=== PATIENT | female | born 1960 | race Caucasian/White ===

== ENCOUNTER 2020-08-27 05:58 | Emergency (ER) | payer BC, SELFPAY ==
--- NOTE | ~2020-08-27 | XR_ITS ---
EXAMINATION: CHEST 1 VIEW CLINICAL INFORMATION: Shortness of breath. COMPARISON: 07/26/2016. TECHNIQUE: An AP view of the chest is provided. FINDINGS: The cardiac silhouette is not enlarged. The mediastinal and hilar contours are unremarkable. There are neither pleural effusions nor pneumothoraces. There are no consolidations. The osseous structures are unremarkable. XR/XR chest 1V IMPRESSION: No evidence for acute disease.
[2020-08-27 06:19] VITALS: BP 132/84; PULSE 107; RESP 20; TEMP 36.6; O2SAT 96; BMI 46.7
--- NOTE | 2020-08-27 06:25 | ECG_ITS ---
Test Reason : SOB Blood Pressure : / mmHG Vent. Rate : 093 BPM Atrial Rate : 093 BPM P-R Int : 144 ms QRS Dur : 082 ms QT Int : 366 ms P-R-T Axes : 021 000 003 degrees QTc Int : 455 ms Normal sinus rhythm Nonspecific ST and T wave abnormality Borderline ECG No significant changes when compared with the previous EKG of 26 jul 2016 Referred By: Isabel Hale Electronically Signed By:RAISSA HILL
--- NOTE | 2020-08-27 06:52 | ED_ITS ---
HPI - General Adult General Chief complaint: General Medical Stated complaint: Sob Time Seen by Provider: 08/27/20 06:25 Source: patient Mode of arrival: ambulatory Limitations: no limitations History of Present Illness HPI narrative: This is a 59-year-old female who walked into the emergency department for evaluation of chest pressure with shortness of breath. 59-year-old female came in for chest pressure and shortness of breath started at 04:00 while she was sleeping and woke her up from sleep, patient describes the pain as a pressure on the whole entire chest, associated with cannot take a deep breath patient walked around then and relieved the pain, patient went to the bathroom had a runny bowel movement then the symptoms improved. With no radiation to the chest pressure, the chest pressure has resolved now, when patient walked around the pressure and the shortness of breath improved. Patient had atypical chest pain 3 years ago that was evaluated by swamper patient had an echocardiogram which was unremarkable patient remained asymptomatic for the last 3 years, patient admitted to stress in her life now because she is selling her house. Patient declined lower extremities pain or swelling, no recent travel. Related Data Home Medications Medication Instructions Recorded Confirmed atorvastatin 1 tab PO DAILY 08/27/20 08/27/20 citalopram 1 tab PO DAILY 08/27/20 08/27/20 Allergies Allergy/AdvReac Type Severity Reaction Status Date / Time meperidine [From DEMEROL] Allergy Unknown UNKNOWN Verified 08/27/20 06:30 Benadryl Allergy Unknown Unknown Uncoded 08/27/20 06:30 Review of Systems Review of Systems: All other systems are reviewed and are negative Constitutional: Reports as per HPI and Reports no additional constitutional complaints Eyes: Reports as per HPI and Reports no additional eye complaints Reports system reviewed and no additional complaints, except as documented Cardiovascular: Reports as per HPI and Reports no additional cardiovascular complaints Respiratory: Reports as per HPI and Reports no additional respiratory complaints Gastrointestinal: Reports as per HPI and Reports no additional gastrointestinal complaints Genitourinary: Reports no additional female genitourinary complaints Musculoskeletal: Reports no additional musculoskeletal complaints Skin/Breast: Reports system reviewed and no additional complaints, except as docu Psychiatric: Reports no additional psychiatric complaints Endocrine: Reports no additional endocrine complaints Hematologic/Lymphatic: Reports no additional hematologic/lymphatic complaints Allergic/Immunologic: Reports no additional allergic/immunologic complaints Reports system reviewed and no additional complaints, except as documented and Reports Abnormal speech present [facility] Past Medical History Medical History Asthma delivery delivered High cholesterol Obesity Surgical History H/O foot surgery H/O tubal ligation Social History Social History Advance Directives: No Physical Exam Vital Signs: Vital Signs: Last Vital Signs Temp 97.9 F 08/27/20 06:19 Pulse 71 08/27/20 10:00 Resp 12 08/27/20 10:00 BP 114/73 08/27/20 10:00 Pulse Ox 96 08/27/20 06:19 Body Mass Index 46.7 Vital signs have been reviewed as appeared to be correct. Blood pressure in the high range. Heart rate is elevated. Respiration rate normal. Temperature normal. Oxygen saturation normal. Appearance: Alert. Oriented X3. No acute distress. Appear anxious Head: Normal external exam. Normocephalic. Atraumatic. No Santana signs noted. No raccoon eyes noted Eyes: PERRLA. EOMI. Conjunctiva and sclera normal. Eyelids normal. ENT: TM's Normal. Pharynx normal. Uvula midline. Moist mucous membranes. No trismus noted. No drooling noted. No muffled voice noted. Neck: Normal inspection. Neck supple. FROM. No adenopathy. Thyroid Normal. No meningeal signs. No neck mass noted. CVS: Normal heart rate and rhythm. Heart sound normal. No murmurs noted. Pulses normal throughout. Respiratory: No respiratory distress. Painless inspiration. Breath sounds normal. No wheezes/rales/rhonchi noted. Chest nontender. No accessory muscle usage noted or decreased air movement noted. Abdomen: Soft and nontender. Bowel sounds normal in all 4 quadrants. No distention noted. No organomegaly noted. No visible injury noted. Back: No CVA tenderness. Full range of motion noted. Skin: Skin warm and dry. Normal skin color. Normal skin turgor. No rashes/lesions/lacerations noted. Extremities: No lower extremity edema. Extremities exhibit normal range of motion. Extremities nontender. Neuro: Oriented X 3. No motor deficit. No sensory deficit. Reflexes normal. Course Course Course Narrative: Assessment and plan. 59-year-old female came in with chest pain and difficulty breathing, patient had unremarkable EKG, with 2-troponin with 3 hours apart, patient also had a nega tive D-dimer, HEART score is 1, patient was observed in the emergency department for 5 hours patient has remained chest pain-free and no symptoms. Symptoms could be related to patient's anxiety. Will discharge the patient to follow-up with PCP. Medical Decision Making Lab Data Lab results reviewed: Yes I reviewed the patient's lab results. Result diagrams: 08/27/20 07:46 08/27/20 07:46 Labs: Lab Results 08/27/20 08/27/20 08/27/20 Range/Units 07:46 07:46 07:46 WBC 8.2 (4.8-10.8) X10*3/uL RBC 4.23 (4.20-5.50) X10*6/uL Hgb 12.1 (12.0-16.0) g/dl Hct 38.3 (37-47) % MCV 90.5 (80-98) fL MCH 28.6 (27.0-33.0) pg MCHC 31.6 (31.0-35.0) g/dl RDW 13.8 (11.0-16.0) % Plt Count 235 (160-400) X10*3/uL MPV 11.1 (9.4-12.3) fL Immature Gran % (Auto) 0.4 (0.0-0.4) % Neut % (Auto) 72.4 (45-73) % Lymph % (Auto) 18.0 L (20-40) % [place] % (Auto) 7.6 (2-11) % Eos % (Auto) 1.2 (0-4) % Baso % (Auto) 0.4 (0-2) % Lymph # (Auto) 1.5 (1.2-4.9) X10*3/uL [place] # (Auto) 0.6 (0.1-1.2) X10*3/uL Eos # (Auto) 0.1 (0.0-0.4) X10*3/uL Baso # (Auto) 0.0 (0.0-0.2) X10*3/uL Abs Immat Gran (auto) 0.03 (0.00-0.03) X10*3/uL Absolute Neuts (auto) 6.0 (2.0-8.3) X10*3/uL Absolute Nucleated RBC 0.000 (0.0-0.012) X10*3/uL Nucleated RBC % (auto) 0.0 (0.0-0.2) /100WBC D-Dimer NG/ML Sodium 141 (135-145) mmol/L Potassium 4.5 (3.3-5.1) mmol/L Chloride 104 (96-108) mmol/L Carbon Dioxide 25 (22-29) mmol/L Anion Gap 17 (12-20) BUN 15 (9-16) mg/dL Creatinine 0.74 (0.5-1.4) mg/dL Estim Creat Clear Calc 113.9 Estimated GFR > 60 Random Glucose 159 H (60-115) mg/dL Calcium 8.9 (8.4-10.2) mg/dL Total Bilirubin 0.3 (0.0-1.0) mg/dL Direct Bilirubin < 0.2 (0.0-0.5) mg/dL AST 17 (5-31) U/L ALT 15 (0-31) U/L Alkaline Phosphatase 116 (39-117) U/L Troponin I High Sens < 3.5 (<3.5-17.0) ng/L B-Natriuretic Peptide < 10 (<100) pg/mL Total Protein 6.8 (6.5-8.0) g/dL Albumin 4.0 (3.5-5.0) g/dL Lipase (8-78) U/L Urine Color Urine Appearance Urine pH (5.0-8.0) Ur Specific [place] (1.005-1.025) Urine Protein (NEG-TRACE) MG/DL Urine Glucose (UA) (NEG) MG/DL Urine Ketones (NEG) MG/DL Urine Blood (NEG) Urine Nitrite (NEG) Ur Leukocyte Esterase (NEG) 08/27/20 08/27/20 08/27/20 Range/Units 07:46 08:46 09:21 WBC (4.8-10.8) X10*3/uL RBC (4.20-5.50) X10*6/uL Hgb (12.0-16.0) g/dl Hct (37-47) % MCV (80-98) fL MCH (27.0-33.0) pg MCHC (31.0-35.0) g/dl RDW (11.0-16.0) % Plt Count (160-400) X10*3/uL MPV (9.4-12.3) fL Immature Gran % (Auto) (0.0-0.4) % Neut % (Auto) (45-73) % Lymph % (Auto) (20-40) % [place] % (Auto) (2-11) % Eos % (Auto) (0-4) % Baso % (Auto) (0-2) % Lymph # (Auto) (1.2-4.9) X10*3/uL [place] # (Auto) (0.1-1.2) X10*3/uL Eos # (Auto) (0.0-0.4) X10*3/uL Baso # (Auto) (0.0-0.2) X10*3/uL Abs Immat Gran (auto) (0.00-0.03) X10*3/uL Absolute Neuts (auto) (2.0-8.3) X10*3/uL Absolute Nucleated RBC (0.0-0.012) X10*3/uL Nucleated RBC % (auto) (0.0-0.2) /100WBC D-Dimer < 200 NG/ML Sodium (135-145) mmol/L Potassium (3.3-5.1) mmol/L Chloride (96-108) mmol/L Carbon Dioxide (22-29) mmol/L Anion Gap (12-20) BUN (9-16) mg/dL Creatinine (0.5-1.4) mg/dL Estim Creat Clear Calc Estimated GFR Random Glucose (60-115) mg/dL Calcium (8.4-10.2) mg/dL Total Bilirubin (0.0-1.0) mg/dL Direct Bilirubin (0.0-0.5) mg/dL AST (5-31) U/L ALT (0-31) U/L Alkaline Phosphatase (39-117) U/L Troponin I High Sens (<3.5-17.0) ng/L B-Natriuretic Peptide (<100) pg/mL Total Protein (6.5-8.0) g/dL Albumin (3.5-5.0) g/dL Lipase 17 (8-78) U/L Urine Color YELLOW Urine Appearance CLEAR Urine pH 8.5 H (5.0-8.0) Ur Specific [place] 1.015 (1.005-1.025) Urine Protein NEG (NEG-TRACE) MG/DL Urine Glucose (UA) NEG (NEG) MG/DL Urine Ketones NEG (NEG) MG/DL Urine Blood NEG (NEG) Urine Nitrite NEG (NEG) Ur Leukocyte Esterase NEG (NEG) Imaging Data Chest x-ray: Radiologist's impression: No evidence for acute disease. ECG Data Interpretation: Normal sinus rhythm at 93 beats per minutes, normal intervals, no ST-T changes. Discharge Plan Discharge Clinical Impression: Chest pain Patient Disposition: Home, Self-Care Instructions: Chest Pain (ED) Prescriptions: No Action atorvastatin 40 mg tablet 1 tab PO DAILY RF: 0 citalopram 20 mg tablet 1 tab PO DAILY RF: 0 Referrals: Yamil Bills MD [Physician] - 2 days
[2020-08-27 07:50] LABS: MANUAL DIFF FLAG NO
--- NOTE | 2020-08-27 07:50 | PC.NURSE ---
Pt alert, oriented x 3. States she is not experiencing as much SOB as earlier today. Pt does not want to be tested for COVID while in ER today. MD aware, states it is ok not to test.
[2020-08-27 08:00] LABS: Basophils Percent Auto 0.4 % (0-2); Eosinophils Absolute Auto 0.1 X10*3/uL (0.0-0.4); Eosinophils Percent Auto 1.2 % (0-4); Hematocrit 38.3 % (37-47); Hemoglobin 12.1 g/dl (12.0-16.0); Imm Gran Abs Auto 0.03 X10*3/uL (0.00-0.03); Imm Gran Pct Auto 0.4 % (0.0-0.4); Lymphocytes Absolute Auto 1.5 X10*3/uL (1.2-4.9); Mean Corpuscular HGB Conc 31.6 g/dl (31.0-35.0); Mean Corpuscular Hemoglobin 28.6 pg (27.0-33.0); Mean Corpuscular Volume 90.5 fL (80-98); Mean Platelet Volume 11.1 fL (9.4-12.3); Monocytes Absolute Auto 0.6 X10*3/uL (0.1-1.2); Monocytes Percent Auto 7.6 % (2-11); Neutrophils Percent Auto 72.4 % (45-73); Platelet Count 235 X10*3/uL (160-400); Red Blood Count 4.23 X10*6/uL (4.20-5.50); Red Cell Distribution Width 13.8 % (11.0-16.0); White Blood Count 8.2 X10*3/uL (4.8-10.8)
[2020-08-27 08:13] LABS: Alanine Aminotransferase 15 U/L (0-31); Alkaline Phosphatase 116 U/L (39-117); Anion Gap 17 (12-20); Aspartate Amino Transferase 17 U/L (5-31); Bilirubin Direct < 0.2 mg/dL (0.0-0.5); Bilirubin Total 0.3 mg/dL (0.0-1.0); Blood Urea Nitrogen 15 mg/dL (9-16); Calcium 8.9 mg/dL (8.4-10.2); Carbon Dioxide 25 mmol/L (22-29); Chloride 104 mmol/L (96-108); Creatinine Clr Calc Pharmacy 113.9; Estimated Glomerular Filt Rate > 60; Glucose Random 159 mg/dL (60-115); Lipase 17 U/L (8-78); Potassium 4.5 mmol/L (3.3-5.1); Sodium 141 mmol/L (135-145); Total Protein 6.8 g/dL (6.5-8.0)
[2020-08-27 08:16] LABS: B Type Natriuretic Peptide < 10 pg/mL (<100); Troponin-I High Sensitivity < 3.5 ng/L (<3.5-17.0)
[2020-08-27 08:59] LABS: Glucose Urine UA NEG (NEG); Leukocyte Esterase Urine NEG (NEG); Nitrite Urine NEG (NEG); PH 8.5 (5.0-8.0); Specific Gravity - Urine 1.015 (1.005-1.025); Urine Blood NEG (NEG); Urine Ketones NEG (NEG); Urine Protein NEG (NEG-TRACE)
[2020-08-27 09:01] LABS: Appearance Urine CLEAR; Color Urine YELLOW
[2020-08-27 09:43] LABS: D Dimer < 200 NG/ML
[2020-08-27 10:00] VITALS: BP 114/73; PULSE 71; RESP 12
[2020-08-27 11:58] LABS: Troponin-I High Sensitivity < 3.5 ng/L (<3.5-17.0)
== END 2020-08-27 12:14 | disposition home or self-care (01) ==
PROVIDERS: Student in an Organized Health Care Education/Training Program; Emergency Provider Emergency Medicine; PCP Hospitalist
DX: R07.9 Chest pain, unspecified (principal); J45.909 Unspecified asthma, uncomplicated; E78.5 Hyperlipidemia, unspecified; Z79.02 Long term (current) use of antithrombotics/antiplatelets
CPT/HCPCS: 36415; 71045; 80053; 80076; 81003; 82248; 83690; 83880; 84484; 85025; 85379; 93005; 99283; 99284

== ENCOUNTER 2024-05-02 10:40 | Emergency (ER) | payer MEDICARE, SELFPAY ==
--- NOTE | ~2024-05-02 | XR_ITS ---
EXAMINATION: XR CHEST CLINICAL INFORMATION: cp COMPARISON: Chest radiograph 08/27/2020 TECHNIQUE: Frontal view of the chest was obtained. FINDINGS: No focal consolidation. No pneumothorax. Trachea is midline. Cardiomediastinal silhouette is stable. No large pleural effusion. Osseous structures are intact. Soft tissues are unremarkable. XR/XR chest 1V IMPRESSION: No acute cardiopulmonary process. Electronically signed by: Tra Dubose MD 05/02/2024 12:36 PM A[facility]ON
--- NOTE | 2024-05-02 10:41 | ECG_ITS ---
Test Reason : CP Blood Pressure : / mmHG Vent. Rate : 078 BPM Atrial Rate : 078 BPM P-R Int : 156 ms QRS Dur : 088 ms QT Int : 398 ms P-R-T Axes : 003 -04 008 degrees QTc Int : 453 ms Normal sinus rhythm Nonspecific T wave abnormality Abnormal ECG When compared with ECG of 27-AUG-2020 07:18, Nonspecific T wave abnormality, worse in Anterior leads Referred By: Generic ED Physician Electronically Signed By:RAISSA HILL
[2024-05-02 11:04] VITALS: BP 110/57; PULSE 71; RESP 18; TEMP 36.6; O2SAT 97; BMI 49.9
[2024-05-02 11:22] LABS: MANUAL DIFF FLAG NO
[2024-05-02 11:23] LABS: Basophils Absolute Auto 0.1 X10*3/uL (0.0-0.2); Basophils Percent Auto 0.6 % (0-2); Eosinophils Absolute Auto 0.2 X10*3/uL (0.0-0.4); Eosinophils Percent Auto 1.8 % (0-4); Hematocrit 34.8 % (37.0-47.0); Hemoglobin 11.2 g/dl (12.0-16.0); Imm Gran Abs Auto 0.03 X10*3/uL (0.00-0.03); Imm Gran Pct Auto 0.3 % (0.0-0.4); Lymphocytes Absolute Auto 1.7 X10*3/uL (1.2-4.9); Lymphocytes Percent Auto 19.6 % (20-40); Mean Corpuscular HGB Conc 32.2 g/dl (31.0-35.0); Mean Corpuscular Hemoglobin 28.3 pg (27.0-33.0); Mean Corpuscular Volume 87.9 fL (80.0-98.0); Mean Platelet Volume 10.6 fL (9.4-12.3); Monocytes Absolute Auto 0.6 X10*3/uL (0.1-1.2); Monocytes Percent Auto 6.8 % (2-11); Neutrophils Absolute Auto 6.2 x10*3/uL (2.0-8.3); Neutrophils Percent Auto 70.9 % (45-73); Platelet Count 248 X10*3/uL (160-400); Red Blood Count 3.96 X10*6/uL (4.20-5.50); Red Cell Distribution Width 14.5 % (11.0-16.0); White Blood Count 8.8 X10*3/uL (4.8-10.8)
--- OUTSIDE RECORDS SUMMARY | 2024-05-02 11:23 | XMS_ITS | Continuity of Care Document ---
Author Organization [facility] Shine Singh Paulino lt Address [address] [place] [address]- Care Team Providers Care Motor Vehicle Salesperson Name Role Phone Bill RODRIGUEZ, Andrade Green Primary Care Physician Encounter [facility] [place] Date(s): 03/08/24 - 04/07/24 [facility] Shine Singh Adult [address] [place] [address]- Allergies, Adverse Reactions, Alerts Substance Reaction Severity Status CeleBREX Pain with burning in chest and arms and l ightheaded Active Demerol Vomiting Swelling Active Immunizations Given and Recorded Vaccine Date Status Refusal Reason influenza virus vaccine, inactivated 03/23/24 Marty rded influenza virus vaccine, inactivated 03/21/22 Give n influenza virus vaccine, inactivated 03/25/21 Marty rded influenza virus vaccine, inactivated 03/02/20 Marty rded influenza virus vaccine, inactivated 03/11/19 Marty rded influenza virus vaccine, inactivated 05/15/18 Marty rded zoster vaccine, inactivated 03/23/24 Recorded tetanus-diphtheria toxoids (Td) 1 12/16/21 Given pneumococcal 20-valent conjugate vaccine 2 12/16/21 Given SARS-CoV-2 (COVID-19) mRNA BNT-162b2 vac 03/25/21 Recorded SARS-CoV-2 (COVID-19) mRNA BNT-162b2 vac 03/08/21 Recorded SARS-CoV-2 (COVID-19) mRNA BNT-162b2 vac 08/29/20 Recorded SARS-CoV-2 (COVID-19) mRNA BNT-162b2 vac 08/08/20 Recorded tetanus/diphtheria/pertussis, acel(Tdap) 03/18/10 Recorded 1Result Comment: [id number] 2Result Comment: [id number] Medications Albuterol (Eqv-ProAir HFA) 90 mcg/inh inhalation aerosol 2 puffs, Inhalation, Every 6 hours, PRN Wheezing/Shortness of Breath, # 8.5 Gm, 5 Refills, Maintenance, 02/13/24 15:16:00 EDT, Inhaler, [facility]/pharmacy #[id number], Partial fill upon patient request if the prescription is for a schedule II opioid drug., 2 puff... Start Date: 02/13/24 Status: Ordered atorvastatin 80 mg oral tablet 1 tablet = 80 mg, By Mouth, Daily, # 90 tablet, 3 Refills, Maintenance, 03/22/24 13:33:00 EDT, Tablet, [id number], Partial fill upon patient request if the prescription is for a schedule II opioid drug., 165, cm, 02/29/24 11:03:00 EDT, Height,... Start Date: 03/22/24 Status: Ordered citalopram 20 mg oral tablet 1 tablet, By Mouth, Daily, # 90 tablet, 1 Refills, Maintenance, 01/09/24 11:30:00 EDT, [id number], 164.1, cm, 12/11/23 13:49:00 EDT, Height, 121.2, kg, 01/30/23 12:56:00 EDT, Dry Weight Start Date: 01/09/24 Status: Ordered clopidogrel 75 mg oral tablet 75 mg, 1, tablet, By Mouth, Daily, # 30 tablet, Refills 5, Tot. Refills 5, Maintenance, 03/01/24 14:22:00 EDT, Route to Pharmacy Electronically, [facility]/pharmacy #[id number], Partial fill upon patient request if the prescription is for a schedule II opioid drug... Start Date: 03/01/24 Status: Ordered Eliquis 5 mg oral tablet 1 tablet = 5 mg, By Mouth, 2 times a day, # 60 tablet, 5 Refills, Maintenance, 01/29/24 2:31:00 EDT, Tablet, Partial fill upon patient request if the prescription is for a schedule II opioid drug. Start Date: 01/29/24 Status: Ordered levothyroxine 0.05 mg oral tablet 1 tablet, By Mouth, Daily, # 90 tablet, 1 Refills, Maintenance, 01/12/24 12:08:00 EDT, [id number], 164.1, cm, 12/11/23 13:49:00 EDT, Height, 121.2, kg, 01/30/23 12:56:00 EDT, Dry Weight Start Date: 01/12/24 Status: Ordered metoprolol 25 mg oral tablet 12.5 mg, 0.5, tablet, By Mouth, Every 6 hours, PRN, # 180 tablet, Refills 0, Maintenance, tachycardia, 02/13/24 14:54:00 EDT, Partial fill upon patient request if the prescription is for a schedule II opioid drug. Start Date: 02/13/24 Status: Ordered metoprolol 50 mg oral tablet, extended release 50 mg, 1, tablet, By Mouth, Daily, # 30 tablet, Refills 0, Tot. Refills 0, Maintenance, 02/29/24 11:06:00 EDT, Route to Pharmacy Electronically, [facility]/pharmacy #[id number], Partial fill upon patient request if the prescription is for a schedule II opioid drug... Start Date: 02/29/24 Status: Ordered nitroglycerin 0.4 mg sublingual tablet 1 tablet = 0.4 mg, Sublingual, Every 5 minutes, PRN as needed for chest pain, not to exceed 3 doses/15 min--if pain persists, seek medical attention, # 30 tablet, 11 Refills, Maintenance, 02/24/24 6:27:00 EDT, Tablet, [facility]/pharmacy #[id number], Partial fill... Start Date: 02/24/24 Status: Ordered omeprazole 40 mg oral enteric coated capsule 1 capsule = 40 mg, By Mouth, Daily, # 90 capsule, 3 Refills, Maintenance, 12/28/21 6:48:00 EDT, EC Capsule, [facility], Partial fill upon patient request if the prescription is fora schedule II opioid drug., 165.1, cm, 12/24/21 7:4... Start Date: 12/28/21 Status: Ordered Ozempic 2 mg/1.5 mL (0.25 mg or 0.5 mg dose) subcutaneous solution = 0.25 mg, Subcutaneous Injection, Every week, rotate injection sites; for treatment of T2DM E11.9,# 2 mL, 5 Refills, Maintenance, 08/15/23 10:50:00 EDT, Solution, [id number], Partial fill upon patient request if the prescription is for a apoorva... Start Date: 08/15/23 Status: Ordered ranolazine 500 mg oral tablet, extended release 1 tablet = 500 mg, By Mouth, 2 times a day, # 60 tablet, 5 Refills, Maintenance, 03/08/24 17:52:00 EDT, ER Tablet, [id number], Partial fill upon patient request if the prescription is for a schedule II opioid drug., 165, cm, 02/29/24 11:03:00... Start Date: 03/08/24 Status: Ordered Problem List Condition Confirmation Course Effective Dates Status H ealth Status Informant Asthma Confirmed Active Morbid obesity with BMI of 40.0-44.9, adult Confirmed Active GERD (gastroesophageal reflux disease) Confirmed Active Hyperlipidemia Confirmed Active HTN (hypertension) Confirmed Active Hypothyroidism Confirmed Active Chronic anticoagulation Confirmed Active Lumbar radiculopathy Confirmed Active Mild major depression Confirmed Active PAF (paroxysmal atrial fibrillation) Confirmed Active S/P PTCA (percutaneous transluminal coronary angioplasty) Confirmed Active Severe obesity Confirmed Active Type 2 diabetes mellitus Confirmed Active Social History Social History Type Response Smoking Status Former smoker, quit more than 30 days ago; Other: quit 20 years ago. chews nicotene gum; entered on: 01/12/23 Sex Patient Care team information Care Team Personnel Name: Sixto Slaughter RN Position: S RN Member Role: Primary Care Nurse Name: Isabel Oteor RN Position: S RN Member Role: Primary Care Nurse Name: Andrade Khan MD Position: [facility] Physician - Primary Care Member Role: PCP Address: Address: [address] [place] [id number] Name: Mirta Parker RN Position: S RN Member Role: Primary Care Nurse Name: Cassie Haas RN Position: S RN Member Role: Primary Care Nurse Name: Jenna Blevins RN Position: S RN Member Role: Primary Care Nurse Name: Patricia Diaz LPN Position: S RN Member Role: Primary Care Nurse Care Team Related Persons Name: CAMACHO VERNON Address: [address] [address] [place]
--- OUTSIDE RECORDS SUMMARY | 2024-05-02 11:23 | XMS_ITS | Continuity of Care Document ---
Author Organization [facility] ter Address [address] [place] [id number]- Care Team Providers Care Dispensing Lead Name Role Phone Andrade Khan MD Primary Care Physician [place] [facility] [place] - 08/25/[address] [address]- Discharge Disposition: A-D/C Home Attending Physician: Viviane Carr DO Admitting Physician: Viviane Carr DO Referring Physician: Viviane Carr DO Allergies, Adverse Reactions, Alerts Substance Reaction Severity Status Demerol high fevers, swollen Active Immunizations Given and Recorded Vaccine Date Status Refusal Reason SARS-CoV-2 (COVID-19) mRNA BNT-162b2 vac 08/29/20 Recorded SARS-CoV-2 (COVID-19) mRNA BNT-162b2 vac 08/08/20 Recorded influenza virus vaccine, inactivated 03/02/20 Marty rded influenza virus vaccine, inactivated 03/11/19 Marty rded influenza virus vaccine, inactivated 05/15/18 Marty rded tetanus/diphtheria/pertussis, acel(Tdap) 03/18/10 Recorded Medications Albuterol (Eqv-ProAir HFA) 2 puffs, Inhalation, Every 6 hours, PRN Wheezing/Shortness of Breath, 0 Refills, Maintenance, 08/17/21 15:10:00 EDT, Partial fill upon patient request if the prescription is for a schedule II opioid drug. Start Date: 08/17/21 Status: Ordered albuterol 0.083% inhalation solution 3 mL = 2.5 mg, Inhalation, Every 6 hours, PRN for wheezing, # 60 each, 1 Refills, Maintenance, 03/12/21 15:56:00 EDT, Solution, [facility] # 50, Partial fill upon patient request if the prescription is for a schedule II opioid drug., 164, cm, ... Start Date: 03/12/21 Status: Ordered atorvastatin 40 mg oral tablet 1 tablet = 40 mg, By Mouth, Daily, # 90 tablet, 3 Refills, Maintenance, 12/04/20 10:54:00 EDT, Tablet, [facility], Partial fill upon patient request if the prescription is for a schedule II opioid drug., 164, cm, 12/04/20 10:03:00 E... Start Date: 12/04/20 Status: Ordered CeleXA 20 mg oral tablet 20 mg, 1, tablet, By Mouth, Daily, # 90 tablet, Refills 3, Tot. Refills 3, Maintenance, 12/04/20 10:55:00 EDT, Route to Pharmacy Electronically, [facility], Partial fill upon patient request if the prescription is for a schedule II... Start Date: 12/04/20 Status: Ordered levothyroxine 0.05 mg oral tablet 1 tablet = 50 mcg, By Mouth, Daily, # 90 tablet, 3 Refills, Maintenance, 01/28/21 9:57:00 EDT, Tablet, [facility], Partial fill upon patient request if the prescription is for a schedule II opioid drug., lynne Sigala, 01/28/21 9:30:00 ED... Start Date: 01/28/21 Status: Ordered metFORMIN 500 mg oral tablet 1 tablet = 500 mg, By Mouth, 2 times a day, # 180 tablet, 3 Refills, Maintenance, 01/28/21 9:56:00 EDT, Tablet, [facility], Partial fill upon patient request if the prescription isfor a schedule II opioid drug., 164 cm, 01/28/21 9... Start Date: 01/28/21 Status: Ordered Nebulizer/Compressor See Instructions, # 1 each, Refills 0, Tot. Refills 0, Maintenance, (with all equipment) As directed for albuterol solution, Dx: Asthma, 03/12/21 15:47:00 EDT, Supply, 164, cm, 03/12/21 15:26:00 EDT,Height Start Date: 03/12/21 Status: Ordered Nebulizer/Compressor See Instructions, # 1 each, Refills 0, Tot. Refills 0, Maintenance, (with all equipment) As directed for albuterol solution, Dx: Asthma, 03/12/21 15:54:00 EDT, Supply Start Date: 03/12/21 Status: Ordered omeprazole 40 mg oral enteric coated capsule 1 capsule = 40 mg, By Mouth, Daily, # 90 capsule, 3 Refills, Maintenance, 12/04/20 10:55:00 EDT, ECCapsule, [facility], Partial fill upon patient request if the prescription is for a schedule II opioid drug., 164, cm, 12/04/20 10:0... Start Date: 12/04/20 Status: Ordered Problem List Condition Effective Dates Status Health Status Inform ant Morbid obesity with BMI of 4 0.0-44.9, adult(Confirmed) Active GERD (gastroesophageal reflu x disease)(Confirmed) Active Hyperlipidemia(Confirmed) Active Hypothyroidism(Confirmed) Active Lumbar radiculopathy(Confirmed) Active Mild major depression(Confirmed) Active Severe obesity(Confirmed) Active Type 2 diabetes mellitus(Confirmed) Active Vital Signs Most recent to oldest [Reference Range]: 1 2 3 Height 165.1 cm (08/25/21 9:33 AM) 165.1 cm (08/17/21 3:06 PM) Weight 124.8 kg (08/25/21 9:33 AM) 124.55 kg (08/17/21 3:06 PM) Oxygen Saturation [94-100 %] 97 % (08/25/21 12:15 PM) 95 % (08/25/21 12:00 PM) 96 % (08/25/21 11:45 AM) Pulse Rate [55-90 bpm] 80 bpm (08/25/21 9:33 AM) Body Mass Index [18.5-24.99] 45.78 *>HHI* (08/25/21 9:33 AM) 45.69 *>HHI* (08/17/21 3:06 PM) Blood Pressure [90-138/55-84 mm Hg] 114/70mm Hg (08/25/21 12:15 PM) 114/50mm Hg (08/25/21 12:00 PM) 120/57mm Hg (08/25/21 11:45 AM) Respiratory Rate [16-30 br/min] 19 br/min (08/25/21 12:15 PM) 10 br/min *L* (08/25/21 12:00 PM) 7 br/min *L* (08/25/21 11:45 AM) Temperature [96.8-100.4 DegF] 97.4 DegF (08/25/21 12:15 PM) 97.1 DegF (08/25/21 11:15 AM) 97.1 DegF (08/25/21 9:33 AM) Liters per Minute 3 L/min (08/25/21 11:30 AM) 3 L/min (08/25/21 11:15 AM) Mode of Delivery (Oxygen) Room air (08/25/21 1:15 PM) Room air (08/25/21 12:15 PM) Room air (08/25/21 12:00 PM) Blood pressure sites Arm, right (08/25/21 12:15 PM) Arm, right (08/25/21 12:00 PM) Arm, right (08/25/21 11:45 AM) Temperature Route Temporal (08/25/21 12:15 PM) Temporal (08/25/21 11:15 AM) Temporal (08/25/21 9:33 AM) Dry Weight 124.8 kg (08/25/21 9:33 AM) 124.55 kg (08/17/21 3:06 PM) Weight Obtained Via Standing scale (08/25/21 9:33 AM) Patient/family stated (08/17/21 3:06 PM) Dry Weight Obtained Via Standing scale (08/25/21 9:33 AM) Patient/family stated (08/17/21 3:06 PM) Social History Social History Type Response Smoking Status Former smoker, quit more than 30 days ago; Use: Quit 12 years ago entered on: 07/15/19 Sex
--- OUTSIDE RECORDS SUMMARY | 2024-05-02 11:23 | XMS_ITS | Continuity of Care Document ---
Author Organization [facility] Address [address], [address] [place] [address]- Care Team Providers Care Air Pollution Engineer Name Role Phone Andrade Khan MD [id number]): [facility] [address], [address] [place] [address]- Attending Physician: Sandy Figueroa MD Referring Physician: Andrade Khan MD Allergies, Adverse Reactions, Alerts Substance Reaction Severity [...] a schedule II opioid drug., lynne Sigala, ... Start Date: 03/12/21 Status: Ordered atorvastatin 40 mg oral tablet 1 tablet = 40 mg, By Mouth, Daily, # 90 tablet, 3 Refills, Maintenance, 12/04/20 10:54:00 EDT, Tablet, [facility], Partial fill upon patient request if the prescription is for a schedule II opioid drug., lynne Sigala, 12/04/20 10:03:00 E... Start Date: 12/04/20 Status: [...] prescription isfor a schedule II opioid drug., lynne Sigala, 01/28/21 9... Start Date: 01/28/21 Status: Ordered Nebulizer/Compressor See Instructions, # 1 each, Refills 0, Tot. Refills 0, Maintenance, (with all equipment) As directed for albuterol solution, Dx: Asthma, 03/12/21 15:47:00 EDT, Supply, 164 cm, 03/12/21 15:26:00 EDT,Height Start Date: 03/12/21 [...] obesity(Confirmed) Active Type 2 diabetes mellitus(Confirmed) Active Procedures Procedure Date Related Diagnosis Body Site Status Hysteroscopy and endometrial biopsy 08/25/21 Completed Vital Signs Most recent to oldest [Reference Range]: 1 Height 165.1 cm (10/15/21 9:12 AM) Weight 125 kg (10/15/21 9:12 AM) Pulse Rate [55-90 bpm] 112 bpm *H* (10/15/21 9:12 AM) Body Mass Index [18.5-24.99] 45.86 *>HHI* (10/15/21 9:12 AM) Blood Pressure [90-138/55-84 mm Hg] 126/ 78mm Hg (10/15/21 9:12 AM) Respiratory Rate [16-30 br/min] 28 br/mi n (10/15/21 9:12 AM) Blood pressure sites Arm, left (10/15/21 9:12 AM) Weight Obtained Via Standing scale (10/15/21 9:12 AM) Social History Social History Type Response Smoking Status Former smoker, quit more than 30 days ago; Use: Quit 12 years ago entered on: 07/15/19 Sex
--- OUTSIDE RECORDS SUMMARY | 2024-05-02 11:23 | XMS_ITS | Continuity of Care Document ---
Author Organization [facility] Francisco Paulino lt Address [address] [place] [address]- Care Team Providers Care Gang Supervisor Pipe Lines Name Role Phone Bill RODRIGUEZ, Andrade Green Primary Care Physician Encounter [facility] Date(s): 07/16/23 - 08/15/23 [facility] [place] Adult [address] [place] [address]- Allergies, Adverse Reactions, Alerts Substance Reaction Severity Status Demerol Vomiting Swelling Active CeleBREX Pain with burning in chest and arms and l ightheaded Active Immunizations Given and Recorded Vaccine Date Status Refusal Reason influenza virus vaccine, inactivated 03/21/22 Give n influenza virus vaccine, inactivated 03/25/21 Marty rded influenza virus vaccine, inactivated 03/02/20 Marty rded influenza virus vaccine, inactivated 03/11/19 Marty rded influenza virus vaccine, inactivated 05/15/18 Marty rded tetanus-diphtheria toxoids (Td) 1 12/16/21 Given pneumococcal 20-valent conjugate vaccine 2 12/16/21 Given SARS-CoV-2 (COVID-19) mRNA BNT-162b2 vac 03/25/21 Recorded SARS-CoV-2 (COVID-19) mRNA BNT-162b2 vac 03/08/21 Recorded SARS-CoV-2 (COVID-19) mRNA BNT-162b2 vac 08/29/20 Recorded SARS-CoV-2 (COVID-19) mRNA BNT-162b2 vac 08/08/20 Recorded tetanus/diphtheria/pertussis, acel(Tdap) 03/18/10 Recorded 1Result Comment: [id number] 2Result Comment: [id number] Medications Albuterol (Eqv-ProAir HFA) 90 mcg/inh inhalation aerosol 2 puffs, Inhalation, Every 6 hours, PRN Wheezing/Shortness of Breath, # 8.5 Gm, 5 Refills, Maintenance, 12/28/21 6:48:00 EDT, Inhaler, [facility], Partial fill upon patient requestif the prescription is for a schedule II opioid eduin... Start Date: 12/28/21 Status: Ordered albuterol 0.083% inhalation solution 3 mL = 2.5 mg, Inhalation, Every 6 hours, PRN for wheezing, # 60 each, 1 Refills, Maintenance, 03/12/21 15:56:00 EDT, Solution, [facility], Partial fill upon patient request if the prescription is for a schedule II opioid drug., 164, cm, 10/0... Start Date: 03/12/21 Status: Ordered atorvastatin 40 mg oral tablet 1 tablet, By Mouth, Daily, # 90 tablet, 1 Refills, Maintenance, 07/18/23 7:24:00 EST, [id number], 164.1, cm, 05/15/23 14:34:00 EST, Height, 121.2, kg, 01/30/23 12:56:00 EDT, Dry Weight Start Date: 07/18/23 Status: Ordered citalopram 20 mg oral tablet 1 tablet, By Mouth, Daily, # 90 tablet, 1 Refills, Maintenance, 07/18/23 7:24:00 EST, [facility] [id number], 164.1, cm, 05/15/23 14:34:00 EST, Height, 121.2, kg, 01/30/23 12:56:00 EDT, Dry Weight Start Date: 07/18/23 Status: Ordered levothyroxine 0.05 mg oral tablet 1 tablet, By Mouth, Daily, # 90 tablet, 1 Refills, Maintenance, 07/18/23 7:24:00 EST, [facility] [id number], 164.1, cm, 05/15/23 14:34:00 EST, Height, 121.2, kg, 01/30/23 12:56:00 EDT, Dry Weight Start Date: 07/18/23 Status: Ordered meloxicam 15 mg oral tablet 1 tablet, By Mouth, Daily, # 90 tablet, 3 Refills, Maintenance, 05/15/23 15:09:00 EST, [id number], 164.1, cm, 05/15/23 14:34:00 EST, Height, 121.2, kg, 01/30/23 12:56:00 EDT, Dry Weight Start Date: 05/15/23 Status: Ordered omeprazole 40 mg oral enteric [...] a apoorva... Start Date: 08/15/23 Status: Ordered Trulicity Pen 1.5 mg/0.5 mL subcutaneous solution See Instructions, INJECT 0.5 ML SUBCUTANEOUSLY EVERY WEEK ROTATE INJECTION SITES, # 2 Unknown, 5 Refills, Maintenance, 05/27/23 10:55:00 EST, [id number], 164.1, cm, 05/15/23 14:34:00 EST, Height, 121.2, kg, 01/30/23 12:56:00 EDT, Dry Weight Start Date: 05/27/23 Status: Ordered Vitamin D3 1000 intl units oral capsule 1 capsule = 25 mcg, By Mouth, Daily, # 100 capsule, 0 Refills, Maintenance, 01/12/23 11:26:00 EDT, Capsule, Partial fill upon patient request if the prescription is for a schedule II opioid drug. Start Date: 01/12/23 Status: Ordered Wegovy (0.5 mg dose) subcutaneous solution = 0.5 mg, Subcutaneous Injection, Every week, for 4 week(s), in the abdomen, thigh, or upper arm, #2 mL, 5 Refills, Acute 10/30/23 15:07:00 EDT, 05/15/23 15:07:00 EST, Solution, [id number], Partial fill upon patient request if the prescriptio... Start Date: 05/15/23 Stop Date: 10/30/23 Status: Ordered Problem List Condition Confirmation Course Effective Dates Status H ealth Status Informant Morbid obesity with BMI of 40.0-44.9, adult Confirmed Active GERD (gastroesophageal reflux disease) Confirmed Active Hyperlipidemia Confirmed Active Hypothyroidism Confirmed Active Lumbar radiculopathy Confirmed Active Mild major depression Confirmed Active Severe obesity Confirmed Active Type 2 diabetes mellitus Confirmed Active Social History Social History Type Response Smoking Status Former smoker, quit more than 30 days ago; Other: quit 20 years ago. chews nicotene gum; entered on: 01/12/23 Sex Patient Care team information Care Team Personnel Name: Sixto Slaughter RN Position: [facility] RN Member Role: Primary Care Nurse Name: Andrade Khan MD Position: [facility] Physician - Primary Care Member Role: PCP Address: Address: [address] [place] [id number]- Name: Mirta Parker RN Position: [facility] RN Member Role: Primary Care Nurse Care Team Related Persons Name: CAMACHO VERNON Address: home [address] [place] [id number] [place]
--- OUTSIDE RECORDS SUMMARY | 2024-05-02 11:23 | XMS_ITS | Continuity of Care Document ---
Author Organization [facility] Francisco Paulino lt Address [address] [place] [address]- Care Team Providers Care Mainspring Winder Name Role Phone Bill RODRIGUEZ, Andrade Green Primary Care Physician [phone] [place] [facility] Date(s): 07/01/22 - 07/31/22 [facility] [place] Adult [address] [place] [address]- Allergies, Adverse Reactions, Alerts Substance Reaction Severity Status Demerol Vomiting Swelling Active Immunizations Given and [...] Recorded tetanus/diphtheria/pertussis, acel(Tdap) 03/18/10 Recorded 1Result Comment: [id number] 2Result Comment: [id number] Medications Albuterol (Eqv-ProAir HFA) 90 mcg/inh inhalation [...] a schedule II opioid drug., 164, cm, 100... Start Date: 03/12/21 Status: Ordered Aspirin Enteric Coated 325 mg oral delayed release tablet See Instructions, 1 tablet By Mouth Daily, 0 Refills, Maintenance, 04/25/22 9:05:00 EST, Partial fill upon patient request if the prescription is for a schedule II opioid drug. Start Date: 04/25/22 Status: Ordered atorvastatin 40 mg oral tablet 1 tablet, By Mouth, Daily, # 90 tablet, 3 Refills, 12/28/21 6:48:00 EDT, [facility], 165.1, cm, 12/24/21 7:49:00 EDT, Height, 124.5, kg, 12/23/21 13:04:00 EDT, Dry Weight Start Date: 12/28/21 Status: Ordered CeleXA 20 mg oral tablet 20 mg, 1, tablet, By Mouth, Daily, # 90 tablet, Refills 3, Tot. Refills 3, Maintenance, 12/28/21 6:48:00 EDT, Route to Pharmacy Electronically, [facility], Partial fill upon patient request if the prescription is for a schedule II o... Start Date: 12/28/21 Status: Ordered levothyroxine 0.05 mg oral tablet 1 tablet = 50 mcg, By Mouth, Daily, # 90 tablet, 3 Refills, Maintenance, 12/28/21 6:48:00 EDT, Tablet, [facility], Partial fill upon patient request if the prescription is for a schedule II opioid drug., 165.1, cm, 12/24/21 7:49:00... Start Date: 12/28/21 Status: Ordered meloxicam 15 mg oral tablet 1 tablet = 15 mg, By Mouth, Daily, # 90 tablet, 1 Refills, Maintenance, 03/21/22 10:29:00 EDT, Tablet, [facility][id number], Partial fill upon patient request if the prescription is for a schedule II opioid drug., 165.1, cm, 03/21/22 10:07:00 EDT, Heigh... Start Date: 03/21/22 Status: Ordered naproxen 500 mg oral tablet 1 tablet = 500 mg, By Mouth, 2 times a day, # 60 tablet, 0 Refills, Maintenance, 04/25/22 7:12:00 EST, Tablet, Partial fill upon patient request if the prescription is for a schedule II opioid drug. Start Date: 04/25/22 Status: Ordered omeprazole 40 mg oral enteric coated capsule 1 capsule = 40 mg, By Mouth, Daily, # 90 capsule, 3 Refills, Maintenance, 12/28/21 6:48:00 EDT, EC Capsule, [facility], Partial fill upon patient request if the prescription is fora schedule II opioid drug., 165.1, cm, 12/24/21 7:4... Start Date: 12/28/21 Status: Ordered oxyCODONE 5 mg oral tablet See Instructions, PRN, 1-2 tablet By Mouth Every 4- 6 hours, Refills 0, Tot. Refills 0, Maintenance, for pain, 04/25/22 7:12:00 EST, Instructions Replace Required Details, Partial fill upon patient request if the prescription is for a schedule II opio... Start Date: 04/25/22 Status: Ordered Trulicity Pen 1.5 mg/0.5 mL subcutaneous solution 0.5 mL = 1.5 mg, Subcutaneous Injection, Every week, rotate injection sites, # 2 mL, 5 Refills, Maintenance, 03/21/22 10:31:00 EDT, Solution, [facility] #[id number], Partial fill upon patient request if the prescription is for a schedule II opioid drug.,... Start Date: 03/21/22 Status: Ordered Problem List Condition Confirmation Course [...] 12 years ago entered on: 07/15/19 Sex Patient Care team information Care Team Personnel Name: Branden TRAORE, Isabel Position: [facility] Nurse Member Role: Primary Care Nurse Name: Bill RODRIGUEZ, Andrade Green Position: [facility] Primary Care Physician Member Role: PCP Address: Address: [address] [place] [id number]- Care Team Related Persons Name: CAMACHO VERNON Address: home [address] [place] [id number] [place]
--- OUTSIDE RECORDS SUMMARY | 2024-05-02 11:23 | XMS_ITS | Continuity of Care Document ---
Author Organization [facility] Francisco Paulino lt Address [address] [place] [address]- Care Team Providers Care Fly Setter Name Role Phone Andrade Khan MD Primary Care Physician Encounter [facility] Date(s): 02/02/24 - 03/08/24 [facility] [place] [address] [place] [address]- Attending Physician: Andrade Khan MD Allergies, Adverse Reactions, [...] Recorded tetanus/diphtheria/pertussis, acel(Tdap) 03/18/10 Recorded 1Result Comment: [id number] 2Result Comment: [id number] Medications Albuterol (Eqv-ProAir HFA) 90 mcg/inh inhalation aerosol 2 puffs, Inhalation, Every 6 hours, PRN Wheezing/Shortness of Breath, # 8.5 Gm, 5 Refills, Maintenance, 02/13/24 15:16:00 EDT, Inhaler, [facility] #[id number], Partial fill upon patient request if the prescription is for a schedule II opioid drug., 2 puff... Start Date: 02/13/24 Status: Ordered atorvastatin 80 mg oral tablet 1 tablet = 80 mg, By Mouth, Daily, # 30 tablet, 5 Refills, Maintenance, 01/29/24 2:31:00 EDT, Tablet, Partial fill upon patient request if the prescription is for a schedule II opioid drug. Start Date: 01/29/24 Status: Ordered citalopram 20 mg oral tablet 1 tablet, By Mouth, Daily, # 90 tablet, 1 Refills, Maintenance, 01/09/24 11:30:00 EDT, [id number], 164.1, cm, 12/11/23 13:49:00 EDT, Height, 121.2, kg, 01/30/23 12:56:00 EDT, Dry Weight Start Date: 01/09/24 Status: Ordered clopidogrel 75 mg oral tablet 75 mg, 1, tablet, By Mouth, Daily, # 30 tablet, Refills 5, Tot. Refills 5, Maintenance, 03/01/24 14:22:00 EDT, Route to Pharmacy Electronically, [facility]/pharmacy #[id number], Partial fill upon patient request [...] tablet, 1 Refills, Maintenance, 01/12/24 12:08:00 EDT, [id number], 164.1, cm, 12/11/23 13:49:00 EDT, Height, 121.2, [...] 02/29/24 11:06:00 EDT, Route to Pharmacy Electronically, [facility]/pharmacy #[id number], Partial fill upon patient request if the prescription is for a schedule II opioid drug... Start Date: 02/29/24 Status: Ordered nitroglycerin 0.4 mg sublingual tablet 1 tablet = 0.4 mg, Sublingual, Every 5 minutes, PRN as needed for chest pain, not to exceed 3 doses/15 min--if pain persists, seek medical attention, # 30 tablet, 11 Refills, Maintenance, 02/24/24 6:27:00 EDT, Tablet, [id number], Partial fill... Start Date: 02/24/24 Status: [...] Refills, Maintenance, 03/08/24 17:52:00 EDT, ER Tablet, [facility]/pharmacy #[id number], Partial fill upon patient request [...] Member Role: Primary Care Nurse Name: Isabel Otero RN Position: S RN Member Role: Primary Care Nurse Name: Andrade Khan MD Position: [facility] Physician - Primary Care Member Role: PCP Address: Address: [address] [place] [id number] Name: Mirta Parker RN Position: S RN Member Role: Primary Care Nurse Name: Cassie Haas RN Position: S RN Member Role: Primary Care Nurse Name: Jenna Blevins RN Position: S RN Member Role: Primary Care Nurse Name: Patricia Diaz LPN Position: S RN Member Role: Primary Care Nurse Care Team Related Persons Name: CAMACHO VERNON Address: [address]
--- OUTSIDE RECORDS SUMMARY | 2024-05-02 11:24 | XMS_ITS | Continuity of Care Document ---
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 Role Phone Bill RODRIGUEZ, Andrade Green Primary Care Physician [phone] Encounter [facility] Date(s): 04/09/24 - 04/10/[address] [address]- Encounter Diagnosis Chest pain(Final) - 04/10/24 Discharge Disposition: A-D/C Home Attending Physician: Meghna Smith MD Admitting Physician: Jose Manuel Guillaume MD Referring Physician: Not on Staff, Referring MD Allergies, Adverse Reactions, Alerts Substance Reaction [...] Recorded tetanus/diphtheria/pertussis, acel(Tdap) 03/18/10 Recorded 1Result Comment: [id number] 2Result Comment: [id number] Medications Albuterol (Eqv-ProAir HFA) 90 mcg/inh inhalation aerosol 2 puffs, Inhalation, Every 6 hours, PRN Wheezing/Shortness of Breath, # 8.5 Gm, 5 Refills, Maintenance, 02/13/24 15:16:00 EDT, Inhaler, [facility]pharmacy #[id number], Partial fill upon patient request if the prescription is for a schedule II opioid drug., 2 puff... Start Date: 02/13/24 Status: Ordered atorvastatin 80 mg oral tablet 1 tablet = 80 mg, By Mouth, Daily, # 90 tablet, 3 Refills, Maintenance, 03/22/24 13:33:00 EDT, Tablet, [facility]/pharmacy #[id number], Partial fill upon patient request if the prescription is for a schedule II opioid drug., 165, cm, 02/29/24 11:03:00 EDT, Height,... Start Date: 03/22/24 Status: Ordered citalopram 20 mg oral tablet 1 tablet, By Mouth, Daily, # 90 tablet, 1 Refills, Maintenance, 01/09/24 11:30:00 EDT, [id number], 164.1, cm, 12/11/23 13:49:00 EDT, Height, 121.2, kg, 01/30/23 12:56:00 EDT, Dry Weight Start Date: 01/09/24 Status: Ordered clopidogrel 75 mg oral tablet 75 mg, 1, tablet, By Mouth, Daily, # 30 tablet, Refills 5, Tot. Refills 5, Maintenance, 03/01/24 14:22:00 EDT, Route to Pharmacy Electronically, [facility]/pharmacy #[id number], Partial fill upon patient request if [...] Refills, Maintenance, 01/12/24 12:08:00 EDT, [id number], 164.1, cm, 12/11/23 13:49:00 EDT, Height, 121.2, [...] 02/29/24 11:06:00 EDT, Route to Pharmacy Electronically, [facility]/pharmacy #[id number], Partial fill upon patient request if the prescription is for a schedule II opioid drug... Start Date: 02/29/24 Status: Ordered nitroglycerin 0.4 mg sublingual tablet 1 tablet = 0.4 mg, Sublingual, Every 5 minutes, PRN as needed for chest pain, not to exceed 3 doses/15 min--if pain persists, seek medical attention, # 30 tablet, 11 Refills, Maintenance, 02/24/24 6:27:00 EDT, Tablet, [facility]/pharmacy #[id number], Partial fill... Start Date: 02/24/24 Status: [...] 5 Refills, Maintenance, 08/15/23 10:50:00 EDT, Solution, [facility]/pharmacy #[id number], Partial fill upon patient request if the prescription is for a apoorva... Start Date: 08/15/23 Status: Ordered ranolazine 500 mg oral tablet, extended release 1 tablet = 500 mg, By Mouth, 2 times a day, # 60 tablet, 5 Refills, Maintenance, 03/08/24 17:52:00 EDT, ER Tablet, [facility]/pharmacy #[id number], Partial fill upon patient request if [...] Active Type 2 diabetes mellitus Confirmed Active Results Radiology Reports * Exam Date Time Procedure Performing Provider Status 04/09/24 10:[address] Angio Abdomen Keyonna Mayberry; Auth (Verified) Notes: (CT Angio Abdomen) Reason For Exam: Renal artery dissection suspected;Other: RESULT: CT Angio Abdomen PROCEDURE: CT Angio Chest, CT Angio Abdomen CLINICAL INDICATION: Sudden onset chest pain and shortness of breath and dizziness. Concern of acute nontraumatic aortic abnormality. TECHNIQUE: Examination performed through the thoracic aorta without contrast. During uneventful administration intravenous contrast, thin section axial images were obtained of the chest and abdomen in arterial phase. Multiplanar reformats were computed. 70 cc of Isovue 300 was administered intravenously. 3D and MIP reconstructions were performed. Weight-based protocol using automatic tube modulation was used to optimize exposure parameters. RADIATION DOSE PARAMETERS: CTDIvol Body: 6.56 mGy, DLP Body: 371 mGy*cm. COMPARISON: FINDINGS: CTA: Pulmonary arteries: No pulmonary embolism to the segmental level. Thoracic aorta: No thoracic aortic aneurysm or dissection. Abdominal aorta: No abdominal aortic aneurysm or dissection. Celiac axis: Normal. Superior mesenteric artery: Normal. Inferior mesenteric artery: Patent. Renal arteries: There are 2 patent renal arteries on each side. Image quality does not allow assessment for stenosis.. Visualized Iliac arteries: Normal diameter. OTHER FINDINGS: TRACHEA AND MAINSTEM BRONCHI: Patent without evidence of tracheal or endobronchial lesion. LUNGS AND PLEURA: Right Chest: The right lung is clear. There is no right pleural effusion. Left Chest: Mild atelectasis in the lingula. Otherwise lung is clear. There is no left pleural effusion. MEDIASTINUM AND BILL: The heart is of normal size. No pericardial effusion. Mild coronary calcification. There is no mediastinal or hilar adenopathy.. Moderate hiatal hernia. BONES OF THE CHEST: There is no thoracic spine compression fracture. No fracture ribs or sternum.. DIAPHRAGM: Unremarkable. LIVER: No significant focal abnormality. GALLBLADDER: Normal size. No calcified stones. BILE DUCTS: No biliary dilatation. SPLEEN: Normal size. No focal abnormality. PANCREAS: Normal. ADRENAL GLANDS: Normal. KIDNEYS AND URETERS: Right Kidney: Normal.. Left Kidney: Normal size. No hydronephrosis. 4 mm nonobstructing stone. 6 cm low-density abnormality in the renal hilum with density measuring approximately 40 Hounsfield units. STOMACH, SMALL BOWEL AND LARGE BOWEL: Stomach: Moderate type I hiatal hernia. Otherwise normal.. Small and Large Bowel: The visualized small and large bowel are normal. PERITONEUM, RETROPERITONEUM, OMENTUM AND MESENTERY: There is no free air. . There is no ascites. LYMPH NODES: No enlarged lymph nodes ABDOMINAL WALL: No abdominal wall hernia BONES OF THE ABDOMEN : There is no compression fracture. There is no spondylolysis or spondylolisthesis. IMPRESSION: CTA 1. No pulmonary embolism. 2. No thoracic aortic aneurysm or dissection. 3. No abdominal aortic aneurysm or dissection.. CHEST 1. No significant acute pulmonary, pleural, or mediastinal abnormality. 2. Moderate hiatal hernia. 3. No fracture. ABDOMEN 1. No acute abnormality to explain patient's symptoms.. 2. 6 cm indeterminate abnormality left kidney at the hilum. Location and shape could potentially reflect a parapelvic chest, but the density measurement is greater than fluid and could instead reflects soft tissue. Ultrasound could be considered in an attempt to prove that this is cystic or solid, but may be challenging due to body habitus. MRI may also be considered for further evaluation. WSN: [id number] Ordering Physician: Dacia Perez Dictated By: Tim Vallejo MD Dictated Date/Time: 04/10/24 9:37 am Reviewed By: Tim Vallejo MD Signed By: Tim Vallejo MD Signed Date/Time: 04/10/24 9:37 am Transcribed By: ASTER Transcribed Date/Time: 04/10/24 7:49 am * Exam Date Time Procedure Performing Provider Status 04/09/24 10:[address] Angio Chest Keyonna Mayberry; Auth ( Verified) Notes: (CT Angio Chest) Reason For Exam: Aortic disease, nontraumatic;Other: RESULT: CT Angio Chest PROCEDURE: CT Angio Chest, CT Angio Abdomen CLINICAL INDICATION: Sudden onset chest pain and shortness of breath and dizziness. Concern of acute nontraumatic aortic abnormality. TECHNIQUE: Examination performed through the thoracic aorta without contrast. During uneventful administration intravenous contrast, thin section axial images were obtained of the chest and abdomen in arterial phase. Multiplanar reformats were computed. 70 cc of Isovue 300 was administered intravenously. 3D and MIP reconstructions were performed. Weight-based protocol using automatic tube modulation was used to optimize exposure parameters. RADIATION DOSE PARAMETERS: CTDIvol Body: 6.56 mGy, DLP Body: 371 mGy*cm. COMPARISON: FINDINGS: CTA: Pulmonary arteries: No pulmonary embolism to the segmental level. Thoracic aorta: No thoracic aortic aneurysm or dissection. Abdominal aorta: No abdominal aortic aneurysm or dissection. Celiac axis: Normal. Superior mesenteric artery: Normal. Inferior mesenteric artery: Patent. Renal arteries: There are 2 patent renal arteries on each side. Image quality does not allow assessment for stenosis.. Visualized Iliac arteries: Normal diameter. OTHER FINDINGS: TRACHEA AND MAINSTEM BRONCHI: Patent without evidence of tracheal or endobronchial lesion. LUNGS AND PLEURA: Right Chest: The right lung is clear. There is no right pleural effusion. Left Chest: Mild atelectasis in the lingula. Otherwise lung is clear. There is no left pleural effusion. MEDIASTINUM AND BILL: The heart is of normal size. No pericardial effusion. Mild coronary calcification. There is no mediastinal or hilar adenopathy.. Moderate hiatal hernia. BONES OF THE CHEST: There is no thoracic spine compression fracture. No fracture ribs or sternum.. DIAPHRAGM: Unremarkable. LIVER: No significant focal abnormality. GALLBLADDER: Normal size. No calcified stones. BILE DUCTS: No biliary dilatation. SPLEEN: Normal size. No focal abnormality. PANCREAS: Normal. ADRENAL GLANDS: Normal. KIDNEYS AND URETERS: Right Kidney: Normal.. Left Kidney: Normal size. No hydronephrosis. 4 mm nonobstructing stone. 6 cm low-density abnormality in the renal hilum with density measuring approximately 40 Hounsfield units. STOMACH, SMALL BOWEL AND LARGE BOWEL: Stomach: Moderate type I hiatal hernia. Otherwise normal.. Small and Large Bowel: The visualized small and large bowel are normal. PERITONEUM, RETROPERITONEUM, OMENTUM AND MESENTERY: There is no free air. . There is no ascites. LYMPH NODES: No enlarged lymph nodes ABDOMINAL WALL: No abdominal wall hernia BONES OF THE ABDOMEN : There is no compression fracture. There is no spondylolysis or spondylolisthesis. IMPRESSION: CTA 1. No pulmonary embolism. 2. No thoracic aortic aneurysm or dissection. 3. No abdominal aortic aneurysm or dissection.. CHEST 1. No significant acute pulmonary, pleural, or mediastinal abnormality. 2. Moderate hiatal hernia. 3. No fracture. ABDOMEN 1. No acute abnormality to explain patient's symptoms.. 2. 6 cm indeterminate abnormality left kidney at the hilum. Location and shape could potentially reflect a parapelvic chest, but the density measurement is greater than fluid and could instead reflects soft tissue. Ultrasound could be considered in an attempt to prove that this is cystic or solid, but may be challenging due to body habitus. MRI may also be considered for further evaluation. WSN: [id number] Ordering Physician: Dacia Perez Dictated By: Tim Vallejo MD Dictated Date/Time: 04/10/24 9:37 am Reviewed By: Tim Vallejo MD Signed By: Tim Vallejo MD Signed Date/Time: 04/10/24 9:37 am Transcribed By: ASTER Transcribed Date/Time: 04/10/24 7:49 am Vital Signs Most recent to oldest [Reference Range]: 1 2 3 Height 165 cm (04/10/24 2:55 AM) 165 cm (04/09/24 3:53 PM) 165 cm (04/09/24 3:16 PM) Weight 124.5 kg (04/10/24 2:55 AM) 124.5 kg (04/09/24 3:53 PM) 124.5 kg (04/09/24 3:16 PM) Oxygen Saturation [94-100 %] 98 % (04/10/24 8:00 AM) 98 % (04/10/24 4:53 AM) 98 % (04/10/24 2:55 AM) Pulse Rate [55-90 bpm] 58 bpm (04/10/24 8:00 AM) 65 bpm (04/10/24 4:53 AM) 68 bpm (04/10/24 2:55 AM) Body Mass Index [18.5-24.99 kg/m2] 45.73 kg/m2 *>HHI* (04/10/24 2:55 AM) 45.73 kg/m2 *>HHI* (04/09/24 3:16 PM) Blood Pressure [90-138/55-84 mm Hg] 105/59mm Hg (04/10/24 8:00 AM) 113/44mm Hg (04/10/24 4:53 AM) 103/58mm Hg (04/10/24 2:55 AM) Respiratory Rate [16-30 br/min] 18 br/min (04/10/24 8:00 AM) 14 br/min *L* (04/10/24 4:53 AM) 19 br/min (04/10/24 2:55 AM) Temperature [96.8-100.4 DegF] 97.6 DegF (04/10/24 8:00 AM) 97.5 DegF (04/10/24 4:53 AM) 97.9 DegF (04/09/24 11:38 PM) Mode of Delivery (Oxygen) Room air (04/10/24 8:00 AM) Room air (04/10/24 4:53 AM) Room air (04/10/24 2:55 AM) Blood pressure sites Arm, right (04/10/24 8:00 AM) Arm, right (04/10/24 4:53 AM) Arm, right (04/10/24 2:55 AM) Temperature Route Oral (04/10/24 8:00 AM) Oral (04/10/24 4:53 AM) Oral (04/09/24 11:38 PM) Dry Weight 124.5 kg (04/10/24 2:55 AM) 124.5 kg (04/09/24 3:53 PM) 124.5 kg (04/09/24 3:16 PM) Weight Obtained Via Patient/family state d (04/09/24 3:16 PM) Dry Weight Obtained Via Patient/family s tated (04/09/24 3:16 PM) Social History Social History Type Response Smoking Status Former smoker, quit more than 30 days ago; Other: quit 20 years ago. chews nicotene gum; entered on: 01/12/23 Sex History and physical note * Meghna Smith MD: PERFORM Event Display: History and Physical Hospital Authored Date: [id number] Patient: ??RICHARD VERNON ? Age:??63 Years?Sex:??Female?:??1960?? Chief Complaint/Reason for Consultation CP History of Present Illness 63-year-old female with past medical history of coronary artery disease, hypothyroidism, atrial fibrillation, GERD??presented to ED with complaint of chest pain ?? Patient told me that chest pain happened last night, intermittent and lasted for??few minutes but happened again. ??All episode was about??30 minutes.?? She told me it was located in the center, 11/12, sharp, nonradiating with no particular aggravating or relieving factor. ??Symptom have resolved completely. ??She denied any palpitations, nausea, vomiting.?? She told me that she took her nitroglycerin without much help ?? No diarrhea. ??No fever or chills.?? No cough or wheezing. ??No shortness of breath ?? Review of Systems ROS: All systems reviewed and negative except as in HPI ?? Past medical history: History of coronary artery disease, hypertension, atrial fibrillation, hyperlipidemia, asthma, GERD ?? Social history: Patient denies smoking??currently but history of smoking in the past, alcohol or drug abuse ?? Family history: Both parents with history of coronary artery disease Objective Vital Signs?? Temperature: 97.6 DegF (04/10/24 08:00:00) Temperature Route: Oral (04/10/24 08:00:00) Pulse Rate: 58 bpm (04/10/24 08:00:00) Respiratory Rate: 18 br/min (04/10/24 08:00:00) Systolic Blood Pressure: 105 mm Hg (04/10/24 08:00:00) Diastolic Blood Pressure: 59 mm Hg (04/10/24 08:00:00) Blood pressure sites: Arm, right (04/10/24 08:00:00) Mean Arterial Pressure: 67 mm Hg (04/10/24 04:53:00) Pulse Pressure: 69 mm Hg (04/10/24 04:53:00) Oxygen Saturation: 98 % (04/10/24 08:00:00) Mode of Delivery (Oxygen): Room air (04/10/24 08:00:00) Early Warning Score: 0 (04/10/24 09:28:26) ? 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 Eyes: PERRLA, EOMI?? Head: atraumatic, normocephalic ENMT: moist mucus membranes, nares patent with no discharge Musculoskeletal: no joint tenderness, swelling or limitation of movement ?? Assessment/Plan 63-year-old female with past medical history of coronary artery disease, hypothyroidism, atrial fibrillation, GERD??presented to ED with complaint of chest pain ? CP: History of coronary artery disease ?? Patient presented with complaint of chest pain. ??Resolved.?? CT chest without any acute finding.??Troponin and EKG without any acute change Doubt cardiac Continue on Plavix and statin along with Eliquis Monitor for recurrence of symptoms Monitor on telemetry ?? History of atrial fibrillation: Continue patient on??metoprolol and??Eliquis ?? Hyperlipidemia: Statin ?? Hypertension: Metoprolol will be continued ?? Hypothyroidism:??Levothyroxine ?? Incidental finding: CT abdomen??as below 6 cm indeterminate abnormality left kidney at the hilum. Location and shape could potentially reflect a parapelvic chest, but the density measurement is greater than fluid and could instead reflects soft tissue. Ultrasound could be considered in an attempt to prove that this is cystic or solid, but may be challenging due to body habitus. MRI may also be considered for further evaluation. ?? PCP follow-up advised ?? GERD: PPI ?? DVT prophylaxis: Pneumoboots ? Histories Allergies Allergies ?(Active and Proposed Allergies Only) CeleBREX? (Severity: Unknown severity, Onset: Unknown) ?Reactions: Pain with burning in chest and arms and lightheaded Demerol? (Severity: Unknown severity, Onset: Unknown) ?Reactions: Swelling, Vomiting, high fevers, swollen ? Medications Home Medications Albuterol (Albuterol (Eqv-ProAir HFA) 90 mcg/inh inhalation aerosol)?2?puff(s)?Inhalation?Every 6 hours?as needed?Wheezing/Shortness of Breath apixaban (Eliquis 5 mg oral tablet)?1?tab(s)?5?Milligram?By Mouth?2 times a day Atorvastatin (atorvastatin 80 mg oral tablet)?1?tab(s)?80?Milligram?By Mouth?Daily Citalopram (citalopram 20 mg oral tablet)?1?tab(s)?By Mouth?Daily Clopidogrel (clopidogrel 75 mg oral tablet)?75?Milligram?1?tablet?By Mouth?Daily Levothyroxine (levothyroxine 0.05 mg oral tablet)?1?tab(s)?By Mouth?Daily Metoprolol (metoprolol 25 mg oral tablet)?12.5?Milligram?0.5?tablet?By Mouth?Every 6 hours?as needed?tachycardia Metoprolol (metoprolol 50 mg oral tablet, extended release)?50?Milligram?1?tablet?ByMouth?Daily Nitroglycerin (nitroglycerin 0.4 mg sublingual tablet)?1?tab(s)?0.4?Milligram?Sublingual?Every 5 minutes?as needed?as needed for chest pain?not to exceed 3 doses/15 min--ifpain persists, seek medical attention Omeprazole (omeprazole 40 mg oral enteric coated capsule)?1?capsule?40?Milligram?By Mouth?Daily ranolazine (ranolazine 500 mg oral tablet, extended release)?1?tab(s)?500?Milligram?By Mouth?2 times a day semaglutide (Ozempic 2 mg/1.5 mL (0.25 mg or 0.5 mg dose) subcutaneous solution)?0.25?Milligram?Subcutaneous Injection?Every week?rotate injection sites; for treatment of T2DM E11.9 ? Results ? CBC, CBC w/Diff?? CBC?? Differential?? WBC: 8.8 k/mm3 (15:38) Abs. Neut: 5.1 k/mm3 (15:38) RBC: 4.28 m/mm3 (15:38) Abs. Lymph: 2.7 k/mm3 (15:38) Hct: 38.6 % (15:38) Abs. Whitley: 0.7 k/mm3 (15:38) RDW-SD:??48.8 femtoliters??High (15:38) Abs. Eo: 0.3 k/mm3 (15:38) Nucleated RBC (Automated): 0 #/100 WBC'S (15:38) Abs. Baso: 0.1 k/mm3 (15:38) Abs. NRBC: 0 k/mm3 (15:38) Neut %: 57.7 % (15:38) ?? Lymph %: 30.3 % (15:38) ?? Whitley %: 8 % (15:38) ?? Eos %: 3.1 % (15:38) ?? Baso %: 0.6 % (15:38) ?? Imm Gran: 0.3 % (15:38) ?? Abs. Imm Gran: 0 k/mm3 (15:38) ? BMP, Mg, and Phos Anion Gap: 13 (15:38) Bicarbonate Level: 24 mmol/L (15:38) BUN: 20 mg/dL (15:38) Calcium: 9.1 mg/dL (15:38) Chloride: 100 mmol/L (15:38) Creatinine-Blood: 0.69 mg/dL (15:38) Estimated GFR Creatinine: 97 ML/MIN/1.73 M2 (15:38) Glucose Level:??102 mg/dL??High (15:38) Potassium: 4.7 mmol/L (15:38) Sodium: 137 mmol/L (15:38) ?? Coagulation Profile?? No qualifying data available. ?? LFT?? No qualifying data available. ?? Urinalysis Est Creatinine Clearance: 74.97 mL/min (16:48) ? Cardiology Labs High Sensitivity Troponin (HSTnT): <6 (04/10/24 00:37:00) High Sensitivity Troponin (HSTnT): <6 (04/09/24 18:58:00) High Sensitivity Troponin (HSTnT): 7 ng/L (04/09/24 15:38:00) ?? Blood Gases?? No qualifying data available. ?? Uric/LDH?? No qualifying data available. ? EKG study * Event Display: ECG 12-Lead Authored Date: Please click on pdf link to open report * Event Display: ECG 12-Lead Authored Date: Ventricular Rate: 63 BPM Atrial Rate: 63 BPM P-R Interval: 190 ms QRS Duration: 84 ms Q-T Interval: 454 ms QTC Calculation(Bazett): 464 ms P [place]: 24 degrees R [place]: -1 degrees T [place]: 20 degrees Normal sinus rhythm Normal ECG When compared with ECG of 09-APR-2024 19:16, MANUAL COMPARISON REQUIRED, DATA IS UNCONFIRMED Confirmed by GREGORIO CRUZ MD () on 04/10/2024 8:50:30 AM [place]: GREGORIO CRUZ MD * Event Display: EKG Authored Date: * Event Display: EKG Authored Date: * Event Display: ECG 12-Lead Authored Date: Please click on pdf link to open report * Event Display: ECG 12-Lead Authored Date: Ventricular Rate: 65 BPM Atrial Rate: 65 BPM P-R Interval: 184 ms QRS Duration: 86 ms Q-T Interval: 404 ms QTC Calculation(Bazett): 420 ms P [place]: 24 degrees R [place]: 2 degrees T [place]: 20 degrees Normal sinus rhythm Low voltage QRS Borderline ECG When compared with ECG of 09-APR-2024 15:35, No significant change was found Confirmed by GREGORIO CRUZ MD () on 04/10/2024 8:52:15 AM [place]: GREGORIO CRUZ MD * Event Display: ECG 12-Lead Authored Date: Please click on pdf link to open report * Event Display: ECG 12-Lead Authored Date: Ventricular Rate: 69 BPM Atrial Rate: 69 BPM P-R Interval: 180 ms QRS Duration: 78 ms Q-T Interval: 408 ms QTC Calculation(Bazett): 437 ms P [place]: 15 degrees R [place]: 0 degrees T [place]: 1 degrees Normal sinus rhythm Low voltage QRS Borderline ECG When compared with ECG of 07-FEB-2024 07:54, No significant change was found Confirmed by Sixto Khoury ([id number]) on 04/09/2024 4:07:32 PM [place]: Sixto Khoury Note * Luis RODRIGUEZ, Meghna: PERFORM Event Display: Discharge/Transfer Note Hospital Authored Date: Patient: ??RICHARD VERNON ? Age:??63 Years?Sex:??Female?:??1960?? Patient Information Discharge Location: [facility] Primary Care Physician: Andrade Khan MD Admit Date/Time: 04/09/2024 15:11 Discharge Disposition Discharge Disposition: ?? Discharge Diagnosis Chest pain (R07.9) _ Discharge Medications Albuterol (Albuterol (Eqv-ProAir HFA) 90 mcg/inh inhalation aerosol)?2?puff(s)?Inhalation?Every 6 hours?as needed?Wheezing/Shortness of Breath apixaban (Eliquis 5 mg oral tablet)?1?tab(s)?5?Milligram?By Mouth?2 times a day Atorvastatin (atorvastatin 80 mg oral tablet)?1?tab(s)?80?Milligram?By Mouth?Daily Citalopram (citalopram 20 mg oral tablet)?1?tab(s)?By Mouth?Daily Clopidogrel (clopidogrel 75 mg oral tablet)?75?Milligram?1?tablet?By Mouth?Daily Levothyroxine (levothyroxine 0.05 mg oral tablet)?1?tab(s)?By Mouth?Daily Metoprolol (metoprolol 25 mg oral tablet)?12.5?Milligram?0.5?tablet?By Mouth?Every 6 hours?as needed?tachycardia Metoprolol (metoprolol 50 mg oral tablet, extended release)?50?Milligram?1?tablet?ByMouth?Daily Nitroglycerin (nitroglycerin 0.4 mg sublingual tablet)?1?tab(s)?0.4?Milligram?Sublingual?Every 5 minutes?as needed?as needed for chest pain?not to exceed 3 doses/15 min--ifpain persists, seek medical attention Omeprazole (omeprazole 40 mg oral enteric coated capsule)?1?capsule?40?Milligram?By Mouth?Daily ranolazine (ranolazine 500 mg oral tablet, extended release)?1?tab(s)?500?Milligram?By Mouth?2 times a day semaglutide (Ozempic 2 mg/1.5 mL (0.25 mg or 0.5 mg dose) subcutaneous solution)?0.25?Milligram?Subcutaneous Injection?Every week?rotate injection sites; for treatment of T2DM E11.9 ? Medications Started none Medications Discontinued none Doses Changed none Allergies Allergies ?(Active and Proposed Allergies Only) CeleBREX? (Severity: Unknown severity, Onset: Unknown) ?Reactions: Pain with burning in chest and arms and lightheaded Demerol? (Severity: Unknown severity, Onset: Unknown) ?Reactions: Swelling, Vomiting, high fevers, swollen ? PCP Follow-Up/Heads-Up 6 cm indeterminate abnormality left kidney at the hilum. Location and shape could potentially reflect a parapelvic chest, but the density measurement is greater than fluid and could instead reflects soft tissue. Ultrasound could be considered in an attempt to prove that this is cystic or solid, but may be challenging due to body habitus. MRI may also be considered for further evaluation. Future Appointments 2023 12:50 PM EST ?? With: Bill RODRIGUEZ, Andrade Green Where: [facility] [address] [place] [address]- Status: Pending 2023 1:30 PM EST ?? With: Samantha Calles Where: [facility] [address] [place] [address]- Status: Pending Hospital Course 63-year-old female with past medical history of coronary artery disease, hypothyroidism, atrial fibrillation, GERD??presented to ED with complaint of chest pain ? CP: History of coronary artery disease ?? Patient presented with complaint of chest pain. ??Resolved.?? CT chest without any acute finding.??Troponin and EKG without any acute change Doubt cardiac Continue on Plavix and statin along with Eliquis Out pt f/u with cardiology advised ?? History of atrial fibrillation: Continue patient on??metoprolol and??Eliquis ?? Hyperlipidemia: Statin ?? Hypertension: Metoprolol will be continued ?? Hypothyroidism:??Levothyroxine ?? Incidental finding: CT abdomen??as below 6 cm indeterminate abnormality left kidney at the hilum. Location and shape could potentially reflect a parapelvic chest, but the density measurement is greater than fluid and could instead reflects soft tissue. Ultrasound could be considered in an attempt to prove that this is cystic or solid, but may be challenging due to body habitus. MRI may also be considered for further evaluation. ?? PCP follow-up advised ? Today feels fine with no complaint. Having stable vitals. CTA BL, S1, S2 no GMR.Abd SOft, NT, BS+ve, AAO3. no pedal edema ? Plan d/w pt in detail--requested [employer] cards to help with out pt f/u Objective . Physical Exam Pending Results No Pending Results Patient Education Titles WebMD Ignite Patient Education - Uncertain Causes of Chest Pain?? Follow-Up Appointments Added Follow Up ?Time Frame ?Comments Andrade Khan?1 to 2 weeks Post Discharge Care Discharge Prescriptions ?None, 04/10/24 8:35:00 EST ?Order Comment:?? Home Health Face to Face ^HomeHealthFTF 33??minutes spent on discharge * Meghna Smith MD: PERFORM, SIGN, VERIFY Event Display: Patient Education Handout Authored Date: * Meghna Smith MD: PERFORM Event Display: Patient Education Leaflets Authored Date: [id number] Uncertain Causes of Chest Pain ?? [id number] Uncertain Causes of Chest Pain Chest pain can happen for a number of reasons. Sometimes the cause can't be determined. If your??condition does not seem serious, and your pain does not appear to be coming from your heart, your healthcare provider may recommend watching it closely. Sometimes the signs of a serious problem take more time to appear. Many problems not related to your heart can cause chest pain. These include: ??? Musculoskeletal. Costochondritis is an inflammation of the tissues around the ribs that can occur from trauma or overuse injuries, or a strain of the muscles of the chest wall. ??? Respiratory. Pneumonia, collapsed lung (pneumothorax), or inflammation of the lining of the chest and lungs (pleurisy). ??? Gastrointestinal. Esophageal reflux, heartburn, ulcers, or gallbladder disease. ??? Anxiety and panic disorders ??? Nerve compression and inflammation ??? Rare problems such as aortic aneurysm or aortic dissection (a swelling of the large artery coming out of the heart or a tear in the wall of the artery), or pulmonary embolism (a blood clot in the lungs). Home care After your visit, follow these recommendations: ??? Rest today and avoid strenuous activity. ??? Take any prescribed medicine as directed. ??? Be aware of any recurrent chest pain and notice any changes ?? Follow-up care Follow up with your healthcare provider if you don't start to feel better within 24 hours, or as advised. ?? Call 911 Call 911 if any of these occur: ??? A change in the type of pain: if it feels different, becomes more severe, lasts longer, or begins to spread into your shoulder, arm, neck, jaw or back ??? Shortness of breath or increased pain with breathing ??? Weakness, dizziness, or fainting ??? Rapid heartbeat ??? Crushing sensation in your chest ??? Coughing up more than a small amount of blood. ?? When to seek medical advice Call your healthcare provider right away if any of the following occur: ??? Cough with dark coloredsputum (phlegm) or small amount of blood ??? Fever of 100.4??F??(38??C) or higher, or as directed by your healthcare provider ??? Swelling, pain or redness in one leg ?? Last Reviewed Date: 2021 ?? [id number] [employer]. All rights reserved. This information is not intended as a substitute for professional medical care. Always follow your healthcare professional's instructions. ?? Patient Care team information Care Team Personnel Name: Sixto Slaughter RN Position: S RN Member Role: Primary Care Nurse Name: Isabel Otero RN Position: S RN Member Role: Primary Care Nurse Name: Andrade Khan MD Position: S Physician - Primary Care Member Role: PCP Address: Address: [address] [place] [id number] Name: Mirta Parker RN Position: S RN Member Role: Primary Care Nurse Name: Cassie Haas RN Position: S RN Member Role: Primary Care Nurse Name: Jenna Blevins RN Position: S RN Member Role: Primary Care Nurse Name: Patricia Diaz LPN Position: S RN Member Role: Primary Care Nurse Care Team Related Persons Name: CAMACHO VERNON Address: [address] [address] [place]
--- OUTSIDE RECORDS SUMMARY | 2024-05-02 11:24 | XMS_ITS | Continuity of Care Document ---
Author Organization [facility] Address [address] [place] [address]- Care Team Providers Care Rotary Filter Operator Name Role Phone Margot RODRIGUEZ, Bob Alcantar Primary Care Physician Encounter 02/15/21 - 02/22/21 [facility] [address], [address] [place] [address]- Attending Physician: Bob Frost MD Admitting Physician: Bob Frost MD Referring Physician: Bob Frost MD Allergies, Adverse Reactions, Alerts Substance Reaction Severity Status Demerol Active Immunizations Given and Recorded Vaccine Date Status Refusal Reason SARS-CoV-2 (COVID-19) mRNA BNT-162b2 vac 08/29/20 Recorded SARS-CoV-2 (COVID-19) mRNA BNT-162b2 vac 08/08/20 Recorded influenza virus vaccine, inactivated 03/02/20 Marty rded influenza virus vaccine, inactivated 03/11/19 Marty rded influenza virus vaccine, inactivated 05/15/18 Marty rded tetanus/diphtheria/pertussis, acel(Tdap) 03/18/10 Recorded Medications atorvastatin 40 mg oral tablet 1 tablet [...] 01/28/21 9... Start Date: 01/28/21 Status: Ordered Multivitamin Daily, 0 Refills, Maintenance, 01/28/21 9:30:00 EDT, Partial fill upon patient request if the prescription is for a schedule II opioid drug. Start Date: 01/28/21 Status: Ordered omeprazole 40 mg oral enteric coated capsule 1 capsule = 40 mg, By Mouth, Daily, # 90 capsule, 3 Refills, Maintenance, 12/04/20 10:55:00 EDT, ECCapsule, [facility], Partial fill upon patient request if the prescription is for a schedule II opioid drug., lynne Sigala, 12/04/20 10:0... Start Date: 12/04/20 Status: Ordered vitamin d3 50 IU vitamin d3 50 IU, Refills 0, Maintenance, 01/28/21 9:33:00 EDT, Supply Start Date: 01/28/21 Status: Ordered Problem List Condition Effective Dates Status Health Status Inform ant Morbid obesity with BMI of 4 0.0-44.9, adult(Confirmed) Active GERD (gastroesophageal reflu x disease)(Confirmed) Active Hyperlipidemia(Confirmed) Active Hypothyroidism(Confirmed) Active Lumbar radiculopathy(Confirmed) Active Mild major depression(Confirmed) Active Type 2 diabetes mellitus(Confirmed) Active Social History Social History Type Response Smoking Status Former smoker, quit more than 30 days ago; Use: Quit 12 years ago entered on: 07/15/19 Sex
--- OUTSIDE RECORDS SUMMARY | 2024-05-02 11:24 | XMS_ITS | Continuity of Care Document ---
Author Organization [facility] Francisco Paulino Address [address] [place] [address]- Care Team Providers Care Primary Education Professor Name Role Phone Margot RODRIGUEZ, Bob Alcantar Primary Care Physician Encounter [facility] Date(s): 03/12/21 - 04/11/21 [facility] [place] Adult [address] [place] [address]- Allergies, Adverse Reactions, Alerts Substance Reaction Severity Status Demerol Active Immunizations Given and Recorded Vaccine Date Status Refusal Reason SARS-CoV-2 (COVID-19) mRNA BNT-162b2 vac 08/29/20 Recorded SARS-CoV-2 (COVID-19) mRNA BNT-162b2 vac 08/08/20 Recorded influenza virus vaccine, inactivated 03/02/20 Marty rded influenza virus vaccine, inactivated 03/11/19 Marty rded influenza virus vaccine, inactivated 05/15/18 Marty rded tetanus/diphtheria/pertussis, acel(Tdap) 03/18/10 Recorded Medications albuterol 0.083% inhalation solution 3 mL = 2.5 mg, Inhalation, Every 6 hours, PRN for wheezing, # 60 each, 1 Refills, Maintenance, 03/12/21 15:56:00 EDT, Solution, [facility], Partial fill upon patient request if the prescription is for a schedule II opioid drug., lynne Sigala, 100... Start Date: 03/12/21 Status: Ordered atorvastatin 40 [...] opioid drug. Start Date: 01/28/21 Status: Ordered Nebulizer/Compressor See [...]
--- OUTSIDE RECORDS SUMMARY | 2024-05-02 11:24 | XMS_ITS | Continuity of Care Document ---
Author Organization [facility] Francisco Paulino Address [address] [place] [address]- Care Team Providers Care Pin Setter Name Role Phone Bill RODRIGUEZ, Andrade Green Primary Care Physician Encounter [facility] Date(s): 06/16/21 - 07/16/21 [facility] Adult [address] [place] [address]- Allergies, Adverse Reactions, Alerts Substance Reaction Severity [...]
--- OUTSIDE RECORDS SUMMARY | 2024-05-02 11:24 | XMS_ITS | Continuity of Care Document ---
Author Organization [facility] Francisco Paulino lt Address [address] [place] [address]- Care Team Providers Care Supervisor Mill Name Role Phone Bill RODRIGUEZ, Andrade Green Primary Care Physician [phone] Encounter [facility] Date(s): 01/25/24 - 02/24/24 [facility] Shine Singh Adult [address] [place] [address]- Allergies, Adverse Reactions, Alerts Substance Reaction Severity [...] Recorded tetanus/diphtheria/pertussis, acel(Tdap) 03/18/10 Recorded 1Result Comment: [id number] 2Result Comment: [id number] Medications Albuterol (Eqv-ProAir HFA) 90 mcg/inh inhalation aerosol 2 puffs, Inhalation, Every 6 hours, PRN Wheezing/Shortness of Breath, # 8.5 Gm, 5 Refills, Maintenance, 02/13/24 15:16:00 EDT, Inhaler, [facility] #[id number], Partial fill upon patient request [...] Refills, Maintenance, 01/09/24 11:30:00 EDT, [facility], 164.1, cm, 12/11/23 13:49:00 EDT, Height, 121.2, kg, 01/30/23 12:56:00 EDT, Dry Weight Start Date: 01/09/24 Status: Ordered Eliquis 5 mg oral tablet [...] Refills, Maintenance, 01/12/24 12:08:00 EDT, [facility], 164.1, cm, 12/11/23 13:49:00 EDT, Height, 121.2, [...] drug. Start Date: 02/13/24 Status: Ordered metoprolol 25 mg oral tablet, extended release 25 mg, By Mouth, Daily, # 30 tablet, Refills 0, Tot. Refills 0, Maintenance, 01/30/24 12:06:00 EDT,Route to Pharmacy Electronically, [facility]/pharmacy #[id number], Partial fill upon patient request if the prescription is for a schedule II opioid drug., 165, cm,... Start Date: 01/30/24 Stop Date: 02/29/24 Status: Ordered nitroglycerin 0.4 mg sublingual tablet 1 tablet = 0.4 mg, Sublingual, Every 5 minutes, PRN as needed for chest pain, not to exceed 3 doses/15 min--if pain persists, seek medical attention, # 30 tablet, 11 Refills, Maintenance, 02/24/24 6:27:00 EDT, Tablet, [facility]/pharm[facility] #[id number], Partial fill... Start Date: 02/24/24 [...] 5 Refills, Maintenance, 08/15/23 10:50:00 EDT, Solution, [facility]/pharmacy #[id number], Partial fill upon patient request if the prescription is for a apoorva... Start Date: 08/15/23 Status: Ordered prasugrel 10 mg oral tablet 1 tablet = 10 mg, By Mouth, Daily, # 30 tablet, 0 Refills, Maintenance, 02/07/24 15:29:00 EDT, Tablet, Partial fill upon patient request if the prescription is for a schedule II opioid drug. Start Date: 02/07/24 Status: Ordered ranolazine 500 mg oral tablet, extended release 1 tablet = 500 mg, By Mouth, 2 times a day, # 60 tablet, 0 Refills, Maintenance, 02/07/24 14:23:00 EDT, ER Tablet, [facility], Partial fill upon patient request if the prescription is for a schedule II opioid drug., 165, cm, 02/07/24 10:... Start Date: 02/07/24 Status: Ordered Problem List Condition Confirmation Course [...] chews nicotene gum; entered on: 01/12/23 Sex Note * Andrade Khan MD: SIGN Andrade Khan MD: SIGN, SIGN, VERIFY Event Display: Case Management Discharge Plan Authored Date: [id number] Patient: RICHARD VERNON Age: 63 years Sex: Female : 1960 Associated Diagnoses: None Author: Dorina TRAORE, Negrita Care Management Discharge Call Note Admit date 01/22/2024 Discharge date 01/23/2024 Date of contact 01/26/2024 Diagnosis CP If patient went for emergency services was this patient referred? [facility] in [place] D/C notes scnaned in cis. TCM Call #1 on 01/25. NO Answer. LVMTCB. Patient Care team information Care Team Personnel Name: Sixto Slaughter RN Position: S RN Member Role: Primary Care Nurse Name: Andrade Khan MD Position: S Physician - Primary Care Member Role: PCP Address: Address: [address] [place] [address]- Name: Mirta Parker RN Position: S RN Member Role: Primary Care Nurse Name: Cassie Haas RN Position: S RN Member Role: Primary Care Nurse Name: Jenna Blevins RN Position: S RN Member Role: Primary Care Nurse Name: Patricia Diaz LPN Position: S RN Member Role: Primary Care Nurse Care Team Related Persons Name: VERNONKURT DeniseS Address: [address] [address]
--- OUTSIDE RECORDS SUMMARY | 2024-05-02 11:24 | XMS_ITS | Continuity of Care Document ---
Author Organization [facility] Francisco Paulino Address [address] [place] [address]- Care Team Providers Care Lead Miner Blasting Name Role Phone Bill RODRIGUEZ, Andrade Green Primary Care Physician [place] [facility] [place] 02/03/22 - 03/05/22 [facility] [place] Adult [address] [place] [address]- Allergies, Adverse Reactions, Alerts Substance Reaction Severity Status Demerol high fevers, swollen Active Immunizations Given and Recorded Vaccine Date Status Refusal Reason tetanus-diphtheria toxoids (Td) 1 12/16/21 Given pneumococcal 20-valent conjugate vaccine 2 12/16/21 Given influenza virus vaccine, inactivated 03/25/21 Marty rded influenza virus vaccine, inactivated 03/02/20 Marty rded influenza virus vaccine, inactivated 03/11/19 Marty rded influenza virus vaccine, inactivated 05/15/18 Marty rded SARS-CoV-2 (COVID-19) mRNA BNT-162b2 vac 03/25/21 Recorded SARS-CoV-2 (COVID-19) mRNA BNT-162b2 vac 03/08/21 Recorded SARS-CoV-2 (COVID-19) mRNA BNT-162b2 vac 08/29/20 Recorded SARS-CoV-2 (COVID-19) mRNA BNT-162b2 vac 08/08/20 Recorded tetanus/diphtheria/pertussis, acel(Tdap) 03/18/10 Recorded 1Result Comment: [id number] 2Result Comment: [id number] Medications Albuterol (Eqv-ProAir HFA) 90 mcg/inh inhalation [...] a schedule II opioid drug., 164, cm, 0... Start Date: 03/12/21 Status: Ordered atorvastatin 40 [...] II o... Start Date: 12/28/21 Status: Ordered docusate sodium 100 mg oral capsule 1 capsule, By Mouth, 2 times a day, PRN NEEDED FOR CONSTIPATION, # 60 capsule, 0 Refills, Maintenance, 02/16/22 14:27:00 EDT, [facility], 165.1, cm, 02/15/22 10:09:00 EDT, Height, 124.5, kg, 12/23/21 13:04:00 EDT, Dry Weight Start Date: 02/16/22 Stop Date: 03/18/22 Status: Ordered levothyroxine 0.05 mg oral tablet [...] tablet = 15 mg, By Mouth, Daily, 0 Refills, Maintenance, 01/31/22 9:08:00 EDT, Partial fill upon patient request if the prescription is for a schedule II opioid drug. Start Date: 01/31/22 Status: Ordered omeprazole 40 mg oral enteric coated capsule 1 capsule = 40 mg, By Mouth, Daily, # 90 capsule, 3 Refills, Maintenance, 12/28/21 6:48:00 EDT, EC Capsule, [facility], Partial fill upon patient request if the prescription is fora schedule II opioid drug., 165.1, cm, 12/24/21 7:4... Start Date: 12/28/21 Status: Ordered Trulicity Pen 0.75 mg/0.5 mL subcutaneous solution 0.5 mL = 0.75 mg, Subcutaneous Injection, Every week, rotate injection sites, # 2 mL, 3 Refills, Maintenance, 01/25/22 6:17:00 EDT, [facility], [id number], Partial fill upon patient request if the prescription is for a schedule II opioid drug.,... Start Date: 01/25/22 Status: Ordered Problem List Condition Confirmation Course [...] on: 07/15/19 Sex Patient Care team information Personnel Name: Bill RODRIGUEZ, Andrade Green Address: Address: [address] [place] [id number]
--- OUTSIDE RECORDS SUMMARY | 2024-05-02 11:24 | XMS_ITS | Continuity of Care Document ---
Author Organization [facility] Address [address] [place] [address]- Care Team Providers Care Ergonomics Engineer Name Role Phone Bill RODRIGUEZ, Andrade Green Primary Care Physician [phone] [id number] Date(s): 08/19/21 - 09/18/21 [facility] [address] [place] [address]- Attending Physician: Admtr, Ar8 Admitting Physician: Admtr, Ar8 Referring Physician: Admtr, Ar8 Allergies, Adverse Reactions, Alerts Substance Reaction Severity [...] for a schedule II opioid drug., 164, lynne, 0... Start Date: 03/12/21 Status: Ordered atorvastatin [...] obesity(Confirmed) Active Type 2 diabetes mellitus(Confirmed) Active Social History Social History Type Response Smoking Status Former smoker, quit more than 30 days ago; Use: Quit 12 years ago entered on: 07/15/19 Sex
--- OUTSIDE RECORDS SUMMARY | 2024-05-02 11:24 | XMS_ITS | Continuity of Care Document ---
Author Organization [facility] [employer] [facility] Address [address] [place] [address]- Care Team Providers Care Smooth And Burr Worker Composites Name Role Phone Bill RODRIGUEZ, Andrade Green Primary Care Physician Encounter [facility] Date(s): 09/09/21 - 10/09/21 [facility] [employer] [address] [place] [address]- Allergies, Adverse Reactions, Alerts Substance Reaction Severity [...] a schedule II opioid drug., 164, cm, 01/28/21 9:30:00 ED... Start Date: 01/28/21 Status: Ordered metFORMIN 500 mg oral tablet 1 tablet = 500 mg, By Mouth, 2 times a day, # 180 tablet, 3 Refills, Maintenance, 01/28/21 9:56:00 EDT, Tablet, [facility], Partial fill upon patient request if the prescription isfor a schedule II opioid drug., 164, cm, 01/28/21 9... Start Date: 01/28/21 Status: [...]
--- OUTSIDE RECORDS SUMMARY | 2024-05-02 11:24 | XMS_ITS | Continuity of Care Document ---
Author Organization [facility] Address [address] [place] [address]- Care Team Providers Care Fuel Oil Truck Driver Name Role Phone Andrade Khan MD Primary Care Physician [phone] Encounter [facility] Date(s): 01/18/23 - 02/17/[address] [address] Attending Physician: Admtr, Efren Admitting Physician: Admtr, Efren Referring Physician: Admtr, Ar8 Allergies, Adverse Reactions, [...] Recorded tetanus/diphtheria/pertussis, acel(Tdap) 03/18/10 Recorded 1Result Comment: [id number] 2Result Comment: [id number] Medications acetaminophen 325 mg oral tablet 650 mg, By Mouth, Every 6 hours, may take OTC not to exceed 3000 mg/day, Refills 0, Maintenance, 01/31/23 7:37:00 EDT, Partial fill upon patient request if the prescription is for a schedule II opioid drug. Start Date: 01/31/23 Status: Ordered Albuterol (Eqv-ProAir HFA) 90 mcg/inh inhalation aerosol [...] 1 Refills, Maintenance, 03/12/21 15:56:00 EDT, Solution, [facility], Partial fill upon patient request if the prescription is for a schedule II opioid drug., 164, cm, 10/0... Start Date: 03/12/21 Status: Ordered Aspirin Tablet 325 mg, By Mouth, 2 times a day, Refills 0, Maintenance, 01/31/23 7:37:00 EDT, Partial fill upon patient request if the prescription is for a schedule II opioid drug. Start Date: 01/31/23 Status: Ordered atorvastatin 40 mg oral tablet 1 tablet, By Mouth, Daily, # 90 tablet, 1 Refills, 01/23/23 15:14:00 EDT, [facility]/pharm[facility] #[id number], 164.5, cm, 01/12/23 11:17:00 EDT, Height, 121, kg, 01/12/23 11:17:00 EDT, Dry Weight Start Date: 01/23/23 Status: Ordered CeleXA 20 mg oral tablet 20 mg, 1, tablet, By Mouth, Daily, # 90 tablet, Refills 1, Tot. Refills 1, Maintenance, 01/23/23 15:14:00 EDT, Route to Pharmacy Electronically, [facility]/pharm[facility] #[id number], Partial fill upon patient request if the prescription is for a schedule II opioid drug... Start Date: 01/23/23 Status: Ordered Colace Capsule 100 mg, 1, capsule, By Mouth, 2 times a day, PRN, Refills 0, Maintenance, as needed for constipation, 01/31/23 7:37:00 EDT, Partial fill upon patient request if the prescription is for a schedule II opioid drug. Start Date: 01/31/23 Status: Ordered levothyroxine 0.05 mg oral tablet 1 tablet = 50 mcg, By Mouth, Daily, # 90 tablet, 1 Refills, Maintenance, 01/23/23 15:14:00 EDT, Tablet, [facility] #[id number], Partial fill upon patient request if the prescription is for a schedule II opioid drug., 164.5, cm, 01/12/23 11:17:00 EDT, Heig... Start Date: 01/23/23 Status: Ordered omeprazole 40 mg oral enteric coated capsule 1 capsule = 40 mg, By Mouth, Daily, # 90 capsule, 3 Refills, Maintenance, 12/28/21 6:48:00 EDT, EC Capsule, [facility], Partial fill upon patient request if the prescription is fora schedule II opioid drug., 165.1, cm, 12/24/21 7:4... Start Date: 12/28/21 Status: Ordered Trulicity Pen 1.5 mg/0.5 mL subcutaneous solution See Instructions, INJECT 0.5 ML SUBCUTANEOUSLY EVERY WEEK ROTATE INJECTION SITES, # 2 Unknown, 5 Refills, Maintenance, 09/04/22 18:31:00 EDT, [facility], 165, cm, 04/25/22 6:57:00 EST, Height, 122.7, kg, 04/25/22 6:57:00 EST, Dry Weight Start Date: 09/04/22 Status: Ordered Vitamin D3 1000 intl units oral capsule 1 capsule = 25 mcg, By Mouth, Daily, # 100 capsule, 0 Refills, Maintenance, 01/12/23 11:26:00 EDT, Capsule, Partial fill upon patient request if the prescription is for a schedule II opioid drug. Start Date: 01/12/23 Status: Ordered Problem List Condition Confirmation Course [...] days ago; Other: quit 20 years ago. yesys scarlett gum; entered on: 01/12/23 Sex Patient Care team information Care Team Personnel Name: Sukhjinder TRAORE, Sixto Denise Position: S RN Member Role: Primary Care Nurse Name: Bill RODRIGUEZ, Andrade Green Position: [facility] Physician - Primary Care Member Role: PCP Address: Address: [address] [place] [address]- Name: Mirta Parker RN Position: [facility] RN Member Role: Primary Care Nurse Care Team Related Persons Name: CAMACHO VERNON Address: home [address] [place] [address] [place]
--- OUTSIDE RECORDS SUMMARY | 2024-05-02 11:24 | XMS_ITS | Continuity of Care Document ---
Author Organization [facility] Francisco Paulino lt Address [address] [place] [address]- Care Team Providers Care Gum Rolling Machine Operator Name Role Phone Bob Frost MD Primary Care Physician Encounter [facility] Date(s): 01/28/21 - 02/27/21 [facility] Adult [address] [place] [address]- Attending Physician: Admtr, Ar8 Admitting Physician: Admtr, [...] prescription is for a schedule II opioid drug.Zakiya cm, 12/04/20 10:0... Start Date: 12/04/20 Status: [...]
--- OUTSIDE RECORDS SUMMARY | 2024-05-02 11:24 | XMS_ITS | Continuity of Care Document ---
Author Organization [facility] Alexandr nphoruss [facility] Address [address], [address] [place] [address]- Care Team Providers Care Air Control/Anti Air Warfare Officer Name Role Phone Andrade Khan MD Primary Care Physician Encounter [facility] [place] Date(s): 12/10/21 - 12/17/21 [facility] Jayashannen Finkphoruss [facility] [address], [address]th [place] [address]- Attending Physician: Sandy Figueroa MD Referring Physician: [...] Recorded tetanus/diphtheria/pertussis, acel(Tdap) 03/18/10 Recorded 1Result Comment: [id number] 2Result Comment: [id number] Medications Albuterol (Eqv-ProAir HFA) 2 puffs, Inhalation, [...] Mouth, Daily, # 90 tablet, 1 Refills, [facility], 165.1, cm, 10/15/21 9:12:00 EDT, Height, 124.8, kg, 08/25/21 9:33:00 EDT, Dry Weight Start Date: 11/11/21 Status: Ordered CeleXA 20 mg oral tablet 20 mg, 1, tablet, By Mouth, Daily, # 90 tablet, Refills 3, Tot. Refills 3, Maintenance, 12/04/20 10:55:00 EDT, Route to Pharmacy Electronically, [facility], Partial fill upon patient request if the prescription is for a schedule II... Start Date: 12/04/20 Status: Ordered ibuprofen 800 mg oral tablet 800 mg, 1, tablet, By Mouth, Every 8 hours, # 30 tablet, Refills 0, Tot. Refills 0, Maintenance, 12/10/21 17:50:00 EDT, Route to Pharmacy Electronically, [facility]/pharmacy #[id number], Partial fill upon patientrequest if the prescription is for a schedule II op... Start Date: 12/10/21 Status: Ordered levothyroxine 0.05 mg oral tablet [...] 12/04/20 10:0... Start Date: 12/04/20 Status: Ordered Tylenol 325 mg oral tablet 975 mg, 3, tablet, By Mouth, Every 6 hours, PRN, # 50 tablet, Refills 0, Tot. Refills 0, Maintenance, for pain, 12/10/21 17:50:00 EDT, Route to Pharmacy Electronically, [facility]/pharmacy #[id number], Partial fill upon patient request if the prescription is for a... Start Date: 12/10/21 Status: Ordered Problem List Condition Effective Dates [...]
--- OUTSIDE RECORDS SUMMARY | 2024-05-02 11:24 | XMS_ITS | Continuity of Care Document ---
Author Organization [facility] Francisco Paulino lt Address [address] [place] [address]- Care Team Providers Care Continuity Director Name Role Phone Bill RODRIGUEZ, Andrade Green Primary Care Physician [phone] Encounter [facility] [place] Date(s): 08/11/23 - 09/10/23 [facility] [place] Adult [address] [place] [address]- Allergies, Adverse Reactions, Alerts Substance Reaction Severity [...] Recorded tetanus/diphtheria/pertussis, acel(Tdap) 03/18/10 Recorded 1Result Comment: [id number] 2Result Comment: [id number] Medications Albuterol (Eqv-ProAir HFA) 90 mcg/inh inhalation [...] tablet, 1 Refills, Maintenance, 07/18/23 7:24:00 EST, [facility], 164.1, cm, 05/15/23 14:34:00 EST, Height, 121.2, kg, 01/30/23 12:56:00 EDT, Dry Weight Start Date: 07/18/23 Status: Ordered citalopram 20 mg oral tablet 1 tablet, By Mouth, Daily, # 90 tablet, 1 Refills, Maintenance, 07/18/23 7:24:00 EST, [facility], 164.1, cm, 05/15/23 14:34:00 EST, Height, 121.2, kg, 01/30/23 12:56:00 EDT, Dry Weight Start Date: 07/18/23 Status: Ordered levothyroxine 0.05 mg oral tablet 1 tablet, By Mouth, Daily, # 90 tablet, 1 Refills, Maintenance, 07/18/23 7:24:00 EST, [facility], 164.1, cm, 05/15/23 14:34:00 EST, Height, 121.2, [...] Team Personnel Name: Sixto Slaughter RN Position: [facility] RN Member Role: Primary Care Nurse Name: Andrade Khan MD Position: [facility] Physician - Primary Care Member Role: PCP Address: Address: [address] [place] [address]- Name: Mirta Parker RN Position: [facility] RN Member Role: Primary Care Nurse Care Team Related Persons Name: CAMACHO VERNON Address: home [address] [place] [address] [place]
--- OUTSIDE RECORDS SUMMARY | 2024-05-02 11:24 | XMS_ITS | Continuity of Care Document ---
Author Organization [facility] Paulino Address [address] [place] [address]- Care Team Providers Care Tetryl Wringer Operator Name Role Phone Bill RODRIGUEZ, Andrade Green Primary Care Physician Encounter [facility] [place] Date(s): 02/15/22 - 03/17/22 [facility] Adult [address] [place] [address]- Attending Physician: AdmEfren scruggs Admitting Physician: AdmtrEfren Referring Physician: Admtr, Ar8 Allergies, Adverse Reactions, [...] Recorded tetanus/diphtheria/pertussis, acel(Tdap) 03/18/10 Recorded 1Result Comment: [id number] 2Result Comment: [id number] Medications Albuterol (Eqv-ProAir HFA) 90 mcg/inh inhalation [...] 1 Refills, Maintenance, 03/12/21 15:56:00 EDT, Solution, [facility], Partial fill upon patient request if the prescription is for a schedule II opioid drug., 164, cm, 10/0... Start Date: 03/12/21 Status: Ordered atorvastatin 40 mg oral tablet 1 tablet, By Mouth, Daily, # 90 tablet, 3 Refills, 12/28/21 6:48:00 EDT, [facility], 165.1, cm, 12/24/21 7:49:00 EDT, [...] capsule, 0 Refills, Maintenance, 02/16/22 14:27:00 EDT, [facility], 165.1, cm, 02/15/22 10:09:00 EDT, Height, 124.5, [...] 3 Refills, Maintenance, 01/25/22 6:17:00 EDT, Solution, [facility]/pharmacy #[id number], Partial fill upon patient request [...] Sex Patient Care team information Personnel Name: Andrade Khan MD Address: Address: [address] [place] [id number]
--- OUTSIDE RECORDS SUMMARY | 2024-05-02 11:24 | XMS_ITS | Continuity of Care Document ---
Author Organization [facility] Shine Singh Paulino lt Address [address] [place] [address]- Care Team Providers Care Control Room Helper Name Role Phone Bill RODRIGUEZ, Andrade Green Primary Care Physician Encounter [facility] Date(s): 02/29/24 - 03/30/24 [facility] Shine Singh Adult [address] [place] [address]- Allergies, Adverse Reactions, Alerts Substance Reaction Severity [...] Recorded tetanus/diphtheria/pertussis, acel(Tdap) 03/18/10 Recorded 1Result Comment: [id number] 2Result Comment: [id number] Medications Albuterol (Eqv-ProAir HFA) 90 mcg/inh inhalation aerosol 2 puffs, Inhalation, Every 6 hours, PRN Wheezing/Shortness of Breath, # 8.5 Gm, 5 Refills, Maintenance, 02/13/24 15:16:00 EDT, Inhaler, [id number], Partial fill upon patient request [...] Refills, Maintenance, 01/09/24 11:30:00 EDT, [facility], 164.1, cm, 12/11/23 13:49:00 EDT, Height, 121.2, kg, 01/30/23 12:56:00 EDT, Dry Weight Start Date: 01/09/24 Status: Ordered clopidogrel 75 mg oral tablet 75 mg, 1, tablet, By Mouth, Daily, # 30 tablet, Refills 5, Tot. Refills 5, Maintenance, 03/01/24 14:22:00 EDT, Route to Pharmacy Electronically, [id number], Partial fill upon patient request [...] Refills, Maintenance, 01/12/24 12:08:00 EDT, [facility], 164.1, cm, 12/11/23 13:49:00 EDT, Height, 121.2, [...] 11 Refills, Maintenance, 02/24/24 6:27:00 EDT, Tablet, [facility]/pharmacy #[id number], Partial fill... Start Date: 02/24/24 [...] Care Nurse Name: Andrade Khan MD Position: [facility] Physician - Primary Care Member Role: PCP Address: Address: [address] [place] [address] Name: Mirta Parker RN Position: S RN Member Role: Primary Care Nurse Name: Cassie Haas RN Position: S RN Member Role: Primary Care Nurse Name: Jenna Blevins RN Position: S RN Member Role: Primary Care Nurse Name: Patricia Diaz LPN Position: S RN Member Role: Primary Care Nurse Care Team Related Persons Name: CAMACHO VERNON Address: [address] [address] [place]
--- OUTSIDE RECORDS SUMMARY | 2024-05-02 11:24 | XMS_ITS | Continuity of Care Document ---
Author Organization [facility] Francisco Paulino lt Address [address] [place] [address]- Care Team Providers Care Weigh And Charge Worker Name Role Phone Bill RODRIGUEZ, Andrade Green Primary Care Physician Encounter [facility] Date(s): 03/01/24 - 03/31/24 [facility] Sh[facility] Singh Adult [address] [place] [address]- Allergies, Adverse Reactions, Alerts Substance Reaction Severity [...] Recorded tetanus/diphtheria/pertussis, acel(Tdap) 03/18/10 Recorded 1Result Comment: [id number] 2Result Comment: [id number] Medications Albuterol (Eqv-ProAir HFA) 90 mcg/inh inhalation [...] Refills, Maintenance, 01/09/24 11:30:00 EDT, [facility], 164.1, cm, 12/11/23 13:49:00 EDT, Height, 121.2, kg, 01/30/23 12:56:00 EDT, Dry Weight Start Date: 01/09/24 Status: Ordered clopidogrel 75 mg oral tablet 75 mg, 1, tablet, By Mouth, Daily, # 30 tablet, Refills 5, Tot. Refills 5, Maintenance, 03/01/24 14:22:00 EDT, Route to Pharmacy Electronically, [facility]/pharmacy #[id number], Partial fill upon patient request [...] Refills, Maintenance, 01/12/24 12:08:00 EDT, [facility], 164.1, cm, 12/11/23 13:49:00 EDT, Height, 121.2, [...] 02/29/24 11:06:00 EDT, Route to Pharmacy Electronically, [facility]/pharmacy #[id number], Partial fill upon patient request if the prescription is for a schedule II opioid drug... Start Date: 02/29/24 Status: Ordered nitroglycerin 0.4 mg sublingual tablet 1 tablet = 0.4 mg, Sublingual, Every 5 minutes, PRN as needed for chest pain, not to exceed 3 doses/15 min--if pain persists, seek medical attention, # 30 tablet, 11 Refills, Maintenance, 02/24/24 6:27:00 EDT, Tablet, [facility]/pharmacy #[id number], Partial fill... Start Date: 02/24/24 [...] Refills, Maintenance, 03/08/24 17:52:00 EDT, ER Tablet, [facility]/pharmacy #[id number], Partial fill upon patient request if the [...] Care Nurse Name: Andrade Khan MD Position: [facility] Physician - Primary Care Member Role: PCP Address: Address: [address] [place] [id number] Name: Mirta Parker RN Position: S RN Member Role: Primary Care Nurse Name: Cassie Haas RN Position: S RN Member Role: Primary Care Nurse Name: Jenna Blevins RN Position: S RN Member Role: Primary Care Nurse Name: Patricia Diaz LPN Position: S RN Member Role: Primary Care Nurse Care Team Related Persons Name: CAMACHO VERNON Address: [address] [address] [place]
--- OUTSIDE RECORDS SUMMARY | 2024-05-02 11:24 | XMS_ITS | Continuity of Care Document ---
Author Organization [facility] Paulino lt Address [address] [place] [address]- Care Team Providers Care Bottle Blowing Machine Tender Name Role Phone Bob Frost MD Primary Care Physician Encounter [facility] Date(s): 04/22/21 - 05/22/21 [facility] Adult [address] [place] [address]- Allergies, Adverse Reactions, Alerts Substance Reaction Severity [...] is for a schedule II opioid drug., Zakiya cm, 01/28/21 9:30:00 ED... Start Date: 01/28/21 [...]
--- OUTSIDE RECORDS SUMMARY | 2024-05-02 11:24 | XMS_ITS | Continuity of Care Document ---
Author Organization [facility] Address [address] [place] [address]- Care Team Providers Care Popcorn Machine Operator Name Role Phone Bob Frost MD Primary Care Physician Encounter [facility] [place] Date(s): 01/28/21 - 02/27/[address] [address] Attending Physician: Admtr, Efren Admitting Physician: Admtr, Felipe8 Referring Physician: Admtr, Ar8 Allergies, Adverse Reactions, [...]
--- OUTSIDE RECORDS SUMMARY | 2024-05-02 11:24 | XMS_ITS | Continuity of Care Document ---
Author Organization [facility] Francisco Paulino lt Address [address] [place] [address]- Care Team Providers Care Arch Cushion Skiving Machine Operator Name Role Phone Bill RODRIGUEZ, Andrade Green Primary Care Physician Encounter [facility] Date(s): 01/26/24 - 02/25/24 [facility] Adult [address] [place] [address]- Allergies, Adverse Reactions, Alerts Substance Reaction Severity [...] Recorded tetanus/diphtheria/pertussis, acel(Tdap) 03/18/10 Recorded 1Result Comment: [id number] 2Result Comment: [id number] Medications Albuterol (Eqv-ProAir HFA) 90 mcg/inh inhalation aerosol 2 puffs, Inhalation, Every 6 hours, PRN Wheezing/Shortness of Breath, # 8.5 Gm, 5 Refills, Maintenance, 02/13/24 15:16:00 EDT, Inhaler, [facility]/pharmacy #[id number], Partial fill upon [...] Refills, Maintenance, 01/09/24 11:30:00 EDT, [facility], 164.1, cm, 12/11/23 13:49:00 EDT, Height, 121.2, [...] Refills, Maintenance, 01/12/24 12:08:00 EDT, [facility], 164.1, cm, 12/11/23 13:49:00 EDT, Height, 121.2, [...] Maintenance, 01/30/24 12:06:00 EDT,Route to Pharmacy Electronically, [facility]/pharmacy #[id number], Partial fill upon [...] 11 Refills, Maintenance, 02/24/24 6:27:00 EDT, Tablet, [facility]/pharmacy #[id number], Partial fill... Start Date: 02/24/24 Status: [...] 5 Refills, Maintenance, 08/15/23 10:50:00 EDT, Solution, [facility]/pharmacy #[id number], Partial fill upon [...] Refills, Maintenance, 02/07/24 14:23:00 EDT, ER Tablet, [facility], Partial fill upon patient request [...] Team Personnel Name: Sixto Slaughter RN Position: [facility] RN Member Role: Primary Care Nurse Name: Andrade Khan MD Position: [facility] Physician - Primary Care Member Role: PCP Address: Address: [address] [place] [id number] Name: Mirta Parker RN Position: S RN Member Role: Primary Care Nurse Name: Cassie Haas RN Position: S RN Member Role: Primary Care Nurse Name: Jenna Blevins RN Position: S RN Member Role: Primary Care Nurse Name: Patricia Diaz LPN Position: S RN Member Role: Primary Care Nurse Care Team Related Persons Name: CAMACHO VERNON Address: home [address] [place] [address] [place]
--- OUTSIDE RECORDS SUMMARY | 2024-05-02 11:24 | XMS_ITS | Continuity of Care Document ---
Author Organization [facility] Francisco Paulino lt Address [address] [place] [address]- Care Team Providers Care Developmental Education Instructor Name Role Phone Andrade Khan MD Primary Care Physician Encounter [place] Date(s): 05/15/23 - 05/22/23 [facility] Adult [address] [place] [address]- Encounter Diagnosis GERD (gastroesophageal reflux disease)(Discharge Diagnosis) - 05/15/23 Hyperlipidemia(Discharge Diagnosis) - 05/15/23 Hypothyroidism(Discharge Diagnosis) - 05/15/23 Type 2 diabetes mellitus(Discharge Diagnosis) - 05/15/23 Well adult exam(Discharge Diagnosis) - 05/15/23 Screening for colorectal cancer(Discharge Diagnosis) - 05/18/23 Attending Physician: Andrade Khan MD Allergies, Adverse [...] Recorded tetanus/diphtheria/pertussis, acel(Tdap) 03/18/10 Recorded 1Result Comment: [id number] 2Result Comment: [id number] Medications Albuterol (Eqv-ProAir HFA) 90 mcg/inh inhalation [...] Maintenance, 03/12/21 15:56:00 EDT, Solution, [facility], Partial fill upon patient request if the prescription is for a schedule II opioid drug., 164, cm, 100... Start Date: 03/12/21 Status: Ordered atorvastatin 40 mg oral tablet 1 tablet, By Mouth, Daily, # 90 tablet, 1 Refills, 01/23/23 15:14:00 EDT, [facility]/pharmacy #[id number], 164.5, cm, 01/12/23 11:17:00 EDT, Height, 121, kg, 01/12/23 11:17:00 EDT, Dry Weight Start Date: 01/23/23 Status: Ordered CeleXA 20 mg oral tablet 20 mg, 1, tablet, By Mouth, Daily, # 90 tablet, Refills 1, Tot. Refills 1, Maintenance, 01/23/23 15:14:00 EDT, Route to Pharmacy Electronically, [facility]/pharmacy #[id number], Partial fill upon patient request if the prescription is for a schedule II opioid drug... Start Date: 01/23/23 Status: Ordered levothyroxine 0.05 mg oral tablet 1 tablet = 50 mcg, By Mouth, Daily, # 90 tablet, 1 Refills, Maintenance, 01/23/23 15:14:00 EDT, Tablet, [facility]/pharmacy #[id number], Partial fill upon patient request if the prescription is for a schedule II opioid drug., 164.5, cm, 01/12/23 11:17:00 EDT, [facility]... Start Date: 01/23/23 Status: Ordered meloxicam 15 mg oral tablet [...] 12/24/21 7:4... Start Date: 12/28/21 Status: Ordered Vitamin D3 1000 intl units [...] Active Type 2 diabetes mellitus Confirmed Active Diagnosis Diagnosis Type Effective Dates Health Status Clinical Service Informant GERD (gastroesophageal reflux disease) Discharge Diagnosis 05/15/23 Hyperlipidemia Discharge Diagnosis 05/15/23 Hypothyroidism Discharge Diagnosis 05/15/23 Type 2 diabetes mellitus Discharge Diagnosis 05/15/23 Well adult exam Discharge Diagnosis 05/15/23 Screening for colorectal cancer Discharge Diagnosis 05/18/23 Vital Signs Most recent to oldest [Reference Range]: 1 Height 164.1 cm (05/15/23 2:34 PM) Weight 122.7 kg (05/15/23 2:34 PM) Oxygen Saturation [94-100 %] 99 % (05/15/23 2:34 PM) Pulse Rate [55-90 bpm] 79 bpm (05/15/23 2:34 PM) Body Mass Index [18.5-24.99 kg/m2] 45.56 kg/m2 *>HHI* (05/15/23 2:34 PM) Blood Pressure [90-138/55-84 mm Hg] 106/ 70mm Hg (05/15/23 2:34 PM) Mode of Delivery (Oxygen) Room air (05/15/23 2:34 PM) Blood pressure sites Arm, left (05/15/23 2:34 PM) Weight Obtained Via Standing scale (05/15/23 2:34 PM) Social History Social History Type Response Smoking Status Former smoker, quit more than 30 days ago; Other: quit 20 years ago. chews nicotene gum; entered on: 01/12/23 Sex Patient Care team information Care Team Personnel Name: Sixto Slaughter RN Position: [facility] RN Member Role: Primary Care Nurse Name: Andrade Khan MD Position: [facility] Physician - Primary Care Member Role: PCP Address: Address: [address] [place] [address]- Name: Mirta Parker RN Position: [facility] RN Member Role: Primary Care Nurse Care Team Related Persons Name: CAMACHO VERNON Address: [address] [place] [address] [place]
--- OUTSIDE RECORDS SUMMARY | 2024-05-02 11:24 | XMS_ITS | Continuity of Care Document ---
Author Organization [facility] Francisco Paulino lt Address [address] [place] [address]- Care Team Providers Care Caramel Coloring Operator Name Role Phone Bill RODRIGUEZ, Andrade Green Primary Care Physician [phone] Encounter [facility] [place] Date(s): 08/10/22 - 09/09/22 [facility] [place] Adult [address] [place] [address]- Allergies, Adverse Reactions, Alerts Substance Reaction Severity [...] Recorded tetanus/diphtheria/pertussis, acel(Tdap) 03/18/10 Recorded 1Result Comment: [id number] 2Result Comment: [id number] Medications Albuterol (Eqv-ProAir HFA) 90 mcg/inh inhalation [...] 10/0... Start Date: 03/12/21 Status: Ordered Aspirin Enteric Coated 325 mg oral delayed release tablet See Instructions, 1 tablet By Mouth Daily, 0 Refills, Maintenance, 04/25/22 9:05:00 EST, Partial fill upon patient request if the prescription is for a schedule II opioid drug. Start Date: 04/25/22 Status: Ordered atorvastatin 40 mg oral tablet 1 tablet, By Mouth, Daily, # 90 tablet, 1 Refills, 08/01/22 11:24:00 EST, [facility]/pharmacy #[id number], 165, cm, 04/25/22 6:57:00 EST, Height, 122.7, kg, 04/25/22 6:57:00 EST, Dry Weight Start Date: 08/01/22 Status: Ordered CeleXA 20 mg oral tablet 20 mg, 1, tablet, By Mouth, Daily, # 90 tablet, Refills 1, Tot. Refills 1, Maintenance, 08/01/22 11:24:00 EST, Route to Pharmacy Electronically, [facility]/pharmacy #[id number], Partial fill upon patient request if the prescription is for a schedule II opioid drug... Start Date: 08/01/22 Status: Ordered levothyroxine 0.05 mg oral tablet 1 tablet = 50 mcg, By Mouth, Daily, # 90 tablet, 1 Refills, Maintenance, 08/01/22 11:23:00 EST, Tablet, [facility]/pharmacy #[id number], Partial fill upon patient request if the prescription is for a schedule II opioid drug., 165, cm, 04/25/22 6:57:00 EST, Height,... Start Date: 08/01/22 Status: Ordered Maxitrol 1 mg-3.5 mg-68262 u/ml suspension 1 drops, Eyes, Both, Every 4 hours, for 7 days, # 5 mL, 0 Refills, Acute 09/14/22 14:50:00 EDT, 09/07/22 14:50:00 EDT, Ophth Suspension, [facility]/pharmacy #[id number], Partial fill upon patient request if the prescription is for a schedule II opioid drug., 1 armando... Start Date: 09/07/22 Stop Date: 09/14/22 Status: Ordered meloxicam 15 mg oral tablet 1 tablet, By Mouth, Daily, # 90 tablet, 1 Refills, Maintenance, 09/05/22 12:07:00 EDT, [facility], 165, cm, 04/25/22 6:57:00 EST, Height, 122.7, kg, 04/25/22 6:57:00 EST, Dry Weight Start Date: 09/05/22 Status: Ordered naproxen 500 mg oral tablet [...] Unknown, 5 Refills, Maintenance, 09/04/22 18:31:00 EDT, [facility], 165, cm, 04/25/22 6:57:00 EST, Height, 122.7, kg, 04/25/22 6:57:00 EST, Dry Weight Start Date: 09/04/22 Status: Ordered Problem List Condition Confirmation Course [...] Team Personnel Name: Branden TRAORE, Isabel Position: [facility] Nurse Member Role: Primary Care Nurse Name: Bill RODRIGUEZ, Andrade Green Position: [facility] Primary Care Physician Member Role: PCP Address: Address: [address] [place] [address]- Care Team Related Persons Name: CAMACHO VERNON Address: home [address] [place] [address] [place]
--- OUTSIDE RECORDS SUMMARY | 2024-05-02 11:24 | XMS_ITS | Continuity of Care Document ---
Author Organization [facility] Paulino Address [address] [place] [address]- Care Team Providers Care Manager Nicu Name Role Phone Bill RODRIGUEZ, Andrade Green Primary Care Physician [phone] Encounter [facility] [place] Date(s): 08/17/21 - 09/16/21 [facility] Adult [address] [place] [address]- Allergies, Adverse Reactions, Alerts Substance Reaction Severity [...] a schedule II opioid drug., 164, lynne, 01/28/21 9:30:00 ED... Start Date: 01/28/21 Status: [...]
--- OUTSIDE RECORDS SUMMARY | 2024-05-02 11:24 | XMS_ITS | Continuity of Care Document ---
Author Organization [facility] Francisco Paulino lt Address [address] [place] [address]- Care Team Providers Care Electric Lift Truck Driver Name Role Phone Andrade Khan MD Primary Care Physician [phone] Encounter [facility] Date(s): 12/16/21 - 12/23/21 [facility] Adult [address] [place] [address]- Attending Physician: Andrade Khan MD Allergies, Adverse [...] Recorded tetanus/diphtheria/pertussis, acel(Tdap) 03/18/10 Recorded 1Result Comment: [id number] 2Result Comment: [id number] Medications Albuterol (Eqv-ProAir HFA) 2 puffs, Inhalation, [...] 1 Refills, Maintenance, 03/12/21 15:56:00 EDT, Solution, [facility], Partial fill upon [...] 12/10/21 17:50:00 EDT, Route to Pharmacy Electronically, [facility]/pharmacy #[id number], Partial fill upon patientrequest if the prescription [...] 12/10/21 17:50:00 EDT, Route to Pharmacy Electronically, [facility]/pharmacy #[id number], Partial fill upon patient request if the prescription is for a... Start Date: 12/10/21 Status: Ordered Problem List Condition Effective Dates Status Health Status Inform ant Morbid obesity with BMI of 4 0.0-44.9, adult(Confirmed) Active GERD (gastroesophageal reflu x disease)(Confirmed) Active Hyperlipidemia(Confirmed) Active Hypothyroidism(Confirmed) Active Lumbar radiculopathy(Confirmed) Active Mild major depression(Confirmed) Active Type 2 diabetes mellitus(Confirmed) Active Vital Signs Most recent to oldest [Reference Range]: 1 Height 165.1 cm (12/16/21 9:39 AM) Weight 125.5 kg (12/16/21 9:39 AM) Oxygen Saturation [94-100 %] 97 % (12/16/21 9:39 AM) Pulse Rate [55-90 bpm] 82 bpm (12/16/21 9:39 AM) Body Mass Index [18.5-24.99] 46.04 *>HHI* (12/16/21 9:39 AM) Blood Pressure [90-138/55-84 mm Hg] 109/ 76mm Hg (12/16/21 9:39 AM) Mode of Delivery (Oxygen) Room air (12/16/21 9:39 AM) Blood pressure sites Arm, left (12/16/21 9:39 AM) Weight Obtained Via Standing scale (12/16/21 9:39 AM) Social History Social History Type Response Smoking Status Former smoker, quit more than 30 days ago; Use: Quit 12 years ago entered on: 07/15/19 Sex
--- OUTSIDE RECORDS SUMMARY | 2024-05-02 11:24 | XMS_ITS | Continuity of Care Document ---
Author Organization [facility] Francisco Paulino lt Address [address] [place] [address]- Care Team Providers Care Pocket Builder Name Role Phone Bill RODRIGUEZ, Andrade Green Primary Care Physician Encounter [facility] Date(s): 09/07/22 - 10/07/22 [facility] Adult [address] [place] [address]- Attending Physician: Admtr, Ar8 Admitting Physician: Admtr, [...] Recorded tetanus/diphtheria/pertussis, acel(Tdap) 03/18/10 Recorded 1Result Comment: [id number] 2Result Comment: [id number] Medications Albuterol (Eqv-ProAir HFA) 90 mcg/inh inhalation [...] 1 Refills, Maintenance, 03/12/21 15:56:00 EDT, Solution, [facility], Partial fill upon patient request if the prescription is for a schedule II opioid drug., 164, cm, 0... Start Date: 03/12/21 Status: Ordered Aspirin Enteric [...] 90 tablet, 1 Refills, 08/01/22 11:24:00 EST, [facility]/pharmacy #[id number], 165, cm, 04/25/22 6:57:00 EST, Height, 122.7, kg, 04/25/22 6:57:00 EST, Dry Weight Start Date: 08/01/22 Status: Ordered CeleXA 20 mg oral tablet 20 mg, 1, tablet, By Mouth, Daily, # 90 tablet, Refills 1, Tot. Refills 1, Maintenance, 08/01/22 11:24:00 EST, Route to Pharmacy Electronically, [facility]/pharmacy #[id number], Partial fill upon patient request if the prescription is for a schedule II opioid drug... Start Date: 08/01/22 Status: Ordered levothyroxine 0.05 mg oral tablet 1 tablet = 50 mcg, By Mouth, Daily, # 90 tablet, 1 Refills, Maintenance, 08/01/22 11:23:00 EST, Tablet, [facility]/pharmacy #[id number], Partial fill upon patient request if the prescription is for a schedule II opioid drug., 165, cm, 04/25/22 6:57:00 EST, Height,... Start Date: 08/01/22 Status: Ordered meloxicam 15 mg oral tablet 1 tablet, By Mouth, Daily, # 90 tablet, 1 Refills, Maintenance, 09/05/22 12:07:00 EDT, [facility], 165, cm, 04/25/22 6:57:00 EST, Height, 122.7, [...] Refills, Maintenance, 09/04/22 18:31:00 EDT, [facility], 165, cm, 04/25/22 6:57:00 EST, Height, 122.7, [...] Team Personnel Name: Branden TRAORE, Isabel Position: [facility] Nurse Member Role: Primary Care Nurse Name: Andrade Khan MD Position: [facility] Primary Care Physician Member Role: PCP Address: Address: [address] [place] [address]- Care Team Related Persons Name: CAMACHO VERNON Address: home [address] [place] [id number] [place]
--- OUTSIDE RECORDS SUMMARY | 2024-05-02 11:24 | XMS_ITS | Continuity of Care Document ---
Author Organization [facility] Francisco Paulino lt Address [address] [place] [address]- Care Team Providers Care Hospice Office Coordinator Name Role Phone Bill RODRIGUEZ, Andrade Green Primary Care Physician [phone] [place] [facility] [place] Date(s): 05/21/23 - 06/20/23 [facility] Adult [address] [place] [address]- Allergies, Adverse Reactions, Alerts Substance Reaction Severity Status Demerol Vomiting Swelling Active CeleBREX Pain with burning in chest and arms and l ightheaded Active Immunizations Given and Recorded Vaccine Date Status Refusal Reason influenza virus vaccine, inactivated 03/21/22 Give n influenza virus vaccine, inactivated 03/25/21 Marty rded influenza virus vaccine, inactivated 03/02/20 Marty rded influenza virus vaccine, inactivated 03/11/19 Matry rded influenza virus vaccine, inactivated 05/15/18 Marty rded tetanus-diphtheria toxoids (Td) 1 12/16/21 Given pneumococcal 20-valent conjugate vaccine 2 12/16/21 Given SARS-CoV-2 (COVID-19) mRNA BNT-162b2 vac 03/25/21 Recorded SARS-CoV-2 (COVID-19) mRNA BNT-162b2 vac 03/08/21 Recorded SARS-CoV-2 (COVID-19) mRNA BNT-162b2 vac 08/29/20 Recorded SARS-CoV-2 (COVID-19) mRNA BNT-162b2 vac 08/08/20 Recorded tetanus/diphtheria/pertussis, acel(Tdap) 03/18/10 Recorded 1Result Comment: [id number] 2Result Comment: [id number] Medications Albuterol (Eqv-ProAir HFA) 90 mcg/inh inhalation [...] 1 Refills, Maintenance, 03/12/21 15:56:00 EDT, Solution, [facility], Partial fill upon patient request if the prescription is for a schedule II opioid drug., 164, cm, 10/0... Start Date: 03/12/21 Status: Ordered atorvastatin 40 mg oral tablet 1 tablet, By Mouth, Daily, # 90 tablet, 1 Refills, 01/23/23 15:14:00 EDT, [facility]/pharmacy #[id number], 164.5, cm, 01/12/23 11:17:00 EDT, Height, 121, kg, 01/12/23 11:17:00 EDT, Dry Weight Start Date: 01/23/23 Status: Ordered CeleXA 20 mg oral tablet 20 mg, 1, tablet, By Mouth, Daily, # 90 tablet, Refills 1, Tot. Refills 1, Maintenance, 01/23/23 15:14:00 EDT, Route to Pharmacy Electronically, [facility]/pharmacy #[id number], Partial fill upon patient request if the prescription is for a schedule II opioid drug... Start Date: 01/23/23 Status: Ordered levothyroxine 0.05 mg oral tablet 1 tablet = 50 mcg, By Mouth, Daily, # 90 tablet, 1 Refills, Maintenance, 01/23/23 15:14:00 EDT, [facility]t, [id number], Partial fill upon [...] ago; Other: quit 20 years ago. chews scarlett gum; entered on: 01/12/23 Sex Patient Care team information Care Team Personnel Name: Sixto Slaughter RN Position: S RN Member Role: Primary Care Nurse Name: Andrade Khan MD Position: S Physician - Primary Care Member Role: PCP Address: Address: [address] [place] [id number] Name: Mirta Parker RN Position: [facility] RN Member Role: Primary Care Nurse Care Team Related Persons Name: CAMACHO VERNON Address: home [address] [place] [address] [place]
--- OUTSIDE RECORDS SUMMARY | 2024-05-02 11:24 | XMS_ITS | Continuity of Care Document ---
Author Organization [facility] Francisco Paulino lt Address [address] [place] [address]- Care Team Providers Care Channel Process Plant Operator Name Role Phone Bill RODRIGUEZ, Andrade Green Primary Care Physician [place] [facility] [place] 01/26/24 - 02/25/24 [facility] Adult [address] [place] [address]- Allergies, Adverse Reactions, Alerts Substance Reaction Severity [...] Recorded tetanus/diphtheria/pertussis, acel(Tdap) 03/18/10 Recorded 1Result Comment: [id number] 2Result Comment: [id number] Medications Albuterol (Eqv-ProAir HFA) 90 mcg/inh inhalation aerosol 2 puffs, Inhalation, Every 6 hours, PRN Wheezing/Shortness of Breath, # 8.5 Gm, 5 Refills, Maintenance, 02/13/24 15:16:00 EDT, Inhaler, [facility]/pharmacy #[id number], Partial fill upon [...] Refills, Maintenance, 01/09/24 11:30:00 EDT, [facility], 164.1, cm, 12/11/23 13:49:00 EDT, Height, 121.2, [...] Refills, Maintenance, 01/12/24 12:08:00 EDT, [facility], 164.1, cm, 12/11/23 13:49:00 EDT, Height, 121.2, [...] Maintenance, 01/30/24 12:06:00 EDT,Route to Pharmacy Electronically, [facility]/pharmacy #[id number], Partial fill upon [...] 11 Refills, Maintenance, 02/24/24 6:27:00 EDT, Tablet, [facility]/pharmacy #[id number], Partial fill... Start [...] 5 Refills, Maintenance, 08/15/23 10:50:00 EDT, Solution, [facility]/pharmacy #[id number], Partial fill upon [...] Refills, Maintenance, 02/07/24 14:23:00 EDT, ER Tablet, [facility], Partial fill upon patient [...] Team Personnel Name: Sixto Slaughter RN Position: [facility] RN Member Role: Primary Care Nurse Name: Andrade Khan MD Position: [facility] Physician - Primary Care Member Role: PCP Address: Address: [address] [place] [id number] Name: Mirta Parker RN Position: S RN Member Role: Primary Care Nurse Name: Cassie Haas RN Position: S RN Member Role: Primary Care Nurse Name: Jenna Blevins RN Position: S RN Member Role: Primary Care Nurse Name: Patricia Diaz LPN Position: S RN Member Role: Primary Care Nurse Care Team Related Persons Name: CAMACHO VERNON Address: home [address] [place] [phone] [place]
--- OUTSIDE RECORDS SUMMARY | 2024-05-02 11:24 | XMS_ITS | Continuity of Care Document ---
Author Organization [facility] Benedict Paulino lt Address [address] [place] [address]- Care Team Providers Care Copyright Expert Name Role Phone Bill RODRIGUEZ, Andrade Green Primary Care Physician En[place] [facility] [place] [place] Date(s): 03/21/22 - 04/20/22 [facility] [place] Adult [address] [place] [address]- Attending Physician: Admtr, Ar8 Admitting Physician: Admtr, [...] Recorded tetanus/diphtheria/pertussis, acel(Tdap) 03/18/10 Recorded 1Result Comment: [id number] 2Result Comment: [id number] Medications Albuterol (Eqv-ProAir HFA) 90 mcg/inh inhalation [...] 1 Refills, Maintenance, 03/12/21 15:56:00 EDT, Solution, [facility] # [facility], Partial fill upon patient [...] 1 Refills, Maintenance, 03/21/22 10:29:00 EDT, Tablet, [id number], Partial fill upon patient request if the prescription is for a schedule II opioid drug., 165.1, cm, 03/21/22 10:07:00 EDT, Heigh... Start Date: 03/21/22 Status: Ordered omeprazole 40 mg oral enteric [...] 5 Refills, Maintenance, 03/21/22 10:31:00 EDT, [facility], [id number], Partial fill upon [...] Care team information Care Team Personnel Name: Isabel Otero RN Position: [facility] Nurse Member Role: Primary Care Nurse Name: Bill RODRIGUEZ, Andrade Green Position: [facility] Primary Care Physician Member Role: PCP Address: Address: [address] [place] [address]- Care Team Related Persons Name: CAMACHO VERNON Address: home [address] [place] [phone] [place]
--- OUTSIDE RECORDS SUMMARY | 2024-05-02 11:24 | XMS_ITS | Continuity of Care Document ---
Author Organization [facility] Shine Singh Paulino lt Address [address] [place] [address]- Care Team Providers Care Patient Services Technician Name Role Phone Bob Frost MD Primary Care Physician Encounter [facility] [place] Date(s): 08/28/20 - 10/07/20 [facility] Shine Singh Adult [address] [place] [address]- Attending Physician: Bob Frost MD Allergies, Adverse Reactions, Alerts Substance Reaction Severity Status Demerol Active Medications atorvastatin 40 mg oral tablet 1 tablet = 40 mg, By Mouth, Daily, 0 Refills, Maintenance, 07/15/19 15:36:00 EST Start Date: 07/15/19 Status: Ordered CeleXA 20 mg oral tablet 20 mg, 1, tablet, By Mouth, Daily, # 90 tablet, Refills 0, Maintenance, 07/15/19 15:36:00 EST Start Date: 07/15/19 Status: Ordered Omeprazole = 40 mg, By Mouth, Daily, 0 Refills, Maintenance, 07/15/19 15:36:00 EST Start Date: 07/15/19 Status: Ordered Problem List Condition Effective Dates Status Health Status Inform ant Morbid obesity with BMI of 4 0.0-44.9, adult(Confirmed) Active GERD (gastroesophageal reflu x disease)(Confirmed) Active Hyperlipidemia(Confirmed) Active Depression, major(Confirmed) Active History of smoking 45 pack y ears - quit 2007(Confirmed) Active Social History Social History Type Response Smoking Status Former smoker, quit more than 30 days ago; Use: Quit 12 years ago entered on: 07/15/19 Sex
--- OUTSIDE RECORDS SUMMARY | 2024-05-02 11:24 | XMS_ITS | Continuity of Care Document ---
Author Organization [facility] Francisco Paulino lt Address [address] [place] [address]- Care Team Providers Care Linux Solaris Administrator Name Role Phone Bill RODRIGUEZ, Andrade Green Primary Care Physician [phone] [place] [facility] [place] 03/18/24 - 04/17/24 [facility] Adult [address] [place] [address]- Encounter Type: Triage Allergies, Adverse Reactions, Alerts Substance Criticality Severity Reaction Reaction Severity Status CeleBREX Pain with burni ng in chest and arms and lightheaded Active Demerol Vomiting Swelling Active Immunizations Given [...] Recorded tetanus/diphtheria/pertussis, acel(Tdap) 03/18/10 Recorded 1Result Comment: [id number] 2Result Comment: [id number] Medications Albuterol (Eqv-ProAir HFA) 90 mcg/inh inhalation aerosol 2 puffs, Inhalation, Every 6 hours, PRN Wheezing/Shortness of Breath, # 8.5 Gm, 5 Refills, Maintenance, 02/13/24 3:16:00 PM EDT, Inhaler, [facility]/pharmacy #[id number], Partial fill upon patient request if the prescription is for a schedule II opioid drug., 2 puffs Inhalation Every 6 hours,PRN:Wheezing/Shortness of Breath, 165, cm, 02/13/24 14:56:00 EDT, Height, 129.5, kg, 02/06/24 15:12:00 EDT, Dry Weight Start Date: 02/13/24 Status: Ordered Quantity: 8.5 Unit: g Repeat number: 6 atorvastatin 80 mg oral tablet 1 tablet = 80 mg, By Mouth, Daily, # 90 tablet, 3 Refills, Maintenance, 03/22/24 1:33:00 PM EDT, Tablet, [facility]/pharmacy #[id number], Partial fill upon patient request if the prescription is for a schedule IIopioid drug., 165, cm, 02/29/24 11:03:00 EDT, Height, 129.5, kg, 02/06/24 15:12:00 EDT, Dry Weight Start Date: 03/22/24 Status: Ordered Quantity: 90.0 Unit: tablet Repeat number: 4 citalopram 20 mg oral tablet 1 tablet, By Mouth, Daily, # 90 tablet, 1 Refills, Maintenance, 01/09/24 11:30:00 AM EDT, [facility], 164.1, cm, 12/11/23 13:49:00 EDT, Height, 121.2, kg, 01/30/23 12:56:00 EDT, Dry Weight Start Date: 01/09/24 Status: Ordered Quantity: 90.0 Unit: tablet Repeat number: 1 clopidogrel 75 mg oral tablet 75 mg, 1, tablet, By Mouth, Daily, # 30 tablet, Refills 5, Tot. Refills 5, Maintenance, 03/01/24 2:22:00 PM EDT, Route to Pharmacy Electronically, [facility]/pharmacy #[id number], Partial fill upon patient requestif the prescription is for a schedule II opioid drug., 165, cm, 02/29/24 11:03:00 EDT, Height, 129.5, kg, 02/06/24 15:12:00 EDT, Dry Weight Start Date: 03/01/24 Status: Ordered Quantity: 30.0 Unit: tablet Repeat number: 6 Eliquis 5 mg oral tablet 1 tablet = 5 mg, By Mouth, 2 times a day, # 60 tablet, 5 Refills, Maintenance, 04/11/24 5:31:00 PM EST, Tablet, [facility]/pharmacy #[id number], Partial fill upon patient request if the prescription is for a schedule II opioid drug., 165, cm, 04/10/24 2:55:00 EST, Height, 124.5, kg, 04/10/24 2:55:00 EST, Dry Weight Start Date: 04/11/24 Status: Ordered Quantity: 60.0 Unit: tablet Repeat number: 6 levothyroxine 0.05 mg oral tablet 1 tablet, By Mouth, Daily, # 90 tablet, 1 Refills, Maintenance, 01/12/24 12:08:00 PM EDT, [facility], 164.1, cm, 12/11/23 13:49:00 EDT, Height, 121.2, kg, 01/30/23 12:56:00 EDT, Dry Weight Start Date: 01/12/24 Status: Ordered Quantity: 90.0 Unit: tablet Repeat number: 1 metoprolol 25 mg oral tablet 12.5 mg, 0.5, tablet, By Mouth, Every 6 hours, PRN, # 180 tablet, Refills 0, Maintenance, tachycardia, 02/13/24 2:54:00 PM EDT, Partial fill upon patient request if the prescription is for a schedule II opioid drug. Start Date: 02/13/24 Status: Ordered Quantity: 180.0 Unit: tablet Repeat number: 1 metoprolol 50 mg oral tablet, extended release 50 mg, 1, tablet, By Mouth, Daily, # 30 tablet, Refills 0, Tot. Refills 0, Maintenance, 02/29/24 11:06:00 AM EDT, Route to Pharmacy Electronically, [facility]/pharmacy #[id number], Partial fill upon patient request if the prescription is for a schedule II opioid drug., 165, cm, 02/29/24 11:03:00 EDT, Height, 129.5, kg, 02/06/24 15:12:00 EDT, Dry Weight Start Date: 02/29/24 Status: Ordered Quantity: 30.0 Unit: tablet Repeat number: 1 nitroglycerin 0.4 mg sublingual tablet 1 tablet = 0.4 mg, Sublingual, Every 5 minutes, PRN as needed for chest pain, not to exceed 3 doses/15 min--if pain persists, seek medical attention, # 30 tablet, 11 Refills, Maintenance, 02/24/24 6:27:00 AM EDT, Tablet, [facility]/pharmacy #[id number], Partial fill upon patient request if the prescription is for a schedule II opioid drug., 165, cm, 02/13/24 14:56:00 EDT, Height, 129.5, kg, 02/06/24 15:12:00 EDT, Dry Weight Start Date: 02/24/24 Status: Ordered Quantity: 30.0 Unit: tablet Repeat number: 12 omeprazole 40 mg oral enteric coated capsule 1 capsule = 40 mg, By Mouth, Daily, # 90 capsule, 3 Refills, Maintenance, 12/28/21 6:48:00 AM EDT, EC Capsule, [facility], Partial fill upon patient request if the prescription is for a schedule II opioid drug., 165.1, cm, 12/24/21 7:49:00 EDT, Height, 124.5, kg, 12/23/21 13:04:00EDT, Dry Weight Start Date: 12/28/21 Status: Ordered Quantity: 90.0 Unit: capsule Repeat number: 4 Ozempic 2 mg/1.5 mL (0.25 mg or 0.5 mg dose) subcutaneous solution = 0.25 mg, Subcutaneous Injection, Every week, rotate injection sites; for treatment of T2DM E11.9,# 2 mL, 5 Refills, Maintenance, 08/15/23 10:50:00 AM EDT, Solution, [facility]/pharmacy #[id number], Partial fillupon patient request if the prescription is for a schedule II opioid drug., 0.25 mg Subcutaneous Injection Every week,Instr:rotate injection sites; for treatment of T2DM E11.9, 164.1, cm, 05/15/23 14:34:00 EST, Height, 121.2, kg, 01/30/23 12:56:00 EDT, Dry Weight Start Date: 08/15/23 Status: Ordered Quantity: 2.0 Unit: mL Repeat number: 6 ranolazine 500 mg oral tablet, extended release 1 tablet = 500 mg, By Mouth, 2 times a day, # 60 tablet, 5 Refills, Maintenance, 03/08/24 5:52:00 PMEDT, ER Tablet, [facility]/pharmacy #[id number], Partial fill upon patient request if the prescription is for a schedule II opioid drug., 165, cm, 02/29/24 11:03:00 EDT, Height, 129.5, kg, 02/06/24 15:12:00 EDT, Dry Weight Start Date: 03/08/24 Status: Ordered Quantity: 60.0 Unit: tablet Repeat number: 6 Problem List Condition Confirmation Course Effective Dates [...] chews nicotene gum; entered on: 01/12/23 Sex Sex Representation Female (finding) Patient Care team information Care Team Personnel Name: Sixto Slaughter RN Position: [facility] RN Member Role: Primary Care Nurse Name: Isabel Otero RN Position: S RN Member Role: Primary Care Nurse Name: Andrade Khan MD Position: [facility] Physician - Primary Care Member Role: PCP Address: [address] [place] [address]- Telecom: Name: Mirta Parker RN Position: S RN Member Role: Primary Care Nurse Name: Cassie Haas RN Position: S RN Member Role: Primary Care Nurse Name: Jenna Blevins RN Position: S RN Member Role: Primary Care Nurse Name: Patricia Diaz LPN Position: [facility] RN Member Role: Primary Care Nurse Care Team Related Persons Name: CAMACHO VERNON Insurance Providers Guarantor name: RICHARD VERNON [facility] Information #: 1 Payer: MEDICARE PART B OUTPT Member Number: NA Policy Number: NA Group Number: NA
--- OUTSIDE RECORDS SUMMARY | 2024-05-02 11:24 | XMS_ITS | Continuity of Care Document ---
Author Organization [facility] Alexandr nLindsey Shells [facility] Address [address], [address] [place] [address]- Care Team Providers Care Survey Analyst Name Role Phone Bill RODRIGUEZ, Andrade Green Primary Care Physician En[place] [facility] Date(s): 10/25/21 - 11/24/[facility] [address], [address] [place] [address]- Allergies, Adverse Reactions, Alerts Substance Reaction Severity [...]
--- OUTSIDE RECORDS SUMMARY | 2024-05-02 11:24 | XMS_ITS | Continuity of Care Document ---
Author Organization [facility] Francisco Paulino lt Address [address] [place] [address]- Care Team Providers Care Correspondence Transcriber Name Role Phone Bill RODRIGUEZ, Andrade Green Primary Care Physician [place] [facility] [place] 01/21/22 - 02/20/22 [facility] Adult [address] [place] [address]- Allergies, Adverse Reactions, Alerts Substance Reaction Severity [...] Recorded tetanus/diphtheria/pertussis, acel(Tdap) 03/18/10 Recorded 1Result Comment: [id number] 2Result Comment: [id number] Medications Albuterol (Eqv-ProAir HFA) 90 mcg/inh inhalation [...] capsule, 0 Refills, Maintenance, 02/16/22 14:27:00 EDT, [facility], 165.1, cm, 02/15/22 10:09:00 EDT, Height, 124.5, [...] Date: 01/25/22 Status: Ordered Problem List Condition Effective Dates [...] 12 years ago entered on: 07/15/19 Sex Care Team Personnel Name: Andrade Khan MD Address: [address] [place] [id number]
--- OUTSIDE RECORDS SUMMARY | 2024-05-02 11:24 | XMS_ITS | Continuity of Care Document ---
Author Organization [facility] Francisco Paulino lt Address [address] [place] [address]- Care Team Providers Care Rigger Helper Name Role Phone Bob Frost MD Primary Care Physician [phone] [place] [facility] [place] 11[place]23/20 [facility] [place] Adult [address] [place] [address]- Encounter Diagnosis Bilateral leg pain(Discharge Diagnosis) - 11/16/20 Leg weakness(Discharge Diagnosis) - 11/16/20 Attending Physician: Bob Frost MD Allergies, Adverse [...] pack y ears - quit 2007(Confirmed) Active Diagnosis Diagnosis Type Effective Dates Health Status Cl inical Service Informant Bilateral leg pain Discharge Diagnosis 11/16/20 Leg weakness Discharge Diagnosis 11/16/20 Vital Signs Most recent to oldest [Reference Range]: 1 Height 164.0 cm (11/16/20 10:12 AM) Weight 129.5 kg (11/16/20 10:12 AM) Body Mass Index [18.5-24.99] 48.15 *>HHI* (11/16/20 10:12 AM) Weight Obtained Via Standing scale (11/16/20 10:12 AM) Social History Social History Type Response Smoking Status Former smoker, quit more than 30 days ago; Use: Quit 12 years ago entered on: 07/15/19 Sex
--- OUTSIDE RECORDS SUMMARY | 2024-05-02 11:24 | XMS_ITS | Continuity of Care Document ---
Author Organization [facility] Francisco Paulino lt Address [address] [place] [address]- Care Team Providers Care Health Support Specialist Name Role Phone Bob Frost MD Primary Care Physician Encounter [facility] [place] Date(s): 07/15/19 - 07/22/19 [facility] [address] [place] [address]- [facility] Attending Physician: Bob Frost MD Allergies, Adverse [...] pack y ears - quit 2007(Confirmed) Active Procedures Procedure Date Related Diagnosis Body Site Status Bilateral tubal ligation Completed Caesarean section x 4 Com pleted Extraction of wisdom teeth Completed Lumbar discectomy 1 Compl eted Removal of foreign body from foot Completed 1complicated by meningeal laceration and subsequent repair Vital Signs Most recent to oldest [Reference Range]: 1 Height 164.0 cm (07/15/19 3:29 PM) Weight 124.1 kg (07/15/19 3:29 PM) Oxygen Saturation [94-100 %] 98 % (07/15/19 3:29 PM) Pulse Rate [55-90 bpm] 92 bpm *H* (07/15/19 3:29 PM) Body Mass Index [18.5-24.99] 46.14 *>HHI* (07/15/19 3:29 PM) Blood Pressure [90-138/55-84 mm Hg] 110/ 68mm Hg (07/15/19 3:29 PM) Temperature [96.8-100.4 DegF] 98.0 DegF (07/15/19 3:29 PM) Mode of Delivery (Oxygen) Room air (07/15/19 3:29 PM) Blood pressure sites Arm, left (07/15/19 3:29 PM) Temperature Route Oral (07/15/19 3:29 PM) Weight Obtained Via Standing scale (07/15/19 3:29 PM) Social History Social History Type Response Smoking Status Former smoker, quit more than 30 days ago; Use: Quit 12 years ago entered on: 07/15/19 Sex
--- OUTSIDE RECORDS SUMMARY | 2024-05-02 11:25 | XMS_ITS | Continuity of Care Document ---
Author Organization [facility] Address [address] [place] [id number]- Care Team Providers Care And Rescue Fire Fighter Crash Fire Name Role Phone Andrade Khan MD Primary Care Physician Encounter [facility] [place] Date(s): 03/01/24 - 03/31/24 [facility] [address] [place] [id number]- [place] Allergies, Adverse Reactions, Alerts Substance Reaction Severity [...] Recorded tetanus/diphtheria/pertussis, acel(Tdap) 03/18/10 Recorded 1Result Comment: [id number] 2Result Comment: [id number] Medications Albuterol (Eqv-ProAir HFA) 90 mcg/inh inhalation [...] Refills, Maintenance, 01/09/24 11:30:00 EDT, [id number], 164.1, cm, 12/11/23 13:49:00 EDT, Height, 121.2, kg, 01/30/23 12:56:00 EDT, Dry Weight Start Date: 01/09/24 Status: Ordered clopidogrel 75 mg oral tablet 75 mg, 1, tablet, By Mouth, Daily, # 30 tablet, Refills 5, Tot. Refills 5, Maintenance, 03/01/24 14:22:00 EDT, Route to Pharmacy Electronically, [facility]/pharmacy #[id number], Partial fill upon patient request [...] Refills, Maintenance, 01/12/24 12:08:00 EDT, [id number], 164.1, cm, 12/11/23 13:49:00 EDT, Height, 121.2, [...] 02/29/24 11:06:00 EDT, Route to Pharmacy Electronically, [facility]/pharmacy #[id number], Partial fill upon patient request [...] chews nicotene gum; entered on: 01/12/23 Sex Cardiology Outpatient Note * Samantha Calles: PERFORM Event Display: Cardiology Note Office Authored Date: [id number] Patient: ??RICHARD VERNON ? Age:??63 Years?Sex:??Female?:??1960?? History of Present Illness/Interval History Patient is a??63-year-old female with past medical history of CAD,??recent ACS/NSTEMI s/p??PCI??in early January in [place],??paroxysmal A-fib on Eliquis, HLD,??T2DM,??mild intermittent asthma,??hypothyroidism, GERD, depression??who is here today for??inpatient??follow-up for chest pain.? Previous??we underwent??coronary angiography in [place] where a stent was placed to mid LAD and her PD/PA value was minimally elevated.?? She had??post- cath troponin rise likely due to angiography or possible vasospasm. ??Repeat angiography was??completely unremarkable.?? And all other??ED visits her EKGs and troponins were unremarkable. Patient??presented to the??emergency department multiple times with chest discomfort??including visits to [facility].?? Workups have??not indicated??any cardiac cause for her symptoms.?She had a recent nuclear stress test??that was normal.?? Her symptomology was??unlikely to be cardiac??related.?? Given frequency nature of her symptoms??she was started on??an antianginal,??ranolazine 500 mg twice daily??to see if it reduces her symptom burden.?? Recommend she continue dual antiplatelet??therapy. ?? History from previous consult note: 01/18 Cardiac angiogram LMCA is large caliber vessel from L coronary sinus. Trifurcates into LAD, a large ramus and left circumflex. Luminal irregularities but no significant disease in the LMCA. LAD is large caliber vessel that gives off two diagonal branches before it wraps around the apex. D1 and D2 are small caliber vessels. There was a 40% proximal LAD stenosis and long 60% mid-LAD stenosis (Pd/Pa=0.89 and FFR=0.82). No other significant vessel disease noted Mid LAD??2.5x38mm Skypoint Xience VERNON placed ?? Echo LV size and wall thickness normal LVEF 60-65% RV normal size and function Normal RA and LA size AV mildly thickened, no /AR Trivial TR Normal mitral and pulmonic valves PASP 17 ?? 01/20 Cardiac angiogram?? No changes from previous, mid LAD stent in place without complications.? Patient states that overall she has been feeling better over the past week. ??Initially when discharged from the hospital she??had frequent??sharp chest pains migrating??throughout her chest occurring mostly at rest, lasting 5 minutes??relieved with nitro. ??No chest pressure. ??She notes longsta nding??dyspnea on exertion, unchanged. ??She is also reporting dizziness/palpitations with heart rate going up??to 120??bpm??on 1 occasion.?Denies syncope. ??She tells me she ran out of JCDta??4 days ago and did not refill.?? She is not very active Review of Systems Pertinent positives in HPI Physical Exam Vitals & Measurements Weight lb/oz: 287 lb 11 oz GENERAL: ??Alert and oriented x3, no acute distress.?? HEENT: no pallor or scleral icterus NECK: ??Supple. No JVD, HJR, carotid bruits. ??Normal carotid upstrokes.?? LUNGS: Clear to auscultation bilaterally. ??No crackles, wheezing, rhonchi. ?? HEART: RRR. ??No murmurs, rubs, or gallops.?? ABDOMEN: Positive bowel sounds, soft, nontender, nondistended. ? EXTREMITIES: ??No cyanosis, clubbing or edema.?? Assessment/Plan 1. ??CAD s/p??VERNON to mid LAD Cardiac cath 01/20??showed mid LAD stent??in place without??complications., ??40% proximal LAD stenosis, and no other significant vessel disease. Multiple ER visits for chest pain,??recent??nuclear stress test without evidence of ischemia??most recent hospitalization??EKG and troponins were unremarkable She continues to have??chest pain, described as sharp??occurring mostly at rest. ??Is not typical for cardiac chest pain. Will trial increase metoprolol to 50 mg??daily??for increased antianginal effect to see if this??improves her symptoms. Continue??DAPT??aspirin and??Plavix Will increase metoprolol to 50 mg??daily??to see if this helps with symptoms Continue high intensity??statin Patient will monitor blood pressure and heart rates at home ?? 2. ??Atrial fibrillation, paroxysmal She is having palpitations.?? Heart rate in the 90s??and regular on exam Increase metoprolol to 50 mg??daily??have him decrease to 25 mg??while in hospital due to low BPs Patient to monitor blood pressures at home Will get ZIO monitor to evaluate A-fib burden,??heart rate Continue??apixaban, patient denies bleeding ?? 3. ??Hyperlipidemia Diet and exercise discussed Lipid panel reviewed Continue??atorvastatin??grams daily. ?? 4. ??Hypertension??blood pressure well-controlled Continue metoprolol ?? Return visit 2 months??with me,??[address] Oliva. Allergies CeleBREX??(Pain with burning in chest and arms and lightheaded) Demerol??(Vomiting, Swelling) Home Medications Albuterol (Eqv-ProAir HFA) 90 mcg/inh inhalation aerosol, 2 puffs, Inhalation, Every 6 hours, PRN, 5 refills atorvastatin 80 mg oral tablet, 80 mg= 1 tablet, By Mouth, Daily citalopram 20 mg oral tablet, 1 tablet, By Mouth, Daily clopidogrel 75 mg oral tablet, 75 mg= 1 tablet, By Mouth, Daily, 5 refills Eliquis 5 mg oral tablet, 5 mg= 1 tablet, By Mouth, 2 times a day levothyroxine 0.05 mg oral tablet, 1 tablet, By Mouth, Daily metoprolol 25 mg oral tablet, 12.5 mg= 0.5 tablet, By Mouth, Every 6 hours, PRN metoprolol 50 mg oral tablet, extended release, 50 mg= 1 tablet, By Mouth, Daily nitroglycerin 0.4 mg sublingual tablet, 0.4 mg= 1 tablet, Sublingual, Every 5 minutes, PRN, 11 refills omeprazole 40 mg oral enteric coated capsule, 40 mg= 1 capsule, By Mouth, Daily, 3 refills Ozempic 2 mg/1.5 mL (0.25 mg or 0.5 mg dose) subcutaneous solution, 0.25 mg, Subcutaneous Injection, Every week, 5 refills ranolazine 500 mg oral tablet, extended release, 500 mg= 1 tablet, By Mouth, 2 times a day Lab Results Cardiology Labs WBC: 7.4 k/mm3 (02/06/24) RBC:??4.05 m/mm3??Low (02/06/24) Hgb:??11.2 Gm/dL??Low (02/06/24) Hct: 36.1 % (02/06/24) MCV: 89.1 femtoliters (02/06/24) MCH: 27.7 pg (02/06/24) MCHC:??31 g/dL??Low (02/06/24) Platelet Count: 265 k/mm3 (02/06/24) RDW-SD:??49.5 femtoliters??High (02/06/24) Nucleated RBC (Automated): 0 #/100 WBC'S (02/06/24) Abs. Neut: 5 k/mm3 (02/06/24) Abs. Lymph: 1.7 k/mm3 (02/06/24) Abs. [place]: 0.5 k/mm3 (02/06/24) Abs. Eo: 0.2 k/mm3 (02/06/24) Abs. Baso: 0 k/mm3 (02/06/24) Neut %: 67.4 % (02/06/24) Twiggs %: 6.4 % (02/06/24) Eos %: 2 % (02/06/24) Baso %: 0.5 % (02/06/24) Imm Gran: 0.3 % (02/06/24) Abs. Imm Gran: 0 k/mm3 (02/06/24) Sodium: 141 mmol/L (02/06/24) Potassium: 4.2 mmol/L (02/06/24) Chloride: 106 mmol/L (02/06/24) Bicarbonate Level: 23 mmol/L (02/06/24) Glucose Level:??112 mg/dL??High (02/06/24) Hemoglobin A1C (Monitoring):??6 %??High (05/15/23) BUN: 16 mg/dL (02/06/24) Creatinine-Blood: 0.6 mg/dL (02/06/24) Calcium: 9.1 mg/dL (02/06/24) Protein, Total: 6.9 Gm/dL (05/15/23) Albumin: 4.4 Gm/dL (05/15/23) Alkaline Phosphatase: 96 units/L (05/15/23) AST (SGOT): 15 units/L (05/15/23) ALT (SGPT): 11 units/L (05/15/23) Bilirubin, Total: 0.3 mg/dL (05/15/23) Cholesterol: 157 mg/dL (05/15/23) HDL Cholesterol: 47 mg/dL (05/15/23) Non HDL Cholesterol: 110 mg/dL (05/15/23) Direct Low Density Lipoprotein: 86 mg/dL (05/15/23) TSH: 2.79 uIU/mL (05/15/23) Diagnostic Impression ECG ECG 12-Lead ?? 07:54:08 Please click on pdf link to open report ?? Signed By: Gregorio Valente DO ?? ECG 12-Lead ?? 07:54:08 Ventricular Rate: 58 BPM Atrial Rate: 58 BPM P-R Interval: 180 ms QRS Duration: 82 ms Q-T Interval: 438 ms QTC Calculation(Bazett): 429 ms P [place]: 11 degrees R [place]: -4 degrees T [place]: -2 degrees Sinus bradycardia Otherwise normal ECG When compared with ECG of 06-FEB-2024 10:56, No significant change was found Confirmed by GREGORIO VALENTE MD ([id number]) on 02/07/2024 8:13:35 PM ?? Chloe: GREGORIO VALENTE MD ?? Signed By: Gregorio Valente DO Stress Test NM Myocard Perf SPECT Multi ?? 08:25:00 Summary 1. Myocardial perfusion imaging is normal without any fixed or reversible perfusion defect after Regadenoson stress test. ?? 2. LV function is normal at rest and with stress, with normal wall motion and thickening. ?? 3. EKG portion of the stress test is reported separately. ?? This procedure is not being performed on this patient for preoperative evaluation for low-risk surgery within 30 days. ?? Signatures _ _ ?? Signed By: Mudge MD, Christopher S Problem List/Past Medical History Ongoing Asthma Chronic anticoagulation GERD (gastroesophageal reflux disease) HTN (hypertension) Hyperlipidemia Hypothyroidism Lumbar radiculopathy Mild major depression Morbid obesity with BMI of 40.0-44.9, adult PAF (paroxysmal atrial fibrillation) S/P PTCA (percutaneous transluminal coronary angioplasty) Severe obesity Type 2 diabetes mellitus Procedure/Surgical History Laparoscopic total hysterectomy using robotic assistance: 12/23/21 Hysteroscopy and endometrial biopsy: 08/25/21 Caesarean section x 4 Bilateral tubal ligation Lumbar discectomy Extraction of wisdom teeth Removal of foreign body from foot Social History Alcohol Use: Never. Electronic Cigarette/Vaping Electronic Cigarette Use: Never. Employment/School Status: Employed. 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 Exercise Self assessment: Fair condition. Regular exercise: No. Exercise type: Walking. Home/Environment Living situation: Home/Independent. Lives with: Spouse. Nutrition/Health Diet: Regular. Caffeine intake amount: has caffeine amt not listed. Sexual Sexually involved in last 6 months: Yes. Gender identity: Identifies as female. Ever been sexually involved? Yes. Gender of partner(s): Male. Substance Abuse Use: Never. Tobacco Use: Former smoker, quit more than 30 days ago. Other: quit 20 years ago. chews nicotene gum. Family History Mother: CAD - Coronary artery disease; Diabetes mellitus type 2; Diabetes mellitus type II; Hyperlipidemia Father: Alcoholism; CAD - Coronary artery disease; Hypertension Mat. Grandfather: Diabetes mellitus type II; Mental illness Mat. Grandmother: Cancer of breast; Diabetes mellitus type II Sister: Hypertension Brother: Hypertension Patient Care team information Care Team Personnel Name: Sixto Slaughter RN Position: S RN Member Role: Primary Care Nurse Name: Isabel Otero RN Position: S RN Member Role: Primary Care Nurse Name: Andrade Khan MD Position: [facility] Physician - Primary Care Member Role: PCP Address: Address: [address] [place] [address]- Name: Mirta Parker RN Position: S RN Member Role: Primary Care Nurse Name: Cassie Haas RN Position: S RN Member Role: Primary Care Nurse Name: Jenna Blevins RN Position: S RN Member Role: Primary Care Nurse Name: Patricia Diaz LPN Position: S RN Member Role: Primary Care Nurse Care Team Related Persons Name: CAMACHO VERNON Address: [address] [address] [place]
--- OUTSIDE RECORDS SUMMARY | 2024-05-02 11:25 | XMS_ITS | Continuity of Care Document ---
Author Organization [facility] Address [address] [place] [address]- Care Team Providers Care Stone Polisher Hand Name Role Phone Bob Frost MD Primary Care Physician Encounter [facility] [place] Date(s): 12/31/20 - 03/08/[address] [address] Discharge Disposition: A-D/C Home Attending Physician: Bob Frost MD Admitting Physician: [...]
--- OUTSIDE RECORDS SUMMARY | 2024-05-02 11:25 | XMS_ITS | Continuity of Care Document ---
Author Organization [facility] Address [address] [place] [address]- Care Team Providers Care Ice Cream Man Name Role Phone Andrade Khan MD Primary Care Physician Encounter [facility] Date(s): 12/11/23 - 12/18/23 [facility] [address] [place] [address]- Encounter Diagnosis Acute pharyngitis(Discharge Diagnosis) - 12/11/23 Attending Physician: Nikki Devries MD Referring Physician: Andrade Khan MD Allergies, [...] Recorded tetanus/diphtheria/pertussis, acel(Tdap) 03/18/10 Recorded 1Result Comment: [id number] 2Result Comment: [id number] Medications Albuterol (Eqv-ProAir HFA) 90 mcg/inh inhalation [...] Maintenance, 03/12/21 15:56:00 EDT, Solution, [facility], Partial fill upon patient request if the prescription is for a schedule II opioid drug., 164, cm, 100... Start Date: 03/12/21 Status: Ordered atorvastatin 40 mg oral tablet 1 tablet, By Mouth, Daily, # 90 tablet, 1 Refills, Maintenance, 07/18/23 7:24:00 EST, [id number], 164.1, cm, 05/15/23 14:34:00 EST, Height, 121.2, kg, 01/30/23 12:56:00 EDT, Dry Weight Start Date: 07/18/23 Status: Ordered citalopram 20 mg oral tablet 1 tablet, By Mouth, Daily, # 90 tablet, 1 Refills, Maintenance, 07/18/23 7:24:00 EST, [id number], 164.1, cm, 05/15/23 14:34:00 EST, Height, 121.2, kg, 01/30/23 12:56:00 EDT, Dry Weight Start Date: 07/18/23 Status: Ordered levothyroxine 0.05 mg oral tablet 1 tablet, By Mouth, Daily, # 90 tablet, 1 Refills, Maintenance, 07/18/23 7:24:00 EST, [id number], 164.1, cm, 05/15/23 14:34:00 EST, Height, 121.2, [...] a apoorva... Start Date: 08/15/23 Status: Ordered penicillin V potassium 500 mg oral tablet 1 tablet = 500 mg, By Mouth, 2 times a day, for 10 days, New tooth brush 2-3 days after starting medication, complete full course medication., # 20 tablet, 0 Refills, Acute 12/21/23 14:08:00 EDT, 12/11/23 14:08:00 EDT, Tablet, [id number], Part... Start Date: 12/11/23 Stop Date: 12/21/23 Status: Ordered Trulicity Pen 1.5 mg/0.5 mL [...] Effective Dates Health Status Clinical Service Informant Acute pharyngitis Discharge Diagnosis 12/11/23 Vital Signs Most recent to oldest [Reference Range]: 1 Height 164.1 cm (12/11/23 1:49 PM) Oxygen Saturation [94-100 %] 98 % (12/11/23 1:49 PM) Pulse Rate [55-90 bpm] 96 bpm *H* (12/11/23 1:49 PM) Blood Pressure [90-138/55-84 mm Hg] 126/ 76mm Hg (12/11/23 1:49 PM) Respiratory Rate [16-30 br/min] 20 br/mi n (12/11/23 1:49 PM) Temperature [96.8-100.4 DegF] 97.3 DegF (12/11/23 1:49 PM) Mode of Delivery (Oxygen) Room air (12/11/23 1:49 PM) Blood pressure sites Arm, right (12/11/23 1:49 PM) Temperature Route Temporal (12/11/23 1:49 PM) Social History Social History Type Response Smoking Status Former smoker, quit more than 30 days ago; Other: quit 20 years ago. chews nicotene gum; entered on: 01/12/23 Sex Note * Deb Thompson: PERFORM Event Display: Patient Education/Instruction Authored Date: [id number] Ambulatory Adult Visit Summary [facility] [address] [place] [address] Name: RICHARD VERNON : 1960?? Visit: 12/11/2023 13:33?? Ambulatory Visit Instructions ?? Your Care Team Primary Care Provider Bill RODRIGUEZ, Andrade Green? This Visit Provider [facility] Your Diagnosis Acute pharyngitis Vitals Signs Temperature: 97.3 DegF Height: 164.1 cm Pulse Rate:??96 bpm??High ?? Respiratory Rate: 20 br/min ?? Systolic Blood Pressure: 126 mm Hg ?? Diastolic Blood Pressure: 76 mm Hg ?? Oxygen Saturation: 98 % ?? Medications The list below reflects the information in our records and provided by you today along with any changes made during this visit. Please continue your medications until treatment is completed or stopped by your provider. If this is different from the information you have or there are other questions,please contact the prescribing provider. What How Much When Why Instructions New penicillin V potassium (penicillin V potassium 500 mg oral tablet) 1 tab(s) Oral Twice a day Acute pharyngitis Duration: 10 Days New tooth brush 2-3 days after starting medication, complete full course medication. ?? Pickup at [facility]/pharm[facility] #[id number] Unchanged Albuterol (Albuterol (Eqv-ProAir HFA) 90 mcg/ inh inhalation aerosol) 2 puff(s) Inhalation Every 6 hours as needed for Wheezing/Shortness of Breath Unchanged Albuterol (albuterol 0.083% inhalation solution) 3 Milliliter Inhalation Every 6 hours as needed for for wheezing Unchanged Atorvastatin (atorvastatin 40 mg oral tablet) 1 tab(s) Oral Daily Unchanged Cholecalciferol (Vitamin D3 1000 intl units oral capsule) 1 capsule Oral Daily Unchanged Citalopram (citalopram 20 mg oral tablet) 1 tab(s) Oral Daily Unchanged dulaglutide (Trulicity Pen 1.5 mg/ 0.5 mL subcutaneous solution) See instructions INJECT 0.5 ML SUBCUTANEOUSLY EVERY WEEK ROTATE INJECTION SITES ?? Unchanged Levothyroxine (levothyroxine 0.05 mg oral tablet) 1 tab(s) Oral Daily Unchanged Meloxicam (meloxicam 15 mg oral tablet) 1 tab(s) Oral Daily Unchanged Omeprazole (omeprazole 40 mg oral enteric coated capsule) 1 capsule Oral Daily Unchanged semaglutide (Ozempic 2 mg/ 1.5 mL (0.25 mg or 0.5 mg dose) subcutaneous solution) 0.25 Milligram Subcutaneous Injection Every week rotate injection sites; for treatment of T2DM E11.9 ?? Pharmacy Information [facility]/pharmacy #[id number]: [address] [place] [address] [phone] Lab Test Results Point of Care Results POC Rapid Strep results: Positive for Group A Strep (12/11/23) Medications and Immunizations Administered Medications Given During Visit No medications given during this visit.?? Allergies (NKA means No Known Allergies) CeleBREX??(Pain with burning in chest and arms and lightheaded) Demerol??(Vomiting, Swelling) Common Emergency Awareness Tips IS IT A STROKE? Act FAST and Check for these signs: FACE Does the face look uneven? ARM Does one arm drift down? SPEECH Does their speech sound strange? TIME Call at any sign of stroke ?? Heart Attack Signs Chest discomfort: Most heart attacks involve discomfort in the center of the chest and lasts more than a few minutes, or goes away and comes back. It can feel like uncomfortable pressure, squeezing, fullness or pain. Discomfort in upper body: Symptoms can include pain or discomfort in one or both arms, back, neck, jaw or stomach. Shortness of breath: With or without discomfort. Other signs: Breaking out in a cold sweat, nausea, or lightheaded. Remember, MINUTES DO MATTER. If you experience any of these heart attack warning signs, call to get immediate medical attention! ?? Smoking can increase your chances of developing chronic health problems and can cause harmful effects to other family members in your house. If you smoke, you are strongly encouraged to quit. Please call [employer] [facility] at [phone] or [phone] Group ([phone]) or log in to [email or web address] for referrals to smoking cessation programs. ?? The National Suicide Prevention Hotline is available 26/12 if you or someone you know needs to find a reason to keep living. By calling 4-029-669-EBOOKAPLACE (5021) you'll be connected to a skilled, trained counselor at a crisis center in your area. [facility] You can view and manage your care through the patient portal or by using a health care danni of your choosing. [facility] is a website that allows you to securely view your medical information including your hospital discharge summary, office visit summaries, medications and follow-up visits. You can also request appointments, renew medications, and request access to your medical information using a health care danni of your choosing, or just ask a question. You can enroll at [email or web address] or register during your next office visit. [facility], in keeping with [facility] guidance, no longer requires face masks for staff, patientsor visitors in most situations. Similiar to time spent indoors at other locations, there is the chance that you were exposed to repiratory viruses during your time with us (such as flu or COVID-19). If you develop symptoms concerning for a viral respiratory infection, please seek testing (and treatment if indicated) from your medical provider or home test kit. ?? Disclaimer: The information provided is of a general nature and is intended to be used in conjunction with the recommendations and advice of your health care practitioner. Every effort has been made to ensure that the information provided is accurate and complete at the time it is provided to you however, as your needs change, or, as new information becomes available, different or additional instructions may be required. ?? If you have questions, please consult with your primary care provider or pharmacist, as appropriate. This information is not intended to serve as substitution for assessment and evaluation by a qualified health care provider. If you do not have a primary care provider, you may find a [facility] provider by calling [facility] at [phone]. Patient Care team information Care Team Personnel Name: Sixto Slaughter RN Position: [facility] RN Member Role: Primary Care Nurse Name: Andrade Khan MD Position: [facility] Physician - Primary Care Member Role: PCP Address: Address: [address] [place] [id number]- Name: Mirta Parker RN Position: [facility] RN Member Role: Primary Care Nurse Care Team Related Persons Name: CAMACHO VERNON Address: [address] [address]
--- OUTSIDE RECORDS SUMMARY | 2024-05-02 11:25 | XMS_ITS | Continuity of Care Document ---
Author Organization [facility] Francisco Paulino lt Address [address] [place] [address]- Care Team Providers Care Vulcanizer Name Role Phone Bill RODRIGUEZ, Andrade Green Primary Care Physician [place] [facility]18[place] 07[place]/21 [facility] Adult [address] [place] [address]- Allergies, Adverse Reactions, Alerts Substance Reaction Severity [...] solution, Dx: Asthma, 03/12/21 15:47:00 EDT, Supply, lynne Sigala, 03/12/21 15:26:00 EDT,Height Start Date: 03/12/21 Status: [...]
--- OUTSIDE RECORDS SUMMARY | 2024-05-02 11:25 | XMS_ITS | Continuity of Care Document ---
Author Organization [facility] Francisco Paulino Address [address] [place] [address]- Care Team Providers Care Nfl Player Name Role Phone Margot RODRIGUEZ, Bob Alcantar Primary Care Physician Encounter [facility] Date(s): 03/03/21 - 04/02/21 [facility] Adult [address] [place] [address]- Allergies, Adverse Reactions, Alerts Substance Reaction Severity [...]
--- OUTSIDE RECORDS SUMMARY | 2024-05-02 11:25 | XMS_ITS | Continuity of Care Document ---
Author Organization [facility] Paulino Address [address] [place] [address]- Care Team Providers Care Staff Counselor Name Role Phone Margot RODRIGUEZ, Bob Alcantar Primary Care Physician [phone] Encounter [facility] Date(s): 03/12/21 - 04/11/21 [facility] [address] [place] [address]- Attending Physician: Admtr, Ar8 Admitting Physician: Admtr, [...] solution, Dx: Asthma, 03/12/21 15:47:00 EDT, Supply, 164lynne, 03/12/21 15:26:00 EDT,Height Start Date: 03/12/21 Status: [...]
--- OUTSIDE RECORDS SUMMARY | 2024-05-02 11:25 | XMS_ITS | Continuity of Care Document ---
Author Organization [facility] Francisco Paulino lt Address [address] [place] [address]- Care Team Providers Care Superintendent House Name Role Phone Bill RODRIGUEZ, Andrade Green Primary Care Physician [place] [facility] [place]16[place]/22 [facility] Adult [address] [place] [address]- Allergies, Adverse Reactions, Alerts Substance Reaction Severity [...] Recorded tetanus/diphtheria/pertussis, acel(Tdap) 03/18/10 Recorded 1Result Comment: [id number] 2Result Comment: [id number] Medications Albuterol (Eqv-ProAir HFA) 90 mcg/inh inhalation [...] II o... Start Date: 12/28/21 Status: Ordered ibuprofen 800 mg oral tablet 800 mg, 1, tablet, By Mouth, Every 8 hours, # 30 tablet, Refills 0, Tot. Refills 0, Maintenance, 12/10/21 17:50:00 EDT, Route to Pharmacy Electronically, [facility]/pharmacy #[id number], Partial fill upon patientrequest if the prescription [...] 12/24/21 7:49:00... Start Date: 12/28/21 Status: Ordered metFORMIN 500 mg oral tablet 1 tablet = 500 mg, By Mouth, 2 times a day, # 180 tablet, 3 Refills, Maintenance, 12/28/21 6:48:00 EDT, Tablet, [facility], Partial fill upon patient request if the prescription isfor a schedule II opioid drug., 165.1, cm, 12/24/21... Start Date: 12/28/21 Status: Ordered Nebulizer/Compressor See Instructions, # 1 [...] 12/24/21 7:4... Start Date: 12/28/21 Status: Ordered Tylenol 325 mg oral tablet 975 mg, 3, tablet, By Mouth, Every 6 hours, PRN, # 50 tablet, Refills 0, Tot. Refills 0, Maintenance, for pain, 12/10/21 17:50:00 EDT, Route to Pharmacy Electronically, [facility]/pharmacy #[id number], Partial fill upon patient request if the [...]
--- OUTSIDE RECORDS SUMMARY | 2024-05-02 11:25 | XMS_ITS | Continuity of Care Document ---
Author Organization [facility] ter Address [address] [place] [id number]- Care Team Providers Care Character Artist Name Role Phone Bill RODRIGUEZ, Andrade Green Primary Care Physician [place] [facility] [place](s): 01/30/23 - 02/01/[address] [address]- Discharge Disposition: A-Transfer VNA/Home Health Attending Physician: Harpreet Delgado MD Admitting Physician: Harpreet Delgado MD Referring Physician: Harpreet Delgado MD Allergies, Adverse Reactions, Alerts Substance Reaction [...] Recorded tetanus/diphtheria/pertussis, acel(Tdap) 03/18/10 Recorded 1Result Comment: [id number] 2Result Comment: [id number] Medications acetaminophen 325 mg oral tablet 650 mg, By Mouth, Every 6 hours, may take OTC not to exceed 3000 mg/day, Refills 0, Maintenance, 01/31/23 7:37:00 EDT, Partial fill upon patient request if the prescription is for a schedule II opioid drug. Start Date: 01/31/23 Status: Ordered Acetaminophen Tablet 650 mg, Tablet, By Mouth, 02/01/23 3:00:00 EDT Start Date: 02/01/23 Stop Date: 02/01/23 Status: Completed Albuterol (Eqv-ProAir HFA) 90 mcg/inh inhalation aerosol [...] 1 Refills, Maintenance, 03/12/21 15:56:00 EDT, Solution, [facility], Partial fill [...] 90 tablet, 1 Refills, 01/23/23 15:14:00 EDT, [facility]/pharmacy #[id number], 164.5, cm, 01/12/23 11:17:00 EDT, Height, 121, kg, 01/12/23 11:17:00 EDT, Dry Weight Start Date: 01/23/23 Status: Ordered CeleXA 20 mg oral tablet 20 mg, 1, tablet, By Mouth, Daily, # 90 tablet, Refills 1, Tot. Refills 1, Maintenance, 01/23/23 15:14:00 EDT, Route to Pharmacy Electronically, [facility]/pharmacy #[id number], Partial fill upon patient request [...] opioid drug. Start Date: 01/31/23 Status: Ordered HYDROmorphone 2 mg oral tablet See Instructions, PRN Pain , Severe, 1-2 tablets by mouth every 4 hours as needed, # 84 tablet, 0 Refills, Acute 02/07/23 8:00:00 EDT, 01/31/23 7:02:00 EDT, Tablet, [facility], Partial fill upon patient request if the prescription is for... Start Date: 01/31/23 Stop Date: 02/07/23 Status: Ordered levothyroxine 0.05 mg oral tablet 1 tablet = 50 mcg, By Mouth, Daily, # 90 tablet, 1 Refills, Maintenance, 01/23/23 15:14:00 EDT, Tablet, [facility]/pharmacy #[id number], Partial fill upon patient request [...] 12/24/21 7:4... Start Date: 12/28/21 Status: Ordered ondansetron 4 mg oral tablet, disintegrating = 4 mg, By Mouth, Every 8 hours, PRN Nausea & Vomiting, for 7 days, # 21 tablet, 0 Refills, Acute 02/07/23 9:28:00 EDT, 01/31/23 9:28:00 EDT, Tablet, [facility], Partial fill upon patient request if the prescription is for a schedule II... Start Date: 01/31/23 Stop Date: 02/07/23 Status: Ordered traMADol 50 mg oral tablet See Instructions, PRN Pain , Mild, 1-2 tablets by mouth every 6 hours not to exceed 400 mg/day, # 56 tablet, 0 Refills, Acute 02/07/23 8:00:00 EDT, 01/31/23 7:01:00 EDT, Tablet, [facility], Partial fill upon patient request if the pres... Start Date: 01/31/23 Stop Date: 02/07/23 Status: Ordered Transderm-Scop 1 mg/72 hr transdermal film, extended release 1 patch, Ear, Right, Every 72 hours, # 3 patch, 0 Refills, Acute 02/10/23 8:00:00 EDT, 02/01/23 7:16:00 EDT, [facility], Partial fill upon patient request if the prescription is for a schedule II opioid drug., 1 patch Ear, Right Every 72... Start Date: 02/01/23 Stop Date: 02/10/23 Status: Ordered Trulicity Pen 1.5 mg/0.5 mL subcutaneous solution See Instructions, INJECT 0.5 ML SUBCUTANEOUSLY EVERY WEEK ROTATE INJECTION SITES, # 2 Unknown, 5 Refills, Maintenance, 09/04/22 18:31:00 EDT, [id number], 165, cm, 04/25/22 6:57:00 EST, Height, 122.7, [...] Exam Date Time Procedure Performing Provider Status 01/30/23 12:19 PM Pelvis 1 or 2 Views Graciela Ward; Emily (Verified) Notes: (Pelvis 1 or 2 Views) Reason For Exam: Postop Prosthesis RESULT: Pelvis 1 or 2 Views Pelvis 1 or 2 Views INDICATION: Reason: Postop Prosthesis; Clinical Question(s): Status of Hip Prosthesis; Special Instructions: RIGHT Pelvis 1 or 2 Views INDICATION: Reason: Postop Prosthesis; Clinical Question(s): Status of Hip Prosthesis; Special Instructions: RIGHT Hip - To be done in PACU TECHNIQUE: Single AP image. Current exam at 1211 hours. COMPARISON: Same day at 1028 hours. FINDINGS: Satisfactory positioning of the components of the right hip replacement. There is no fracture. IMPRESSION: 1. Satisfactory initial postoperative appearance right hip replacement. 2. No fracture seen. WSN: [id number] Ordering Physician: Ap Johnson Dictated By: Tim Vallejo MD Dictated Date/Time: 01/30/23 1:30 pm Reviewed By: Tim Vallejo MD Signed By: Tim Vallejo MD Signed Date/Time: 01/30/23 1:30 pm Transcribed By: ASTER Transcribed Date/Time: 01/30/23 1:29 pm * Exam Date Time Procedure Performing Provider Status 01/30/23 10:36 AM Pelvis 1 or 2 Views Rose Horton (Verified) Notes: (Pelvis 1 or 2 Views) Reason For Exam: INTRA OP RESULT: Pelvis 1 or 2 Views Pelvis AP portable Reason: INTRA OP hip replacement COMPARISON: None. FINDINGS: New acetabular hardware is fixed with an iliac screw. Femoral sizing device in place. No periprosthetic fracture or other unexpected findings. IMPRESSION: Typical intraoperative appearance. WSN: [id number] Ordering Physician: Harpreet Delgado Dictated By: Harpreet Pradhan MD Dictated Date/Time: 01/30/23 12:51 p Reviewed By: Harpreet Pradhan MD Signed By: Harpreet Pradhan MD Signed Date/Time: 01/30/23 12:51 pm Transcribed By: ASTER Transcribed Date/Time: 01/30/23 12:50 pm Vital Signs Most recent to oldest [Reference Range]: 1 2 3 Height 165 cm (02/01/23 6:32 AM) 165 cm (02/01/23 3:56 AM) 165 cm (01/31/23 11:33 PM) Weight 121.2 kg (01/30/23 12:49 PM) Oxygen Saturation [94-100 %] 90 % *L* (02/01/23 6:32 AM) 100 % (02/01/23 3:56 AM) 100 % (01/31/23 11:33 PM) Pulse Rate [55-90 bpm] 63 bpm (02/01/23 6:32 AM) 68 bpm (02/01/23 3:56 AM) 62 bpm (01/31/23 11:33 PM) Body Mass Index [18.5-24.99 kg/m2] 44.52 kg/m2 *>HHI* (01/30/23 12:49 PM) Blood Pressure [90-138/55-84 mm Hg] 122/60mm Hg (02/01/23 6:32 AM) 110/53mm Hg (02/01/23 3:56 AM) 108/55mm Hg (01/31/23 11:33 PM) Respiratory Rate [16-30 br/min] 18 br/min (02/01/23 6:32 AM) 16 br/min (02/01/23 6:10 AM) 18 br/min (02/01/23 3:56 AM) Temperature [96.8-100.4 DegF] 97.4 DegF (02/01/23 6:32 AM) 98.3 DegF (02/01/23 3:56 AM) 97.8 DegF (01/31/23 11:33 PM) Mode of Delivery (Oxygen) Room air (02/01/23 6:32 AM) Room air (02/01/23 3:56 AM) Room air (01/31/23 11:33 PM) Blood pressure sites Arm, right (02/01/23 6:32 AM) Arm, right (02/01/23 3:56 AM) Arm, right (01/31/23 11:33 PM) Temperature Route Oral (02/01/23 6:32 AM) Oral (02/01/23 3:56 AM) Oral (01/31/23 11:33 PM) Dry Weight 121.2 kg (01/30/23 12:49 PM) 121.2 kg (01/30/23 9:00 AM) Weight Obtained Via Standing scale (01/30/23 12:49 PM) Dry Weight Obtained Via Standing scale (01/30/23 12:49 PM) Standing scale (01/30/23 9:00 AM) Social History Social History Type Response Smoking Status Former smoker, quit more than 30 days ago; Other: quit 20 years ago. chews nicotene gum; entered on: 01/12/23 Sex History and physical note * Event Display: History and Physical Hospital Authored Date: [id number] * Event Display: History and Physical Hospital Authored Date: [id number] SURGICAL HISTORY AND PHYSICAL DATE: 01/30/2023 PRIMARY DIAGNOSIS: Osteoarthritis of the right hip. REASON FOR ADMISSION: The patient is being admitted for a right total hip arthroplasty with Dr. Delgado on 01/30/2023. HISTORY OF PRESENT ILLNESS: The patient is a 62-year-old female who presents here today with complaints of right hip pain. This pain has been ongoing for greater than the past 2 years and been getting progressively worse. She has tried and failed anti-inflammatories and intraarticular hip injection. The patient states within the last month, the pain has been increasing that she is becoming more homebound and walks time buyer with a cane. She states the pain is significant enough that limits her ability to perform activities of daily living and she is now ready to pursue a right total hip arthroplasty with Dr. Delgado on 01/30/2023. PAST MEDICAL HISTORY: 1. Osteoarthritis. 2. GERD. 3. Hyperlipidemia. 4. Hypothyroidism. 5. Lumbar radiculopathy, L4-L5, which caused a weak plantarflexion of 2/5 on the left lower extremity. 6. Depression. 7. Type 2 diabetes. 8. Obesity with a BMI of 44. 9. Asthma, which the patient does not take a daily inhaler and states she only takes a rescue albuterol inhaler once a month. PAST SURGICAL HISTORY: 1. Laparoscopic total hysterectomy using robotic assistance in 12/2021. 2. Endometrial biopsy in 08/2021. 3. section x4. 4. Bilateral tubal ligation. 5. Lumbar diskectomy. 6. Removal of foreign body from the foot. MEDICATIONS: The patient's current med list includes: 1. Albuterol 90 mcg inhalation 2 puffs every 6 hours as needed. The patient states she takes this approximately once a month. 2. Atorvastatin 40 mg by mouth once daily. 3. Celexa 20 mg by mouth once daily, she will take the morning of surgery. 4. Levothyroxine 50 mcg by mouth once daily, she will take the morning of surgery. 5. Magnesium citrate, she uses as needed for constipation. 6. Meloxicam 15 by mouth once daily, which she stopped in preparation for surgery. 7. Omeprazole 40 by mouth once daily. 8. Trulicity 1.5 mg and 0.5 mL subcutaneously once a week, she takes on Saturdays. 9. Vitamin D3 1000 units by mouth once daily. ALLERGIES: The patient reports an allergy to DEMEROL of vomiting and swelling. SOCIAL HISTORY: The patient denies use of any ETOH. She is a former smoker, quit in 2007. Denies use of any recreational drugs. REVIEW OF SYSTEMS: Denies headache, dizziness, or syncope. Denies fever, chills, unexplained weightloss or fatigue. Denies rash or lesions. Denies rhinorrhea, earache, sore throat, swollen glands. Denies cough, shortness of breath or wheezing. Denies chest pain, pressure, or palpitations. Some bilateral mild lower extremity edema noted. Denies nausea, vomiting, diarrhea, constipation, or abdominal pain. Denies dysuria, urinary urgency or frequency. Denies calf pain, history of blood clots in the legs. Positive for numbness and tingling from the knee down in the left lower extremity and numbness and tingling in the right foot. The patient with weak dorsi reflex 2/5. PHYSICAL EXAMINATION: VITAL SIGNS: Height 65 inches, weight 264 pounds, temperature 97.4, blood pressure 102/64, pulse 78beats per minute. GENERAL: Alert and oriented. Normal insight, affect, and grooming. SKIN: Intact without rash or lesions. NECK: Supple. Trachea midline. CHEST: Lungs are clear to auscultation. CARDIOVASCULAR: Heart has a regular rate and rhythm. ABDOMEN: Obese, soft, nontender. EXTREMITIES: Lower extremities: The patient has a negative straight leg raise test bilaterally. Full range of motion of both knees without pain. The patient ambulates with a profoundly antalgic gait.She uses a cane. She has a grossly positive Stinchfield test. Hip flexion is to about 85 degrees and she has about 10 degrees internal and external rotation. She has significant soft tissue over the right hip. No open wounds. Bilateral lower extremities with noted decreased sensation left greater than right. Pedal pulses palpable bilaterally. Decreased dorsi reflex with the left lower extremity. Skin about the feet is intact. PREOPERATIVE DIAGNOSTIC DATA: EKG reads normal sinus rhythm at 78 beats per minute. Orthopedic x-ray shows end-stage osteoarthritis of the right hip, subchondral sclerosis with osteophyte formation. LABORATORY DATA: CBC from 01/12/2023 shows some hemoglobin 13.2, hematocrit 41.2, platelet count of260. Coags show INR 1.0. Chemistries demonstrate a hemoglobin A1c of 6.1, creatinine 0.7, estimatedcreatinine of 96. PHYSICIANS: The patient's primary care provider is Dr. Andrade Khan. ASSESSMENT AND PLAN: The patient has advanced osteoarthritis of the right hip and is now scheduled for right total hip arthroplasty with Dr. Delgado on 01/30/2023. The patient was seen by the medical consultative preop clinic, who feels that the patient is a low pulmonary and cardiac risk and no absolute medical contraindications. The patient reports no active dental issues. The patient will receive intravenous tranexamic acid. She will be on aspirin postop for DVT prophylaxis. We will check a point of care and use an insulin sliding scale to manage the patient's type 2 diabetes, The patient reports sensitivity to narcotics. We will start with just tramadol and increase as needed. Discharge plans will be to home with services. Questions have been answered. She acknowledges understanding andsigned the consents. She will have 1 week in-home physical therapy prior to outpatient. Prescriptions sent to local pharmacy include Celebrex only. She states that she already has aspirinat home and Colace. The patient will need pain medication upon discharge. CONTACTS: Her , Matheus, who can be reached at [phone]. Dictated by: Mary Burton N.P. Signing Clinician: Harpreet Delgado M.D. Dictated: 01/24/2023 12:49:27 Transcribed: 08:33:40 AM Transcribed by: BHARTI DocID: [id number] PRELIMINARY REPORT UNLESS MANUALLY/ELECTRONICALLY SIGNED Note * Melanie Gibbs RN: PERFORM Event Display: Discharge/Transfer Note Hospital Authored Date: [id number] Nursing Discharge Note Entered On: 02/01/2023 10:42 EDT Performed On: 02/01/2023 10:41 EDT by Melanie Gibbs RN Nursing Discharge Note 2 Discharge Time : 02/01/2023 10:40 EDT Discharge Level of Care at Discharge : Homehealth/VNA Patient Left Unit Via : Wheelchair Patient Accompanied Off Unit with : Other: public health nurse DC Instructions Provided & Signed by Pt : Yes Patient Understands D/C Instructions : Yes Patient Instructions Discharge Signed : Yes Did Pt have Specialty Bed or Wound Vac : No Melanie Gibbs RN - 02/01/2023 10:41 EDT * April Briggs RN: PERFORM Event Display: Patient Education/Instruction Authored Date: [id number] Inpatient Adult Discharge Instructions [address] [address] Name: RICHARD VERNON : 1960 Visit: 01/30/2023 06:30:00 Current Date: 02/01/2023 08:09 Account: [id number] Inpatient Adult Discharge Instructions We would like to thank you for allowing us to assist you with your healthcare needs. The following includes patient education materials and information regarding your injury/illness. Our entire staffstrives to provide an excellent experience for our patients and their families. PLEASE ENSURE YOU FOLLOW-UP PER THE INSTRUCTIONS BELOW! ?? YOUR OPINION IS IMPORTANT TO US! Please complete the survey you may receive by mail or email. Your feedback will be used to make improvements to the healthcare experiences of our patients and their families. Surveys are administered by [employer] ?? If further treatment with your primary care physician or another doctor is recommended, it is important for you to keep the appointment. Call your primary care physician or return to the Emergency Department immediately if your condition worsens, fails to improve, or new symptoms develop. If you need to find a doctor, you can call [facility] for a referral at [phone] or toll free at [phone]) or log in to [email or web address].. ?? [facility], in keeping with [facility] guidance, no longer requires face masks for [...] medical provider or home test kit. ?? You can view and manage your care through the patient portal or by using a health care danni of your choosing. [employer] is a website that allows you to securely view your medical information including your hospital discharge summary, office visit summaries, medications and follow-up visits. You can also request appointments, renew medications, and request access to your medical information using a health care danni of your choosing, or just ask a question. You can enroll at [email or web address] or register during your next office visit. You have been discharged from [facility], Patient Care Unit: SW7. If you have any questions regarding these instructions after you leave, please call us and we will be happy to assist you. [facility] Your Care Team Attending Physician Sandy RODRIGUEZ, Harpreet Alcantar Consulting Providers Sandy RODRIGUEZ, Harpreet Alcantar Discharging Providers Micheal MENDES, Mary Wilson Reason for Admission OA RIGHT HIP 23OVN Your Diagnosis Osteoarthritis of hip, right Tests Performed Below is a partial list of the tests performed during your hospitalization. You may have had other tests and procedures not included in this list. Please discuss all test results with your provider. [id number] BUN CBC Creatinine Electrolytes GLUCOSE POC XR Pelvis 1 or 2 Views Primary Care Provider Andrade Khan MD Advance Directive Health Care Proxy on File Yes - Health Care Proxy Discharge Vitals Temperature: 97.4 DegF Height: 165 cm Pulse Rate: 63 bpm Weight: 121.2 kg Respiratory Rate: 18 br/min Body Mass Index:??44.52 kg/m2??Critical Systolic Blood Pressure: 122 mm Hg Body surface area: 2.36 Diastolic Blood Pressure: 60 mm Hg ?? Oxygen Saturation:??90 %??Low ?? Studies Pending All tests and labs ordered during this hospital stay have been completed unless listed below. Please discuss all pending results with your provider listed above in these instructions. ?? BUN CBC Creatinine Electrolytes What to do next Instructions From Your Doctor Discharge Orders You Need to Schedule the Following Appointments Follow Up with??[facility] When:??Within 1 to 2 weeks Follow Up with??[facility] When:??Within 1 to 2 weeks Discharge Medications RICHARD VERNON :1960 Visit Date:01/30/2023 Medications: Please continue your medications until treatment is completed or stopped by your provider. Medications not listed below should be discontinued. Discuss any questions related to medications with your provider. What How Much When Instructions Next Dose New Acetaminophen (acetaminophen 325 mg oral tablet) 650 Milligram Oral Every 6 hours may take OTC not to exceed 3000 mg/ day ?? New Docusate (Colace Capsule) 100 Milligram Oral Twice a day as needed for as needed for constipation 8-9pm New Hydromorphone (HYDROmorphone 2 mg oral tablet) See instructions 1-2 tablets by mouth every 4 hours as needed, As needed for Pain , Severe ?? Pickup at [facility] 3 New Ondansetron (ondansetron 4 mg oral tablet, disintegrating) 4 Milligram Oral Every 8 hours as needed for Nausea & Vomiting Duration: 7 Days Pickup at [facility] 3 New Scopolamine (Transderm-Scop 1 mg/ 72 hr transdermal film, extended release) 1 patch(es) Right ear Every 72 hours Pickup at [facility] 3 New Tramadol (traMADol 50 mg oral tablet) See instructions 1-2 tablets by mouth every 6 hours not to exceed 400 mg/ day, As needed for Pain , Mild ?? Pickup at [facility] 3 Changed Aspirin (Aspirin Tablet) 325 Milligram Oral Twice a day 8-9pm Unchanged Albuterol (Albuterol (Eqv-ProAir HFA) 90 mcg/ inh inhalation aerosol) 2 puff(s) Inhalation Every 6 hours as needed for Wheezing/Shortness of Breath as needed Unchanged Albuterol (albuterol 0.083% inhalation solution) 3 Milliliter Inhalation Every 6 hours as needed for for wheezing Unchanged Atorvastatin (atorvastatin 40 mg oral tablet) 1 tab(s) Oral Daily 02/02 Unchanged Cholecalciferol (Vitamin D3 1000 intl units oral capsule) 1 capsule Oral Daily 02/02 Unchanged Citalopram (CeleXA 20 mg oral tablet) 1 tab(s) Oral Daily 02/02 Unchanged dulaglutide (Trulicity Pen 1.5 mg/ 0.5 mL subcutaneous solution) See instructions INJECT 0.5 ML SUBCUTANEOUSLY EVERY WEEK ROTATE INJECTION SITES ?? Unchanged Levothyroxine (levothyroxine 0.05 mg oral tablet) 1 tab(s) Oral Daily 02/02 Unchanged Omeprazole (omeprazole 40 mg oral enteric coated capsule) 1 capsule Oral Daily 02/02 [facility] Information [facility]: [address], [place] [id number] [phone] ?? What How Much When Comments Stop Taking Magnesium Citrate Oral Stop Taking Meloxicam (meloxicam 15 mg oral tablet) 1 tab(s) Oral Daily Stop Taking Multivitamin Daily Stop Taking [place]-3 Polyunsaturated Fatty Acids ([place]-3 Fish Oil) Oral 3 times a day Stop Taking Oxycodone (oxyCODONE 5 mg oral tablet) See instructions 1-2 tablet By Mouth Every 4- 6 hours, As needed for for pain ?? Test Results Below is a partial list of the most recent Laboratory test results done prior to this discharge. You may have had other tests and procedures not included in this list. Please discuss all test resultswith your provider. Est Creatinine Clearance - 87.34 mL/min (01/31/2023) [id number] (01/30/2023) ? ?Surgical Pathology - Patient Name: RICHARD VERNON
Lab
Patient : 1960 (Age: 62)
Collection Date: 01/30/2023
Accession Date: 01/30/2023
Sign Out Date: 01/31/2023

Tissue Source:
1:RIGHT FEMORAL HEAD

Final Diagnosis:
Femoral head, right, excision:
- Femoral head with degenerative changes of a rticular cartilaginous surface and eburnation consistent with severe osteoarthritis (gross examination).

Primary Pathologist:Yoan Person M.D.
electronically signed out by: Yoan Person M.D. / JENNIFER

Clinical History:
Osteoarthritis of right hip

GrossDescription:
Labeled right femoral head . Received in formalin is a 4.5 x 4.5 x 3.2 cm femoral head in continuity with 1.5 cm of femoral neck. The articular surface ranges from richey and smooth to red and roughened to purple-pale yellow and eburnated. The specimen is sectioned revealing yellow-red, trabecular bone with cassidy-white sclerosis and cystic softening. No sections are submitted. Gross only. (VN)*

Phone #: [phone], On-Call Pathologist: [id number] BUN (02/01/2023) ???BUN - 14 mg/dL CBC (02/01/2023) ???WBC - 10.7 k/mm3???RBC - 3.79 m/mm3???Hgb - 10.8 Gm/dL???Hct - 34.6 %???MCV - 91.3 femtoliters???MCH - 28.5 pg???MCHC - 31.2 g/dL???Platelet Count - 252 k/mm3???RDW-SD - 49.1 femtoliters???MPV - 11.7 femtoliters???Nucleated RBC (Automated) - 0.0 #/100 WBC'S???Abs. NRBC - 0.0 k/mm3 Creatinine (02/01/2023) ???Creatinine-Blood - 0.6 mg/dL???Estimated GFR Creatinine - 101 ML/MIN/1.73 M2 Electrolytes (02/01/2023) ???Sodium - 142 mmol/L???Potassium - 5.2 mmol/L???Chloride - 106 mmol/L???Bicarbonate Level - 22 mmol/L???Anion Gap - 14 GLUCOSE POC (02/01/2023) ???Glucose, POC - 164 mg/dL Allergies (NKA means No Known Allergies) CeleBREX??(Pain with burning in chest and arms and lightheaded) Demerol??(Vomiting, Swelling) Problems Active Problems??(8) GERD (gastroesophageal reflux disease)?? Hyperlipidemia?? Hypothyroidism?? Lumbar radiculopathy?? Mild major depression?? Morbid obesity with BMI of 40.0-44.9, adult?? Severe obesity?? Type 2 diabetes mellitus?? Education Materials Below is the list of Educational Leaflet Providered with your Discharge Instructions. Total Hip Replacement Discharge Instructions?? Valuables and Belongings I fully understand and agree that [facility] accepts no responsibility for all my personal property including clothing, toilet articles, radios, jewelry, dentures, hearing aids, rings, money, or any other property that is in my possession or is brought to me after admission. I understand certain valuables may be placed in a hospital safe for a short period of time. I understand that the hospital is not liable for loss or damage due to accident, fire, or other natural occurrence while said property is in the safe. I accept full responsibility for any personal property that I keep with me, and will not hold the hospital responsible in case of loss or disappearance. I acknowledge that i have been encouraged to send valuables and belongings home. ?? Review of Valuable and Belonging List: With patient, With family Possessions released to: to locker Date for Pt to Sign Valuables/Belongings: 01/30/23 12:55:00 ?? Other Discharge Information ? Case Management Discharge Plan?? Discharge Plan?? Discharge Agency Information?? Discharge Level of Care at Discharge: Homehealth/VNA Name of Agency #1: [facility] ?? Agency Tool Specialist #1: [phone] ?? Service Categories #1: Occupational Therapy, Physical Therapy ?? Service Comments #1: [facility] will contact you to set up a visit time after discharge. Please call [phone] if you don't hear from them. ?? Pulmonary Rehab Status?? Pulmonary Rehab Discharge Status?? Respiratory Rate: 18 br/min ? Common Emergency Awareness Tips IS IT A [...] are strongly encouraged to quit. Please call [facility] [employer] Link at [phone] or [phone] or log in to [email or web address] for referrals to smoking cessation programs. ?? 521 Suicide & Crisis Lifeline is available 26/12 if you or someone you know needs to find a reason to keep living. By calling 860 you'll be connected to a skilled, trained counselor at a crisis center in your area. INPATIENT DISCHARGE INSTRUCTIONS SIGNATURE PAGE RICHARD VERNON Location:[facility] Registration Date and Time:01/30/2023 06:30 EDT Primary Care Physician: Bill RODRIGUEZ, Andrade Green, Attending Physician: Sandy RODRIGUEZ, Harpreet Alcantar, I RICHARD VERNON, have received the above patient education materials/instructions and have verbalized understanding. If ambulance or transport services are being used I further acknowledge being givena choice of service. ?? If you need to contact me, please call me at this number: . Patient/Infection Preventionist Name: Patient/Infection Preventionist Signature: Relationship to Patient: Witness Name/Signature: Date: * April Briggs RN.: PERFORM Event Display: Patient Education Leaflets Authored Date: [id number] Total Hip Replacement Discharge Instructions ?? 666 Total Hip Replacement Discharge Instructions ? Please read and review your Total Hip Replacement Book for detailed information ??? Your appetite may be decreased but try to maintain a good balanced diet Incision ?Your incision is closed with absorbable stitches and surgical glue. ?The dressing is waterproof. You may shower the next day. ??? Your dressing will stay on for 1-2 weeks ?You cannot go in a bath, pool, ocean, pond, baig or jacuzzi for 6 weeks. This is to reduce your risk of infection ? You may have some numbness around the incision. This is normal and will improve with time. Some patients have numbness that does not completely go away. ??? You may have skin discoloration (yellowish or bruising) around your incision which may develop. ??? Ice and elevation ? Ice is important to help keep swelling down. ?Keep your leg elevated as much as possible. ?Ice your hip 4 times a day for 20 minutes each time. Be sure not to put the ice/ice pack directly on your skin. Use a dishtowel or something similar between your skin and the ice. ??? Taty Blake, and Serena???[facility] patients: The blue wedge is to be used between your knees when sleeping and sitting in a chair for the first few weeks. This keeps your hip in the proper position ? Moving ? Moving is especially important. This helps to prevent blood clots. Take short frequent walks. ? Exercises as per physical therapy ??? No driving until approved by your surgeon ??? Continue to move your foot up and down, these exercises help to prevent blood clots and help to decrease swelling in your hip. ?? When to call the Surgeon?CALL [phone] ? If you have shortness of breath or chestpain, call 911 or go to the nearest emergency department. ??? If you have drainage and/or redness around your wound. ??? If you have a fever greater than 101.5 (38.5 degrees Celsius). ??? If you havepersistent calf pain or swelling (This could be a blood clot). ??? If your pain is worsening. ? If you have any difficulty with urination or burning with urination. ?? * Event Display: Adult Preadmission Health Questionnaire Authored Date: * Shea Del Real NP: MODIFY Shea Del Real NP: MODIFY, SIGN Shea Del Real NP: Harpreet Hector MD: SIGN, SIGN, PERFORM Mary Burton NP: PERFORM, SIGN Mary Burton NP: SIGN, VERIFY Mary Burton NP: VERIFY Event Display: Discharge/Transfer Note Hospital Authored Date: [id number] Patient: RICHARD VERNON Age: 62 years Sex: Female : 1960 Associated Diagnoses: None Author: Micheal MENDES, Mary Wilson Discharge Summary Admission Date: 01/30/2023 Discharge Date: 02/01/2029 Admitting Diagnosis: Right hip osteoarthritis Discharge Diagnosis: Right hip osteoarthritis Final Diagnosis : Right hip osteoarthritis Procedure: Right total hip arthroplasty Surgeon: Dr. Harpreet Delgado Past Medical History: 1. Osteoarthritis. 2. GERD. 3. Hyperlipidemia. 4. Hypothyroidism. 5. Lumbar radiculopathy, L4-L5, which caused a weak plantarflexion of 2/5 on the left lower extremity. 6. Depression. 7. Type 2 diabetes. 8. Obesity with a BMI of 44. 9. Asthma, which the patient does not take a daily inhaler and states she only takes a rescue albuterol inhaler once a month. Orthopedics: The patient is status post right total hip arthroplasty. It is anticipated that they will be discharged home today pending PT, OT clearance. The patient is doing well from a surgical standpoint. The incision is healing well. Neurovascular status is intact. Calves are supple and nontender. Making good progress with Physical Therapy and Occupational therapy. Supervision with ambulationwalking 80 feet , ambulating with a walker. Pain is well controlled on their current regimen, Acetaminophen 650 mg every 6 hours, tramadol 50-100mg PO q 6 hrs as needed and Dilaudid 2-4 mg every 4 hours as needed. Patient is tolerating this well. They will be sent home with a prescription for this m edication. Prescription: Tramadol 50 mg tablet. Take 1-2 tablets every 6 hours as needed for pain x 7 days. # 56 tablet. Dilaudid 2mg tablet. Take 1-2 tablets every 4 hours as needed for pain x 7 days. # 84 tablet. Hospital course: Relatively uneventful medically. The patient struggled with nausea post op and slight dizziness. BP94/50 500 cc bolus infusing with positive effect, scop patch, and decadron ordered for nausea. Painis controlled now. Patient is voiding spontaneously. + bowel sounds. No other issues. No calf tenderness. Current Medication List: Acetaminophen (acetaminophen 325 mg oral tablet) 650 Milligram By Mouth Every 6 hours may take OTC not to exceed 3000 mg/day Albuterol (albuterol 0.083% inhalation solution) 3 Milliliter 2.5 Milligram Inhalation Every 6 hours as needed for wheezing Albuterol (Albuterol (Eqv-ProAir HFA) 90 mcg/inh inhalation aerosol) 2 puff(s) Inhalation Every 6 hours as needed Wheezing/Shortness of Breath Aspirin (Aspirin Tablet) 325 Milligram By Mouth 2 times a day x 30 days Atorvastatin (atorvastatin 40 mg oral tablet) 1 tab(s) By Mouth Daily Cholecalciferol (Vitamin D3 1000 intl units oral capsule) 1 capsule 25 Microgram By Mouth Daily Citalopram (CeleXA 20 mg oral tablet) 20 Milligram 1 tablet By Mouth Daily Docusate (Colace Capsule) 100 Milligram 1 capsule By Mouth 2 times a day as needed as needed for constipation dulaglutide (Trulicity Pen 1.5 mg/0.5 mL subcutaneous solution) See Instructions INJECT 0.5 ML SUBCUTANEOUSLY EVERY WEEK ROTATE INJECTION SITES Hydromorphone (HYDROmorphone 2 mg oral tablet) See Instructions as needed Pain , Severe 1-2 tabletsby mouth every 4 hours as needed Levothyroxine (levothyroxine 0.05 mg oral tablet) 1 tab(s) 50 Microgram By Mouth Daily Omeprazole (omeprazole 40 mg oral enteric coated capsule) 1 capsule 40 Milligram By Mouth Daily Ondansetron (ondansetron 4 mg oral tablet, disintegrating) 4 Milligram By Mouth Every 8 hours as needed Nausea & Vomiting for 7 Days Scopolamine (Transderm-Scop 1 mg/72 hr transdermal film, extended release) 1 patch(es) Ear, Right Every 72 hours Tramadol (traMADol 50 mg oral tablet) See Instructions as needed Pain , Mild 1-2 tablets by mouth every 6 hours not to exceed 400 mg/day Allergies: Allergies (Active and Proposed Allergies Only) CeleBREX (Severity: Unknown severity, Onset: Unknown) Reactions: Pain with burning in chest and arms and lightheaded Demerol (Severity: Unknown severity, Onset: Unknown) Reactions: Swelling, Vomiting, high fevers, swollen Current Labs: Last 24 Hours Basic Metabolic Panel: Hematology: Sodium: 137 mmol/L (01/31/23) Hgb: 11.1 Gm/dL (01/31/23) Potassium (POC): 4.6 mmol/L (01/31/23) Hemoglobin A1C (Monitoring): ------ Phosphorus: ------ WBC: 12.6 k/mm3 (01/31/23) Magnesium: ------ Platelets: 239 k/mm3 (01/31/23) BUN (POC) POC Cartridge: 17 mg/dL (01/31/23) INR Level: ------ Creatinine-Blood: 0.6 mg/dL (01/31/23) Creatinine Clearance: ------ Additional - Last 24 Hours Abs. NRBC: 0.0 k/mm3 (01/31/23) Anion Gap: 12 (01/31/23) Bicarbonate Level: 21 mmol/L (01/31/23) BUN: BUN (01/31/23) Chloride: 104 mmol/L (01/31/23) Creatinine, Blood: Creatinine, Blood (01/31/23) Est Creatinine Clearance: 87.34 (01/31/23) Estimated GFR Creatinine: 103 ML/MIN/1.73 M2 (01/31/23) Glucose, POC: Glucose, POC (01/31/23) Hct: 35.3 % (01/31/23) MCH: 28.6 pg (01/31/23) MCHC: 31.4 g/dL (01/31/23) MCV: 91.0 femtoliters (01/31/23) MPV: 10.8 femtoliters (01/31/23) Nucleated RBC (Automated): 0.0 #/100 WBC'S (01/31/23) RBC: 3.88 m/mm3 (01/31/23) RDW-SD: 48.8 femtoliters (01/31/23) DVT prophylaxis ASA EC 325 mg p o bid x 30 days [facility]: [facility] in 2 weeks, patientis aware of this. The patient has an Aquacel dressing in place. They may shower with it and the dressing can be discontinued on POD 14. Discharge Information Admission Date: 01/30/2023 Principal Discharge Diagnosis Discharge Plan Discharge Disposition Discharge: home with VNA. Home Health Face to Face I certify that this patient is under my care and that I or an allowed non- physician practitioner working with me, had a [id number] encounter with the patient on this date: 01/31/2023. The encounter with the patient was in whole, or in part, for the following medical condition, whichis the primary reason for home health care: Osteoarthritis of hip, right. Physical Therapy: Functional mobility training, Home exercise program to strengthen, increase ROM, Falls prevention training. Occupational Therapy: ADL Management, Fall prevention training, Energy conservation. Homebound due to: Inability to leave home without assistance/supervision, Inability to ambulate without assistance, Pain, decreased strength, and endurance. Physician Signature: Sandy RODRIGUEZ, Harpreet Moon Cardiology * Event Display: Cardiac Rhythm Strips Authored Date: Hospital Progress note * Micheal MENDES, Mary Wilson: PERFORM, SIGN, VERIFY Event Display: Progress Note Hospital Authored Date: [id number] Patient: RICHARD VERNON Age: 62 years Sex: Female : 1960 Associated Diagnoses: None Author: Mary Burton NP Ortho POD 2 s/p Right JAIMEE S: The patient denies any SOB/CP, N/V. Patient had complained of some nausea and dizziness during PT and required overnight stay. Received Zofran and Sopalamine patch, Patient now states she feels much improved. Voiding spontaneously. Pain well controlled on current regimen Tylenol 650mg PO q 6 hrs, Dilaudid 2-4mg PO q 4 hrs as needed, and has tramadol 50-100mg PO q 6 hrs as needed. Was able to am bulate 50ft with PT. O: Vitals Temperature 97.4 (06:33) Systolic Blood Pressure 122 (06:33) Diastolic Blood Pressure 60 (06:33) Pulse 63 (06:33) SpO2 90 (06:33) Respiratory Rate 18 (06:33) Last 24 Hours Basic Metabolic Panel: Hematology: Sodium: 142 mmol/L (02/01/23) Hgb: 10.8 Gm/dL (02/01/23) Potassium (POC): 5.2 mmol/L (02/01/23) Hemoglobin A1C (Monitoring): ------ Phosphorus: ------ WBC: 10.7 k/mm3 (02/01/23) Magnesium: ------ Platelets: 252 k/mm3 (02/01/23) BUN (POC) POC Cartridge: 14 mg/dL (02/01/23) INR Level: ------ Creatinine-Blood: 0.6 mg/dL (02/01/23) Creatinine Clearance: ------ Additional - Last 24 Hours Abs. NRBC: 0.0 k/mm3 (02/01/23) Anion Gap: 14 (02/01/23) Bicarbonate Level: 22 mmol/L (02/01/23) BUN: BUN (02/01/23) Chloride: 106 mmol/L (02/01/23) Creatinine, Blood: Creatinine, Blood (02/01/23) Estimated GFR Creatinine: 101 ML/MIN/1.73 M2 (02/01/23) Glucose, POC: 164 mg/dL (02/01/23) Hct: 34.6 % (02/01/23) MCH: 28.5 pg (02/01/23) MCHC: 31.2 g/dL (02/01/23) MCV: 91.3 femtoliters (02/01/23) MPV: 11.7 femtoliters (02/01/23) Nucleated RBC (Automated): 0.0 #/100 WBC'S (02/01/23) RBC: 3.79 m/mm3 (02/01/23) RDW-SD: 49.1 femtoliters (02/01/23) Surgical Pathology: Surgical Pathology (01/31/23) General: alert, lucid, in NAD Heart: RRR, normal S1S2 Lungs: CTAB Abdomen: soft NT BS active Neurovascular: calves soft NT, +DF/+PF Dressing: CDI A/P: 62 year old female with history of OA, GERD, HLD, hypothyroidism, DMII. depression now s/p right JAIMEE POD 2 Pain: Well controlled Acetaminophen 650 mg every 6 hours, tramadol 50-100mg PO q 6 hrs as needed, and Dilaudid 2-4 mg every 4 hours as needed for pain. Dizziness/Nausea: seems mostly resolved this AM will send home with some Sopalamine patches GERD: Stable Continue pantoprazole while in hospital then can go back to home omeprazole HLD: Stable continue atorvastatin Hypothyroidism: Stable continue levothyroxine DMII: Stable BG 120s-low 200s continue ISS as needed Depression: stable continue Celexa DVT prophylaxis: ASA EC 325 mg PO BID WBAT/ PT/OT/HIP PRECAUTIONS Discharge home pending PT/OT clearance Case discussed with Dr. Harpreet Delgado * Sukhjinder RN, Sixto Denise: PERFORM, SIGN, VERIFY, MODIFY, SIGN Event Display: Progress Note Hospital Authored Date: Patient: RICHARD VERNON Age: 62 years Sex: Female : 1960 Associated Diagnoses: None Author: Sukhjinder TRAORE, Sixto Denise Findings Problem Related to Alteration in Endocrine : Alteration in Endocrine Function/new 01/31/2023 23:00 EDT Alteration in Endocrine Related to Diabetes Goals & Outcomes, Endocrine Blood glucose levels will stabilize during hospitalization Interventions, Endocrine Assess skin turgor, temperature & capillary refill, DVT prophylaxis asordered, Monitor pt's response to IV hydration, Teach Pt/caregiver pain management strategies, Teach Pt/caregiver signs & symptoms of hypoglycemia, Teach Pt/caregiver signs & symptoms of hyperglycemia BH Goals/Interventions, Endocrine Yes Endocrine, Problem Start 01/31/2023 23:54 Reviewed Plan with, Endocrine Patient Patient Progression, Endocrine Plan Initiation . Alteration in Musculoskeletal : Alteration in Musculoskeletal Func/new 01/31/2023 23:00 EDT Alteration in Musculoskeletal Related to Mobility, Orthopedic Procedure, Total joint replacement, Other: R THR 01/[address] Delgado Goals & Outcomes, Musculoskeletal Affected extremity will maintain color/motion/sensation, Pt able to perform ADL's to best of ability, Pt demonstrates precautions/exercise/ transfers per protocol, Pt will ambulate safely with assistive device, Pt will be free from complications of immobility, Pt will report acceptable level of comfort/pain relief Interventions, Musculoskeletal Monitor patients ambulation status, monitor Color/Motion/Sensation, Assist with repositioning, Encourage deep breathing & coughing exercises, Obtain assistive devices as needed, Teach & Encourage use of Incentive spirometer, Teach Pt/caregiver on ADL's & adaptive equipment, Teach Pt/caregiver on exercises, Teach pt/caregiver on use of pain scale, Assist pt out of bed keeping legs abducted at all times, Avoid extreme internal and/or external rotation, Maintain hip in abduction/neutral/slight ext. rotation, Elliott Pt/caregiver to Total Hip Replacement protocol BH Goals/Interventions, Musculoskeletal Yes Musculoskeletal, Problem Start 01/31/2023 23:31 Reviewed Plan with, Musculoskeletal Patient Patient Progression, Musculoskeletal Pt progressing according to plan . Nursing Data Vital Signs : VITAL SIGNS SECTION 01/31/2023 23:33 EDT Temperature 97.8 DegF Temperature Route Oral Pulse Rate 62 bpm Respiratory Rate 18 br/min Systolic Blood Pressure 108 mm Hg Diastolic Blood Pressure 55 mm Hg Blood pressure sites Arm, right Mean Arterial Pressure 73 mm Hg Pulse Pressure 53 mm Hg Oxygen Saturation 100 % Mode of Delivery (Oxygen) Room air 01/31/2023 23:09 EDT Early Warning Score 0.00 01/31/2023 23:08 EDT Early Warning Score 0.00 01/31/2023 23:08 EDT Early Warning Score 0.00 01/31/2023 21:38 EDT Respiratory Rate 16 br/min Respiratory Rate 16 br/min 01/31/2023 21:28 EDT Early Warning Score 0.00 01/31/2023 18:45 EDT Early Warning Score 0.00 01/31/2023 18:44 EDT Temperature 98.3 DegF Temperature Route Oral Pulse Rate 73 bpm Respiratory Rate 18 br/min Systolic Blood Pressure 114 mm Hg Diastolic Blood Pressure 53 mm Hg L Blood pressure sites Arm, right Mean Arterial Pressure 73 mm Hg Pulse Pressure 61 mm Hg Oxygen Saturation 100 % Mode of Delivery (Oxygen) Room air . Narrative/Incidental Pt A+Ox3, VSS. Lung sounds clear, incentive spirometer encouraged, pt denies any SOB or chest pain.Abdomen s/nt/nd, +BS, LBM 01/29. Pt denies any nausea and does have a scop patch in place. Pt voiding in the bathroom with no issues. Cboots on and pt given ASA for DVT prophylaxis. Evaluation P: Alteration in Endocrine I: Interventions in care plan E: Pt's 2100 POC was 214, pt given 4 units lispro per sliding scale P: Alteration in Musculoskeletal I: Interventions in care plan E: Pt OOB standby assist with the walker, +PP, +CMS, +D/P. Pt had some dizziness on previous shift but denies any on my shift. Right hip aquacel dressing is C/D/I. Ablock and ice in place. Pt given 50mg tramadol and sched tylenol for pain. Will continue to monitor pt for pain and continue to monitor CMS. Discharge Information Case Management Discharge Plan : Case Management Discharge Plan Data 01/30/2023 15:34 EDT Discharge Level of Care at Discharge Homehealth/VNA Name of Agency #1 [facility] Agency Tool Specialist # Service Categories #1 Occupational Therapy, Physical Therapy Service Comments #1 [facility] will contact you to set up a visit time after discharge. Please call [phone] if you don't hear from them. Rehabilitation Discharge : Rehab Discharge Index 01/31/2023 16:33 EDT Walker: distance 20-50 01/31/2023 16:18 EDT Transfer tub/shower OT Plan Supervision 01/31/2023 15:00 EDT Transfer tub/shower OT Plan Supervision 01/30/2023 15:09 EDT Comments on treatment indicated 62 y.o. F s/p R THR with Dr. Delgado on 01/30/23. WBAT, THPs R LE. Skilled PT for ther ex, bed mob, balance, transfers, gait c walker, stairs. Plan isd/c home with services. Walker: distance >50 Distance pt will ambulate 80' c walker Full chart review completed Yes Hospital course see comment Other findings Other findings Plan of care PT Gait training, Transfer training, Therapeutic exercise, Functional Activities, Balance training, Neuromuscular education 01/30/2023 14:17 EDT Comments on treatment indicated OT to address ADL's, transfers, sfaety, precautions, AE edu Full chart review completed Yes Hospital course PROCEDURE: Pt s/p right total hip arthroplasty with Dr. Delgado on 01/30/2023. Transfer tub/shower OT Plan Supervision * Mitra Parker RN: SIGN, MODIFY, SIGN, MODIFY, MODIFY, SIGN, PERFORM, SIGN, VERIFY Event Display: Progress Note Hospital Authored Date: Patient: RICHARD VERNON Age: 62 years Sex: Female : 1960 Associated Diagnoses: None Author: Mirta Parker RN Findings Problem Related to Alteration in Comfort : Alteration in Comfort/new 01/31/2023 10:00 EDT Alteration in Comfort Related to Surgery Goals & Outcomes: Comfort Pt will report acceptable level of comfort & pain control, Pt will state importance of adhering to pain strategy regime, Pt will demonstrate necessary skills to manage pain, Non-verbal indicators will indicate comfort/pain control Interventions Implemented: Comfort Assess pain using appropriate pain scale/tools, Assess aggravating factors & prevent them accordingly, Assess alleviating factors & promote them accordingly Goals/Interventions, Comfort Yes Comfort, Problem Start 01/31/2023 10:39 Reviewed plan with, Comfort Patient Patient Progression, Comfort Plan Initiation Comfort, Problem Ongoing Yes . Alteration in Musculoskeletal : Alteration in Musculoskeletal Func/new 01/31/2023 10:00 EDT Alteration in Musculoskeletal Related to Mobility, Orthopedic Procedure, Total joint replacement, Other: R THR 01/[address] Delgado Goals & Outcomes, Musculoskeletal Affected extremity will maintain color/motion/sensation, Pt able to perform ADL's to best of ability, Pt demonstrates precautions/exercise/ transfers per protocol, Pt will ambulate safely with assistive device, Pt will be free from complications of immobility, Pt will report acceptable level of comfort/pain relief Interventions, Musculoskeletal Monitor patients ambulation status, monitor Color/Motion/Sensation, Assist with repositioning, Encourage deep breathing & coughing exercises, Notify MD immediately if tissue perfusion deteriorates, Obtain assistive devices as needed, Teach & Encourage use of Incentive spirometer, Teach Pt/caregiver on ADL's & adaptive equipment, Teach Pt/caregiver on exercises, Teach pt/caregiver on use of pain scale, Teach Pt/caregiver complications of immobility, Teach Pt/caregiver techniques to increase mobility, Teach Pt/caregiver on safety precautions Goals/Interventions, Musculoskeletal Yes Musculoskeletal, Problem Start 01/30/2023 12:23 Reviewed Plan with, Musculoskeletal Patient Patient Progression, Musculoskeletal Pt progressing according to plan . Narrative/Incidental Patient alert and oriented times 3. Lung sounds clear, no reports of SOB/CP. Patient using IS with good effort. Patient bladder scanned for 117cc at 1100. Patient encouraged to increase fluid intake.Abdomen soft/nontender. +BS, patient with reports of nausea, PO intake low this AM due to nausea. LBM 01/29. . Evaluation P: Alteration in comfort I: See above for updated careplan E: Patient with complaints of 4/10 pain to right hip. Patient medicated with PRN 2mg Dilaudid and scheduled Tylenol. Patient with reports of 3/10 pain after receiving PRN Dilaudid. Patient with reports of nausea. Patient medicated with PRN Zofran and Scopolomine patch and Decadron IV. Patient now reports decreased nausea. P: Alteration in musculoskeletal system I: See above for updated careplan E: Patient POD#1 RTHR. Aquacell to right hip clean, dry and intact. Patient unable to ambulate thisAM due to decreased blood pressure and reports of feeling dizzy. Patient given 500mL bolus NaCl. Orthostatics negative after fluid bolus, Shea Del Real, GENERAL STORE MANAGER updated. Patient with +CMS, +PF/DF. ASA for DVT prophylaxis. PT/OT to see patient once feeling of dizziness and BP improves. . Discharge Information Case Management Discharge Plan : Case Management Discharge Plan Data 01/30/2023 15:34 EDT Discharge Level of Care at Discharge Homehealth/VNA Name of Agency #1 [facility] Agency Tool Specialist # Service Categories #1 Occupational Therapy, Physical Therapy Service Comments #1 [facility] will contact you to set up a visit time after discharge. Please call [phone] if you don't hear from them. Rehabilitation Discharge : Rehab Discharge Index 01/30/2023 15:09 EDT Comments on treatment indicated 62 y.o. F s/p R THR with Dr. Delgado on 01/30/23. WBAT, THPs R LE. Skilled PT for ther ex, bed mob, balance, transfers, gait c walker, stairs. Plan isd/c home with services. Walker: distance >50 Distance pt will ambulate 80' c walker Full chart review completed Yes Hospital course see comment Other findings Other findings Plan of care PT Gait training, Transfer training, Therapeutic exercise, Functional Activities, Balance training, Neuromuscular education 01/30/2023 14:17 EDT Comments on treatment indicated OT to address ADL's, transfers, sfaety, precautions, AE edu Full chart review completed Yes Hospital course PROCEDURE: Pt s/p right total hip arthroplasty with Dr. Delgado on 01/30/2023. Transfer tub/shower OT Plan Supervision * Elena TRAORE, Mirta: PERFORM Event Display: Progress Note Hospital Authored Date: [id number] Patient voided in bathroom 300cc. Patient seen by PT/OT unable to complete exercises as patient became dizzy. Patient brought back to room, RN updated Shea Del Real, GENERAL STORE MANAGER on continued dizziness. Second bolus ordered per GENERAL STORE MANAGER, to continue maintenance fluids 100/hr. Patient trialed with Tramadol 50mg for complaints 3/10 pain, some relief as patient states she does not feel as woozy. * Elena TRAORE, Mirta: PERFORM Event Display: Progress Note Hospital Authored Date: Patient again in physical therapy became dizzy and unable to complete session. IV fluids continued,patient resting comfortably in chair. Patient Care team information Care Team Personnel Name: Sixto Slaughter RN Position: [facility] RN Member Role: Primary Care Nurse Name: Bill RODRIGUEZ, Andrade Green Position: [facility] Physician - Primary Care Member Role: PCP Address: Address: [address] [place] [address]- Name: Mirta Parker RN Position: [facility] RN Member Role: Primary Care Nurse Name: Sanam Mejia Position: [facility] TA Member Role: Patient Care Provider Care Team Related Persons Name: MATHEUS VERNON Address: home [address] [place] [address]
--- OUTSIDE RECORDS SUMMARY | 2024-05-02 11:25 | XMS_ITS | Continuity of Care Document ---
Author Organization [facility] Address [address] [place] [address]- Care Team Providers Care Clinical Genetics Laboratory Chief Name Role Phone Bob Frost MD Primary Care Physician [place] [facility] [place] 04/30/21 - 05/30/[address] [address] Attending Physician: Admtr, Ar8 Admitting Physician: Admtr, [...]
--- OUTSIDE RECORDS SUMMARY | 2024-05-02 11:25 | XMS_ITS | Continuity of Care Document ---
Author Organization [facility] Francisco Paulino lt Address [address] [place] [address]- Care Team Providers Care Circuit Court Judge Name Role Phone Bill RODRIGUEZ, Andrade Green Primary Care Physician [phone] [place] [facility] [place]23 - 09/13/23 [facility] Shine Millerley Adult [address] [place] [address]- Allergies, Adverse Reactions, Alerts Substance Reaction Severity [...] Recorded tetanus/diphtheria/pertussis, acel(Tdap) 03/18/10 Recorded 1Result Comment: [id number] 2Result Comment: [id number] Medications Albuterol (Eqv-ProAir HFA) 90 mcg/inh inhalation [...] tablet, 1 Refills, Maintenance, 07/18/23 7:24:00 EST, [facility] 54610, 164.1, cm, 05/15/23 14:34:00 EST, Height, 121.2, kg, 01/30/23 12:56:00 EDT, Dry Weight Start Date: 07/18/23 Status: Ordered citalopram 20 mg oral tablet 1 tablet, By Mouth, Daily, # 90 tablet, 1 Refills, Maintenance, 07/18/23 7:24:00 EST, [facility] 72923, 164.1, cm, 05/15/23 14:34:00 EST, Height, 121.2, kg, 01/30/23 12:56:00 EDT, Dry Weight Start Date: 07/18/23 Status: Ordered levothyroxine 0.05 mg oral tablet 1 tablet, By Mouth, Daily, # 90 tablet, 1 Refills, Maintenance, 07/18/23 7:24:00 EST, [facility] 95667, 164.1, cm, 05/15/23 14:34:00 EST, Height, 121.2, [...] Team Personnel Name: Sixto Slaughter RN Position: [facility] RN Member Role: Primary Care Nurse Name: Andrade Khan MD Position: [facility] Physician - Primary Care Member Role: PCP Address: Address: [address] [place] [address]- Name: Mirta Parker RN Position: [facility] RN Member Role: Primary Care Nurse Care Team Related Persons Name: CAMACHO VERNON Address: home [address] [place] [address] [place]
--- OUTSIDE RECORDS SUMMARY | 2024-05-02 11:25 | XMS_ITS | Continuity of Care Document ---
Author Organization [facility] Francisco Paulino lt Address [address] [place] [address]- Care Team Providers Care Pulpit Operator Name Role Phone Bill RODRIGUEZ, Andrade Green Primary Care Physician [phone] Encounter [facility] Date(s): 03/01/24 - 03/31/24 [facility] Shine Singh Adult [address] [place] [address]- Allergies, Adverse Reactions, Alerts Substance Reaction Severity [...] Recorded tetanus/diphtheria/pertussis, acel(Tdap) 03/18/10 Recorded 1Result Comment: [id number] 2Result Comment: [id number] Medications Albuterol (Eqv-ProAir HFA) 90 mcg/inh inhalation [...] Refills, Maintenance, 01/09/24 11:30:00 EDT, [facility], 164.1, cm, 12/11/23 13:49:00 EDT, Height, 121.2, kg, 01/30/23 12:56:00 EDT, Dry Weight Start Date: 01/09/24 Status: Ordered clopidogrel 75 mg oral tablet 75 mg, 1, tablet, By Mouth, Daily, # 30 tablet, Refills 5, Tot. Refills 5, Maintenance, 03/01/24 14:22:00 EDT, Route to Pharmacy Electronically, [facility]/pharmacy #[id number], Partial fill upon patient request if [...] Refills, Maintenance, 01/12/24 12:08:00 EDT, [facility], 164.1, cm, 12/11/23 13:49:00 EDT, Height, 121.2, [...] 02/29/24 11:06:00 EDT, Route to Pharmacy Electronically, [facility]/pharmacy #[id number], Partial fill upon patient request if the prescription is for a schedule II opioid drug... Start Date: 02/29/24 Status: Ordered nitroglycerin 0.4 mg sublingual tablet 1 tablet = 0.4 mg, Sublingual, Every 5 minutes, PRN as needed for chest pain, not to exceed 3 doses/15 min--if pain persists, seek medical attention, # 30 tablet, 11 Refills, Maintenance, 02/24/24 6:27:00 EDT, Tablet, [facility]/pharmacy #[id number], Partial fill... Start Date: 02/24/24 Status: [...] Refills, Maintenance, 03/08/24 17:52:00 EDT, ER Tablet, [facility]/pharmacy #[id number], Partial fill upon patient request if the [...] Name: Andrade Khan MD Position: [facility] Physician - Primary Care Member Role: PCP Address: Address: [address] [place] [id number] Name: Mirta Parker RN Position: S RN Member Role: Primary Care Nurse Name: Cassie Haas RN Position: S RN Member Role: Primary Care Nurse Name: Jenna Blevins RN Position: S RN Member Role: Primary Care Nurse Name: Patricia Diaz LPN Position: S RN Member Role: Primary Care Nurse Care Team Related Persons Name: CAMACHO VERNON Address: [address] [address] [place]
--- OUTSIDE RECORDS SUMMARY | 2024-05-02 11:25 | XMS_ITS | Continuity of Care Document ---
Author Organization [facility] Francisco Paulino lt Address [address] [place] [address]- Care Team Providers Care Residential Gas Heat Technician Name Role Phone Bill RODRIGUEZ, Andrade Green Primary Care Physician [phone] [place] [facility] [place] Date(s): 02/18/22 - 03/20/22 [facility] [place] Adult [address] [place] [address]- Allergies, Adverse Reactions, Alerts Substance Reaction Severity [...] Recorded tetanus/diphtheria/pertussis, acel(Tdap) 03/18/10 Recorded 1Result Comment: [id number] 2Result Comment: [id number] Medications Albuterol (Eqv-ProAir HFA) 90 mcg/inh inhalation [...] capsule, 0 Refills, Maintenance, 02/16/22 14:27:00 EDT, [facility] 61279, 165.1, cm, 02/15/22 10:09:00 EDT, Height, 124.5, [...] Personnel Name: Andrade Khan MD Address: Address: [address] [place] [address]
--- OUTSIDE RECORDS SUMMARY | 2024-05-02 11:25 | XMS_ITS | Continuity of Care Document ---
Author Organization [facility] Francisco Paulino lt Address [address] [place] [address]- Care Team Providers Care Tie Man Name Role Phone Bill RODRIGUEZ, Andrade Green Primary Care Physician [phone] Encounter [facility] [place] Date(s): 02/17/22 - 03/19/22 [facility] Adult [address] [place] [address]- Allergies, Adverse Reactions, Alerts Substance Reaction Severity [...] Recorded tetanus/diphtheria/pertussis, acel(Tdap) 03/18/10 Recorded 1Result Comment: [id number] 2Result Comment: [id number] Medications Albuterol (Eqv-ProAir HFA) 90 mcg/inh inhalation [...] capsule, 0 Refills, Maintenance, 02/16/22 14:27:00 EDT, [facility] 64678, 165.1, cm, 02/15/22 10:09:00 EDT, Height, 124.5, [...] Personnel Name: Andrade Khan MD Address: Address: [address] [place] [address]
--- OUTSIDE RECORDS SUMMARY | 2024-05-02 11:25 | XMS_ITS | Continuity of Care Document ---
Author Organization [facility] Francisco Paulino Address [address] [place] [address]- Care Team Providers Care Health Information Management Director Name Role Phone Margot RODRIGUEZ, Bob Alcantar Primary Care Physician [phone] Encounter [facility] Date(s): 05/31/21 - 06/30/21 [facility] [place] Adult [address] [place] [address]- Allergies, Adverse Reactions, Alerts Substance Reaction Severity [...]
--- OUTSIDE RECORDS SUMMARY | 2024-05-02 11:25 | XMS_ITS | Continuity of Care Document ---
Author Organization [facility] Francisco Paulino lt Address [address] [place] [address]- Care Team Providers Care Foam Cutting Supervisor Name Role Phone Bill RODRIGUEZ, Andrade Green Primary Care Physician En[place] [facility] [place] Date(s): 01/09/24 - 02/08/24 [facility] [place] Adult [address] [place] [address]- Allergies, Adverse Reactions, Alerts Substance Reaction Severity [...] Recorded tetanus/diphtheria/pertussis, acel(Tdap) 03/18/10 Recorded 1Result Comment: [id number] 2Result Comment: [id number] Medications Albuterol (Eqv-ProAir HFA) 90 mcg/inh inhalation aerosol 2 puffs, Inhalation, Every 6 hours, PRN Wheezing/Shortness of Breath, # 8.5 Gm, 5 Refills, Maintenance, 12/28/21 6:48:00 EDT, Inhaler, [facility], Partial fill upon patient requestif the prescription is for a schedule II opioid eduin... Start Date: 12/28/21 Status: Ordered atorvastatin 80 mg oral tablet [...] Refills, Maintenance, 01/09/24 11:30:00 EDT, [facility], 164.1, cm, 12/11/23 13:49:00 EDT, Height, 121.2, [...] Refills, Maintenance, 01/12/24 12:08:00 EDT, [facility], 164.1, cm, 12/11/23 13:49:00 EDT, Height, 121.2, kg, 01/30/23 12:56:00 EDT, Dry Weight Start Date: 01/12/24 Status: Ordered metoprolol 25 mg oral tablet, extended release 25 mg, By Mouth, Daily, # 30 tablet, Refills 0, Tot. Refills 0, Maintenance, 01/30/24 12:06:00 EDT,Route to Pharmacy Electronically, [facility]/pharmacy #[id number], Partial fill upon patient request if the prescription is for a schedule II opioid drug., 165, cm,... Start Date: 01/30/24 Stop Date: 02/29/24 Status: Ordered nitroglycerin 0.4 mg sublingual tablet 1 tablet = 0.4 mg, Sublingual, Every 5 minutes, PRN as needed for chest pain, not to exceed 3 doses/15 min--if pain persists, seek medical attention, # 100 tablet, 0 Refills, Maintenance, 01/29/24 3:16:00 EDT, Tablet, Partial fill upon patient request... Start Date: 01/29/24 Status: Ordered omeprazole 40 mg oral enteric [...] 5 Refills, Maintenance, 08/15/23 10:50:00 EDT, Solution, [facility]/pharmacy #[id number], Partial fill upon [...] Refills, Maintenance, 02/07/24 14:23:00 EDT, ER Tablet, [facility], Partial fill upon patient [...] Primary Care Member Role: PCP Address: Address: [address] [place] [id number] Name: Mirta Parker RN Position: S RN Member Role: Primary Care Nurse Name: Cassie Haas RN Position: S RN Member Role: Primary Care Nurse Name: Jenna Blevins RN Position: S RN Member Role: Primary Care Nurse Name: Patricia Diaz LPN Position: S RN Member Role: Primary Care Nurse Care Team Related Persons Name: CAMACHO VERNON Address: [address] [address] [place]
--- OUTSIDE RECORDS SUMMARY | 2024-05-02 11:25 | XMS_ITS | Continuity of Care Document ---
Author Organization [facility] Francisco Paulino lt Address [address] [place] [address]- Care Team Providers Care Application Defense Manager Name Role Phone Andrade Khan MD Primary Care Physician [phone] [place] [facility] [place] 03/28/22 [facility] Adult [address] [place] [address]- Attending Physician: Andrade Khan MD Allergies, Adverse Reactions, Alerts Substance Reaction Severity Status Demerol high fevers, swollen Active Immunizations Given and Recorded Vaccine Date Status Refusal Reason influenza virus vaccine, inactivated 03/21/22 Give n influenza virus vaccine, inactivated 03/25/21 Marty rded influenza virus vaccine, inactivated 03/02/20 Mraty rded influenza virus vaccine, inactivated 03/11/19 Marty rded influenza virus vaccine, inactivated 05/15/18 Marty rded tetanus-diphtheria toxoids (Td) 1 12/16/21 Given pneumococcal 20-valent conjugate vaccine 2 12/16/21 Given SARS-CoV-2 (COVID-19) mRNA BNT-162b2 vac 03/25/21 Recorded SARS-CoV-2 (COVID-19) mRNA BNT-162b2 vac 03/08/21 Recorded SARS-CoV-2 (COVID-19) mRNA BNT-162b2 vac 08/29/20 Recorded SARS-CoV-2 (COVID-19) mRNA BNT-162b2 vac 08/08/20 Recorded tetanus/diphtheria/pertussis, acel(Tdap) 03/18/10 Recorded 1Result Comment: [id number] 2Result Comment: [id number] Medications Albuterol (Eqv-ProAir HFA) 90 mcg/inh inhalation [...] Maintenance, 03/12/21 15:56:00 EDT, Solution, [facility], Partial fill [...] 1 Refills, Maintenance, 03/21/22 10:29:00 EDT, Tablet, [facility]/pharmacy #[id number], Partial fill upon patient [...] Active Type 2 diabetes mellitus Confirmed Active Vital Signs Most recent to oldest [Reference Range]: 1 Height 165.10 cm (03/21/22 10:07 AM) Weight 124.2 kg (03/21/22 10:07 AM) Oxygen Saturation [94-100 %] 99 % (03/21/22 10:07 AM) Pulse Rate [55-90 bpm] 85 bpm (03/21/22 10:07 AM) Body Mass Index [18.5-24.99 kg/m2] 45.56 kg/m2 *>HHI* (03/21/22 10:07 AM) Blood Pressure [90-138/55-84 mm Hg] 124/ 82mm Hg (03/21/22 10:07 AM) Blood pressure sites Arm, left (03/21/22 10:07 AM) Weight Obtained Via Standing scale (03/21/22 10:07 AM) Social History Social History Type Response Smoking Status Former smoker, quit more than 30 days ago; Use: Quit 12 years ago entered on: 07/15/19 Sex Patient Care team information Personnel Name: Bill RODRIGUEZ, Andrade Green Address: Address: [address] [place] [id number]
--- OUTSIDE RECORDS SUMMARY | 2024-05-02 11:26 | XMS_ITS | Continuity of Care Document ---
Author Organization [facility] Address [address] [place] [address]- Care Team Providers Care Rock Drill Operator Name Role Phone Andrade Khan MD Primary Care Physician En[place] [facility] [place] Date(s): 03/01/24 - 03/31/24 [facility] [address] [place] [address]- [place] Allergies, Adverse Reactions, Alerts Substance Reaction [...] Recorded tetanus/diphtheria/pertussis, acel(Tdap) 03/18/10 Recorded 1Result Comment: [id number] 2Result Comment: [id number] Medications Albuterol (Eqv-ProAir HFA) 90 mcg/inh inhalation [...] Refills, Maintenance, 01/09/24 11:30:00 EDT, [facility], 164.1, cm, 12/11/23 13:49:00 EDT, Height, 121.2, kg, 01/30/23 12:56:00 EDT, Dry Weight Start Date: 01/09/24 Status: Ordered clopidogrel 75 mg oral tablet 75 mg, 1, tablet, By Mouth, Daily, # 30 tablet, Refills 5, Tot. Refills 5, Maintenance, 03/01/24 14:22:00 EDT, Route to Pharmacy Electronically, [facility]/pharmacy #[id number], Partial fill upon patient request [...] Refills, Maintenance, 01/12/24 12:08:00 EDT, [facility], 164.1, cm, 12/11/23 13:49:00 EDT, Height, 121.2, [...] 02/29/24 11:06:00 EDT, Route to Pharmacy Electronically, [facility]/pharmacy #[id number], Partial fill upon patient request [...] Refills, Maintenance, 03/08/24 17:52:00 EDT, ER Tablet, [facility]/pharmacy #[id number], Partial fill upon patient request if the [...] Care Nurse Name: Andrade Khan MD Position: [facility] Physician - Primary Care Member Role: PCP Address: Address: [address] [place] [id number] Name: Mirta Parker RN Position: S RN Member Role: Primary Care Nurse Name: Cassie Haas RN Position: S RN Member Role: Primary Care Nurse Name: Jenna Blevins RN Position: S RN Member Role: Primary Care Nurse Name: Patricia Diaz LPN Position: S RN Member Role: Primary Care Nurse Care Team Related Persons Name: CAMACHO VERNON Address: [address]
--- OUTSIDE RECORDS SUMMARY | 2024-05-02 11:26 | XMS_ITS | Continuity of Care Document ---
Author Organization [facility] [place] Paulino lt Address [address] [place] [address]- Care Team Providers Care Photographic Equipment Mechanic Name Role Phone Bill RODRIGUEZ, Andrade Green Primary Care Physician [place] [facility] [place]s): 06/02/23 - 07/02/23 [facility] [place] Adult [address] [place] [address]- Allergies, Adverse Reactions, Alerts Substance Reaction Severity [...] Recorded tetanus/diphtheria/pertussis, acel(Tdap) 03/18/10 Recorded 1Result Comment: [id number] 2Result Comment: [id number] Medications Albuterol (Eqv-ProAir HFA) 90 mcg/inh inhalation [...] 1 Refills, Maintenance, 03/12/21 15:56:00 EDT, Solution, [facility], Partial fill upon patient request if the prescription is for a schedule II opioid drug., 164, cm, 10/0... Start Date: 03/12/21 Status: Ordered atorvastatin 40 mg oral tablet 1 tablet, By Mouth, Daily, # 90 tablet, 1 Refills, 01/23/23 15:14:00 EDT, [facility]/pharmacy #[id number], 164.5, cm, 01/12/23 11:17:00 EDT, Height, 121, kg, 01/12/23 11:17:00 EDT, Dry Weight Start Date: 01/23/23 Status: Ordered CeleXA 20 mg oral tablet 20 mg, 1, tablet, By Mouth, Daily, # 90 tablet, Refills 1, Tot. Refills 1, Maintenance, 01/23/23 15:14:00 EDT, Route to Pharmacy Electronically, [facility]/pharmacy #[id number], Partial fill upon patient request if [...] Primary Care Member Role: PCP Address: Address: [address] [place] [id number] Name: Mirta Parker RN Position: [facility] RN Member Role: Primary Care Nurse Care Team Related Persons Name: CAMACHO VERNON Address: home [address] [place] [address] [place]
--- OUTSIDE RECORDS SUMMARY | 2024-05-02 11:26 | XMS_ITS | Continuity of Care Document ---
Author Organization [facility] Francisco Paulino lt Address [address] [place] [address]- Care Team Providers Care Feed Mill Supervisor Name Role Phone Bill RODRIGUEZ, Andrade Green Primary Care Physician Encounter [facility] [place] Date(s): 01/24/24 - 02/23/24 [facility] Shine Singh Adult [address] [place] [address]- Allergies, Adverse Reactions, Alerts Substance Reaction Severity [...] Recorded tetanus/diphtheria/pertussis, acel(Tdap) 03/18/10 Recorded 1Result Comment: [id number] 2Result Comment: [id number] Medications Albuterol (Eqv-ProAir HFA) 90 mcg/inh inhalation aerosol 2 puffs, Inhalation, Every 6 hours, PRN Wheezing/Shortness of Breath, # 8.5 Gm, 5 Refills, Maintenance, 02/13/24 15:16:00 EDT, Inhaler, [facility]/pharmacy #[id number], Partial fill upon patient [...] Refills, Maintenance, 01/09/24 11:30:00 EDT, [facility], 164.1, cm, 12/11/23 13:49:00 EDT, Height, 121.2, [...] Refills, Maintenance, 01/12/24 12:08:00 EDT, [facility], 164.1, cm, 12/11/23 13:49:00 EDT, Height, 121.2, [...] Maintenance, 01/30/24 12:06:00 EDT,Route to Pharmacy Electronically, [facility]/pharmacy #[id number], Partial fill upon patient [...] 5 Refills, Maintenance, 08/15/23 10:50:00 EDT, Solution, [facility]/pharmacy #[id number], Partial fill upon patient [...] Refills, Maintenance, 02/07/24 14:23:00 EDT, ER Tablet, [facility], Partial fill upon patient [...] Primary Care Member Role: PCP Address: Address: [address] [place] [id number] Name: Mirta Parker RN Position: S RN Member Role: Primary Care Nurse Name: Cassie Haas RN Position: S RN Member Role: Primary Care Nurse Name: Jenna Blevins RN Position: S RN Member Role: Primary Care Nurse Name: Patricia Diaz LPN Position: S RN Member Role: Primary Care Nurse Care Team Related Persons Name: CAMACHO VERNON Address: home [address] [place] [address] [place]
--- OUTSIDE RECORDS SUMMARY | 2024-05-02 11:26 | XMS_ITS | Continuity of Care Document ---
Author Organization [facility] Francisco Paulino lt Address [address] [place] [address]- Care Team Providers Care Food Service Lead Name Role Phone Bill RODRIGUEZ, Andrade Green Primary Care Physician [phone] Encounter [facility] Date(s): 02/29/24 - 03/30/24 [facility] Shine Singh Adult [address] [place] [address]- Allergies, Adverse Reactions, Alerts Substance Reaction Severity [...] Recorded tetanus/diphtheria/pertussis, acel(Tdap) 03/18/10 Recorded 1Result Comment: [id number] 2Result Comment: [id number] Medications Albuterol (Eqv-ProAir HFA) 90 mcg/inh inhalation [...] Refills, Maintenance, 01/09/24 11:30:00 EDT, [facility], 164.1, cm, 12/11/23 13:49:00 EDT, Height, 121.2, [...] Refills, Maintenance, 01/12/24 12:08:00 EDT, [facility], 164.1, cm, 12/11/23 13:49:00 EDT, Height, 121.2, [...] 02/29/24 11:06:00 EDT, Route to Pharmacy Electronically, [facility]/pharmacy #[id number], Partial fill upon patient [...] 11 Refills, Maintenance, 02/24/24 6:27:00 EDT, Tablet, [facility]/pharmacy #[id number], Partial fill... Start Date: [...] Care Nurse Name: Andrade Khan MD Position: [facility] Physician - Primary Care Member Role: PCP Address: Address: [address] [place] [id number] Name: Mirta Parker RN Position: S RN Member Role: Primary Care Nurse Name: Cassie Haas RN Position: S RN Member Role: Primary Care Nurse Name: Jenna Blevins RN Position: S RN Member Role: Primary Care Nurse Name: Patricia Diaz LPN Position: S RN Member Role: Primary Care Nurse Care Team Related Persons Name: CAMACHO VERNON Address: [address] [address] [place]
--- OUTSIDE RECORDS SUMMARY | 2024-05-02 11:26 | XMS_ITS | Continuity of Care Document ---
Author Organization [facility] Shine Singh Paulino lt Address [address] [place] [address]- Care Team Providers Care Qualitative Field Coordinator Name Role Phone Bill RODRIGUEZ, Andrade Green Primary Care Physician [phone] Encounter [facility] Date(s): 02/25/24 - 03/26/24 [facility] Shine Singh Adult [address] [place] [address]- Allergies, Adverse Reactions, Alerts Substance Reaction Severity [...] Recorded tetanus/diphtheria/pertussis, acel(Tdap) 03/18/10 Recorded 1Result Comment: [id number] 2Result Comment: [id number] Medications Albuterol (Eqv-ProAir HFA) 90 mcg/inh inhalation [...] Refills, Maintenance, 01/09/24 11:30:00 EDT, [id number], 164.1, cm, 12/11/23 13:49:00 EDT, Height, 121.2, kg, 01/30/23 12:56:00 EDT, Dry Weight Start Date: 01/09/24 Status: Ordered clopidogrel 75 mg oral tablet 75 mg, 1, tablet, By Mouth, Daily, # 30 tablet, Refills 5, Tot. Refills 5, Maintenance, 03/01/24 14:22:00 EDT, Route to Pharmacy Electronically, [facility]/pharmacy #[id number], Partial fill upon [...] Refills, Maintenance, 01/12/24 12:08:00 EDT, [id number], 164.1, cm, 12/11/23 13:49:00 EDT, Height, 121.2, [...] 02/29/24 11:06:00 EDT, Route to Pharmacy Electronically, [facility]/pharmacy #[id number], Partial fill upon [...] 11 Refills, Maintenance, 02/24/24 6:27:00 EDT, Tablet, [facility]/pharmacy #[id number], Partial fill... Start Date: [...] Refills, Maintenance, 03/08/24 17:52:00 EDT, ER Tablet, [facility]/pharmacy #[id number], Partial fill upon patient request if the [...] Primary Care Member Role: PCP Address: Address: [address] [place] [id number] Name: Mirta Parker RN Position: S RN Member Role: Primary Care Nurse Name: Cassie Haas RN Position: S RN Member Role: Primary Care Nurse Name: Jenna Blevins RN Position: S RN Member Role: Primary Care Nurse Name: Patricia Diaz LPN Position: S RN Member Role: Primary Care Nurse Care Team Related Persons Name: CAMACHO VERNON Address: [address] [address] [place]
--- OUTSIDE RECORDS SUMMARY | 2024-05-02 11:26 | XMS_ITS | Continuity of Care Document ---
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 Start Date: 03/12/21 Status: Ordered atorvastatin 80 mg oral tablet [...] tablet, 1 Refills, Maintenance, 01/09/24 11:30:00 EDT, [id number], 164.1, cm, 12/11/23 13:49:00 EDT, Height, 121.2, [...] tablet, 1 Refills, Maintenance, 01/12/24 12:08:00 EDT, [id number], 164.1, cm, 12/11/23 13:49:00 EDT, Height, 121.2, kg, 01/30/23 12:56:00 EDT, Dry Weight Start Date: 01/12/24 Status: Ordered metoprolol 25 mg oral tablet, extended release 25 mg, By Mouth, Daily, # 30 tablet, Refills 0, Tot. Refills 0, Maintenance, 01/30/24 12:06:00 EDT,Route to Pharmacy Electronically, [facility]/pharmacy #[id number], Partial fill upon patient request if [...] 5 Refills, Maintenance, 08/15/23 10:50:00 EDT, Solution, [facility]/pharmacy #[id number], Partial fill upon patient request if the prescription is for a apoorva... Start Date: 08/15/23 Status: Ordered prasugrel 10 mg oral tablet 1 tablet = 10 mg, By Mouth, Daily, # 30 tablet, 0 Refills, Maintenance, 01/29/24 2:31:00 EDT, Tablet, Partial fill upon patient request if the prescription is for a schedule II opioid drug. Start Date: 01/29/24 Status: Ordered Trulicity Pen 1.5 mg/0.5 mL [...] HTN (hypertension) Confirmed Active Hypothyroidism Confirmed Active Lumbar radiculopathy Confirmed Active Mild major depression Confirmed Active PAF (paroxysmal atrial fibrillation) Confirmed Active Severe obesity Confirmed Active Type 2 diabetes mellitus Confirmed Active Results Radiology Reports * Exam Date Time Procedure Performing Provider Status 01/28/24 10:48 PM Chest 2 Views Frontal and Lat Casey Lewis; Auth (Verified) Notes: (Chest 2 Views Frontal and Lat) Reason For Exam: Chest Pain;Other: RESULT: Chest 2 Views Frontal and Lat Chest 2 Views Frontal and Lat Hx of Present Illness: Pmh of NC 1 weeks ago s p 2 cardiac cath and one stent placement. Pt presenting to the ED with similar sx of mid sternal chest pain radiating to R side of neck and arm and SOB.t reports resolved sx after arrival to the ER. 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 FINDINGS: LINES AND TUBES: None. LUNGS AND PLEURA: Clear lungs. Normal pulmonary vascularity. No pleural effusion. No pneumothorax. HEART, MEDIASTINUM AND BILL: Heart is normal in size. Normal mediastinal and hilar contour. BONES AND SOFT TISSUES: No acute abnormality. IMPRESSION: No acute abnormality. WSN: [id number] Ordering Physician: Quentin Haskins Dictated By: Sj Black MD Dictated Date/Time: 01/28/24 10:49 p Reviewed By: Sj Black MD Signed By: Sj Black MD Signed Date/Time: 01/28/24 10:49 pm Transcribed By: ASTER Transcribed Date/Time: 01/28/24 10:49 pm Vital Signs Most recent to oldest [Reference Range]: 1 2 3 Height 165 cm (01/30/24 7:18 AM) 165 cm (01/30/24 4:19 AM) 165 cm (01/29/24 11:23 PM) Weight 130 kg (01/29/24 3:02 AM) 130 kg (01/28/24 10:05 PM) 130 kg (01/28/24 9:54 PM) Oxygen Saturation [94-100 %] 100 % (01/30/24 4:19 AM) 100 % (01/29/24 11:23 PM) 97 % (01/29/24 9:06 PM) Pulse Rate [55-90 bpm] 77 bpm (01/30/24 4:19 AM) 71 bpm (01/29/24 11:23 PM) 71 bpm (01/29/24 9:06 PM) Body Mass Index [18.5-24.99 kg/m2] 47.75 kg/m2 *>HHI* (01/29/24 3:02 AM) 47.75 kg/m2 *>HHI* (01/28/24 9:54 PM) 47.75 kg/m2 *>HHI* (01/28/24 9:33 PM) Blood Pressure [90-138/55-84 mm Hg] 117/55mm Hg (01/30/24 4:19 AM) 101/46mm Hg (01/29/24 11:23 PM) 104/48mm Hg (01/29/24 9:06 PM) Respiratory Rate [16-30 br/min] 18 br/min (01/30/24 4:19 AM) 18 br/min (01/29/24 11:23 PM) 18 br/min (01/29/24 9:28 PM) Temperature [96.8-100.4 DegF] 97.9 DegF (01/30/24 4:19 AM) 97.9 DegF (01/29/24 11:23 PM) 97.5 DegF (01/29/24 9:06 PM) Mode of Delivery (Oxygen) Room air (01/30/24 4:19 AM) Room air (01/29/24 11:23 PM) Room air (01/29/24 9:06 PM) Blood pressure sites Leg, left (01/30/24 4:19 AM) Arm, right (01/29/24 11:23 PM) Arm, right (01/29/24 9:06 PM) Temperature Route Oral (01/30/24 4:19 AM) Oral (01/29/24 11:23 PM) Oral (01/29/24 9:06 PM) Dry Weight 130 kg (01/29/24 3:02 AM) 130 kg (01/28/24 10:05 PM) 130 kg (01/28/24 9:54 PM) Weight Obtained Via Standing scale (01/28/24 9:33 PM) Dry Weight Obtained Via Standing scale (01/28/24 9:33 PM) Social History Social History Type Response Smoking Status Former smoker, quit more than 30 days ago; Other: quit 20 years ago. chews nicotene gum; entered on: 01/12/23 Sex Consult note * Kely RODRIGUEZ, Angel Horowitz: PERFORM Event Display: Consult Authored Date: [id number] Patient: ??MAKAYLA VERNON ? Age:??63 Years?Sex:??Female?:??1960?? History of Present Illness Makayla is a 63 yo male who presented to [facility] ED on 01/28/24 for persistent chest discomfort.? Cardiology was consulted for CAD, recent NSTEMI, with Chest pain. ?? Makayla reports??that she has numerous episodes of chest discomfort since 01/10/24. She describes the episodes as central chest deep tingling, burning that radiated outwards and goes to bilateral arms and left neck/trapezius area.??These episodes were also associated with diaphoresis, dyspnea and the urge to use the restroom. Waves would last about a minute at a time. They started when she went to see her grandson in [place] on 01/08. In afternoon of 01/09 she was holding him while sitting in the afternoon, and started to have the chest sensations as described as above. They were fairly persistent and her family convinced her to proceed to ED to be checked. On that visit, she was found to be in atrial fibrillation, but all other results were normal so they discharged her with an local cardiology follow up on 01/17. On that visit, it seems they re- assured her and prescribed metoprolol succinate 50mg daily??and apixaban 5mg BID for new onset atrial fibrillation and recommended sheestablish care with cardiology at home in [place]. However, after the visit, Makayla reports the y called and felt there may have been an abnormality (unclear what this was) and recommended she undergo cardiac angiography. She was admitted in the AM of 01/18, a VERNON was placed to mid LAD, echo obtained which did not show abnormalities and she was discharged one day later without any complications.??On 01/20 she had a recurrence of her chest pain, but on this case she noted that there was a deeper pain whereas before the quality was better described as burning/tingling. She returned to the ED in [place] and on??this case they reported that she may have had/be having an NC and her troponins were elevated (to 900s on hs assay).??Cardiac catheterization??was repeated and??VERNON??was patent without any other new irregularities. She remained admitted overnight and was discharged the nextmorning. She returned home to [place] the next day. (It is unclear the reason for call back and cardiac angiography. Patient records were reviewed through patient portal as we are still obtaining official records from [facility]). Additionally, images (angiography, echo) were requested for review. After return from [place], she has had three different episodes of the chest discomfort but without the deep pain she reported on prior to her ED visit with troponin rise. She finally came in after the third episode as it persisted for about 45 minutes. She also notes that on this episode her tingling radiated to her right neck as opposed to left neck. Lastly, he purchase an iwatch on return to monitor afib/HR and during these episodes she did not have alerts for afib or rapid heart rate. ?? ROS otherwise positive for 1mo history of fatigue, rare intermittent KIRK, constipation, cold intolerance, daytime napping, nocturia. ?? Of note, she reports that she has had similar chest discomfort episodes many year ago for which shehas gone to the ED on 3 different occasions by years for which ACS was ruled out and she was told it was more likely to be anxiety attacks ?? 01/18 Cardiac angiogram LMCA is large caliber [...] previous, mid LAD stent in place without complications. ?? PMH New onset??afib HLD Non insulin dependent T2 DM Obesity hypothyroidism Anxiety/Depression Hiatal hernia/GERD Asthma? ?? PSH Recently has three??operation in the last 2 years including R hip??arthroplasty,??meniscus??repair,hysterectomy ?? Home Medications Albuterol (albuterol 0.083% inhalation solution)?3?Milliliter?2.5?Milligram?Inhalation?Every 6 hours?as needed?for wheezing Albuterol (Albuterol (Eqv-ProAir HFA) 90 mcg/inh inhalation aerosol)?2?puff(s)?Inhalation?Every 6 hours?as needed?Wheezing/Shortness of Breath apixaban (Eliquis 5 mg oral tablet)?1?tab(s)?5?Milligram?By Mouth?2 times a day Atorvastatin (atorvastatin 80 mg oral tablet)?1?tab(s)?80?Milligram?By Mouth?Daily Citalopram (citalopram 20 mg oral tablet)?1?tab(s)?By Mouth?Daily Levothyroxine (levothyroxine 0.05 mg oral tablet)?1?tab(s)?By Mouth?Daily Metoprolol (Metoprolol Succinate ER 50 mg oral tablet, extended release)?50?Milligram?By Mouth?Daily?for 30?Days Metoprolol tartrate 25mg PRN for HR >130 Nitroglycerin (nitroglycerin 0.4 mg sublingual tablet)?1?tab(s)?0.4?Milligram?Sublingual?Every 5 minutes?as needed?as needed for chest pain?not to exceed 3 doses/15 min--ifpain persists, seek medical attention Omeprazole (omeprazole 40 mg oral enteric coated capsule)?1?capsule?40?Milligram?By Mouth?Daily prasugrel (prasugrel 10 mg oral tablet)?1?tab(s)?10?Milligram?By Mouth?Daily semaglutide (Ozempic 2 mg/1.5 mL (0.25 mg or 0.5 mg dose) subcutaneous solution)?0.25?Milligram?Subcutaneous Injection?Every week?rotate injection sites; for treatment of T2DM E11.9 ?? Social Hx: smoker from 16yo to 41yo,??1.5 packd/day (37.5 pack years),??no significant alcohol intake (maybe once a??year), no history??of recreational drugs use ?? Fam??Hx:??Mother with CHF,??unknown etiology and??HTN Father HTN Maternal grandfather with at least 2 MIs in OR??during open heart surgery ?? Activity: Reports she can only walk 1 block before becoming dyspneic, cannot climb 1 flight of stairs without dyspnea ?? Presented to ED on 01/28/24 for chest pain. On arrival to ED, afebrile and HDS on RA. EKG with NSR, no ST changes, Q waves in anterior leads.??hsTroponins have been <10 on 4 separate occasions overthe course of 7 hours. CXR without acute cardiopulmonary abnormality, no increased pulmonary vasculature marking, territory account representative are sharp. Seemingly did not receive any medications in ED. She was admitted to observation for chest pain. Since admission denies any further chest discomfort. She has remained insinus rhythm. ?? Of note, prasugrel was held thus far in this admission. Review of Systems Review of systems negative except as stated above. Physical Exam Vitals & Measurements T:??98.0?F?? TMIN:??97.5?F?? TMAX:??98.6?F?? HR:??71??(Peripheral)?? RR:??18?? BP:??96/57?? SpO2:??95%?? WT:??130??kg?? Comfortable appearing Lungs CTA Cardiac exam without murmurs appreciated, RRR, warm and well perfused, no peripheral edema, no JVD abdomen soft, nontender, normal bowel sounds Skin without suspicious lesions or jaundice Normal mood and affect Assessment/Plan Assessment:??63 yo female admitted on 01/27/23 for chest discomfort in the setting of a recent placement of a mid LAD VERNON.??Subsequent to VERNON, she had a change in quality of chest pain for which she re-visited ED. On that visit was the only documented troponin rise??(into the 900s). Repeat angiography noted to be unchanged/unremarkable and she was discharged home. While much of her chest pain seems to have an anxiety component, radiation to neck and bilateral UEs with a recent stent placement isconcerning. Further, it is unclear why she was called back and scheduled for angiography after her outpatient cardiology follow up in [place]. She does not meet criteria for ACS on this visit,but given her course it would be prudent to obtain stress test and imaging as soon as possible to further clarify picture while records review is underway.? Recommendations: - Remain admitted for at least one mroe night of observation and follow up testing -??Given??unclear course??we??will??work??on obtaining??full records??and images??(echo, angiography) for??comprehensive??review -??Treadmill stress test with nuclear perfusion imaging tomorrow - Restart prasugrel CAMMIE - Continue other??medications as ordered - After??results are all??obtained, will have??follow up with [facility]??Cardiology ?? Patient was discussed with attending physician, Dr. Oliva ?? [facility] PGY-3 Resident Physician Internal Medicine-Pediatrics Pager # [phone]? Discharge Planning:? Problem List/Past Medical History Ongoing Asthma GERD (gastroesophageal reflux disease) HTN (hypertension) Hyperlipidemia Hypothyroidism Lumbar radiculopathy Mild major depression Morbid obesity with BMI of 40.0-44.9, adult PAF (paroxysmal atrial fibrillation) Severe obesity Type 2 diabetes mellitus Procedure/Surgical History ???Laparoscopic total hysterectomy using robotic assistance (12/23/2021)???Hysteroscopy and endometrial biopsy (08/25/2021)???Bilateral tubal ligation???Caesarean section x 4???Extraction of wisdom teeth???Lumbar discectomy???Removal of foreign body from foot Medications Inpatient Acetaminophen Tablet, 650 mg, By Mouth, Every 4 hours, PRN albuterol CFC free 90 mcg/inh inhalation aerosol, 180 mcg= 2 puffs, Inhalation, Every 4 hours, PRN aspirin 81 mg oral tablet, chewable, 81 mg, Chew, Daily atorvastatin 80 mg oral tablet, 80 mg, By Mouth, Daily citalopram 20 mg oral tablet, 20 mg, By Mouth, Daily Docusate Sodium Capsule, 100 mg= 1 capsule, By Mouth, 2 times a day, PRN Eliquis, 5 mg, By Mouth, 2 times a day Insulin LISPRO Sliding Scale, 2-10 units, Subcutaneous Injection, Every 6 hours levothyroxine 0.025 mg oral tablet, 50 mcg, By Mouth, Daily Melatonin Tablet, 3 mg, By Mouth, Daily at bedtime, PRN Metoprolol Succinate ER 50 mg oral tablet, extended release, 50 mg, By Mouth, Daily MiraLax Powder, 17 Gm= 1 pack/packet, By Mouth, Daily, PRN MorPHINE Inj, 2 mg, IV Push Slowly, Every 30 minutes, PRN NaCL 0.9% Flush, 3 mL, IV Push, Every 8 hours NaCL 0.9% Flush, 3 mL, IV Push, Every 8 hours, PRN nitroglycerin 0.4 mg sublingual tablet, 0.4 mg, Sublingual, Every 5 minutes, PRN Ondansetron Inj, 4 mg, IV Push, Every 4 hours, PRN pantoprazole 40 mg oral delayed release tablet, 40 mg, By Mouth, Daily Robitussin DM Liquid, 10 mL, By Mouth, Every 4 hours, PRN Senna Tablet, 8.6 mg= 1 tablet, By Mouth, 2 times a day, PRN Simethicone Tablet, 80 mg, Chew, 3 times a day, PRN Home Albuterol (Eqv-ProAir HFA) 90 mcg/inh inhalation aerosol, 2 puffs, Inhalation, Every 6 hours, PRN, 5 refills albuterol 0.083% inhalation solution, 2.5 mg= 3 mL, Inhalation, Every 6 hours, PRN, 1 refills atorvastatin 80 mg oral tablet, 80 mg= 1 tablet, By Mouth, Daily citalopram 20 mg oral tablet, 1 tablet, By Mouth, Daily Eliquis 5 mg oral tablet, 5 mg= 1 tablet, By Mouth, 2 times a day levothyroxine 0.05 mg oral tablet, 1 tablet, By Mouth, Daily Metoprolol Succinate ER 50 mg oral tablet, extended release, 50 mg, By Mouth, Daily nitroglycerin 0.4 mg sublingual tablet, 0.4 mg= 1 tablet, Sublingual, Every 5 minutes, PRN omeprazole 40 mg oral enteric coated capsule, 40 mg= 1 capsule, By Mouth, Daily, 3 refills Ozempic 2 mg/1.5 mL (0.25 mg or 0.5 mg dose) subcutaneous solution, 0.25 mg, Subcutaneous Injection, Every week, 5 refills prasugrel 10 mg oral tablet, 10 mg= 1 tablet, By Mouth, Daily Trulicity Pen 1.5 mg/0.5 mL subcutaneous solution, See Instructions, 5 refills Vitamin D3 1000 intl units oral capsule, 25 mcg= 1 capsule, By Mouth, Daily Allergies CeleBREX??(Pain with burning in chest and arms and lightheaded) Demerol??(Vomiting, Swelling) Social History Alcohol Use: Never. Electronic Cigarette/Vaping [...] years ago. chews nicotene gum. Family History Alcoholism: Father. Bleeding disorder: Negative: Mother, Father, Sister, Brother, Mat. Grandfather, Mat. Grandmother, Other, Pat. Grandfather and Pat. Grandmother. CAD - Coronary artery disease: Mother and Father. Cancer of breast: Mat. Grandmother. DVT - Deep vein thrombosis: Negative: Mother, Father, Sister, Brother, Mat. Grandfather, Mat. Grandmother, Other, Pat. Grandfather and Pat. Grandmother. Diabetes mellitus type 2: Mother. Diabetes mellitus type II: Mother, Mat. Grandfather and Mat. Grandmother. Hyperlipidemia: Mother. Hypertension: Father, Sister and Brother. Mental illness: Mat. Grandfather. Immunizations Vaccine Date Status influenza virus vaccine, inactivated 03/21/2022 Given tetanus-diphtheria toxoids (Td) 12/16/2021 Given Comments : [id number] pneumococcal 20-valent conjugate vaccine 12/16/2021 Given Comments : [id number] influenza virus vaccine, inactivated 03/25/2021 Recorded SARS-CoV-2 (COVID-19) mRNA BNT-162b2 vac 03/25/2021 Recorded SARS-CoV-2 (COVID-19) mRNA BNT-162b2 vac 03/08/2021 Recorded SARS-CoV-2 (COVID-19) mRNA BNT-162b2 vac 08/29/2020 Recorded SARS-CoV-2 (COVID-19) mRNA BNT-162b2 vac 08/08/2020 Recorded influenza virus vaccine, inactivated 03/02/2020 Recorded influenza virus vaccine, inactivated 03/11/2019 Recorded influenza virus vaccine, inactivated 05/15/2018 Recorded tetanus/diphtheria/pertussis, acel(Tdap) 03/18/2010 Recorded History and physical note * Aundrea RODRIGUEZ, Jose Manuel: PERFORM, MODIFY, MODIFY, MODIFY, MODIFY Event Display: History and Physical Hospital Authored Date: [id number] Patient: ??MAKAYLA VERNON ? Age:??63 Years?Sex:??Female?:??1960?? Chief Complaint/Reason for Consultation Recurrent chest pain History of Present Illness 63-year-old female with past medical history significant for obesity, coronary artery disease, hyperlipidemia, diabetes mellitus, hypothyroidism, asthma, GERD and depression 2 weeks ago, she was in [place] where she developed chest pain with radiation to her left jaw associated with shortness of breath and dizziness.?? Records are not available but patient claims that she was admitted for NSTEMI requiring cardiac catheterization with drug-eluting stent to an unknown culprit lesion. 1 week ago, she returned to the same hospital for recurrent symptoms.?? She claims that she had another cardiac stenting but was told that the culprit lesion was not occluded. Upon her return here, she was to be seen by a platform builder but has not yet occurred. 2 days ago, she had recurrence of her symptoms but resolved Today, she had recurrence of her symptoms prompting her to present to the emergency room ?? ER course: Vital signs: Normal Exam: Benign ?? Workup EKG: Normal sinus rhythm Cannot rule out Anterior infarct , age undetermined Abnormal ECG When compared with ECG of 12-JAN-2023 10:57, No significant change was found ?? CBC: Normal Chemistry: Potassium hemolyzed, metabolic acidosis High-sensitivity troponin: 10???hemolyzed ?? Chest 2 views frontal and lateral: No acute disease ?? On my evaluation D3B: Vital signs: Normal Patient currently chest pain-free Review of Systems Constitutional: No weight loss, fever, chills?? HEENT: No visual loss. No hearing loss, congestion, runny nose , sore throat. Skin: No rash ?? Cardiovascular: No palpitations. Respiratory: No shortness of breath, cough. Gastrointestinal: No nausea, vomiting or diarrhea. No abdominal pain or blood in stool. Genitourinary: No burning micturition. No urinary frequency or incontinence. Musculoskeletal: No muscle pain, back pain, joint pain or stiffness. Endocrine: No reports of sweating. No cold or heat intolerance. No polyuria or polydipsia. Hematologic: No bleeding or bruising. Immunologic/Allergic: No itchy eyes/Itchy nose/Sneezing/Watery eyes Lymphatics: No enlarged lymph nodes. Neurologic: No headache, unilateral weakness, numbness or tingling in the extremities. No change inbowel or bladder control. Psychiatric: No depression or anxiety. Objective Measurements?? Height: 165 cm (01/28/24) Weight: 130 kg (01/28/24) Dry Weight: 130 kg (01/28/24) Body Mass Index:??47.75 kg/m2??Critical (01/28/24) ? Vital Signs?? Temperature: 97.6 DegF (01/28/24 21:54:00) Temperature Route: Oral (01/28/24 21:54:00) Pulse Rate: 62 bpm (01/29/24 01:21:00) Respiratory Rate: 17 br/min (01/29/24 01:21:00) Systolic Blood Pressure: 110 mm Hg (01/29/24 01:21:00) Diastolic Blood Pressure: 56 mm Hg (01/29/24 01:21:00) Blood pressure sites: Arm, left (01/29/24 01:21:00) Mean Arterial Pressure: 96 mm Hg (01/28/24 21:54:00) Pulse Pressure: 54 mm Hg (01/29/24 01:21:00) Oxygen Saturation: 97 % (01/29/24 01:21:00) Mode of Delivery (Oxygen): Room air (08/26/24 01:21:00) Early Warning Score: 2 (01/29/24 02:24:30) ? Intake/Output? No Data Available ? Physical Exam GENERAL:??Obese female, none acutely ill-appearing, no acute cardiorespiratory distress HEAD: Normocephalic, atraumatic. EYES: No conjunctival injection. No scleral icterus.?[place] conjunctiva EARS: No tenderness, no discharge. NOSE: No asymmetry. MOUTH AND THROAT: No oral thrush.?? Moist mucous membranes NECK: No JVP elevation, No masses. Range of motion full. HEART: Regular rate ??and ??regular rhythm, no murmurs, no clicks, no rubs , no gallops. CHEST: Symmetric with respirations. No accessory muscle use, No wheezes, crackles. ABDOMEN: Normoactive bowel sounds. No tenderness without guarding. No increase in liver or spleen size. No masses palpable. GENITOURINARY: No CV angle tenderness. No suprapubic tenderness. No Escalante catheter in place.?? Rectal exam is deferred. MUSCULOSKELETAL: Range of motion full in all extremities , no obvious deformity , no increased warmth , no effusion?? VASCULAR: All pulses brisk and equal, Capillary refill time < 2sec LYMPHATIC: No cervical, axillary or inguinal adenopathy. Skin: Dry and thin. No evidence of cellulitis, no other major skin lesions?? NEUROLOGIC: No deficit on gross motor and sensory exam Alert and oriented to person, place, time, and situation Psychiatric: No delusions, hallucinations, SI or HI Assessment/Plan Assessment:??63-year-old female with past medical history significant for obesity, coronary artery disease, hyperlipidemia, diabetes mellitus, hypothyroidism, asthma, GERD and depression. She had been admitted at [facility]??in [place]??for NSTEMI and is status post??cardiac catheterization +??VERNON to an unknown culprit vessel. ??She continues to have similar??symptoms of chest pain ?? CAD (coronary artery disease) (I25.10):? Atypical chest pain (R07.89):?? Will be admitted under observation to Telemetry Will draw serial troponins.?? Will monitor for arrhythmias Will have the day team obtained records from hospital [facility] in [place] Will continue aspirin, Eliquis, statin and metoprolol Will hold prasugrel while on Eliquis Will provide sublingual nitroglycerin for chest pain, morphine if needed Will involve Cardiology with a formal consultation? HTN (hypertension) (I10):??. Continue metoprolol ?? Hyperlipidemia (E78.5): Continue atorvastatin. ?? PAF (paroxysmal atrial fibrillation) (I48.0): Continue metoprolol Continue Eliquis. ?? Type 2 diabetes mellitus (E11.9): Hold oral hypoglycemics while in-house POC glucose every 6 hours?? Cover with insulin sliding scale Hypoglycemic protocol in place. ?? Hypothyroidism (E03.9): Continue levothyroxine. ?? Asthma (J45.909):??. No signs of exacerbation Rescue beta agonist inhaler as needed. ? GERD (gastroesophageal reflux disease) (K21.9): Continue pantoprazole. ?? Mild major depression (F32.0):?? Continue citalopram. ? VTE Prophylaxis: On Eliquis ?? CODE STATUS: Full code ?? Ongoing medical necessity: IV supportive care Cardiology consultation Surveillance of symptoms ?? Discharge Planning:?? Anticipate at least 1 night hospital stay The above document was completed by performing history, physical examination, reconciling multiple medications, review of laboratory and imaging?? All assessment and plan were discussed with the patient ??and requested feedback with attempts to maximize understanding for the care provided. This required approximately 75 minutes to complete. ? Histories Allergies Allergies ?(Active and Proposed Allergies Only) CeleBREX? (Severity: Unknown severity, Onset: Unknown) ?Reactions: Pain with burning in chest and arms and lightheaded Demerol? (Severity: Unknown severity, Onset: Unknown) ?Reactions: Swelling, Vomiting, high fevers, swollen ? Past Medical History/Problem List Active Problems(11) Asthma GERD (gastroesophageal reflux disease) HTN (hypertension) Hyperlipidemia Hypothyroidism Lumbar radiculopathy Mild major depression Morbid obesity with BMI of 40.0-44.9, adult PAF (paroxysmal atrial fibrillation) Severe obesity Type 2 diabetes mellitus ? Past Surgical History Laparoscopic total hysterectomy using robotic assistance: 12/23/21 Hysteroscopy and endometrial biopsy: 08/25/21 Caesarean section x 4 Bilateral tubal ligation Lumbar discectomy Removal of foreign body from foot Extraction of wisdom teeth ? Social History Alcohol Details:??Use: Never. Details:??Use: Never. Employment/School Details:??Status: Employed. 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 Exercise Details:??Self assessment: Fair condition. ??Regular exercise: No. ??Exercise type: Walking. Home/Environment Details:??Living situation: Home/Independent. ??Lives with: Spouse. Nutrition/Health Details:??Diet: Regular. ??Caffeine intake amount: has caffeine amt not listed. Sexual Details:??Sexually involved in last 6 months: Yes. ??Gender identity: Identifies as female. ??Ever been sexually involved? Yes. ??Gender of partner(s): Male. Substance Abuse Details:??Use: Never. Details:??Use: Never. Tobacco Details:??Use: Former smoker, quit more than 30 days ago. ??Other: quit 20 years ago. chews nicotene gum. Electronic Cigarette/Vaping Details:??Electronic Cigarette Use: Never. ? Family History Mother: CAD - Coronary artery disease; Diabetes mellitus type 2; Diabetes mellitus type II; Hyperlipidemia Father: Alcoholism; CAD - Coronary artery disease; Hypertension Mat. Grandfather: Diabetes mellitus type II; Mental illness Mat. Grandmother: Cancer of breast; Diabetes mellitus type II Sister: Hypertension Brother: Hypertension ? Medications Home Medications Albuterol (albuterol 0.083% inhalation solution)?3?Milliliter?2.5?Milligram?Inhalation?Every 6 hours?as needed?for wheezing Albuterol (Albuterol (Eqv-ProAir HFA) 90 mcg/inh inhalation aerosol)?2?puff(s)?Inhalation?Every 6 hours?as needed?Wheezing/Shortness of Breath apixaban (Eliquis 5 mg oral tablet)?1?tab(s)?5?Milligram?By Mouth?2 times a day Aspirin (aspirin 81 mg oral tablet, chewable)?1?tab(s)?81?Milligram?Chew?Daily?for 30?Days Atorvastatin (atorvastatin 80 mg oral tablet)?1?tab(s)?80?Milligram?By Mouth?Daily Cholecalciferol (Vitamin D3 1000 intl units oral capsule)?1?capsule?25?Microgram?By Mouth?Daily Citalopram (citalopram 20 mg oral tablet)?1?tab(s)?By Mouth?Daily dulaglutide (Trulicity Pen 1.5 mg/0.5 mL subcutaneous solution)?See Instructions?INJECT 0.5 ML SUBCUTANEOUSLY EVERY WEEK ROTATE INJECTION SITES Levothyroxine (levothyroxine 0.05 mg oral tablet)?1?tab(s)?By Mouth?Daily Meloxicam (meloxicam 15 mg oral tablet)?1?tab(s)?By Mouth?Daily Metoprolol ER 50 mg daily Omeprazole (omeprazole 40 mg oral enteric coated capsule)?1?capsule?40?Milligram?By Mouth?Daily prasugrel (prasugrel 10 mg oral tablet)?1?tab(s)?10?Milligram?By Mouth?Daily semaglutide (Ozempic 2 mg/1.5 mL (0.25 mg or 0.5 mg dose) subcutaneous solution)?0.25?Milligram?Subcutaneous Injection?Every week?rotate injection sites; for treatment of T2DM E11.9 ? Results Recent Labs BLOOD COUNT & DIFF WBC 9.5 k/mm3 ()?? 01/28/2024 22:30 RBC 4.08 m/mm3 (Low)?? 01/28/2024 22:30 Hgb 11.4 Gm/dL (Low)?? 01/28/2024 22:30 Hct 35.8 % ()?? 01/28/2024 22:30 MCV 87.7 femtoliters ()?? 01/28/2024 22:30 MCH 27.9 pg ()?? 01/28/2024 22:30 MCHC 31.8 g/dL (Low)?? 01/28/2024 22:30 Platelet Count 303 k/mm3 ()?? 01/28/2024 22:30 RDW-SD 47.9 femtoliters (High)?? 01/28/2024 22:30 MPV 11.5 femtoliters ()?? 01/28/2024 22:30 Nucleated RBC (Automated) 0.0 #/100 WBC'S ()?? 01/28/2024 22:30 Abs. NRBC 0.0 k/mm3 ()?? 01/28/2024 22:30 Abs. Neut 5.0 k/mm3 ()?? 01/28/2024 22:30 Abs. Lymph 3.2 k/mm3 (High)?? 01/28/2024 22:30 Abs. [place] 0.8 k/mm3 ()?? 01/28/2024 22:30 Abs. Eo 0.3 k/mm3 ()?? 01/28/2024 22:30 Abs. Baso 0.1 k/mm3 ()?? 01/28/2024 22:30 Neut % 52.7 % ()?? 01/28/2024 22:30 Lymph % 34.0 % ()?? 01/28/2024 22:30 [place] % 8.8 % ()?? 01/28/2024 22:30 Eos % 3.6 % ()?? 01/28/2024 22:30 Baso % 0.6 % ()?? 01/28/2024 22:30 Imm Gran 0.3 % ()?? 01/28/2024 22:30 Abs. Imm Gran 0.0 k/mm3 ()?? 01/28/2024 22:30 ?? CARDIAC High Sensitivity Troponin (HSTnT) HEMOLYZED ng/L ()?? 01/28/2024 22:30 ?? CHEM GENERAL Sodium 136 mmol/L ()?? 01/28/2024 22:30 Potassium HEMOLYZED mmol/L ()?? 01/28/2024 22:30 Chloride 102 mmol/L ()?? 01/28/2024 22:30 Bicarbonate Level 21 mmol/L (Low)?? 01/28/2024 22:30 Anion Gap 13 ()?? 01/28/2024 22:30 Glucose Level 153 mg/dL (High)?? 01/28/2024 22:30 BUN 21 mg/dL ()?? 01/28/2024 22:30 Creatinine-Blood 0.72 mg/dL ()?? 01/28/2024 22:30 Estimated GFR Creatinine 94 ML/MIN/1.73 M2 ()?? 01/28/2024 22:30 Calcium 9.2 mg/dL ()?? 01/28/2024 22:30 ?? URINE OTHER Est Creatinine Clearance 71.85 mL/min ()?? 01/28/2024 23:59 ? EKG study * Event Display: ECG 12-Lead Authored Date: Please click on pdf link to open report * Event Display: ECG 12-Lead Authored Date: Ventricular Rate: 72 BPM Atrial Rate: 72 BPM P-R Interval: 170 ms QRS Duration: 80 ms Q-T Interval: 394 ms QTC Calculation(Bazett): 431 ms P [place]: 32 degrees R [place]: -9 degrees T [place]: 14 degrees Normal sinus rhythm Cannot rule out Anterior infarct , age undetermined Abnormal ECG When compared with ECG of 12-JAN-2023 10:57, No significant change was found Confirmed by SCOTTY CONDE ([id number]) on 01/29/2024 10:45:00 AM [place]: SCOTTY CONDE Cardiology * Event Display: Stress Nuc with Regadenoson Authored Date: Please click on pdf link to open report * Event Display: Cardiac Rhythm Strips Authored Date: Hospital Progress note * Vincent RODRIGUEZ, Lyly: PERFORM Event Display: Progress Note Hospital Authored Date: [id number] Patient: ??MAKAYLA VERNON ? Age:??63 Years?Sex:??Female?:??1960?? Subjective Patient reports chest pain yesterday evening??it was a sharp stabbing??pain starting??on the left side of??ensuring to the back resolved without any intervention patient was also hypotensive this morning metoprolol dose decreased to 25 mg daily Review of Systems Constitutional: [No weight loss, fever, chills, weakness or fatigue.] HEENT: [No visual loss, blurred vision, double vision or yellow sclera. No hearing loss, sneezing, congestion, runny nose or sore throat.] Skin: [No rash or itching.] Cardiovascular:??Left-sided chest pain resolved this morning. Respiratory: [No shortness of breath, cough or sputum production.] Gastrointestinal: [No anorexia, nausea, vomiting or diarrhea. No abdominal pain or blood in stool.] Genitourinary: [No burning micturition. No urinary frequency or incontinence.] Neurologic: [No headache, dizziness, syncope, unilateral weakness, ataxia, numbness or tingling in the extremities. No change in bowel or bladder control.] Musculoskeletal: [No muscle pain, back pain, joint pain or stiffness.] Hematologic: [No bleeding or bruising.] Lymphatics: [No enlarged lymph nodes.] ?? Objective Vital Signs?? Temperature: 97.9 DegF (01/30/24 04:19:00) Temperature Route: Oral (01/30/24 04:19:00) Pulse Rate: 77 bpm (01/30/24 04:19:00) Pulse Rate, Lyin bpm (01/30/24 07:18:00) Systolic Blood Pressure, Lyin mm Hg (01/30/24 07:18:00) Diastolic Blood Pressure, Lyin mm Hg (01/30/24 07:18:00) Pulse Rate, Sittin bpm (01/30/24 07:18:00) Systolic Blood Pressure, Sittin mm Hg (01/30/24 07:18:00) Diastolic Blood Pressure, Sittin mm Hg (01/30/24 07:18:00) Pulse Rate, Standin bpm (01/30/24 07:18:00) Systolic Blood Pressure, Stand[place] mm Hg (01/30/24 07:18:00) Diastolic Blood Pressure, Stand[place] mm Hg (01/30/24 07:18:00) Respiratory Rate: 18 br/min (01/30/24 04:19:00) Systolic Blood Pressure: 117 mm Hg (01/30/24 04:19:00) Diastolic Blood Pressure: 55 mm Hg (01/30/24 04:19:00) Blood pressure sites: Leg, left (01/30/24 04:19:00) Mean Arterial Pressure: 76 mm Hg (01/30/24 04:19:00) Pulse Pressure: 62 mm Hg (01/30/24 04:19:00) Oxygen Saturation: 100 % (01/30/24 04:19:00) Mode of Delivery (Oxygen): Room air (01/30/24 04:19:00) Early Warning Score: 2 (01/30/24 08:32:06) ? Pain Scores?? No qualifying data available. ?? Intake/Output? 01/27 21:28 01/29 07:00 01/28 07:00 01/27 07:00 01/26 07:00 ?? 01/29 08:41 01/29 08:41 01/29 06:59 01/28 06:59 01/27 06:59 Intake ?240 ?0 ?240 ?0 ?0 Output ?0 ?0 ?0 ?0 ?0 Net Total ?240 ?0 ?240 ?0 ?0 ? Urine Count ?3 ?0 ?3 ?0 ?0 ? Physical Exam General: [Alert, in no acute cardiopulmonary distress.] Mental Status: [Oriented to person, place and time. Normal affect.] Head: [Normocephalic.] Eyes: [Pupils are equal, round and reactive to light. Extraocular muscles intact.] Ear, Nose and Throat: [Oropharynx clear, mucous membranes moist. Ears and nose without masses, lesions or deformities. Tympanic membranes clear bilaterally. Trachea midline.] Neck: [Supple, Full range of motion.] Respiratory: [Clear to auscultation and percussion. No wheezing, rales or rhonchi.] Cardiovascular: [Heart sounds normal. No thrills. Regular rate and rhythm, no murmurs, rubs or gallops.] Gastrointestinal: [Abdomen soft, non-tender, non-distended. Normal bowel sounds. No pulsatile mass.No hepatosplenomegaly.] Genitourinary: [No costovertebral angle tenderness.] Neurologic: [Cranial nerves II-XII grossly intact. No focal neurological deficits. Deep tendon reflexes +2 bilaterally. Flexor plantar response. Moves all extremities spontaneously. Sensation intact bilaterally.] Skin: [No rashes or lesions. No petechiae or purpura. No edema.] Musculoskeletal: [No cyanosis or clubbing. No gross deformities. Normal range of motion.] Lymphatics: [Palpation of neck reveals no swelling or tenderness of neck nodes. Palpation of groin reveals no swelling or tenderness of groin nodes.] Psychiatric: [Not anxious fully cooperative following commands.] _ Inpatient Medications Medications (21) Active SCHEDULED: (9) Apixaban 5 mg Tablet (Eliquis) ??5 mg, By Mouth, 2 times a day Atorvastatin 80 mg Tablet (atorvastatin 80 mg oral tablet) ??80 mg, By Mouth, Daily Citalopram 20 mg Tablet (citalopram 20 mg oral tablet) ??20 mg, By Mouth, Daily Insulin Lispro 100 units/mL Inj (Insulin LISPRO Sliding Scale) ??2-10 units, Subcutaneous Injection, Every 6 hours Levothyroxine 25 mcg Tablet (levothyroxine 0.025 mg oral tablet) ??50 mcg, By Mouth, Daily Metoprolol 25 mg XL Tablet (metoprolol 25 mg oral tablet, extended release) ??25 mg, By Mouth, Daily NaCl 0.9% Flush 3ml (NaCL 0.9% Flush) ??3 mL, IV Push, Every 8 hours Pantoprazole 40 mg EC Tablet (pantoprazole 40 mg oral delayed release tablet) ??40 mg, By Mouth, Daily Prasugrel 10 mg Tablet (prasugrel 10 mg oral tablet) ??10 mg, By Mouth, Daily CONTINUOUS: (0) PRN: (12) Acetaminophen 325 mg Tablet (Acetaminophen Tablet) ??650 mg, By Mouth, Every 4 hours Albuterol 90mcg/Inhalation Inhaler HFA (albuterol CFC free 90 mcg/inh inhalation aerosol) ??180 mcg2 puffs, Inhalation, Every 4 hours Dextromethorphan-Guaifenesin 20 mg-200 mg/10 mL Liqu UD (Robitussin DM Liquid) ??10 mL, By Mouth, Every 4 hours Docusate Sodium 100 mg Capsule (Docusate Sodium Capsule) ??100 mg 1 capsule, By Mouth, 2 times a day Melatonin 3 mg Tablet (Melatonin Tablet) ??3 mg, By Mouth, Daily at bedtime MorPHINE 2 mg Inj Syringe (MorPHINE Inj) ??2 mg, IV Push Slowly, Every 30 minutes NaCl 0.9% Flush 3ml (NaCL 0.9% Flush) ??3 mL, IV Push, Every 8 hours Nitroglycerin 0.4 mg Sublingual Tablet (nitroglycerin 0.4 mg sublingual tablet) ??0.4 mg, Sublingual, Every 5 minutes Ondansetron 2mg/mL Inj (2mL Vial) (Ondansetron Inj) ??4 mg, IV Push, Every 4 hours Polyethylene Glycol 17 Gm Powder (MiraLax Powder) ??17 Gm 1 pack/packet, By Mouth, Daily Senna Tablet ??8.6 mg 1 tablet, By Mouth, 2 times a day Simethicone 80 mg Chewable Tablet (Simethicone Tablet) ??80 mg, Chew, 3 times a day ? Results Recent Labs CARDIAC High Sensitivity Troponin (HSTnT) 9 ng/L ()?? 01/29/2024 06:59 ?? CHEM GENERAL Glucose, POC 125 mg/dL (High)?? 01/30/2024 05:43 ?? MISC. CHEMISTRY Hold Gel Top SPECIMEN DISCARDED AFTER 1 WEEK ()?? 01/29/2024 03:23 ? Assessment/Plan Assessment:??63-year-old female with past medical history significant for obesity, coronary artery disease, hyperlipidemia, diabetes mellitus, hypothyroidism, asthma, GERD and depression.??Who was [facility] and has??an NSTEMI status postcardiac cath??stent placement??also has diagnosis of??paroxysmal atrial fibrillation??on anticoagulation and antiplatelet therapy came in??with chest pain. ?? Patient has been seen by [facility] cardiology and recommended a nuclear stress test??they are also complaining of??repeat cardiac catheterization should be done ? Chest pain??shortness of breath intermittent??resolves without any intervention Tonight she had another episode of chest pain resolved??spontaneously Troponins remains negative Patient reported that she has??3 episodes at [place], on her first episode she was found to have atrial fibrillation??the second time she had a cardiac cath??and received a stent??third??admission to the hospital was for recurrent chest pain??and they ruled out??stent occlusion.??She was told that the stent was in place??and she??ruled out for??any myocardial ischemia Patient reports that she was supposed to be following up??with cardiology as an outpatient she doesnot have a platform builder at present??and??is in the process to get a referral??from her PCP Currently troponins are negative EKG shows??normal sinus rhythm Paperwork has been signed and sent to??hospital in [place] for medical records??show for??noinformation received spoke to the charge nurse??will call again for medical records transferred. Patient is on??Eliquis for history of??paroxysmal A-fib she should be also??on??Eliquis and prasugrel?? Patient confirms that she was not taking aspirin per platform builder in [place] and is only on??Eliquis and??Effient She is on metoprolol 50 mg XL and statins Metoprolol dose has been decreased to 25 mg daily due to??low blood pressure systolic blood pressure this morning was 93 Blood pressure is on the lower side but she is asymptomatic. Also is on sublingual nitro??however when asked her she says she has not been taking any??nitro sublingual [facility] cardiology has been consulted and will see the patient??will follow up any recommendation or medication changes. State cardiology will follow-up??a nuclear stress test has been ordered??further plan for repeat catheterization??will be decided by Dr. Oliva ?? HTN (hypertension) (I10):??. Continue metoprolol??pressure??is mostly soft??but she is asymptomatic ?? Hyperlipidemia (E78.5): Continue atorvastatin. ?? PAF (paroxysmal atrial fibrillation) (I48.0): Continue metoprolol Continue Eliquis. ?? Type 2 diabetes mellitus (E11.9): Continue home medications. Cover with insulin sliding scale Hypoglycemic protocol in place. ?? Hypothyroidism (E03.9): Continue levothyroxine. ?? Asthma (J45.909):??. No signs of exacerbation Rescue beta agonist inhaler as needed. ? GERD (gastroesophageal reflux disease) (K21.9): Continue pantoprazole. ?? Mild major depression (F32.0):?? Continue citalopram. Obesity??possible GIOVANNY needs outpatient sleep study and weight loss program ? Disposition??nuclear stress test cardiology follow-up,??reports from [place] are pending ?? Discharge Planning:? * Shea Babcock RN: VERIFY, PERFORM, SIGN Event Display: Progress Note Hospital Authored Date: [id number] Patient: MAKAYLA VERNON Age: 63 years Sex: Female : 1960 Associated Diagnoses: None Author: Shea Babcock RN Pt arrived to unit via stretcher and ambulated independently to the bed with good gait. Pt A&O x3. VSS. Pt educated on using the call dowling if experiencing CP. SOB, or dizziness and not to get oobwithout assistance. IV assessed and patent. Pt on tele SR. Pt reports of no numbness or tingling ofthe extremities. Pt reporting 3/10 frontal headache. Pt offered Tylenol. ice pack or heat pack but pt reports she just needs some sleep and then it will go away . Pt has positive peripheral pulses, no chest pain, and no edema. Pt is safely independent with ambulation. Skin is intact with no rash or breakdown but bruising is noted on the arms bilaterally. Lung sounds are clear, pt on RA and denies SOB or recent cough. Pt BS x4, and denies nausea or vomiting. Pt abdomen is flat, soft, and non-tender to touch. Last BM 01/28. Pt ambulating to the BR and reports no complaints burning when urinating and no difficulty starting or maintaining a stream. Pt is not a fall risk and has no other safety concerns. Will continue with plan of care. Radiology * Event Display: NM Myocard Perf SPECT Multi Authored Date: Myocardial Perfusion Imaging Demographics Patient Name SAULO RAMOS Gender Female [employer] Room Number D321 Height 65 inches Date of 1960 Weight 286.6 pounds Age 63 year(s) BSA 2.3 m2 Accession Number [id number] BMI 47.75 kg/m2 Date of study 01/30/2024 Resident Referring Physician Kely Horowitz MD Interpreting Physician Wilmer Mason MD NM Technologist Bree Templeton Procedure Procedure Type: Myocardial Perfusion Imaging:NM Myocardial Perfusion Spect Multi Indications: Chest pain. Risk Factors The patient risk factors include:hypercholesterolemia, hypertension, family history of premature CAD and diabetes mellitus. Stress Protocols Resting ECG Sinus bradycardia. Resting HR:65 bpm Resting BP:102/62 mmHg Pre-stress physical exam: The patient's medications include Eliquis, Atorvastatin, Citalopram, Lispro, Levothyroxine, Metoprolol, Pantoprazole, Prasugrel. Stress Protocol:Pharmacologic - IV Regadenoson Dose: 0.4 mg Peak HR:100 bpm HR response: Not assessed Peak BP:116/76 mmHg (pharmacologic study) Predicted HR: 157 bpm HR recovery: Not Assessed % of predicted HR: 64 (Pharmacologic Study) BP response: Normal resting BP with Reason for termination:Protocol appropriate response complete HR/BP product:[id number] Functional capacity:Not assessed Time of RP Injection:00:58 min Chest pain:Non-limiting chest pain ST Changes:No ST segment changes Arrhythmias No arrhythmias. Symptoms Dizziness. Lightheaded. Headache. Chest discomfort. Stress Interpretation Pharmacologic study only. Physiologic response not assessed - pharm stress. No EKG evidence of ischemia. Imaging Protocols - One Day Rest Stress Isotope:Tc99m Sestamibi Isotope: Tc99m Sestamibi Isotope dose:12.2 mCi IV Isotope dose:36.6 mCi IV Date:01/30/2024 Date:01/30/2024 Time to Rest Imagin minutes Time to Stress Imagin minutes Technique: Gated Technique: Gated Supine Supine Imaging Results Summed scores - Summed stress score: 0 - Summed rest score: 0 - Summed difference score: 0 Rest ejection Stress ejection Ejection fraction:78 % Ejection fraction:74 % EDV :68 ml EDV :92 ml ESV :15 ml ESV :24 ml Stroke volume :53 ml Stroke volume :68 ml LV mass :97 gr LV mass :128 gr Conclusions Summary 1. Myocardial perfusion imaging is normal without any fixed or reversible perfusion defect after Regadenoson stress test. 2. LV function is normal at rest and with stress, with normal wall motion and thickening. 3. EKG portion of the stress test is reported separately. This procedure is not being performed on this patient for preoperative evaluation for low-risk surgery within 30 days. Signatures * Event Display: NM Myocard Perf SPECT Multi Authored Date: [id number] Note * Patricia Diaz LPN: PERFORM Event Display: Discharge/Transfer Note Hospital Authored Date: [id number] Nursing Discharge Note Entered On: 01/30/2024 14:58 EDT Performed On: 01/30/2024 14:44 EDT by Patricia Diaz LPN Nursing Discharge Note 2 Discharge Time : 01/30/2024 14:44 EDT Discharge Level of Care at Discharge : Home/Fci/Foster Care Patient Left Unit Via : Wheelchair Patient Accompanied Off Unit with : Responsible adult DC Instructions Provided & Signed by Pt : Yes Patient Understands D/C Instructions : Yes Patient Instructions Discharge Signed : Yes Did Pt have Specialty Bed or Wound Vac : No Patricia Diaz LPN - 01/30/2024 14:58 EDT * Lyly Kaur MD: PERFORM Event Display: Discharge/Transfer Note Hospital Authored Date: [id number] Patient: ??MAKAYLA VERNON ? Age:??63 Years?Sex:??Female?:??1960?? Patient Information Discharge Location: B Primary Care Physician: Andrade Khan MD Admit Date/Time: 01/28/24 21:28 Discharge Disposition Discharge Disposition: ?? Discharge Diagnosis CAD (coronary artery disease) (I25.10) Atypical chest pain (R07.89) PAF (paroxysmal atrial fibrillation) (I48.0) HTN (hypertension) (I10) Hyperlipidemia (E78.5) Type 2 diabetes mellitus (E11.9) Asthma (J45.909) Hypothyroidism (E03.9) GERD (gastroesophageal reflux disease) (K21.9) Mild major depression (F32.0) _ Discharge Medications Albuterol (albuterol 0.083% inhalation solution)?3?Milliliter?2.5?Milligram?Inhalation?Every 6 hours?as needed?for wheezing Albuterol (Albuterol (Eqv-ProAir HFA) 90 mcg/inh inhalation aerosol)?2?puff(s)?Inhalation?Every 6 hours?as needed?Wheezing/Shortness of Breath apixaban (Eliquis 5 mg oral tablet)?1?tab(s)?5?Milligram?By Mouth?2 times a day Atorvastatin (atorvastatin 80 mg oral tablet)?1?tab(s)?80?Milligram?By Mouth?Daily Cholecalciferol (Vitamin D3 1000 intl units oral capsule)?1?capsule?25?Microgram?By Mouth?Daily Citalopram (citalopram 20 mg oral tablet)?1?tab(s)?By Mouth?Daily dulaglutide (Trulicity Pen 1.5 mg/0.5 mL subcutaneous solution)?See Instructions?INJECT 0.5 ML SUBCUTANEOUSLY EVERY WEEK ROTATE INJECTION SITES Levothyroxine (levothyroxine 0.05 mg oral tablet)?1?tab(s)?By Mouth?Daily Metoprolol (metoprolol 25 mg oral tablet, extended release)?25?Milligram?By Mouth?Daily?for 30?Days Nitroglycerin (nitroglycerin 0.4 mg sublingual tablet)?1?tab(s)?0.4?Milligram?Sublingual?Every 5 minutes?as needed?as needed for chest pain?not to exceed 3 doses/15 min--ifpain persists, seek medical attention Omeprazole (omeprazole 40 mg oral enteric coated capsule)?1?capsule?40?Milligram?By Mouth?Daily prasugrel (prasugrel 10 mg oral tablet)?1?tab(s)?10?Milligram?By Mouth?Daily semaglutide (Ozempic 2 mg/1.5 mL (0.25 mg or 0.5 mg dose) subcutaneous solution)?0.25?Milligram?Subcutaneous Injection?Every week?rotate injection sites; for treatment of T2DM E11.9 ? Objective Assessment and Plan Assessment:??63-year-old female with past medical history significant for obesity, coronary artery disease, hyperlipidemia, diabetes mellitus, hypothyroidism, asthma, GERD and depression.??Who was [facility] and has??an NSTEMI status postcardiac cath??stent placement??also has diagnosis of??paroxysmal atrial fibrillation??on anticoagulation and antiplatelet therapy came in??with chest pain. ?? Patient has been seen by [facility] cardiology and recommended a nuclear stress test??they are also complaining of??repeat cardiac catheterization should be done ? Chest pain??shortness of breath intermittent??resolves without any intervention Tonight she had another episode of chest pain resolved??spontaneously Troponins remains negative??telemetry does not show any arrhythmia EKG does not have any acute changes Patient reported that she has??3 episodes at [place], on her first episode she was found to have atrial fibrillation??the second time she had a cardiac cath??and received a stent??third??admission to the hospital was for recurrent chest pain??and they ruled out??stent occlusion.??She was told that the stent was in place??and she??ruled out for??any myocardial ischemia Patient reports that she was supposed to be following up??with cardiology as an outpatient she doesnot have a platform builder at present??and??is in the process to get a referral??from her PCP Currently troponins are negative EKG shows??normal sinus rhythm Paperwork has been signed and sent to??hospital in [place] for medical records??show for??noinformation received spoke to the charge nurse??will call again for medical records transferred. Patient is on??Eliquis for history of??paroxysmal A-fib she should be also??on??Eliquis and prasugrel?? Patient confirms that she was not taking aspirin per platform builder in [place] and is only on??Eliquis and??Effient She is on metoprolol 50 mg XL and statins Metoprolol dose has been decreased to 25 mg daily due to??low blood pressure systolic blood pressure this morning was 93 [facility] cardiology??has been following recommended a nuclear stress test??if the stress test is negative patient will be discharged home on medical treatment and she will follow-up outpatient with cardiology. ?? HTN (hypertension) (I10):??. Continue metoprolol??pressure??is mostly soft, metoprolol dose decreased to 25 ?? Hyperlipidemia (E78.5): Continue atorvastatin. ?? PAF (paroxysmal atrial fibrillation) (I48.0): Continue metoprolol Continue Eliquis. ?? Type 2 diabetes mellitus (E11.9): Continue home medications. Cover with insulin sliding scale Hypoglycemic protocol in place. ?? Hypothyroidism (E03.9): Continue levothyroxine. ?? Asthma (J45.909):??. No signs of exacerbation Rescue beta agonist inhaler as needed. ? GERD (gastroesophageal reflux disease) (K21.9): Continue pantoprazole. ?? Mild major depression (F32.0):?? Continue citalopram. Obesity??possible GIOVANNY needs outpatient sleep study and weight loss program ? Disposition??nuclear stress test??if negative patient will be discharged home ?? Discharge Planning:? Vital Signs?? Temperature: 97.9 DegF (01/30/24 04:19:00) Temperature Route: Oral (01/30/24 04:19:00) Pulse Rate: 77 bpm (01/30/24 04:19:00) Pulse Rate, Lyin bpm (01/30/24 07:18:00) Systolic Blood Pressure, Lyin mm Hg (01/30/24 07:18:00) Diastolic Blood Pressure, Lyin mm Hg (01/30/24 07:18:00) Pulse Rate, Sittin bpm (01/30/24 07:18:00) Systolic Blood Pressure, Sittin mm Hg (01/30/24 07:18:00) Diastolic Blood Pressure, Sittin mm Hg (01/30/24 07:18:00) Pulse Rate, Standin bpm (01/30/24 07:18:00) Systolic Blood Pressure, Standin mm Hg (01/30/24 07:18:00) Diastolic Blood Pressure, Standin mm Hg (01/30/24 07:18:00) Respiratory Rate: 18 br/min (01/30/24 04:19:00) Systolic Blood Pressure: 117 mm Hg (01/30/24 04:19:00) Diastolic Blood Pressure: 55 mm Hg (01/30/24 04:19:00) Blood pressure sites: Leg, left (01/30/24 04:19:00) Mean Arterial Pressure: 76 mm Hg (01/30/24 04:19:00) Pulse Pressure: 62 mm Hg (01/30/24 04:19:00) Oxygen Saturation: 100 % (01/30/24 04:19:00) Mode of Delivery (Oxygen): Room air (01/30/24 04:19:00) Early Warning Score: 2 (01/30/24 08:32:06) ? . Physical Exam General: [Alert, in no acute cardiopulmonary distress.] Mental Status: [Oriented to person, place and time. Normal affect.] Head: [Normocephalic.] Eyes: [Pupils are equal, round and reactive to light. Extraocular muscles intact.] Ear, Nose and Throat: [Oropharynx clear, mucous membranes moist. Ears and nose without masses, lesions or deformities. Tympanic membranes clear bilaterally. Trachea midline.] Neck: [Supple, Full range of motion.] Respiratory: [Clear to auscultation and percussion. No wheezing, rales or rhonchi.] Cardiovascular: [Heart sounds normal. No thrills. Regular rate and rhythm, no murmurs, rubs or gallops.] Gastrointestinal: [Abdomen soft, non-tender, non-distended. Normal bowel sounds. No pulsatile mass.No hepatosplenomegaly.] Genitourinary: [No costovertebral angle tenderness.] Neurologic: [Cranial nerves II-XII grossly intact. No focal neurological deficits. Deep tendon reflexes +2 bilaterally. Flexor plantar response. Moves all extremities spontaneously. Sensation intact bilaterally.] Skin: [No rashes or lesions. No petechiae or purpura. No edema.] Musculoskeletal: [No cyanosis or clubbing. No gross deformities. Normal range of motion.] Lymphatics: [Palpation of neck reveals no swelling or tenderness of neck nodes. Palpation of groin reveals no swelling or tenderness of groin nodes.] Psychiatric: [Not anxious fully cooperative following commands.] Pending Results No Pending Results Follow-Up Appointments Added Follow Up ?Time Frame ?Comments Adonis STARK, Linnette?2 to 3 weeks Bill RODRIGUEZ, Andrade Green?1 week Home Health Face to Face ^[facility] Results Discharge Labs BLOOD COUNT & DIFF WBC 9.5 k/mm3 ()?? 01/28/2024 22:30 RBC 4.08 m/mm3 (Low)?? 01/28/2024 22:30 Hgb 11.4 Gm/dL (Low)?? 01/28/2024 22:30 Hct 35.8 % ()?? 01/28/2024 22:30 MCV 87.7 femtoliters ()?? 01/28/2024 22:30 MCH 27.9 pg ()?? 01/28/2024 22:30 MCHC 31.8 g/dL (Low)?? 01/28/2024 22:30 Platelet Count 303 k/mm3 ()?? 01/28/2024 22:30 RDW-SD 47.9 femtoliters (High)?? 01/28/2024 22:30 MPV 11.5 femtoliters ()?? 01/28/2024 22:30 Nucleated RBC (Automated) 0.0 #/100 WBC'S ()?? 01/28/2024 22:30 Abs. NRBC 0.0 k/mm3 ()?? 01/28/2024 22:30 Abs. Neut 5.0 k/mm3 ()?? 01/28/2024 22:30 Abs. Lymph 3.2 k/mm3 (High)?? 01/28/2024 22:30 Abs. Clarendon 0.8 k/mm3 ()?? 01/28/2024 22:30 Abs. Eo 0.3 k/mm3 ()?? 01/28/2024 22:30 Abs. Baso 0.1 k/mm3 ()?? 01/28/2024 22:30 Neut % 52.7 % ()?? 01/28/2024 22:30 Lymph % 34.0 % ()?? 01/28/2024 22:30 Clarendon % 8.8 % ()?? 01/28/2024 22:30 Eos % 3.6 % ()?? 01/28/2024 22:30 Baso % 0.6 % ()?? 01/28/2024 22:30 Imm Gran 0.3 % ()?? 01/28/2024 22:30 Abs. Imm Gran 0.0 k/mm3 ()?? 01/28/2024 22:30 ?? CARDIAC High Sensitivity Troponin (HSTnT) 9 ng/L ()?? 01/29/2024 06:59 ? CHEM GENERAL Sodium 136 mmol/L ()?? 01/28/2024 22:30 Potassium HEMOLYZED mmol/L ()?? 01/28/2024 22:30 Chloride 102 mmol/L ()?? 01/28/2024 22:30 Bicarbonate Level 21 mmol/L (Low)?? 01/28/2024 22:30 Anion Gap 13 ()?? 01/28/2024 22:30 Glucose Level 153 mg/dL (High)?? 01/28/2024 22:30 Glucose, POC 125 mg/dL (High)?? 01/30/2024 05:43 BUN 21 mg/dL ()?? 01/28/2024 22:30 Creatinine-Blood 0.72 mg/dL ()?? 01/28/2024 22:30 Estimated GFR Creatinine 94 ML/MIN/1.73 M2 ()?? 01/28/2024 22:30 Calcium 9.2 mg/dL ()?? 01/28/2024 22:30 ? HEME OTHER Hold Lavender Top SPECIMEN DISCARDED AFTER 24 HOURS. ()?? 01/29/2024 03:23 ? MISC. CHEMISTRY Hold Gel Top SPECIMEN DISCARDED AFTER 1 WEEK ()?? 01/29/2024 03:23 ? URINE OTHER Est Creatinine Clearance 71.85 mL/min ()?? 01/28/2024 23:59 ? 25??minutes spent on discharge * Patricia Diaz LPN: PERFORM Event Display: Patient Education/Instruction Authored Date: [id number] Inpatient Adult Discharge Instructions. [address] [address] Name: MAKAYLA VERNON : 1960?? Visit: 01/28/2024 21:28?? Current Date: 01/30/2024 14:18 ?? Account: [id number]?? Inpatient Adult Discharge Instructions We would like [...] and their families. Surveys are administered by [employer] ?? If further treatment with your primary care physician or another doctor is recommended, it is important for you to keep the appointment. Call your primary care physician or return to the Emergency Department immediately if your condition worsens, fails to improve, or new symptoms develop. If you need to find a doctor, you can call [facility] for a referral at [phone] or toll free at [phone]) or log in to [email or web address].. ?? [facility], in keeping with [facility] guidance, no longer requires face masks [...] a health care danni of your choosing. [facility] is a website that allows you to securely view your medical information including your hospital discharge summary, office visit summaries, medications and follow-up visits. You can also request appointments, renew medications, and request access to your medical information using a health care danni of your choosing, or just ask a question. You can enroll at [email or web address] or register during your next office visit. You have been discharged from [facility], Patient Care Unit: D3B??. If you have any questions regarding these instructions, including results of studies pending, afteryou leave, please call us and we will be happy to assist you 26/12. [facility] Your Care Team Attending Physician Lyly Kaur MD?? Consulting Providers Lyly Kaur MD?? Discharging Providers Lyly Kaur MD Reason for Your Visit chest pain?? Your Diagnosis CAD (coronary artery disease) Chest pain Atypical chest pain PAF (paroxysmal atrial fibrillation) HTN (hypertension) Hyperlipidemia Type 2 diabetes mellitus Asthma Hypothyroidism GERD (gastroesophageal reflux disease) Mild major depression Tests Performed Below is a partial list of the tests performed during your hospitalization. You may have had other tests and procedures not included in this list. Please discuss all test results with your provider. Basic Metabolic Panel CBC w/ Differential GLUCOSE POC High??Sensitivity??Troponin T HOLD GEL TUBE HOLD LAVENDER TUBE Troponin T, High Sensitivity XR Chest 2 Views Frontal and Lat Basic Metabolic Panel?? CBC w/ Differential?? Glucose POC?? High??Sensitivity??Troponin T (Troponin T, High Sensitivity)?? Hold Gel Top Tube (HOLD GEL TUBE)?? Hold Lavender Top Tube (HOLD LAVENDER TUBE)?? Chest 2 Views Frontal and Lat (XR Chest 2 Views Frontal and Lat)?? Primary Care Provider Andrade Khan MD? Advance Directive Health Care Proxy on File Yes - Health Care Proxy Discharge Vitals Temperature: 97.9 DegF Height: 165 cm Pulse Rate: 77 bpm Weight: 130 kg Respiratory Rate: 18 br/min Body Mass Index:??47.75 kg/m2??Critical Systolic Blood Pressure: 117 mm Hg Body surface area: 2.44 Diastolic Blood Pressure: 55 mm Hg ?? Oxygen Saturation: 100 % ?? Studies Pending All studies ordered during this hospital stay have been completed unless listed below. Please discuss all pending results with your provider listed above in these instructions. ?? No incomplete studies found?? What to do next Instructions From Your Doctor ?? Orders? 01/30/24 14:01:00 EDT?? You Need to Schedule the Following Appointments Follow Up with??Adonis STARK, Linnette When:??Within 2 to 3 weeks Follow Up with??Bill RODRIGUEZ, Andrade Green When:??Within 1 week Discharge Medications MAKAYLA VERNON :1960 Visit Date:01/28/2024 Medications: Please continue your medications until treatment is completed or stopped by your provider. Medications not listed below should be discontinued. Discuss any questions related to medications with your provider. What How Much When Instructions Next Dose Changed Atorvastatin (atorvastatin 80 mg oral tablet) 1 tab(s) Oral Daily 01/31/24 Changed Metoprolol (metoprolol 25 mg oral tablet, extended release) 25 Milligram Oral Daily Duration: 30 Days Pickup at [facility]/pharmacy #[id number] 01/31/24 Unchanged Albuterol (Albuterol (Eqv-ProAir HFA) 90 mcg/ inh inhalation aerosol) 2 puff(s) Inhalation Every 6 hours as needed for Wheezing/Shortness of Breath as needed follow as prescribe Unchanged Albuterol (albuterol 0.083% inhalation solution) 3 Milliliter Inhalation Every 6 hours as needed for for wheezing as needed follow as prescribe Unchanged apixaban (Eliquis 5 mg oral tablet) 1 tab(s) Oral Twice a day 01/30/24 evening Unchanged Cholecalciferol (Vitamin D3 1000 intl units oral capsule) 1 capsule Oral Daily 01/31/24 Unchanged Citalopram (citalopram 20 mg oral tablet) 1 tab(s) Oral Daily 01/31/24 Unchanged dulaglutide (Trulicity Pen 1.5 mg/ 0.5 mL subcutaneous solution) See instructions INJECT 0.5 ML SUBCUTANEOUSLY EVERY WEEK ROTATE INJECTION SITES ?? see instructions Unchanged Levothyroxine (levothyroxine 0.05 mg oral tablet) 1 tab(s) Oral Daily 01/31/24 Unchanged Nitroglycerin (nitroglycerin 0.4 mg sublingual tablet) 1 tab(s) Sublingual Every 5 minutes as needed for as needed for chest pain not to exceed 3 doses/ 15 min--if pain persists, seek medical attention ?? as needed follow as prescribe Unchanged Omeprazole (omeprazole 40 mg oral enteric coated capsule) 1 capsule Oral Daily 01/31/24 Unchanged prasugrel (prasugrel 10 mg oral tablet) 1 tab(s) Oral Daily 01/31/24 Unchanged semaglutide (Ozempic 2 mg/ 1.5 mL (0.25 mg or 0.5 mg dose) subcutaneous solution) 0.25 Milligram Subcutaneous Injection Every week rotate injection sites; for treatment of T2DM E11.9 ?? follow as prescribe Pharmacy Information [facility]/pharmacy #[id number]: [address], [place] [phone] ?? What How Much When Comments Stop Taking Aspirin (aspirin 81 mg oral tablet, chewable) 1 tab(s) Chew Daily Duration: 30 Days Stop Taking Meloxicam (meloxicam 15 mg oral tablet) 1 tab(s) Oral Daily Prescription Given During Visit Metoprolol (metoprolol 25 mg oral tablet, extended release) - 25 mg, By Mouth, Daily, # 30 tablet, 0 Refills, [id number], [address] [place] [phone]?? Laboratory Results Below is a partial list of the most recent Laboratory test results done prior to this discharge. You may have had other tests and procedures not included in this list. Please discuss all test resultswith your provider. Est Creatinine Clearance - 71.85 mL/min (01/28/2024) Basic Metabolic Panel (01/28/2024) ???Sodium - 136 mmol/L???Potassium - HEMOLYZED???Chloride - 102 mmol/L???Bicarbonate Level - 21 mmol/L???Anion Gap - 13???Glucose Level - 153 mg/dL???BUN - 21 mg/dL???Creatinine-Blood - 0.72 mg/dL???Estimated GFR Creatinine - 94 ML/MIN/1.73 M2???Calcium - 9.2 mg/dL CBC w/ Differential (01/28/2024) ???WBC - 9.5 k/mm3???RBC - 4.08 m/mm3???Hgb - 11.4 Gm/dL???Hct - 35.8 %???MCV - 87.7 femtoliters???MCH - 27.9 pg???MCHC - 31.8 g/dL???Platelet Count - 303 k/mm3???RDW-SD - 47.9 femtoliters???MPV - 11.5 femtoliters???Nucleated RBC (Automated) - 0.0 #/100 WBC'S???Abs. NRBC - 0.0 k/mm3???Abs. Neut - 5.0 k/mm3???Abs. Lymph - 3.2 k/mm3???Abs. Clarendon - 0.8 k/mm3???Abs. Eo - 0.3 k/mm3???Abs. Baso - 0.1 k/mm3???Neut % - 52.7 %???Lymph % - 34.0 %???Clarendon % - 8.8 %???Eos % - 3.6 %???Baso % - 0.6 %???Imm Gran - 0.3 %???Abs. Imm Gran - 0.0 k/mm3 GLUCOSE POC (01/30/2024) ???Glucose, POC - 125 mg/dL High??Sensitivity??Troponin T (01/29/2024) ???High Sensitivity Troponin (HSTnT) - 8 ng/L HOLD GEL TUBE (01/29/2024) ???Hold Gel Top - SPECIMEN DISCARDED AFTER 1 WEEK HOLD LAVENDER TUBE (01/29/2024) ???Hold Lavender Top - SPECIMEN DISCARDED AFTER 24 HOURS. Troponin T, High Sensitivity (01/29/2024) ???High Sensitivity Troponin (HSTnT) - 9 ng/L You will be contacted within 72 hours with your results. Allergies (NKA means No Known Allergies) CeleBREX??(Pain with burning in chest and arms and lightheaded) Demerol??(Vomiting, Swelling) Problems Active Problems??(11) Asthma?? GERD (gastroesophageal reflux disease)?? HTN (hypertension)?? Hyperlipidemia?? Hypothyroidism?? Lumbar radiculopathy?? Mild major depression?? Morbid obesity with BMI of 40.0-44.9, adult?? PAF (paroxysmal atrial fibrillation)?? Severe obesity?? Type 2 diabetes mellitus?? Education Materials Below is the list of Educational Leaflet Providered with your Discharge Instructions. Valuables and Belongings I fully understand and agree that [facility] accepts no responsibility for all my personal [...] Review of Valuable and Belonging List: With witness Date for Pt to Sign Valuables/Belongings: 01/29/24 02:26:00 ?? Other Discharge Information ? Case Management Discharge Plan?? Discharge Plan?? Discharge Rx Program: Discharge Prescription Program ?? Pulmonary Rehab Status?? Pulmonary Rehab Discharge [...] are strongly encouraged to quit. Please call [facility] at [phone] or [phone]) or log in to [email or web address] for referrals to smoking cessation programs. ?? 193 Suicide & Crisis Lifeline is available 26/12 if you or someone you know needs to find a reason to keep living. By calling 971 you'll be connected to a skilled, trained counselor at a crisis center in your area. INPATIENT DISCHARGE INSTRUCTIONS SIGNATURE PAGE SAULOMAKAYLA Location:[facility] Registration Date and Time:01/28/2024 21:28 EDT Primary Care Physician: Bill RODRIGUEZ, Andrade Green, Attending Physician: Lyly Kaur MD, I MAKAYLA VERNON, have received the above patient education materials/instructions and have verbalized understanding. If ambulance or transport services are being used I further acknowledge being givena choice of service. ?? If you need to contact me, please call me at this number: . Patient/Transitions Manager Rn Name: Patient/Transitions Manager Rn Signature: Relationship to Patient: Witness Name/Signature: Date: * Lyly Kaur MD: PERFORM Event Display: Discharge/Transfer Note Hospital Authored Date: Patient: ??MAKAYLA VERNON ? Age:??63 Years?Sex:??Female?:??1960?? Patient Information Discharge Location: [facility] Primary Care Physician: Andrade Khan MD Admit Date/Time: 01/28/24 21:28 Discharge Disposition Discharge Disposition: ?? Discharge Diagnosis CAD (coronary artery disease) (I25.10) Atypical chest pain (R07.89) PAF (paroxysmal atrial fibrillation) (I48.0) HTN (hypertension) (I10) Hyperlipidemia (E78.5) Type 2 diabetes mellitus (E11.9) Asthma (J45.909) Hypothyroidism (E03.9) GERD (gastroesophageal reflux disease) (K21.9) Mild major depression (F32.0) _ Discharge Medications Albuterol (albuterol 0.083% inhalation solution)?3?Milliliter?2.5?Milligram?Inhalation?Every 6 hours?as needed?for wheezing Albuterol (Albuterol (Eqv-ProAir HFA) 90 mcg/inh inhalation aerosol)?2?puff(s)?Inhalation?Every 6 hours?as needed?Wheezing/Shortness of Breath apixaban (Eliquis 5 mg oral tablet)?1?tab(s)?5?Milligram?By Mouth?2 times a day Atorvastatin (atorvastatin 80 mg oral tablet)?1?tab(s)?80?Milligram?By Mouth?Daily Cholecalciferol (Vitamin D3 1000 intl units oral capsule)?1?capsule?25?Microgram?By Mouth?Daily Citalopram (citalopram 20 mg oral tablet)?1?tab(s)?By Mouth?Daily dulaglutide (Trulicity Pen 1.5 mg/0.5 mL subcutaneous solution)?See Instructions?INJECT 0.5 ML SUBCUTANEOUSLY EVERY WEEK ROTATE INJECTION SITES Levothyroxine (levothyroxine 0.05 mg oral tablet)?1?tab(s)?By Mouth?Daily Metoprolol (Metoprolol Succinate ER 50 mg oral tablet, extended release)?50?Milligram?By Mouth?Daily?for 30?Days Nitroglycerin (nitroglycerin 0.4 mg sublingual tablet)?1?tab(s)?0.4?Milligram?Sublingual?Every 5 minutes?as needed?as needed for chest pain?not to exceed 3 doses/15 min--ifpain persists, seek medical attention Omeprazole (omeprazole 40 mg oral enteric coated capsule)?1?capsule?40?Milligram?By Mouth?Daily prasugrel (prasugrel 10 mg oral tablet)?1?tab(s)?10?Milligram?By Mouth?Daily semaglutide (Ozempic 2 mg/1.5 mL (0.25 mg or 0.5 mg dose) subcutaneous solution)?0.25?Milligram?Subcutaneous Injection?Every week?rotate injection sites; for treatment of T2DM E11.9 ? Objective Assessment and Plan Assessment:??63-year-old female with past medical history significant for obesity, coronary artery disease, hyperlipidemia, diabetes mellitus, hypothyroidism, asthma, GERD and depression.??Who was [facility] and has??an NSTEMI status postcardiac cath??stent placement??also has diagnosis of??paroxysmal atrial fibrillation??on anticoagulation and antiplatelet therapy came in??with chest pain. ? Chest pain??shortness of breath intermittent??resolves without any intervention Patient reported that she has??3 episodes at [place], on her first episode she was found to have atrial fibrillation??the second time she had a cardiac cath??and received a stent??third??admission to the hospital was for recurrent chest pain??and they ruled out??stent occlusion.??She was told that the stent was in place??and she??ruled out for??any myocardial ischemia Patient reports that she was supposed to be following up??with cardiology as an outpatient she doesnot have a platform builder at present??and??is in the process to get a referral??from her PCP Patient also states that??she came in??to establish??a platform builder??and to tweak her medications. Currently troponins are negative EKG shows??normal sinus rhythm Most of her information is on her portal,??we are still waiting??on the rest of her reports to [facility]. Patient is on??Eliquis for history of??paroxysmal A-fib she should be also??on??Eliquis and prasugrel?? She is on metoprolol 50 mg XL and statins Blood pressure is on the lower side but she is asymptomatic. Also is on sublingual nitro??however when asked her she says she has not been taking any??nitro sublingual [facility] cardiology has been consulted and will see the patient??will follow up any recommendation or medication changes. Discussed with [facility] cardiology??BUDGET AND POLICY ANALYST and general??not possible as patient's blood pressure is on the lower side. Patient may??need an echocardiogram which can be obtained as an outpatient ?? HTN (hypertension) (I10):??. Continue metoprolol??pressure??is mostly soft??but she is asymptomatic ?? Hyperlipidemia (E78.5): Continue atorvastatin. ?? PAF (paroxysmal atrial fibrillation) (I48.0): Continue metoprolol Continue Eliquis. ?? Type 2 diabetes mellitus (E11.9): Continue home medications. Cover with insulin sliding scale Hypoglycemic protocol in place. ?? Hypothyroidism (E03.9): Continue levothyroxine. ?? Asthma (J45.909):??. No signs of exacerbation Rescue beta agonist inhaler as needed. ? GERD (gastroesophageal reflux disease) (K21.9): Continue pantoprazole. ?? Mild major depression (F32.0):?? Continue citalopram. Obesity??possible GIOVANNY needs outpatient sleep study and weight loss program ? Disposition will go home??once cleared by cardiology ?? Discharge Planning:? Vital Signs?? Temperature: 97.5 DegF (01/29/24 11:32:00) Temperature Route: Oral (01/29/24 11:32:00) Pulse Rate: 59 bpm (01/29/24 11:32:00) Respiratory Rate: 17 br/min (01/29/24 11:32:00) Systolic Blood Pressure: 93 mm Hg (01/29/24 11:32:00) Diastolic Blood Pressure:??51 mm Hg??Low (01/29/24 11:32:00) Blood pressure sites: Arm, left (01/29/24 03:13:00) Mean Arterial Pressure: 65 mm Hg (01/29/24 11:32:00) Pulse Pressure: 42 mm Hg (01/29/24 11:32:00) Oxygen Saturation: 99 % (01/29/24 11:32:00) Mode of Delivery (Oxygen): Room air (01/29/24 11:32:00) Early Warning Score: 3 (01/29/24 11:36:59) ? . Physical Exam General: [Alert, in no acute cardiopulmonary distress.] Mental Status: [Oriented to person, place and time. Normal affect.] Head: [Normocephalic.] Eyes: [Pupils are equal, round and reactive to light. Extraocular muscles intact.] Ear, Nose and Throat: [Oropharynx clear, mucous membranes moist.?? Neck: [Supple, Full range of motion.] Respiratory: [Clear to auscultation and percussion. No wheezing, rales or rhonchi.] Cardiovascular: [Heart sounds normal. No thrills. Regular rate and rhythm, no murmurs, rubs or gallops.] Gastrointestinal: [Abdomen soft, non-tender, non-distended. Normal bowel sounds. No pulsatile mass.No hepatosplenomegaly.] Genitourinary: [No costovertebral angle tenderness.] Neurologic: [Cranial nerves II-XII grossly intact. No focal neurological deficits. Deep tendon reflexes +2 bilaterally. Flexor plantar response. Moves all extremities spontaneously. Sensation intact bilaterally.] Skin: [No rashes or lesions. No petechiae or purpura. No edema.] Musculoskeletal: [No cyanosis or clubbing. No gross deformities. Normal range of motion.] Lymphatics: [Palpation of neck reveals no swelling or tenderness of neck nodes. Palpation of groin reveals no swelling or tenderness of groin nodes.] Psychiatric: [Not anxious fully cooperative following commands.] Pending Results No Pending Results Follow-Up Appointments Added Follow Up ?Time Frame ?Comments Adonis STARK, Linnette?2 to 3 weeks Andrade Khan MD?1 week Home Health Face to Face ^[facility] Results Discharge Labs BLOOD COUNT & DIFF WBC 9.5 k/mm3 ()?? 01/28/2024 22:30 RBC 4.08 m/mm3 (Low)?? 01/28/2024 22:30 Hgb 11.4 Gm/dL (Low)?? 01/28/2024 22:30 Hct 35.8 % ()?? 01/28/2024 22:30 MCV 87.7 femtoliters ()?? 01/28/2024 22:30 MCH 27.9 pg ()?? 01/28/2024 22:30 MCHC 31.8 g/dL (Low)?? 01/28/2024 22:30 Platelet Count 303 k/mm3 ()?? 01/28/2024 22:30 RDW-SD 47.9 femtoliters (High)?? 01/28/2024 22:30 MPV 11.5 femtoliters ()?? 01/28/2024 22:30 Nucleated RBC (Automated) 0.0 #/100 WBC'S ()?? 01/28/2024 22:30 Abs. NRBC 0.0 k/mm3 ()?? 01/28/2024 22:30 Abs. Neut 5.0 k/mm3 ()?? 01/28/2024 22:30 Abs. Lymph 3.2 k/mm3 (High)?? 01/28/2024 22:30 Abs. Clarendon 0.8 k/mm3 ()?? 01/28/2024 22:30 Abs. Eo 0.3 k/mm3 ()?? 01/28/2024 22:30 Abs. Baso 0.1 k/mm3 ()?? 01/28/2024 22:30 Neut % 52.7 % ()?? 01/28/2024 22:30 Lymph % 34.0 % ()?? 01/28/2024 22:30 Clarendon % 8.8 % ()?? 01/28/2024 22:30 Eos % 3.6 % ()?? 01/28/2024 22:30 Baso % 0.6 % ()?? 01/28/2024 22:30 Imm Gran 0.3 % ()?? 01/28/2024 22:30 Abs. Imm Gran 0.0 k/mm3 ()?? 01/28/2024 22:30 ?? CARDIAC High Sensitivity Troponin (HSTnT) 9 ng/L ()?? 01/29/2024 06:59 ? CHEM GENERAL Sodium 136 mmol/L ()?? 01/28/2024 22:30 Potassium HEMOLYZED mmol/L ()?? 01/28/2024 22:30 Chloride 102 mmol/L ()?? 01/28/2024 22:30 Bicarbonate Level 21 mmol/L (Low)?? 01/28/2024 22:30 Anion Gap 13 ()?? 01/28/2024 22:30 Glucose Level 153 mg/dL (High)?? 01/28/2024 22:30 Glucose, POC 118 mg/dL (High)?? 01/29/2024 08:15 BUN 21 mg/dL ()?? 01/28/2024 22:30 Creatinine-Blood 0.72 mg/dL ()?? 01/28/2024 22:30 Estimated GFR Creatinine 94 ML/MIN/1.73 M2 ()?? 01/28/2024 22:30 Calcium 9.2 mg/dL ()?? 01/28/2024 22:30 ? HEME OTHER Hold Lavender Top SPECIMEN DISCARDED AFTER 24 HOURS. ()?? 01/29/2024 03:23 ? MISC. CHEMISTRY Hold Gel Top SPECIMEN DISCARDED AFTER 1 WEEK ()?? 01/29/2024 03:23 ? URINE OTHER Est Creatinine Clearance 71.85 mL/min ()?? 01/28/2024 23:59 ? 25??minutes spent on discharge * Lyly Kaur MD: PERFORM Event Display: Discharge/Transfer Note Hospital Authored Date: [id number] This will serve as a progress note for 01/29/2024??cardiology recommended a nuclear stress test theymay do a cardiac catheterization based on the?? stress test result Patient Care team information Care Team Personnel Name: Sixto Slaughter RN Position: S RN Member Role: Primary Care Nurse Name: Andrade Khan MD Position: S Physician - Primary Care Member Role: PCP Address: Address: [address] [place] [address]- Name: Mirta Parker RN Position: S RN Member Role: Primary Care Nurse Name: Cassie Haas RN Position: S RN Member Role: Primary Care Nurse Name: Jenna Blevins RN Position: S RN Member Role: Primary Care Nurse Name: Patricia Diaz LPN Position: S RN Member Role: Primary Care Nurse Care Team Related Persons Name: CAMACHO VERNON Address: [address] [address]
--- OUTSIDE RECORDS SUMMARY | 2024-05-02 11:26 | XMS_ITS | Continuity of Care Document ---
Author Organization [facility] Francisco Paulino lt Address [address] [place] [address]- Care Team Providers Care Medical Research Assistant Name Role Phone Bill RODRIGUEZ, Andrade Green Primary Care Physician [facility] Date(s): 02/26/24 - 03/27/24 [facility] Shine Singh Adult [address] [place] [address]- Allergies, Adverse Reactions, Alerts Substance Reaction Severity [...] Recorded tetanus/diphtheria/pertussis, acel(Tdap) 03/18/10 Recorded 1Result Comment: [id number] 2Result Comment: [id number] Medications Albuterol (Eqv-ProAir HFA) 90 mcg/inh inhalation [...] Refills, Maintenance, 01/09/24 11:30:00 EDT, [facility], 164.1, cm, 12/11/23 13:49:00 EDT, Height, 121.2, [...] Refills, Maintenance, 01/12/24 12:08:00 EDT, [facility], 164.1, cm, 12/11/23 13:49:00 EDT, Height, 121.2, [...] 11:06:00 EDT, Route to Pharmacy Electronically, [facility]/pharmacy #[id number], Partial fill upon patient request [...] Refills, Maintenance, 02/24/24 6:27:00 EDT, Tablet, [facility]/pharmacy #[id number], Partial fill... Start Date: 02/24/24 [...] Care Nurse Name: Andrade Khan MD Position: [facility] Physician - Primary Care Member Role: PCP Address: Address: [address] [place] [id number] Name: Mirta Parker RN Position: S RN Member Role: Primary Care Nurse Name: Cassie Haas RN Position: S RN Member Role: Primary Care Nurse Name: Jenna Blevins RN Position: S RN Member Role: Primary Care Nurse Name: Patricia Diaz LPN Position: S RN Member Role: Primary Care Nurse Care Team Related Persons Name: CAMACHO VERNON Address: [address] [address] [place]
--- OUTSIDE RECORDS SUMMARY | 2024-05-02 11:26 | XMS_ITS | Continuity of Care Document ---
Author Organization [facility] Francisco Paulino lt Address [address] [place] [address]- Care Team Providers Care Allergist/Pediatric Pulmonologist Name Role Phone Bob Frost MD Primary Care Physician [phone] Encounter [facility] Date(s): 12/04/20 - 12/11/20 [facility] Adult [address] [place] [address]- Encounter Diagnosis General medical exam(Discharge Diagnosis) - 12/04/20 Morbid obesity with BMI of 40.0-44.9, adult(Discharge Diagnosis) - 12/04/20 GERD (gastroesophageal reflux disease)(Discharge Diagnosis) - 12/04/20 Hyperlipidemia(Discharge Diagnosis) - 12/04/20 Mild major depression(Discharge Diagnosis) - 12/04/20 Attending Physician: Bob Frost MD Allergies, Adverse [...] schedule II... Start Date: 12/04/20 Status: Ordered omeprazole 40 mg oral enteric [...] (gastroesophageal reflu x disease)(Confirmed) Active Hyperlipidemia(Confirmed) Active Mild major depression(Confirmed) Active Diagnosis Diagnosis Type Effective Dates Health Status Clinical Service Informant Morbid obesity with BMI of 40.0-44.9, adult Discharge Diagnosis 12/04/20 Mild major depression Discharge Diagnosis 12/04/20 GERD (gastroesophageal reflux disease) Discharge Diagnosis 12/04/20 Hyperlipidemia Discharge Diagnosis 12/04/20 General medical exam Discharge Diagnosis 12/04/20 Vital Signs Most recent to oldest [Reference Range]: 1 Height 164.0 cm (12/04/20 10:03 AM) Weight 132.2 kg (12/04/20 10:03 AM) Oxygen Saturation [94-100 %] 97 % (12/04/20 10:03 AM) Pulse Rate [55-90 bpm] 84 bpm (12/04/20 10:03 AM) Body Mass Index [18.5-24.99] 49.15 *>HHI* (12/04/20 10:03 AM) Blood Pressure [90-138/55-84 mm Hg] 116/ 74mm Hg (12/04/20 10:03 AM) Temperature [96.8-100.4 DegF] 98.3 DegF (12/04/20 10:03 AM) Mode of Delivery (Oxygen) Room air (12/04/20 10:03 AM) Blood pressure sites Arm, left (12/04/20 10:03 AM) Temperature Route Oral (12/04/20 10:03 AM) Weight Obtained Via Standing scale (12/04/20 10:03 AM) Social History Social History Type Response Smoking Status Former smoker, quit more than 30 days ago; Use: Quit 12 years ago entered on: 07/15/19 Sex
--- OUTSIDE RECORDS SUMMARY | 2024-05-02 11:26 | XMS_ITS | Continuity of Care Document ---
Author Organization [facility] Francisco Paulino lt Address [address] [place] [address]- Care Team Providers Care Rn Advanced Name Role Phone Bill RODRIGUEZ, Andrade Green Primary Care Physician [facility] Date(s): 02/29/24 - 03/30/24 [facility] Shine Singh Adult [address] [place] [address]- Allergies, Adverse Reactions, Alerts Substance Reaction Severity [...] Recorded tetanus/diphtheria/pertussis, acel(Tdap) 03/18/10 Recorded 1Result Comment: [id number] 2Result Comment: [id number] Medications Albuterol (Eqv-ProAir HFA) 90 mcg/inh inhalation [...] Refills, Maintenance, 01/09/24 11:30:00 EDT, [facility], 164.1, cm, 12/11/23 13:49:00 EDT, Height, 121.2, [...] Refills, Maintenance, 01/12/24 12:08:00 EDT, [facility], 164.1, cm, 12/11/23 13:49:00 EDT, Height, 121.2, [...] 02/29/24 11:06:00 EDT, Route to Pharmacy Electronically, [facility]/pharmacy #[id number], Partial [...] Name: Andrade Khan MD Position: [facility] Physician - Primary Care Member Role: PCP Address: Address: [address] [place] [id number] Name: Mirta Parker RN Position: S RN Member Role: Primary Care Nurse Name: Cassie Haas RN Position: S RN Member Role: Primary Care Nurse Name: Jenna Blevins RN Position: S RN Member Role: Primary Care Nurse Name: Patricia Diaz LPN Position: S RN Member Role: Primary Care Nurse Care Team Related Persons Name: CAMACHO VERNON Address: [address] [address] [place]
--- OUTSIDE RECORDS SUMMARY | 2024-05-02 11:26 | XMS_ITS | Continuity of Care Document ---
Author Organization [facility] Shine Singh Paulino lt Address [address] [place] [address]- Care Team Providers Care Conditioning Room Worker Name Role Phone Bob Frost MD Primary Care Physician Encounter [facility] Date(s): 07/15/19 - 07/25/19 [facility] Shine Singh Adult [address] [place] [address]- [facility] Attending Physician: Efren Guido Admitting Physician: AdmtrEfren Referring Physician: Admtr, ArAdriana Allergies, Adverse Reactions, Alerts Substance Reaction Severity [...]
--- OUTSIDE RECORDS SUMMARY | 2024-05-02 11:26 | XMS_ITS | Continuity of Care Document ---
Author Organization [facility] Shine Singh Paulino lt Address [address] [place] [address]- Care Team Providers Care Programs Director Name Role Phone Bill RODRIGUEZ, Andrade Green Primary Care Physician [facility] Date(s): 03/07/24 - 04/06/24 [facility] Shine Singh Adult [address] [place] [address]- Allergies, Adverse Reactions, Alerts Substance Reaction Severity [...] Recorded tetanus/diphtheria/pertussis, acel(Tdap) 03/18/10 Recorded 1Result Comment: [id number] 2Result Comment: [id number] Medications Albuterol (Eqv-ProAir HFA) 90 mcg/inh inhalation [...] Refills, Maintenance, 01/09/24 11:30:00 EDT, [facility], 164.1, cm, 12/11/23 13:49:00 EDT, Height, 121.2, [...] tablet, 1 Refills, Maintenance, 01/12/24 12:08:00 EDT, [facility] 78813, 164.1, cm, 12/11/23 13:49:00 EDT, Height, 121.2, [...] 02/29/24 11:06:00 EDT, Route to Pharmacy Electronically, [facility]/pharmacy #[id number], Partial fill upon patient [...] 11 Refills, Maintenance, 02/24/24 6:27:00 EDT, Tablet, [facility]/pharmacy #[id number], Partial fill... Start Date: 02/24/24 [...] Care Nurse Name: Andrade Khan MD Position: [facility] Physician - Primary Care Member Role: PCP Address: Address: [address] [place] [id number] Name: Mirta Parker RN Position: S RN Member Role: Primary Care Nurse Name: Cassie Haas RN Position: S RN Member Role: Primary Care Nurse Name: Jenna Bleivns RN Position: S RN Member Role: Primary Care Nurse Name: Patricia Diaz LPN Position: S RN Member Role: Primary Care Nurse Care Team Related Persons Name: KURT VERNONS Address: [address] [address] [place]
--- OUTSIDE RECORDS SUMMARY | 2024-05-02 11:26 | XMS_ITS | Continuity of Care Document ---
Author Organization [facility] Shine Singh Paulino lt Address [address] [place] [address]- Care Team Providers Care Chemical Tester Name Role Phone Bill RODRIGUEZ, Andrade Green Primary Care Physician [phone] Encounter [facility] Date(s): 02/23/24 - 03/24/24 [facility] Shine Singh Adult [address] [place] [address]- Allergies, Adverse Reactions, Alerts Substance Reaction Severity [...] Recorded tetanus/diphtheria/pertussis, acel(Tdap) 03/18/10 Recorded 1Result Comment: [id number] 2Result Comment: [id number] Medications Albuterol (Eqv-ProAir HFA) 90 mcg/inh inhalation [...] Refills, Maintenance, 01/09/24 11:30:00 EDT, [facility], 164.1, cm, 12/11/23 13:49:00 EDT, Height, 121.2, kg, 01/30/23 12:56:00 EDT, Dry Weight Start Date: 01/09/24 Status: Ordered clopidogrel 75 mg oral tablet 75 mg, 1, tablet, By Mouth, Daily, # 30 tablet, Refills 5, Tot. Refills 5, Maintenance, 03/01/24 14:22:00 EDT, Route to Pharmacy Electronically, [facility]/pharmacy #[id number], Partial fill upon patient request [...] Refills, Maintenance, 01/12/24 12:08:00 EDT, [facility], 164.1, cm, 12/11/23 13:49:00 EDT, Height, 121.2, [...] 02/29/24 11:06:00 EDT, Route to Pharmacy Electronically, [facility]/pharmacy #[id number], Partial fill upon patient request if the prescription is for a schedule II opioid drug... Start Date: 02/29/24 Status: Ordered nitroglycerin 0.4 mg sublingual tablet 1 tablet = 0.4 mg, Sublingual, Every 5 minutes, PRN as needed for chest pain, not to exceed 3 doses/15 min--if pain persists, seek medical attention, # 30 tablet, 11 Refills, Maintenance, 02/24/24 6:27:00 EDT, Tablet, [facility]/pharmacy #[id number], Partial fill... Start Date: 02/24/24 [...] Refills, Maintenance, 03/08/24 17:52:00 EDT, ER Tablet, [facility]/pharmacy #[id number], Partial fill upon patient request if the [...] Care Nurse Name: Andrade Khan MD Position: [facility] Physician - Primary Care Member Role: PCP Address: Address: [address] [place] [id number] Name: Mirta Parker RN Position: S RN Member Role: Primary Care Nurse Name: Cassie Haas RN Position: S RN Member Role: Primary Care Nurse Name: Jenna Blevins RN Position: S RN Member Role: Primary Care Nurse Name: Patricia Diaz LPN Position: S RN Member Role: Primary Care Nurse Care Team Related Persons Name: CAMACHO VERNON Address: [address] [address] [place]
--- OUTSIDE RECORDS SUMMARY | 2024-05-02 11:26 | XMS_ITS | Continuity of Care Document ---
Author Organization [facility] Francisco Paulino Address [address] [place] [address]- Care Team Providers Care Watermaster Name Role Phone Margot RODRIGUEZ, Bob Alcantar Primary Care Physician [phone] [facility]counter [facility] Date(s): 01/20/21 - 02/19/21 [facility] Shine Singh Adult [address] [place] [address]- Allergies, Adverse Reactions, Alerts Substance Reaction Severity [...]
--- OUTSIDE RECORDS SUMMARY | 2024-05-02 11:26 | XMS_ITS | Continuity of Care Document ---
Author Organization [facility] Paulino lt Address [address] [place] [address]- Care Team Providers Care Sanding Machine Buffer Name Role Phone Andrade Khan MD Primary Care Physician Encounter [facility] Date(s): 02/13/24 - 02/20/24 [facility] Adult [address] [place] [address]- Encounter Diagnosis S/P PTCA (percutaneous transluminal coronary angioplasty)(Discharge Diagnosis) - 02/13/24 Attending Physician: Andrade Khan MD Allergies, Adverse [...] Recorded tetanus/diphtheria/pertussis, acel(Tdap) 03/18/10 Recorded 1Result Comment: [id number] 2Result Comment: [id number] Medications Albuterol (Eqv-ProAir HFA) 90 mcg/inh inhalation aerosol 2 puffs, Inhalation, Every 6 hours, PRN Wheezing/Shortness of Breath, # 8.5 Gm, 5 Refills, Maintenance, 02/13/24 15:16:00 EDT, Inhaler, [facility]/pharmacy #[id number], Partial fill upon patient request [...] Refills, Maintenance, 01/09/24 11:30:00 EDT, [facility], 164.1, cm, 12/11/23 13:49:00 EDT, Height, 121.2, [...] Refills, Maintenance, 01/12/24 12:08:00 EDT, [facility], 164.1, cm, 12/11/23 13:49:00 EDT, Height, 121.2, [...] Maintenance, 01/30/24 12:06:00 EDT,Route to Pharmacy Electronically, [facility]/pharmacy #[id number], Partial fill upon patient request [...] 5 Refills, Maintenance, 08/15/23 10:50:00 EDT, Solution, [facility]/pharmacy #[id number], Partial fill upon patient request [...] Refills, Maintenance, 02/07/24 14:23:00 EDT, ER Tablet, [facility], Partial fill upon patient [...] Effective Dates Health Status Clinical Service Informant S/P PTCA (percutaneous transluminal coronary angioplasty) Discharge Diagnosis 02/13/24 Vital Signs Most recent to oldest [Reference Range]: 1 Height 165 cm (02/13/24 2:56 PM) Weight 131 kg (02/13/24 2:56 PM) Oxygen Saturation [94-100 %] 97 % (02/13/24 2:56 PM) Pulse Rate [55-90 bpm] 79 bpm (02/13/24 2:56 PM) Body Mass Index [18.5-24.99 kg/m2] 48.12 kg/m2 *>HHI* (02/13/24 2:56 PM) Blood Pressure [90-138/55-84 mm Hg] 95/6 6mm Hg (02/13/24 2:56 PM) Blood pressure sites Arm, left (02/13/24 2:56 PM) Weight Obtained Via Standing scale (02/13/24 2:56 PM) Social History Social History Type Response Smoking Status Former smoker, quit more than 30 days ago; Other: quit 20 years ago. chews nicotene gum; entered on: 01/12/23 Sex Note * Carolann Braden: PERFORM Event Display: Patient Education/Instruction Authored Date: [id number] Ambulatory Adult Visit Summary [facility] [address] [place] [address] Name: RICHARD VERNON : 1960?? Visit: 02/13/2024 14:45?? Ambulatory Visit Instructions ?? Your Care Team Primary Care Provider Andrade Khan MD? This Visit Provider Andrade Khan MD Your Diagnosis S/P PTCA (percutaneous transluminal coronary angioplasty) Vitals Signs Pulse Rate: 79 bpm Height: 165 cm Systolic Blood Pressure: 95 mm Hg Weight: 131 kg Diastolic Blood Pressure: 66 mm Hg Body Mass Index:??48.12 kg/m2??Critical Oxygen Saturation: 97 % Body surface area: 2.45 What to do next Scheduled Follow-Up Appointments 2023 9:45 AM EDT ?? With: Mildred Delgado NP Where: [facility] [address] [place] [address] [address] [place] [address]- Status: Pending Follow-Up Appointments Follow Up with??Andrade Khan MD Why: 3 months for AWV Where: [address] [place] [address]- Medications The list below reflects the information in our records and provided by you today along with any changes made during this visit. Please continue your medications until treatment is completed or stopped by your provider. If this is different from the information you have or there are other questions,please contact the prescribing provider. What How Much When Instructions New Albuterol (Albuterol (Eqv-ProAir HFA) 90 mcg/ inh inhalation aerosol) 2 puff(s) Inhalation Every 6 hours as needed for Wheezing/Shortness of Breath Refills: 5 Pickup at [facility]/pharmacy #[id number] Unchanged apixaban (Eliquis 5 mg oral tablet) 1 tab(s) Oral Twice a day Unchanged Atorvastatin (atorvastatin 80 mg oral tablet) 1 tab(s) Oral Daily Unchanged Citalopram (citalopram 20 mg oral tablet) 1 tab(s) Oral Daily Unchanged Levothyroxine (levothyroxine 0.05 mg oral tablet) 1 tab(s) Oral Daily Unchanged Metoprolol (metoprolol 25 mg oral tablet) 0.5 tab(s) Oral Every 6 hours as needed for tachycardia Unchanged Metoprolol (metoprolol 25 mg oral tablet, extended release) 25 Milligram Oral Daily Duration: 30 Days Unchanged Nitroglycerin (nitroglycerin 0.4 mg sublingual tablet) 1 tab(s) Sublingual Every 5 minutes as needed for as needed for chest pain not to exceed 3 doses/ 15 min--if pain persists, seek medical attention ?? Unchanged Omeprazole (omeprazole 40 mg oral enteric coated capsule) 1 capsule Oral Daily Unchanged prasugrel (prasugrel 10 mg oral tablet) 1 tab(s) Oral Daily Unchanged ranolazine (ranolazine 500 mg oral tablet, extended release) 1 tab(s) Oral Twice a day Unchanged semaglutide (Ozempic 2 mg/ 1.5 mL (0.25 mg or 0.5 mg dose) subcutaneous solution) 0.25 Milligram Subcutaneous Injection Every week rotate injection sites; for treatment of T2DM E11.9 ?? Pharmacy Information [facility]/pharmacy #[id number]: [address] [place] [address] [phone] Medications and Immunizations Administered Medications Given During [...] are strongly encouraged to quit. Please call [facility] at [phone] or 1-746-550Guocool.com (9434) or log in to [email or web address] for referrals to smoking cessation programs. ?? The National Suicide Prevention Hotline is available 26/12 if you or someone you know needs to find a reason to keep living. By calling 5-544-760-FINXI (5096) you'll be connected to a skilled, trained counselor at a crisis center in your area. [facility] You can view and manage your care through the patient portal or by using a health care danni of your choosing. [employer] is a website that allows you to securely view your medical information including your hospital discharge summary, office visit summaries, medications and follow-up visits. You can also request appointments, renew medications, and request access to your medical information using a health care danni of your choosing, or just ask a question. You can enroll at [email or web address] or register during your next office visit. [facility], in keeping with [facility] guidance, no longer requires face masks [...] primary care provider, you may find a [facility] provider by calling [facility] at [phone]. Patient Care team information Care Team Personnel Name: Sixto Slaughter RN Position: [facility] RN Member Role: Primary Care Nurse Name: Bill RODRIGUEZ, Andrade Green Position: S Physician - Primary Care Member Role: PCP Address: Address: [address] [place], [place] [address] Name: Mirta Parker RN Position: S RN Member Role: Primary Care Nurse Name: Cassie Haas RN Position: S RN Member Role: Primary Care Nurse Name: Jenna Blevins RN Position: S RN Member Role: Primary Care Nurse Name: Patricia Diaz LPN Position: S RN Member Role: Primary Care Nurse Care Team Related Persons Name: CAMACHO VERNON Address: [address] [address]
--- OUTSIDE RECORDS SUMMARY | 2024-05-02 11:26 | XMS_ITS | Continuity of Care Document ---
Author Organization [facility] Francisco Paulino lt Address [address] [place] [address]- Care Team Providers Care Grazing Aide Name Role Phone Bill RODRIGUEZ, Andrade Green Primary Care Physician [phone] Encounter [facility] Date(s): 11/09/22 - 12/09/22 [facility] Adult [address] [place] [address]- Allergies, Adverse Reactions, Alerts Substance Reaction Severity [...] Recorded tetanus/diphtheria/pertussis, acel(Tdap) 03/18/10 Recorded 1Result Comment: [id number] 2Result Comment: [id number] Medications Albuterol (Eqv-ProAir HFA) 90 mcg/inh inhalation [...] 90 tablet, 1 Refills, 08/01/22 11:24:00 EST, [facility]/pharmacy #[id number], 165, cm, 04/25/22 6:57:00 EST, Height, 122.7, kg, 04/25/22 6:57:00 EST, Dry Weight Start Date: 08/01/22 Status: Ordered CeleXA 20 mg oral tablet 20 mg, 1, tablet, By Mouth, Daily, # 90 tablet, Refills 1, Tot. Refills 1, Maintenance, 08/01/22 11:24:00 EST, Route to Pharmacy Electronically, [facility]/pharmacy #[id number], Partial fill upon patient request if the prescription is for a schedule II opioid drug... Start Date: 08/01/22 Status: Ordered levothyroxine 0.05 mg oral tablet 1 tablet = 50 mcg, By Mouth, Daily, # 90 tablet, 1 Refills, Maintenance, 08/01/22 11:23:00 EST, Tablet, [facility]/pharmacy #[id number], Partial fill upon patient request if the prescription is for a schedule II opioid drug., 165, cm, 04/25/22 6:57:00 EST, Height,... Start Date: 08/01/22 Status: Ordered meloxicam 15 mg oral tablet 1 tablet, By Mouth, Daily, # 90 tablet, 1 Refills, Maintenance, 09/05/22 12:07:00 EDT, [facility], 165, cm, 04/25/22 6:57:00 EST, Height, 122.7, [...] Refills, Maintenance, 09/04/22 18:31:00 EDT, [facility], 165, cm, 04/25/22 6:57:00 EST, Height, 122.7, [...] Team Personnel Name: Branden TRAORE, Isabel Position: [facility] AMB Nurse Member Role: Primary Care Nurse Name: Bill RODRIGUEZ, Andrade Green Position: [facility] Physician - Primary Care Member Role: PCP Address: Address: [address] [place] [address]- Care Team Related Persons Name: CAMACHO VERNON Address: home [address] [place] [address]
--- OUTSIDE RECORDS SUMMARY | 2024-05-02 11:26 | XMS_ITS | Continuity of Care Document ---
Author Organization [facility] Francisco Paulino lt Address [address] [place] [address]- Care Team Providers Care Residential Sales Manager Name Role Phone Bill RODRIGUEZ, Andrade Green Primary Care Physician [place] [facility] [place] 05/22/23 - 06/21/23 [facility] Adult [address] [place] [address]- Allergies, Adverse Reactions, Alerts Substance Reaction Severity [...] Recorded tetanus/diphtheria/pertussis, acel(Tdap) 03/18/10 Recorded 1Result Comment: [id number] 2Result Comment: [id number] Medications Albuterol (Eqv-ProAir HFA) 90 mcg/inh inhalation [...] 90 tablet, 1 Refills, 01/23/23 15:14:00 EDT, [facility]/pharmacy #[id number], 164.5, cm, 01/12/23 11:17:00 EDT, Height, 121, kg, 01/12/23 11:17:00 EDT, Dry Weight Start Date: 01/23/23 Status: Ordered CeleXA 20 mg oral tablet 20 mg, 1, tablet, By Mouth, Daily, # 90 tablet, Refills 1, Tot. Refills 1, Maintenance, 01/23/23 15:14:00 EDT, Route to Pharmacy Electronically, [facility]/pharmacy #[id number], Partial fill upon [...] days ago; Other: quit 20 years ago. zahra pantoja mary; entered on: 01/12/23 Sex Patient Care team information Care Team Personnel Name: Sixto Slaughter RN Position: S RN Member Role: Primary Care Nurse Name: Andrade Khan MD Position: S Physician - Primary Care Member Role: PCP Address: Address: [address] [place] [id number] Name: Mirta Parker RN Position: [facility] RN Member Role: Primary Care Nurse Care Team Related Persons Name: CAMACHO VERNON Address: [address] [address] [place]
--- OUTSIDE RECORDS SUMMARY | 2024-05-02 11:26 | XMS_ITS | Continuity of Care Document ---
Author Organization [facility] Paulino Address [address] [place] [address]- Care Team Providers Care Script Editor Name Role Phone Bill RODRIGUEZ, Andrade Green Primary Care Physician [place] [facility] [place] 08/18[place]21 - 09/17/21 [facility] Adult [address] [place] [address]- Allergies, Adverse Reactions, Alerts Substance Reaction Severity [...]
--- OUTSIDE RECORDS SUMMARY | 2024-05-02 11:26 | XMS_ITS | Continuity of Care Document ---
Author Organization [facility] ter Address [address] [place] [id number] Care Team Providers Care Router Operator Name Role Phone Bill RODRIGUEZ, Andrade Green Primary Care Physician [phone] [place] [facility]): 02/06/24 - 02/07/[address] [address]- Encounter Diagnosis Chest pain(Final) - 02/06/24 Coronary artery disease(Final) - 02/06/24 Discharge Disposition: A-D/C Home Attending Physician: Tony Michael MD, Ronnie Admitting Physician: Medhat Noriega DO Referring Physician: Not on Staff, Referring MD [...] Recorded tetanus/diphtheria/pertussis, acel(Tdap) 03/18/10 Recorded 1Result Comment: [id number] 2Result Comment: [id number] Medications Albuterol (Eqv-ProAir HFA) 90 mcg/inh inhalation [...] tablet, 1 Refills, Maintenance, 01/09/24 11:30:00 EDT, [facility] [id number], 164.1, cm, 12/11/23 13:49:00 EDT, Height, 121.2, [...] tablet, 1 Refills, Maintenance, 01/12/24 12:08:00 EDT, [facility] [id number], 164.1, cm, 12/11/23 13:49:00 EDT, Height, 121.2, kg, 01/30/23 12:56:00 EDT, Dry Weight Start Date: 01/12/24 Status: Ordered metoprolol 25 mg oral tablet, extended release 25 mg, By Mouth, Daily, # 30 tablet, Refills 0, Tot. Refills 0, Maintenance, 01/30/24 12:06:00 EDT,Route to Pharmacy Electronically, [facility]/pharmacy #[id number], Partial fill upon patient request if [...] Refills, Maintenance, 08/15/23 10:50:00 EDT, Solution, [facility]/pharmacy #[id number], Partial fill upon patient request if [...] Refills, Maintenance, 02/07/24 14:23:00 EDT, ER Tablet, [facility], Partial fill upon patient request if [...] Exam Date Time Procedure Performing Provider Status 02/06/24 2:59 PM Chest 2 Views Frontal and Lat Tl Nielsen; Emily (Verified) Notes: (Chest 2 Views Frontal and Lat) Reason For Exam: Pleuritic Pain RESULT: Chest 2 Views Frontal and Lat Chest 2 Views Frontal and Lat Reason: Pleuritic Pain; Clinical Question(s): CHF COMPARISON: 01/28/2024. FINDINGS: LINES AND TUBES: None. LUNGS AND PLEURA: Clear lungs. Normal pulmonary vascularity. No pleural effusion. No pneumothorax. HEART, MEDIASTINUM AND BILL: Heart is normal in size. Normal mediastinal and hilar contour. BONES AND SOFT TISSUES: No acute abnormality. IMPRESSION: No acute abnormality. No change. WSN: [id number] Ordering Physician: Nilesh Cuevas Dictated By: Lamberto Krishnamurthy MD, V Dictated Date/Time: 02/06/24 3:01 pm Reviewed By: Lamberto Krishnamurthy MD, V Signed By: Lamberto Krishnamurthy MD, V Signed Date/Time: 02/06/24 3:01 pm Transcribed By: ASTER Transcribed Date/Time: 02/06/24 3:00 pm Vital Signs Most recent to oldest [Reference Range]: 1 2 3 Height 165 cm (02/07/24 3:16 PM) 165 cm (02/07/24 10:24 AM) 165 cm (02/07/24 6:55 AM) Weight 129.5 kg (02/07/24 3:51 AM) 129.5 kg (02/06/24 3:12 PM) 129.5 kg (02/06/24 2:24 PM) Oxygen Saturation [94-100 %] 99 % (02/07/24 3:16 PM) 100 % (02/07/24 10:24 AM) 100 % (02/07/24 6:55 AM) Pulse Rate [55-90 bpm] 73 bpm (02/07/24 3:16 PM) 57 bpm (02/07/24 10:24 AM) 62 bpm (02/07/24 6:55 AM) Body Mass Index [18.5-24.99 kg/m2] 47.57 kg/m2 *>HHI* (02/06/24 3:12 PM) 47.57 kg/m2 *>HHI* (02/06/24 2:24 PM) 47.57 kg/m2 *>HHI* (02/06/24 10:33 AM) Blood Pressure [90-138/55-84 mm Hg] 99/56mm Hg (02/07/24 3:16 PM) 96/52mm Hg (02/07/24 10:24 AM) 91/53mm Hg (02/07/24 6:55 AM) Respiratory Rate [16-30 br/min] 20 br/min (02/07/24 3:16 PM) 20 br/min (02/07/24 10:24 AM) 16 br/min (02/07/24 10:14 AM) Temperature [96.8-100.4 DegF] 98.5 DegF (02/07/24 3:16 PM) 97.9 DegF (02/07/24 10:24 AM) 98.2 DegF (02/07/24 6:55 AM) Mode of Delivery (Oxygen) Room air (02/07/24 3:16 PM) Room air (02/07/24 10:24 AM) Room air (02/07/24 6:55 AM) Blood pressure sites Arm, left (02/07/24 3:16 PM) Arm, left (02/07/24 10:24 AM) Arm, left (02/07/24 6:55 AM) Temperature Route Oral (02/07/24 3:16 PM) Oral (02/07/24 10:24 AM) Oral (02/07/24 6:55 AM) Dry Weight 129.5 kg (02/06/24 3:12 PM) 129.5 kg (02/06/24 2:24 PM) 129.5 kg (02/06/24 10:33 AM) Weight Obtained Via Bed scale (02/07/24 3:51 AM) Patient/family stated (02/06/24 10:33 AM) Dry Weight Obtained Via Patient/family s tated (02/06/24 10:33 AM) Social History Social History Type Response Smoking Status Former smoker, quit more than 30 days ago; Other: quit 20 years ago. chews nicotene gum; entered on: 01/12/23 Sex Admission evaluation note * Jair RODRIGUEZ, Juno: PERFORM Event Display: Admission Note Authored Date: [id number] Patient: ??MAKAYLA VERNON ? Age:??63 Years?Sex:??Female?:??1960?? History of Present Illness 63-year-old with PMH of CAD, recent ACS/NSTEMI s/p PCI in early January in [place]; paroxysmal A-fib on Eliquis; HLD; T2DM; mild intermittent asthma; hypothyroidism; GERD; depression; -Presented for evaluation of recurrent chest pain. -Patient complains of episodes of substernal chest pain which she describes as heaviness/squeezing in the middle of the chest, radiating to left jaw and neck, associated with sensation of SOB but no dizziness; no N/V/diaphoresis; they occur in episodes lasting few minutes to maximum 30 minutes, 2 episodes in the last week; while the longer duration episodes happen, in waves she has varying intensity of pain; had similar presentation with admission from 01/27-01/30/2024 recently; patient was seen by [facility] cardiology; -Nuclear stress test 01/30/24: reported as no ischemic EKG changes with pharmacologic stress; at that time patient experienced transient chest pain, lightheadedness which resolved with full recovery. -NM perfusion scan reported as myocardial perfusion imaging is normal without any fixed or reversible perfusion defect after regadenoson stress test.?? LV function normal at rest and with stress, with normal wall motion and thickening. -Patient also mentioned that last time cardiology mention if patient has recurrent chest pain, theywill do further evaluation, and she presented to the hospital; also last time there was concern that patient might be having these chest discomfort episodes in setting of A-fib, but she has been regularly wearing her Apple Watch, reports no A-fib events based on the reading from the watch.?? Patient also assures compliance with??her home??medications, has not missed any doses of??prasugrel, Eliquis. -Patient also mentioned that she has never been hypertensive, her usual blood pressure is??100s/50s-60s, and asked to remove this problem for more medication history??which I did.?? But patient also takes low-dose metoprolol. ?? Vitals: Afebrile, HR 60s-70s, RR 16-18, BP??100s-120s/40s-60s,??saturating well on room air. ?? LABS: -WBC, H/H, platelet WNL -BMP??WNL -High sensitive Trop??unremarkable??initial and delta levels -Creatinine clearance 86.2 to. ?? On my evaluation,??patient sitting comfortably in bed, reports no??active chest pain??or any other symptoms.?? She mentioned that last time she was told by the health it specialist,??if she has recurrent pain, she should come to the hospital??and be evaluated by cardiology. Review of Systems -Pertinent positives and negative history mentioned in HPI. Objective Vital Signs?? Temperature: 97.7 DegF (02/06/24 20:01:00) Temperature Route: Oral (02/06/24 20:01:00) Pulse Rate: 69 bpm (02/06/24 20:01:00) Respiratory Rate: 18 br/min (02/06/24 20:01:00) Systolic Blood Pressure: 101 mm Hg (02/06/24 20:01:00) Diastolic Blood Pressure: 56 mm Hg (02/06/24 20:01:00) Blood pressure sites: Arm, left (02/06/24 20:01:00) Mean Arterial Pressure: 71 mm Hg (02/06/24 20:01:00) Pulse Pressure: 45 mm Hg (02/06/24 20:01:00) Oxygen Saturation: 98 % (02/06/24 20:01:00) Mode of Delivery (Oxygen): Room air (02/06/24 20:01:00) Early Warning Score: 2 (02/06/24 21:17:35) ? Physical Exam General: Awake, alert, oriented x3. ??Not in acute distress. Following commands appropriately. HEENT: NC/AT, PERRLA, no pallor, no icterus, moist mucous membranes. Neck: Supple, no JVD Respiratory: Clear to auscultation bilaterally. ??No wheezes, rhonchi or crackles appreciated. CVS: Regular rhythm. ??Normal S1-S2 heard. ??No murmurs appreciated. Abdomen: Soft, obese,??nondistended, nontender, Normoactive bowel sounds. Neurological: ??Speech normal. Moving all 4 limbs freely. No obvious gross focal neuro deficit appreciated. Extremities: Warm; b/l pedal pulses palpable, no??b/l pedal edema. Assessment/Plan Diagnoses Chest pain ??(R07.9) Chest pain ??(R07.9) Coronary artery disease ??(I25.10) 1. ??Asthma ??(J45.909) 2. ??GERD (gastroesophageal reflux disease) ??(K21.9) 3. ??Hyperlipidemia ??(E78.5) 4. ??Hypothyroidism ??(E03.9) 5. ??PAF (paroxysmal atrial fibrillation) ??(I48.0) 6. ??Type 2 diabetes mellitus ??(E11.9) 7. ??S/P PTCA (percutaneous transluminal coronary angioplasty) ??(Z98.61) 8. ??Chronic anticoagulation ??(Z79.01) 9. ??Mild major depression ??(F32.0) ?? Assessment:??63-year-old with PMH of CAD, recent ACS/NSTEMI s/p PCI in early January in [place]; paroxysmal A-fib on Eliquis; HLD; T2DM; mild intermittent asthma; hypothyroidism; GERD; depression;??presented with recurrent chest pain, recently was evaluated, had recent??nuclear stress test??which was unremarkable;??currently being admitted under observation medicine service??with plan??for cardiology consult. ?? Coronary artery disease (I25.10) ?Grouped with??Chest pain (R07.9),??Chest pain (R07.9),??S/P PTCA (percutaneous transluminal coronary angioplasty) (Z98.61) ? -Cardio consult -Tele -continue home??Prasugrel, Eliquis, statin, betablocker ?? PAF (paroxysmal atrial fibrillation) (I48.0) ?Grouped with??Chronic anticoagulation (Z79.01) ? -Continue home metoprolol??succinate 25 mg once daily -Continue home Eliquis 5 mg twice daily ?? Hyperlipidemia (E78.5):??-Continue home statin ?? Type 2 diabetes mellitus (E11.9):??-At home patient on??Ozempic; -While inpatient,??will continue??insulin sliding scale, diabetic diet, as needed hypoglycemia measures ?? Hypothyroidism (E03.9):??-Continue home levothyroxine ?? Asthma (J45.909):??-Continue home as needed albuterol.?Good air entry,??no signs of exacerbation. ?? GERD (gastroesophageal reflux disease) (K21.9):??-Continue home PPI ?? Mild major depression (F32.0):??-Continue home citalopram ?? VTE Prophylaxis:??-On Eliquis ?VTE Prophylaxis Assessment:??VTE Prophylaxis Ordered ?? Code Status:??-Full code ?? Date of Service: 02/06/2024 I spent a total of 50 minutes, including both [id number] and mow-simi-tn-face time on the date ofthe encounter, addressing the above diagnoses. Activities performed in this time include chart review, obtaining/reviewing history, performing a medically necessary evaluation, CODE STATUS??discussion, documentation, charting and counseling, documentation, charting and counseling. ?? Please note: This note has been prepared using voice recognition software ([employer]). As a result errors may occur. When identified these hearth feeder errors have been corrected. While every attempt is made to correct errors during dictation, errors may still exist; for any clarifications, please reach out to me on Tigerconnent or pager.?? Histories Allergies Allergies ?(Active and Proposed Allergies Only) CeleBREX? (Severity: Unknown severity, Onset: Unknown) ?Reactions: Pain with burning in chest and arms and lightheaded Demerol? (Severity: Unknown severity, Onset: Unknown) ?Reactions: Swelling, Vomiting, high fevers, swollen ? Past Medical History/Problem List Active Problems(13) Asthma Chronic anticoagulation GERD (gastroesophageal reflux disease) HTN (hypertension) Hyperlipidemia Hypothyroidism Lumbar radiculopathy Mild major depression Morbid obesity with BMI of 40.0-44.9, adult PAF (paroxysmal atrial fibrillation) S/P PTCA (percutaneous transluminal coronary angioplasty) Severe obesity Type 2 diabetes mellitus ? [...] Brother: Hypertension ? Medications Home Medications Albuterol (Albuterol (Eqv-ProAir HFA) 90 mcg/inh inhalation aerosol)?2?puff(s)?Inhalation?Every 6 hours?as needed?Wheezing/Shortness of Breath apixaban (Eliquis 5 mg oral tablet)?1?tab(s)?5?Milligram?By Mouth?2 times a day Atorvastatin (atorvastatin 80 mg oral tablet)?1?tab(s)?80?Milligram?By Mouth?Daily Citalopram (citalopram 20 mg oral tablet)?1?tab(s)?By Mouth?Daily Levothyroxine (levothyroxine 0.05 mg oral tablet)?1?tab(s)?By Mouth?Daily Metoprolol (metoprolol 25 mg oral tablet, extended release)?25?Milligram?By Mouth?Daily?for 30?Days Metoprolol (Metoprolol Tartrate 25 mg oral tablet)?0.5?tab(s)?12.5?Milligram?By Mouth?Every 6 hours?as needed?as needed Nitroglycerin (nitroglycerin 0.4 mg sublingual tablet)?1?tab(s)?0.4?Milligram?Sublingual?Every 5 [...] Recent Labs BLOOD COUNT & DIFF WBC 7.4 k/mm3 ()?? 02/06/2024 11:04 RBC 4.05 m/mm3 (Low)?? 02/06/2024 11:04 Hgb 11.2 Gm/dL (Low)?? 02/06/2024 11:04 Hct 36.1 % ()?? 02/06/2024 11:04 MCV 89.1 femtoliters ()?? 02/06/2024 11:04 MCH 27.7 pg ()?? 02/06/2024 11:04 MCHC 31.0 g/dL (Low)?? 02/06/2024 11:04 Platelet Count 265 k/mm3 ()?? 02/06/2024 11:04 RDW-SD 49.5 femtoliters (High)?? 02/06/2024 11:04 MPV 11.2 femtoliters ()?? 02/06/2024 11:04 Nucleated RBC (Automated) 0.0 #/100 WBC'S ()?? 02/06/2024 11:04 Abs. NRBC 0.0 k/mm3 ()?? 02/06/2024 11:04 Abs. Neut 5.0 k/mm3 ()?? 02/06/2024 11:04 Abs. Lymph 1.7 k/mm3 ()?? 02/06/2024 11:04 Abs. [place] 0.5 k/mm3 ()?? 02/06/2024 11:04 Abs. Eo 0.2 k/mm3 ()?? 02/06/2024 11:04 Abs. Baso 0.0 k/mm3 ()?? 02/06/2024 11:04 Neut % 67.4 % ()?? 02/06/2024 11:04 Lymph % 23.4 % ()?? 02/06/2024 11:04 [place] % 6.4 % ()?? 02/06/2024 11:04 Eos % 2.0 % ()?? 02/06/2024 11:04 Baso % 0.5 % ()?? 02/06/2024 11:04 Imm Gran 0.3 % ()?? 02/06/2024 11:04 Abs. Imm Gran 0.0 k/mm3 ()?? 02/06/2024 11:04 ?? CARDIAC High Sensitivity Troponin (HSTnT) 7 ng/L ()?? 02/06/2024 20:23 ?? CHEM GENERAL Sodium 141 mmol/L ()?? 02/06/2024 10:31 Potassium 4.2 mmol/L ()?? 02/06/2024 10:31 Chloride 106 mmol/L ()?? 02/06/2024 10:31 Bicarbonate Level 23 mmol/L ()?? 02/06/2024 10:31 Anion Gap 12 ()?? 02/06/2024 10:31 Glucose Level 112 mg/dL (High)?? 02/06/2024 10:31 Glucose, POC 134 mg/dL (High)?? 02/06/2024 21:10 BUN 16 mg/dL ()?? 02/06/2024 10:31 Creatinine-Blood 0.60 mg/dL ()?? 02/06/2024 10:31 Estimated GFR Creatinine 101 ML/MIN/1.73 M2 ()?? 02/06/2024 10:31 Calcium 9.1 mg/dL ()?? 02/06/2024 10:31 ?? HEME OTHER Hold Blue Top SPECIMEN DISCARDED AFTER 4 HOURS. ()?? 02/06/2024 11:04 ?? URINE OTHER Est Creatinine Clearance 86.22 mL/min ()?? 02/06/2024 12:12 ? EKG study * Event Display: ECG 12-Lead Authored Date: Please click on pdf link to open report * Event Display: ECG 12-Lead Authored Date: Ventricular Rate: 58 BPM Atrial Rate: 58 BPM P-R Interval: 180 ms QRS Duration: 82 ms Q-T Interval: 438 ms QTC Calculation(Bazett): 429 ms P Torrington: 11 degrees R Torrington: -4 degrees T Torrington: -2 degrees Sinus bradycardia Otherwise normal ECG When compared with ECG of 06-FEB-2024 10:56, No significant change was found Confirmed by GREGORIO CRUZ MD () on 02/07/2024 8:13:35 PM [place]: GREGORIO CRUZ MD * Event Display: ECG 12-Lead Authored Date: Please click on pdf link to open report * Event Display: ECG 12-Lead Authored Date: Ventricular Rate: 73 BPM Atrial Rate: 73 BPM P-R Interval: 180 ms QRS Duration: 84 ms Q-T Interval: 386 ms QTC Calculation(Bazett): 425 ms P Torrington: 44 degrees R Torrington: 9 degrees T Torrington: 21 degrees Normal sinus rhythm Low voltage QRS Cannot rule out Anterior infarct , age undetermined Abnormal ECG When compared with ECG of 30-JAN-2024 10:41, No significant change Confirmed by MARIA ANTONIA HEWITT ([id number]) on 02/06/2024 4:26:28 PM [place]: MARIA ANTONIA HEWITT Cardiology * Event Display: Cardiac Rhythm Strips Authored Date: Consult note * Angel Edge MD: MODIFY, PERFORM Event Display: Consultation Note Authored Date: Patient: ??MAKAYLA VERNON ? Age:??63 Years?Sex:??Female?:??1960?? Reason for Consultation Recurrent chest pain, recent CO s/p PCI on Praguarel and eliquis History of Present Illness Ms. Benavides is a 63-year-old female who was discharged last Monday??for concerns of ongoing??chest discomfort.?? Cardiology was consulted at that time. ??Reviewed records from [place]??for the month of January.?? At that time she was having chest discomfort seemingly without EKG changes or troponin rise.?? Also with new onset atrial fibrillation.?? She saw health it specialist as a follow-up a week after one of her ED visits in [place].?? At that time they recommended??cardiac angiography.?? Thus far??the rationale for angiography has been unclear??however on cath they did identify an midLAD 60%??stenosis.?? PD/PA??equals 0.92??and a drug-eluting stent was placed.?? There did not to seem to be any complications.?? However shortly after that she returned to their ED with??worsening chest pain, this time with a deeper pain sensation in her central chest.?? On that visit she did have a troponin rise??to the 900s.?? She was taken to have another cardiac angiography??and no abnormalities were noted. Stent was noted to be??open and??unchanged in position. ??There were no noted??significant abnormalities on echocardiogram.?? She was discharged and recommended to establish care with a health it specialist in [place]. ??She presented to [facility] ED on??825 with recurrence of chest pain she had reported she been having??additional episodes of chest pain at that time.?? EKG was without any changes troponins were unremarkable.?? Given her recent history??decision was made to obtain??treadmill stress test with nuclear perfusion imaging.?? Those tests were??without any abnormalities??or perfusion defects.?? She was discharged home with an appointment to follow-up with [facility] cardiology and Dr. Oliva. ?? One day after discharge on January 29??she had one 5-hour recurrence of??her chest discomfort. ??Thedescription of her chest discomfort at that time was consistent with previous descriptions central tingling burning radiating out in waves.?? Waves would??come about on minute at a time. ??The level of discomfort was fairly minimal to moderate??and she did not feel??that warranted additional??ED visit.?? Her heart rate at that time was max of 90s.?? She did take??as needed metoprolol titrate??andsublingual nitroglycerin. ??Only with??minimal effect.?? In that episode she did have??pauses and had chest discomfort for up to 30 minutes at a time.?? It was not associated with exertion.?? Self resolved by 5 PM without any significant intervention. ?? Since that episode she says she is??felt very well no concerns and felt she was improved overall.??But then in the morning??of February 05 around 9 AM??she had sudden onset severe reoccurrence of the same sensation.?? Description is central chest burning and tingling, radiating out in waves,??withparesthesias in the fingertips,??and right neck/trapezius radiation.?? It was associated??with dizzi ness??shortness of breath??diaphoresis.?? She did not check her??iWatch for her heart rate at that time.?? 5 to 10 minutes into the episode she did trial??of as needed metoprolol??and sublingual nitroglycerin.?? However given severity she decided to return to the [facility] ED.?? She does tell me that her chest pain was resolved by time of arrival at the [facility] ED.?? On arrival she was afebrile he modynamically stable. ??EKG was normal sinus rhythm??with evidence of??possible previous??infarct but no active ST changes.?? High-sensitivity troponins were less than 6-7.?? Other labs were completely normal. ??Chest x-ray was without any acute cardiopulmonary changes.?? She was admitted for observation given??concern of chest pain. ?? On my interview with Makayla she reported that since admission she has felt quite well with no concerns.?? She has remained afebrile and hemodynamically stable.?? She has been in normal sinus rhythm ontelemetry with rates generally in the high 50s to low 60s??with a couple peaks up to the 90s.?? Herblood pressure is ranged from the systolic??90s to 110s.?? Physical exam was overall unremarkable. ?? Of note on the morning of??her recurrence of chest discomfort??she did have coffee and??she revealed that she??was chewing her normal nicotine gum.?? She reports that she is regularly??gone through 1packet of??220??pieces of nicotine gum every week for many years. ? History from my previous consult note: 01/18 Cardiac angiogram LMCA [...] injection sites; for treatment of T2DM E11.9 NICOTINE GUM 220 PIECES/WEEK ?? Social Hx: smoker from 16yo to 41yo,??1.5 packd/day (37.5 pack years),??no significant alcohol intake (maybe once a??year), no history??of recreational drugs use ?? Fam??Hx:??Mother with CHF,??unknown etiology and??HTN Father HTN Maternal grandfather with at least 2 MIs in OR??during open heart surgery ?? Activity: Reports she can only walk 1 block before becoming dyspneic, cannot climb 1 flight of stairs without dyspnea Review of Systems Review of systems negative except as stated above. Physical Exam Vitals & Measurements T:??98.2?F?? TMIN:??97.7?F?? TMAX:??98.2?F?? HR:??62??(Peripheral)?? RR:??20?? BP:??91/53?? SpO2:??100%?? WT:??129.5??kg?? Comfortable, no acute distress Lungs clear to auscultation, no wheezing or rhonchi Heart without murmurs, RRR, no JVD, warm and well perfused, no peripheral edema Abdomen soft, non tender, normal bowel sounds No skin abnormalities Normal mood and affect Assessment/Plan 63-year-old female who??has reported to emergency department for??chest discomfort on multiple occasions??including??2 visits to [facility]. ??Thus far??her workups have not been revealing of any cardiac etiologies of her chest discomfort.?Once she did have coronary angiography while in [place] with 1 stent placed in the mid LAD,??her PD/PA value was??is minimally??elevated. ??She did have??post cath troponin rise which could have been due to??to the angiography itself or vasospasm. ??However??repeat angiography??was noted to can be completely unremarkable. ??On all other visits EKGs and troponins??were unremarkable. ??Nuclear stress test was completely normal. ??And while we are not able to??identify an etiology??of her chest discomfort??without 100 percent certainty at this time, her??symptoms??are not likely to be??cardiac chest pain. ??However??given the frequency and quality of her symptoms,??can consider starting on antianginal??to assess for reduced symptom burden. ?? Plan: - Would start/discharge on anti anginal, would choose ranolazine 500mg BID given that??BPs are low normal - Recommend stopping any possible triggers including caffeine and nicotine gums. Recommended stopping immediately but can consider tapering down if necessary. -??Will have follow up at Dr. Oliva's office in 2 weeks. Can consider discontinuing prasugrel given apixaban - OK to discharge home ?? Patient was discussed with supervisor wet pour Dr. Manjula Song and attending physician, Dr. Moreau ?? Angel Edge PGY-3 Resident Physician Internal Medicine-Pediatrics Pager # [phone]?? Problem List/Past Medical History Ongoing Asthma Chronic [...] mg, By Mouth, Every 4 hours, PRN atorvastatin 80 mg oral tablet, 80 mg, By Mouth, Daily citalopram 20 mg oral tablet, 20 mg, By Mouth, Daily Dextrose 50% Inj Syringe (25Gm), 12.5 Gm, IV Push Slowly, Every 20 minutes, PRN Dextrose 50% Inj Syringe (25Gm), 25 Gm, IV Push Slowly, Every 15 minutes, PRN Docusate Sodium Capsule, 100 mg= 1 capsule, By Mouth, 2 times a day, PRN Eliquis, 5 mg, By Mouth, 2 times a day Glucagon Inj, 1 mg, Intramuscular, Once, PRN Glucose Gel, 15 Gm, By Mouth, Every 20 minutes, PRN Glucose Gel, 30 Gm, By Mouth, Every 20 minutes, PRN Insulin LISPRO Sliding Scale, 2-10 units, Subcutaneous Injection, 3 times a day before meals levothyroxine 0.025 mg oral tablet, 50 mcg, By Mouth, Daily Melatonin Tablet, 3 mg, By Mouth, Daily at bedtime, PRN metoprolol 25 mg oral tablet, extended release, 25 mg, By Mouth, Daily MiraLax Powder, 17 Gm= 1 pack/packet, By Mouth, Daily, PRN NaCL 0.9% Flush, 3 mL, IV Push, Every 8 hours NaCL 0.9% Flush, 3 mL, IV Push, Every 8 hours, PRN pantoprazole 40 mg oral delayed release tablet, 40 mg, By Mouth, Daily prasugrel 10 mg oral tablet, 10 mg, By Mouth, Daily Senna Tablet, 8.6 mg= 1 tablet, By Mouth, 2 times a day, PRN Ventolin 90 mcg Inhaler, 180 mcg= 2 puffs, Inhalation, Every 4 hours, PRN Home Albuterol (Eqv-ProAir HFA) 90 mcg/inh [...] Mouth, Daily metoprolol 25 mg oral tablet, extended release, 25 mg, By Mouth, Daily Metoprolol Tartrate 25 mg oral tablet, 12.5 mg= 0.5 tablet, By Mouth, Every 6 hours, PRN nitroglycerin 0.4 mg sublingual tablet, 0.4 mg= 1 tablet, Sublingual, Every 5 minutes, PRN omeprazole 40 mg oral enteric coated capsule, 40 mg= 1 capsule, By Mouth, Daily, 3 refills Ozempic 2 mg/1.5 mL (0.25 mg or 0.5 mg dose) subcutaneous solution, 0.25 mg, Subcutaneous Injection, Every week, 5 refills prasugrel 10 mg oral tablet, 10 mg= 1 tablet, By Mouth, Daily Allergies CeleBREX??(Pain with burning [...] tetanus-diphtheria toxoids (Td) 12/16/2021 Given Comments : [id number] pneumococcal 20-valent conjugate vaccine 12/16/2021 Given Comments : [id number] influenza virus vaccine, inactivated 03/25/2021 Recorded SARS-CoV-2 (COVID-19) mRNA BNT-162b2 vac 03/25/2021 Recorded SARS-CoV-2 (COVID-19) mRNA BNT-162b2 vac 03/08/2021 Recorded SARS-CoV-2 (COVID-19) mRNA BNT-162b2 vac 08/29/2020 Recorded SARS-CoV-2 (COVID-19) mRNA BNT-162b2 vac 08/08/2020 Recorded influenza virus vaccine, inactivated 03/02/2020 Recorded influenza virus vaccine, inactivated 03/11/2019 Recorded influenza virus vaccine, inactivated 05/15/2018 Recorded tetanus/diphtheria/pertussis, acel(Tdap) 03/18/2010 Recorded * Lizzeth RODRIGUEZ, Tamiko N: PERFORM Event Display: Consultation Note Authored Date: [id number] Attending Attestation: I have seen and evaluated this patient.?? I have discussed the case and its management with the resident and agree with the findings and plan as documented in the resident???s note. Patient does need to be on DAPT at discharge- consider Plavix rather than Prasugrel but will leave to primary health it specialist. Note * Jenna Blevins RN: PERFORM Event Display: Discharge/Transfer Note Hospital Authored Date: [id number] Nursing Discharge Note Entered On: 02/07/2024 17:21 EDT Performed On: 02/07/2024 17:21 EDT by Jenna Blevins RN Nursing Discharge Note 2 Discharge Time : 02/07/2024 17:15 EDT Discharge Level of Care at Discharge : Home/Skilled Nursing/Foster Care Patient Left Unit Via : Ambulatory Patient Accompanied Off Unit with : Significant other, Responsible adult DC Instructions Provided & Signed by Pt : Yes Patient Understands D/C Instructions : Yes Patient Instructions Discharge Signed : Yes Did Pt have Specialty Bed or Wound Vac : No Jenna Blevins RN - 02/07/2024 17:21 EDT * Tony Michael MD, Ronnie: PERFORM, MODIFY Event Display: Discharge/Transfer Note Hospital Authored Date: [id number] Patient: ??MAKAYLA VERNON ? Age:??63 Years?Sex:??Female?:??1960?? Patient Information Discharge Location: D3B Primary Care Physician: Bill RODRIGUEZ, Andrade Green Admit Date/Time: 02/06/24 10:28 Discharge Disposition Discharge Disposition: Home: No Services Discharge Diagnosis Asthma (J45.909) GERD (gastroesophageal reflux disease) (K21.9) Hyperlipidemia (E78.5) Hypothyroidism (E03.9) PAF (paroxysmal atrial fibrillation) (I48.0) Type 2 diabetes mellitus (E11.9) S/P PTCA (percutaneous transluminal coronary angioplasty) (Z98.61) Chronic anticoagulation (Z79.01) Mild major depression (F32.0) Chest pain (R07.9) Coronary artery disease (I25.10) Chest pain (R07.9) _ Discharge Medications Albuterol [...] prasugrel (prasugrel 10 mg oral tablet)?1?tab(s)?10?Milligram?By Mouth?Daily ranolazine (ranolazine 500 mg oral tablet, extended release)?1?tab(s)?500?Milligram?By Mouth?2 times a day semaglutide (Ozempic 2 mg/1.5 mL (0.25 mg or 0.5 mg dose) subcutaneous solution)?0.25?Milligram?Subcutaneous Injection?Every week?rotate injection sites; for treatment of T2DM E11.9 Medications Started Ranolazine Medications Discontinued NOne Doses Changed None PCP Follow-Up/Heads-Up Follow-up in about 1 to 2 weeks Outpatient follow-up with cardiology in 2 weeks Future Appointments 2023 9:45 AM EDT ?? With: Danny MENDES, Mildred Watts Where: [facility] [address] [place] [address]- Status: Pending Objective Chest pain ??(R07.9) Chest pain ??(R07.9) Coronary artery disease ??(I25.10) 1. ??Asthma ??(J45.909) 2. ??GERD (gastroesophageal reflux disease) ??(K21.9) 3. ??Hyperlipidemia ??(E78.5) 4. ??Hypothyroidism ??(E03.9) 5. ??PAF (paroxysmal atrial fibrillation) ??(I48.0) 6. ??Type 2 diabetes mellitus ??(E11.9) 7. ??S/P PTCA (percutaneous transluminal coronary angioplasty) ??(Z98.61) 8. ??Chronic anticoagulation ??(Z79.01) 9. ??Mild major depression ??(F32.0) ?? Assessment:??63-year-old with PMH of CAD, recent ACS/NSTEMI s/p PCI in early January in [place]; paroxysmal A-fib on Eliquis; HLD; T2DM; mild intermittent asthma; hypothyroidism; GERD; depression;??presented with recurrent chest pain, recently was evaluated, had recent??nuclear stress test??which was unremarkable;??currently being admitted under observation medicine service??with plan??for cardiology consult. ?? Coronary artery disease (I25.10) ?Grouped with??Chest pain (R07.9),??Chest pain (R07.9),??S/P PTCA (percutaneous transluminal coronary angioplasty) (Z98.61) [facility], [facility], her workups have not indicated any cardiac causes for her symptoms. She previously underwent coronary angiography in [place], where a stent was placed in the mid LAD, and herPD/PA value was minimally elevated. She experienced a post-cath troponin rise, likely due to the angiography or possible vasospasm. However, a repeat angiography was completely unremarkable. In all other visits, her EKGs and troponins were unremarkable, and a nuclear stress test was normal. While we cannot completely rule out a cardiac etiology for her chest discomfort at this time, her symptoms are unlikely to be cardiac-related. Given the frequency and nature of her symptoms, we can consider starting her on an antianginal to see if it reduces her symptom burden. ?? Plan: Initiate/discharge on ranolazine 500mg BID as her blood pressure is low-normal. Recommend stopping potential triggers, including caffeine and nicotine gum, with immediate cessation preferred, but tapering can be considered if needed. Follow-up at Dr. Oliva's office in 2 weeks. C/w prasugrel on until her outpatient cardiology appointment ?? PAF (paroxysmal atrial fibrillation) (I48.0) ?Grouped with??Chronic anticoagulation (Z79.01) ? -Continue home metoprolol??succinate 25 mg once daily ? -Continue home Eliquis 5 mg twice daily ?? Hyperlipidemia (E78.5):??-Continue home statin ?? Type 2 diabetes mellitus (E11.9):??-At home patient on??Ozempic; -While inpatient,??will continue??insulin sliding scale, diabetic diet, as needed hypoglycemia measures ?? Hypothyroidism (E03.9):??-Continue home levothyroxine ?? Asthma (J45.909):??-Continue home as needed albuterol.?Good air entry,??no signs of exacerbation. ?? GERD (gastroesophageal reflux disease) (K21.9):??-Continue home PPI ?? Mild major depression (F32.0):??-Continue home citalopram ?? Discharge home today. ?? Vital Signs?? Temperature: 97.9 DegF (02/07/24 10:24:00) Temperature Route: Oral (02/07/24 10:24:00) Pulse Rate: 57 bpm (02/07/24 10:24:00) Respiratory Rate: 20 br/min (02/07/24 10:24:00) Systolic Blood Pressure: 96 mm Hg (02/07/24 10:24:00) Diastolic Blood Pressure:??52 mm Hg??Low (02/07/24 10:24:00) Blood pressure sites: Arm, left (02/07/24 10:24:00) Mean Arterial Pressure: 67 mm Hg (02/07/24 10:24:00) Pulse Pressure: 44 mm Hg (02/07/24 10:24:00) Oxygen Saturation: 100 % (02/07/24 10:24:00) Mode of Delivery (Oxygen): Room air (02/07/24 10:24:00) Early Warning Score: 3 (02/07/24 10:49:02) ? . Physical Exam General: Well nourished, appears stated age, anxious in moderate distress. HEENT: moist oral mucosa. PERRLA, EOMI.?? NECK: No JVD. No bruits. Heart: Regular rate. S1 and s2 heard. No murmer, rub or gallop. Lungs: Clear to auscultation. No wheeze, crackles or rhonchi Abdomen : Soft, nondistended, nontender and bowel sounds are active. ??No organomegaly.?? Extremities: No pedal edema, swelling or cyanosis. peripheral pulses 2+ Neurological : grossly non focal. AA0 X3.? Pscy: Mood and affect appropriate.? Consultants Cardiology consult Pending Results No Pending Results Patient Education Titles WebMD Ignite Patient Education - Understanding Coronary Artery Disease (CAD)?? Follow-Up Appointments Added Follow Up ?Time Frame ?Comments Andrade Khan?2 to 3 days Post Discharge Care Diet: ??Cardiac diet ?? Activity: ??Ambulate with assistance 3 times a day unless otherwise specified ?? Discharge ?02/07/24 14:22:00 EDT Discharge Prescriptions ?ePrescribed, 02/07/24 14:22:00 EDT Results Discharge Labs BLOOD COUNT & DIFF WBC 7.4 k/mm3 ()?? 02/06/2024 11:04 RBC 4.05 m/mm3 (Low)?? 02/06/2024 11:04 Hgb 11.2 Gm/dL (Low)?? 02/06/2024 11:04 Hct 36.1 % ()?? 02/06/2024 11:04 MCV 89.1 femtoliters ()?? 02/06/2024 11:04 MCH 27.7 pg ()?? 02/06/2024 11:04 MCHC 31.0 g/dL (Low)?? 02/06/2024 11:04 Platelet Count 265 k/mm3 ()?? 02/06/2024 11:04 RDW-SD 49.5 femtoliters (High)?? 02/06/2024 11:04 MPV 11.2 femtoliters ()?? 02/06/2024 11:04 Nucleated RBC (Automated) 0.0 #/100 WBC'S ()?? 02/06/2024 11:04 Abs. NRBC 0.0 k/mm3 ()?? 02/06/2024 11:04 Abs. Neut 5.0 k/mm3 ()?? 02/06/2024 11:04 Abs. Lymph 1.7 k/mm3 ()?? 02/06/2024 11:04 Abs. [place] 0.5 k/mm3 ()?? 02/06/2024 11:04 Abs. Eo 0.2 k/mm3 ()?? 02/06/2024 11:04 Abs. Baso 0.0 k/mm3 ()?? 02/06/2024 11:04 Neut % 67.4 % ()?? 02/06/2024 11:04 Lymph % 23.4 % ()?? 02/06/2024 11:04 [place] % 6.4 % ()?? 02/06/2024 11:04 Eos % 2.0 % ()?? 02/06/2024 11:04 Baso % 0.5 % ()?? 02/06/2024 11:04 Imm Gran 0.3 % ()?? 02/06/2024 11:04 Abs. Imm Gran 0.0 k/mm3 ()?? 02/06/2024 11:04 ?? CARDIAC High Sensitivity Troponin (HSTnT) 7 ng/L ()?? 02/06/2024 20:23 ? CHEM GENERAL Sodium 141 mmol/L ()?? 02/06/2024 10:31 Potassium 4.2 mmol/L ()?? 02/06/2024 10:31 Chloride 106 mmol/L ()?? 02/06/2024 10:31 Bicarbonate Level 23 mmol/L ()?? 02/06/2024 10:31 Anion Gap 12 ()?? 02/06/2024 10:31 Glucose Level 112 mg/dL (High)?? 02/06/2024 10:31 Glucose, POC 115 mg/dL (High)?? 02/07/2024 10:39 BUN 16 mg/dL ()?? 02/06/2024 10:31 Creatinine-Blood 0.60 mg/dL ()?? 02/06/2024 10:31 Estimated GFR Creatinine 101 ML/MIN/1.73 M2 ()?? 02/06/2024 10:31 Calcium 9.1 mg/dL ()?? 02/06/2024 10:31 ? HEME OTHER Hold Blue Top SPECIMEN DISCARDED AFTER 4 HOURS. ()?? 02/06/2024 11:04 ? URINE OTHER Est Creatinine Clearance 86.22 mL/min ()?? 02/06/2024 12:12 ? 45 minutes spent on discharge * Felicity TRAORE, Jenna: PERFORM Event Display: Patient Education/Instruction Authored Date: [id number] Inpatient Adult Discharge Instructions. [place] [id number] Name: MAKAYLA VERNON : 1960?? Visit: 02/06/2024 10:28?? Current Date: 02/07/2024 16:49 ?? Account: [id number]?? Inpatient Adult Discharge Instructions We would like [...] and their families. Surveys are administered by [employer]. ?? If further treatment with your primary care physician or another doctor is recommended, it is important for you to keep the appointment. Call your primary care physician or return to the Emergency Department immediately if your condition worsens, fails to improve, or new symptoms develop. If you need to find a doctor, you can call [facility] [employer] Link for a referral at [phone] or toll free at [phone]) or log in to [email or web address].. ?? [facility], in keeping with [facility] guidance, no longer requires face [...] a health care danni of your choosing. apartum is a website that allows you to securely view your medical information including your hospital discharge summary, office visit summaries, medications and follow-up visits. You can also request appointments, renew medications, and request access to your medical information using a health care danni of your choosing, or just ask a question. You can enroll at [email or web address] or register during your next office visit. You have been discharged from [facility], Patient Care Unit: D3B??. If you have any questions regarding these instructions, including results of studies pending, afteryou leave, please call us and we will be happy to assist you 26/12. [facility] Your Care Team Attending Physician Ronnie Stout MD?? Consulting Providers Ronnie Stout MD?? Discharging Providers Ronnie Stout MD Reason for Your Visit High risk Chest pain, ACS Ruleout?? Your Diagnosis Asthma GERD (gastroesophageal reflux disease) Hyperlipidemia Hypothyroidism PAF (paroxysmal atrial fibrillation) Type 2 diabetes mellitus S/P PTCA (percutaneous transluminal coronary angioplasty) Chronic anticoagulation Mild major depression Chest pain Tests Performed Below is a partial list of the tests performed during your hospitalization. You may have had other tests and procedures not included in this list. Please discuss all test results with your provider. Basic Metabolic Panel CBC w/ Differential GLUCOSE POC High??Sensitivity??Troponin T Hold Blue Top Tube XR Chest 2 Views Frontal and Lat Basic Metabolic Panel?? CBC w/ Differential?? Glucose POC?? High??Sensitivity??Troponin T?? Hold Blue Top Tube?? Chest 2 Views Frontal and Lat (XR Chest 2 Views Frontal and Lat)?? Primary Care Provider Bill RODRIGUEZ, Andrade Green? Advance Directive Health Care Proxy on File Yes - Health Care Proxy Discharge Vitals Temperature: 98.5 DegF Height: 165 cm Pulse Rate: 73 bpm Weight: 129.5 kg Respiratory Rate: 20 br/min Body Mass Index:??47.57 kg/m2??Critical Systolic Blood Pressure: 99 mm Hg Body surface area: 2.44 Diastolic Blood Pressure: 56 mm Hg ?? Oxygen Saturation: 99 % ?? Studies Pending All studies ordered during this hospital stay have been completed unless listed below. Please discuss all pending results with your provider listed above in these instructions. ?? No incomplete studies found?? What to do next Instructions From Your Doctor ?? Orders??:Cardiac diet :Ambulate with assistance ??3 times a day ??unless otherwise specified? 02/07/24 14:22:00 EDT?? Prescriptions??, ??02/07/24 14:22:00 EDT?? Scheduled Follow-Up Appointments 2023 9:45 AM EDT ?? With: Danny MENDES, Mildred Watts Where: [facility] [address] [place] [id number]- Status: Pending You Need to Schedule the Following Appointments Follow Up with??Andrade Khan When:??Within 2 to 3 days Discharge Medications MAKAYLA VERNON :1960 Visit Date:02/06/2024 Medications: Please continue your medications until treatment is completed or stopped by your provider. Medications not listed below should be discontinued. Discuss any questions related to medications with your provider. What How Much When Instructions Next Dose New ranolazine (ranolazine 500 mg oral tablet, extended release) 1 tab(s) Oral Twice a day Pickup at [facility] 3 Tonight 02/07/24 Changed Metoprolol (metoprolol 25 mg oral tablet, extended release) 25 Milligram Oral Daily Duration: 30 Days Check BP 120/60 Tomorrow 02/08/24 Unchanged Albuterol (Albuterol (Eqv-ProAir HFA) 90 mcg/ inh inhalation aerosol) 2 puff(s) Inhalation Every 6 hours as needed for Wheezing/Shortness of Breath as needed Unchanged apixaban (Eliquis 5 mg oral tablet) 1 tab(s) Oral Twice a day Tonight 02/08/24 Unchanged Atorvastatin (atorvastatin 80 mg oral tablet) 1 tab(s) Oral Daily Tonight 02/07/24 Unchanged Citalopram (citalopram 20 mg oral tablet) 1 tab(s) Oral Daily Tonight 02/07/24 Unchanged Levothyroxine (levothyroxine 0.05 mg oral tablet) 1 tab(s) Oral Daily Tomorrow 02/08/24 Unchanged Nitroglycerin (nitroglycerin 0.4 mg sublingual tablet) 1 tab(s) Sublingual Every 5 minutes as needed for as needed for chest pain not to exceed 3 doses/ 15 min--if pain persists, seek medical attention ?? as needed Unchanged Omeprazole (omeprazole 40 mg oral enteric coated capsule) 1 capsule Oral Daily Tomorrow 02/08/24 Unchanged prasugrel (prasugrel 10 mg oral tablet) 1 tab(s) Oral Daily Tomorrow 02/08/24 Unchanged semaglutide (Ozempic 2 mg/ 1.5 mL (0.25 mg or 0.5 mg dose) subcutaneous solution) 0.25 Milligram Subcutaneous Injection Every week rotate injection sites; for treatment of T2DM E11.9 ?? as prescribed Pharmacy Information [facility]: [address], [place] [id number] [phone] ?? What How Much When Comments Stop Taking Aspirin (aspirin 81 mg oral tablet, chewable) 1 tab(s) Chew Daily Prescription Given During Visit prasugrel (prasugrel 10 mg oral tablet) - 1 tablet = 10 mg, By Mouth, Daily, # 30 tablet, 0 Refills?? ranolazine (ranolazine 500 mg oral tablet, extended release) - 1 tablet = 500 mg, By Mouth, 2 timesa day, # 60 tablet, 0 Refills, [facility], [address] [place] [phone]?? Laboratory Results Below is a partial list of the most recent Laboratory test results done prior to this discharge. You may have had other tests and procedures not included in this list. Please discuss all test resultswith your provider. Est Creatinine Clearance - 86.22 mL/min (02/06/2024) Basic Metabolic Panel (02/06/2024) ???Sodium - 141 mmol/L???Potassium - 4.2 mmol/L???Chloride - 106 mmol/L???Bicarbonate Level - 23 mmol/L???Anion Gap - 12???Glucose Level - 112 mg/dL???BUN - 16 mg/dL???Creatinine-Blood - 0.60 mg/dL???Estimated GFR Creatinine - 101 ML/MIN/1.73 M2???Calcium - 9.1 mg/dL CBC w/ Differential (02/06/2024) ???WBC - 7.4 k/mm3???RBC - 4.05 m/mm3???Hgb - 11.2 Gm/dL???Hct - 36.1 %???MCV - 89.1 femtoliters???MCH - 27.7 pg???MCHC - 31.0 g/dL???Platelet Count - 265 k/mm3???RDW-SD - 49.5 femtoliters???MPV - 11.2 femtoliters???Nucleated RBC (Automated) - 0.0 #/100 WBC'S???Abs. NRBC - 0.0 k/mm3???Abs. Neut - 5.0 k/mm3???Abs. Lymph - 1.7 k/mm3???Abs. [place] - 0.5 k/mm3???Abs. Eo - 0.2 k/mm3???Abs. Baso - 0.0 k/mm3???Neut % - 67.4 %???Lymph % - 23.4 %???[place] % - 6.4 %???Eos % - 2.0 %???Baso % - 0.5 %???Imm Gran - 0.3 %???Abs. Imm Gran - 0.0 k/mm3 GLUCOSE POC (02/07/2024) ???Glucose, POC - 157 mg/dL High??Sensitivity??Troponin T (02/06/2024) ???High Sensitivity Troponin (HSTnT) - 7 ng/L Hold Blue Top Tube (02/06/2024) ???Hold Blue Top - SPECIMEN DISCARDED AFTER 4 HOURS. You will be contacted within 72 hours with your results. Allergies (NKA means No Known Allergies) CeleBREX??(Pain with burning in chest and arms and lightheaded) Demerol??(Vomiting, Swelling) Problems Active Problems??(13) Asthma?? Chronic anticoagulation?? GERD (gastroesophageal reflux disease)?? HTN (hypertension)?? Hyperlipidemia?? Hypothyroidism?? Lumbar radiculopathy?? Mild major depression?? Morbid obesity with BMI of 40.0-44.9, adult?? PAF (paroxysmal atrial fibrillation)?? S/P PTCA (percutaneous transluminal coronary angioplasty)?? Severe obesity?? Type 2 diabetes mellitus?? Education Materials Below is the list of Educational Leaflet Providered with your Discharge Instructions. WebMD Ignite Patient Education - Understanding Coronary Artery Disease (CAD)?? Valuables and Belongings I fully understand and agree that [facility] accepts no responsibility for all my [...] to send valuables and belongings home. ?? Date for Pt to Sign Valuables/Belongings: 02/06/24 15:16:00 ?? Other Discharge Information ? Pulmonary Rehab Status?? Pulmonary Rehab Discharge Status?? Respiratory Rate: 20 br/min ? Common Emergency Awareness Tips IS [...] are strongly encouraged to quit. Please call [employer] at [phone] or [phone] ([phone]) or log in to [email or web address] for referrals to smoking cessation programs. ?? 373 Suicide & Crisis Lifeline is available 26/12 if you or someone you know needs to find a reason to keep living. By calling 149 you'll be connected to a skilled, trained counselor at a crisis center in your area. INPATIENT DISCHARGE INSTRUCTIONS SIGNATURE PAGE MAKAYLA VERNON Location:[facility] Registration Date and Time:02/06/2024 10:28 EDT Primary Care Physician: Andrade Khan MD, Attending Physician: Ronnie Stout MD, I MAKAYLA VERNON, have received the above patient education materials/instructions and have verbalized understanding. If ambulance or transport services are being used I further acknowledge being givena choice of service. ?? If you need to contact me, please call me at this number: . Patient/Historical Records Administrator Name: Patient/Historical Records Administrator Signature: Relationship to Patient: Witness Name/Signature: Date: * Ronnie Stout MD: PERFORM, SIGN, VERIFY Event Display: Patient Education Handout Authored Date: [id number] * Jenna Blevins RN: PERFORM Event Display: Patient Education Leaflets Authored Date: [id number] Ranolazine ?? [id number] Ranolazine Brand Name(s): Ranexa??; also available generically WHY is this medicine prescribed? Ranolazine is used alone or with other medications to treat chronic angina (ongoing chest pain or pressure that is felt when the heart does not get enough oxygen). Ranolazine is in a class of medications called anti-anginals. The exact way that ranolazine works is not known at this time. HOW should this medicine be used? Ranolazine comes as an extended-release (long-acting) tablet to take by mouth. It is usually taken with or without food twice daily. Take ranolazine at around the same times every day. Follow the directions on your prescription label carefully, and ask your doctor or pharmacist to explain any part you do not understand. Take ranolazine exactly as directed. Do not take more or less of it or take it more often than prescribed by your doctor. Swallow the tablets whole; do not break, chew, or crush them. Your doctor will probably start you on a low dose of ranolazine and gradually increase your dose. Do not take ranolazine to treat a sudden attack of angina. Your doctor will tell you what you should do if you experience an attack of angina. Make sure that you understand these directions. Ranolazine may help control your condition but will not cure it. Continue to take ranolazine even if you feel well. Do not stop taking ranolazine without talking to your doctor. Ask your pharmacist or doctor for a copy of the sanitizer's information for the patient. Are there OTHER USES for this medicine? This medication may be prescribed for other uses; ask your doctor or pharmacist for more information. What SPECIAL PRECAUTIONS should I follow? Before taking ranolazine, ??? tell your doctor and pharmacist if you are allergic to ranolazine, any other medications, or any of the ingredients in ranolazine extended-release tablets. Ask your pharmacist for a list of the ingredients. ??? tell your doctor if you are taking any of the following medications: antifungals such as itraconazole (Onmel, Sporanox) and ketoconazole (Nizoral); clarithromycin (Biaxin, in Prevpac);medications to treat human immunodeficiency virus (HIV) or acquired immunodeficiency syndrome (AIDS) such as indinavir (Crixivan), lopinavir and ritonavir (Kaletra); nelfinavir (Viracept), ritonavir (Norvir, in Kaletra, in Viekira Nader, others), and saquinavir (Invirase); nefazodone; medications for seizures such as carbamazepine (Carbatrol, Equetro, Tegretol, others), phenobarbital, and phenytoin(Dilantin, Phenytek); rifabutin (Mycobutin); rifampin (Rifadin, Rimactane, in Rifamate, in Rifater); and rifapentin (Priftin). Also tell your doctor if you are taking [place]'s wort. Your doctor maytell you not to take ranolazine if you are taking one or more of these medications or herbal products. ??? tell your doctor and pharmacist what other prescription and nonprescription medications, vitamins, nutritional supplements, and herbal products you are taking or plan to take. Be sure to mention any of the following: amiodarone (Cordarone, Nexterone, Pacerone); antidepressants such as amitriptyline, clomipramine (Anafranil), and desipramine (Norpramin); and imipramine (Tofranil); medications to treat high cholesterol such as atorvastatin (Lipitor, in Caduet), lovastatin (Altoprev, in Advicor), and simvastatin (Zocor, in Simcor, in Vytorin); cyclosporine (Gengraf, Neoral, Sandimmune); digoxin (Lanoxin); diltiazem (Cardizem, Dilacor, Tiazac, others); dofetilide; (Tikosyn); erythromycin(E.E.S., Erythrocin, PCE); fluconazole (Diflucan);medications for mental illness such as haloperidol (Haldol), risperidone (Risperdal), thioridazine, and ziprasidone (Geodon); metformin (Fortamet, Glumetza, in Glucovance, others); quinidine (in Nuedexta); sirolimus (Rapamune); sotalol (Betapace, Sorine); tacrolimus (Astagraf, Envarsus XR, Prograf); and verapamil (Calan, Covera, Verelan, others). Your doctor may need to change the doses of your medications or monitor you carefully for side effect s. Many other medications may also interact with ranolazine, so be sure to tell your doctor about all the medications you are taking, even those that do not appear on this list or the list above. ???tell your doctor if you have or have ever had liver disease. Your doctor may tell you that you should not take ranolazine. ??? tell your doctor if you or anyone in your family has or has ever had a prolonged QT interval (a rare heart problem that may cause fainting or irregular heartbeat) or a fast, slow, or irregular heartbeat. Also tell your doctor if you have or have ever had an abnormal electrocardiogram (ECG: a test that records the electrical activity of the heart), low levels of potassium in the blood, or kidney disease. ??? tell your doctor if you are , plan to become , or are . If you become while taking ranolazine, call your doctor. ??? you should know that ranolazine may make you dizzy and lightheaded. Do not drive a car, operate machinery,or participate in activities requiring mental alertness and coordination until you know how this medication affects you. What SPECIAL DIETARY instructions should I follow? Do not drink grapefruit juice or eat grapefruit products while taking this medication. What should I do IF I FORGET to take a dose? Skip the missed dose and continue your regular dosing schedule. Do not take a double dose to make up for a missed one. What SIDE EFFECTS can this medicine cause? Ranolazine may cause side effects. Tell your doctor if any of these symptoms are severe or do not go away: ??? nausea ??? constipation ??? headache ??? dizziness ??? Some side effects can be serious. If youexperience any of these symptoms, call your doctor immediately: ??? fast, pounding, or irregular heartbeat ??? difficulty breathing ??? fainting Ranolazine may cause other side effects. Call your doctor if you have any unusual problems while you are taking this medication. What should I know about STORAGE and DISPOSAL of this medication? Keep this medication in the container it came in, tightly closed, and out of reach of children. Store it at room temperature and away from excess heat and moisture (not in the bathroom). Unneeded medications should be disposed of in special ways to ensure that pets, children, and otherpeople cannot consume them. However, you should not flush this medication down the toilet. Instead,the best way to dispose of your medication is through a medicine take-back program. Talk to your pharmacist or contact your local garbage/recycling department to learn about take-back programs in your community. See the FDA's Safe Disposal of Medicines website (https://goo.gl/c4Rm4p) for more information if you do not have access to a take-back program. It is important to keep all medication out of sight and reach of children as many containers (such as weekly pill minders and those for eye drops, creams, patches, and inhalers) are not child-resistant and young children can open them easily. To protect young children from poisoning, always lock safety caps and immediately place the medication in a safe location ??? one that is up and away and out of their sight and reach. https://www.upandaway.org What should I do in case of OVERDOSE? In case of overdose, call the poison control helpline at . Information is also available online at https://www.poisonhelp.org/help. If the victim has collapsed, had a seizure, has trouble breathing, or can't be awakened, immediately call emergency services at 595. Symptoms of overdose may include the following: ??? nausea ??? vomiting ??? dizziness ??? confusion ??? double vision ??? pain, burning, numbness, or tingling in any part of the body ??? fainting ??? uncontrollable shaking of a part of the body ??? difficulty speaking ??? seeing things or hearing voices that do not exist What OTHER INFORMATION should I know? Keep all appointments with your doctor. Do not let anyone else take your medication. Ask your pharmacist any questions you have about refilling your prescription. It is important for you to keep a written list of all of the prescription and nonprescription (zrtr-guc-ncezufp) medicines you are taking, as well as any products such as vitamins, minerals, or otherdietary supplements. You should bring this list with you each time you visit a doctor or if you areadmitted to a hospital. It is also important information to carry with you in case of emergencies. This report on medications is for your information only, and is not considered individual patient advice. Because of the changing nature of drug information, please consult your physician or pharmacist about specific clinical use. The [place] [employer] represents that the information provided hereunder was formulated with a reasonable standard of care, and in conformity with professional standards in the field. The [place] [employer] makes no representations or warranties, express or implied, including, but not limited to, any implied warranty of merchantability and/or fitness for a particular purpose, with respect to such information and specifically disclaims all such warranties. Users are advised that decisions regarding drug therapy are complex medical decisions requiring the independent, informed decision of an appropriate health day care center director, and the information is provided for informational purposes only. The entire monograph for a drug should be reviewed for a thorough understanding of the drug's actions, uses and side effects. The [place] [employer] does not endorse or recommend the use of any drug.The information is not a substitute for medical care. AHFS?? Patient Medication Information???. ?? Copyright, 2023. The [employer]??, [address], [address], [place], [place]. All Rights Reserved. Duplication for commercial use must be authorized by [facility]. Selected Revisions: June 19, 2015. AHFS?? Patient Medication Information???. ?? Copyright, 2023 ?? * Jenna Blevins RN: PERFORM Event Display: Patient Education Leaflets Authored Date: [id number] Ranolazine ?? [id number] Ranolazine Brand Name(s): Ranexa??; also available generically WHY is this medicine prescribed? Ranolazine is used alone or with other medications to treat chronic angina (ongoing chest pain or pressure that is felt when the heart does not get enough oxygen). Ranolazine is in a class of medications called anti-anginals. The exact way that ranolazine works is not known at this time. HOW should this medicine be used? Ranolazine comes as an extended-release (long-acting) tablet to take by mouth. It is usually taken with or without food twice daily. Take ranolazine at around the same times every day. Follow the directions on your prescription label carefully, and ask your doctor or pharmacist to explain any part you do not understand. Take ranolazine exactly as directed. Do not take more or less of it or take it more often than prescribed by your doctor. Swallow the tablets whole; do not break, chew, or crush them. Your doctor will probably start you on a low dose of ranolazine and gradually increase your dose. Do not take ranolazine to treat a sudden attack of angina. Your doctor will tell you what you should do if you experience an attack of angina. Make sure that you understand these directions. Ranolazine may help control your condition but will not cure it. Continue to take ranolazine even if you feel well. Do not stop taking ranolazine without talking to your doctor. Ask your pharmacist or doctor for a copy of the sanitizer's information for the patient. Are there OTHER USES for this medicine? This medication may be prescribed for other uses; ask your doctor or pharmacist for more information. What SPECIAL PRECAUTIONS should I follow? Before taking ranolazine, ??? tell your doctor and pharmacist if you are allergic to ranolazine, any other medications, or any of the ingredients in ranolazine extended-release tablets. Ask your pharmacist for a list of the ingredients. ??? tell your doctor if you are taking any of the following medications: antifungals such as itraconazole (Onmel, Sporanox) and ketoconazole (Nizoral); clarithromycin (Biaxin, in Prevpac);medications to treat human immunodeficiency virus (HIV) or acquired immunodeficiency syndrome (AIDS) such as indinavir (Crixivan), lopinavir and ritonavir (Kaletra); nelfinavir (Viracept), ritonavir (Norvir, in Kaletra, in Viekira Nader, others), and saquinavir (Invirase); nefazodone; medications for seizures such as carbamazepine (Carbatrol, Equetro, Tegretol, others), phenobarbital, and phenytoin(Dilantin, Phenytek); rifabutin (Mycobutin); rifampin (Rifadin, Rimactane, in Rifamate, in Rifater); and rifapentin (Priftin). Also tell your doctor if you are taking Sunny's wort. Your doctor maytell you not to take ranolazine if you are taking one or more of these medications or herbal products. ??? tell your doctor and pharmacist what other prescription and nonprescription medications, vitamins, nutritional supplements, and herbal products you are taking or plan to take. Be sure to mention any of the following: amiodarone (Cordarone, Nexterone, Pacerone); antidepressants such as amitriptyline, clomipramine (Anafranil), and desipramine (Norpramin); and imipramine (Tofranil); medications to treat high cholesterol such as atorvastatin (Lipitor, in Caduet), lovastatin (Altoprev, in Advicor), and simvastatin (Zocor, in Simcor, in Vytorin); cyclosporine (Gengraf, Neoral, Sandimmune); digoxin (Lanoxin); diltiazem (Cardizem, Dilacor, Tiazac, others); dofetilide; (Tikosyn); erythromycin(E.E.S., Erythrocin, PCE); fluconazole (Diflucan);medications for mental illness such as haloperidol (Haldol), risperidone (Risperdal), thioridazine, and ziprasidone (Geodon); metformin (Fortamet, Glumetza, in Glucovance, others); quinidine (in Nuedexta); sirolimus (Rapamune); sotalol (Betapace, Sorine); tacrolimus (Astagraf, Envarsus XR, Prograf); and verapamil (Calan, Covera, Verelan, others). Your doctor may need to change the doses of your medications or monitor you carefully for side effect s. Many other medications may also interact with ranolazine, so be sure to tell your doctor about all the medications you are taking, even those that do not appear on this list or the list above. ???tell your doctor if you have or have ever had liver disease. Your doctor may tell you that you should not take ranolazine. ??? tell your doctor if you or anyone in your family has or has ever had a prolonged QT interval (a rare heart problem that may cause fainting or irregular heartbeat) or a fast, slow, or irregular heartbeat. Also tell your doctor if you have or have ever had an abnormal electrocardiogram (ECG: a test that records the electrical activity of the heart), low levels of potassium in the blood, or kidney disease. ??? tell your doctor if you are , plan to become , or are . If you become while taking ranolazine, call your doctor. ??? you should know that ranolazine may make you dizzy and lightheaded. Do not drive a car, operate machinery,or participate in activities requiring mental alertness and coordination until you know how this medication affects you. What SPECIAL DIETARY instructions should I follow? Do not drink grapefruit juice or eat grapefruit products while taking this medication. What should I do IF I FORGET to take a dose? Skip the missed dose and continue your regular dosing schedule. Do not take a double dose to make up for a missed one. What SIDE EFFECTS can this medicine cause? Ranolazine may cause side effects. Tell your doctor if any of these symptoms are severe or do not go away: ??? nausea ??? constipation ??? headache ??? dizziness ??? Some side effects can be serious. If youexperience any of these symptoms, call your doctor immediately: ??? fast, pounding, or irregular heartbeat ??? difficulty breathing ??? fainting Ranolazine may cause other side effects. Call your doctor if you have any unusual problems while you are taking this medication. What should I know about STORAGE and DISPOSAL of this medication? Keep this medication in the container it came in, tightly closed, and out of reach of children. Store it at room temperature and away from excess heat and moisture (not in the bathroom). Unneeded medications should be disposed of in special ways to ensure that pets, children, and otherpeople cannot consume them. However, you should not flush this medication down the toilet. Instead,the best way to dispose of your medication is through a medicine take-back program. Talk to your pharmacist or contact your local garbage/recycling department to learn about take-back programs in your community. See the FDA's Safe Disposal of Medicines website (https://goo.gl/c4Rm4p) for more information if you do not have access to a take-back program. It is important to keep all medication out of sight and reach of children as many containers (such as weekly pill minders and those for eye drops, creams, patches, and inhalers) are not child-resistant and young children can open them easily. To protect young children from poisoning, always lock safety caps and immediately place the medication in a safe location ??? one that is up and away and out of their sight and reach. https://www.upandaway.org What should I do in case of OVERDOSE? In case of overdose, call the poison control helpline at . Information is also available online at https://www.poisonhelp.org/help. If the victim has collapsed, had a seizure, has trouble breathing, or can't be awakened, immediately call emergency services at 820. Symptoms of overdose may include the following: ??? nausea ??? vomiting ??? dizziness ??? confusion ??? double vision ??? pain, burning, numbness, or tingling in any part of the body ??? fainting ??? uncontrollable shaking of a part of the body ??? difficulty speaking ??? seeing things or hearing voices that do not exist What OTHER INFORMATION should I know? Keep all appointments with your doctor. Do not let anyone else take your medication. Ask your pharmacist any questions you have about refilling your prescription. It is important for you to keep a written list of all of the prescription and nonprescription (kgef-gdg-kfmkuci) medicines you are taking, as well as any products such as vitamins, minerals, or otherdietary supplements. You should bring this list with you each time you visit a doctor or if you areadmitted to a hospital. It is also important information to carry with you in case of emergencies. This report on medications is for your information only, and is not considered individual patient advice. Because of the changing nature of drug information, please consult your physician or pharmacist about specific clinical use. The [place] [employer] represents that the information provided hereunder was formulated with a reasonable standard of care, and in conformity with professional standards in the field. The [place] [employer] makes no representations or warranties, express or implied, including, but not limited to, any implied warranty of merchantability and/or fitness for a particular purpose, with respect to such information and specifically disclaims all such warranties. Users are advised that decisions regarding drug therapy are complex medical decisions requiring the independent, informed decision of an appropriate health day care center director, and the information is provided for informational purposes only. The entire monograph for a drug should be reviewed for a thorough understanding of the drug's actions, uses and side effects. The [place] [employer] does not endorse or recommend the use of any drug.The information is not a substitute for medical care. AHFS?? Patient Medication Information???. ?? Copyright, 2023. The [employer] [employer]??, [address], [address], [place], [place]. All Rights Reserved. Duplication for commercial use must be authorized by [facility]. Selected Revisions: June 19, 2015. AHFS?? Patient Medication Information???. ?? Copyright, 2023 ?? * Tony Michael MD, Ronnie: PERFORM Event Display: Patient Education Leaflets Authored Date: [id number] Understanding Coronary Artery Disease (CAD) ?? 74088 Understanding Coronary Artery Disease (CAD) Your heart is a muscle. To work right, this muscle needs a steady supply of oxygen. The coronary arteries are blood vessels that send oxygen-rich blood to the heart muscle. Coronary artery disease (CAD) is when there???s a problem in these blood vessels. Healthy artery. A healthy coronary artery has no blockages. Blood easily flows through it. Healthy arteries can supply all the oxygen-rich blood your heart muscle needs. Healthy artery. Damaged artery. Some things can damage the lining of an artery. These include smoking, high blood pressure, and high blood sugar. CAD starts when this damage leads to the buildup of plaque along the artery wall. Plaque is a substance made of cholesterol and other fatty deposits. Plaque narrows the arteries that send blood to your heart muscle. This is called atherosclerosis. Damaged artery. Narrowed artery. As more plaque builds up, an artery has trouble sending blood to your heart musclewhen it's needed the most, such as during exercise. You may not feel any symptoms when this happens. Or you may feel pressure, tightness, aching, or pain in your chest, jaw, neck, back, or arm. This is called angina. Narrowed artery. Blocked artery. A piece of plaque can break off. This is called ruptured plaque. It can fully blockthe artery. But more often, a blood clot forms on a piece of ruptured plaque. Together these block the narrowed artery. Then blood can't reach the heart muscle. Right away, part of the heart muscle becomes damaged and stops working. You may feel crushing pressure or pain in or around your chest. This is a heart attack (acute myocardial infarction). It???s a medical emergency. Blocked artery. Last Reviewed Date: 2021 ?? 5569-5128 [employer]. All rights reserved. This information is not intended as a substitute for professional medical care. Always follow your healthcare professional's instructions. ?? Patient Care team information Care Team Personnel Name: Sixto Slaughter RN Position: S RN Member Role: Primary Care Nurse Name: Andrade Khan MD Position: S Physician - Primary Care Member Role: PCP Address: Address: [address] [place] [id number]- Name: Mirta Parker RN Position: S RN Member Role: Primary Care Nurse Name: Cassie Haas RN Position: S RN Member Role: Primary Care Nurse Name: Jenna Blevins RN Position: S RN Member Role: Primary Care Nurse Name: Patricia Diaz LPN Position: S RN Member Role: Primary Care Nurse Care Team Related Persons Name: CAMACHO VERNON Address: [address] [address] [place]
--- OUTSIDE RECORDS SUMMARY | 2024-05-02 11:26 | XMS_ITS | Continuity of Care Document ---
Author Organization [facility] Alexandr n's [facility] Address [address], [address] [place] [address]- Care Team Providers Care Road Roller Operator Name Role Phone Bill RODRIGUEZ, Andrade Green Primary Care Physician Encounter [facility] [place] [id number] Date(s): 01/31/22 - 03/02/22 [facility] Dana[facility]Card[facility] [address] [place], [place] [address] Attending Physician: Efren Guido Admitting Physician: AdmtrEfren Referring Physician: Admtr, [id number] [...] Recorded tetanus/diphtheria/pertussis, acel(Tdap) 03/18/10 Recorded 1Result Comment: [id number] 2Result Comment: [id number] Medications Albuterol (Eqv-ProAir HFA) 90 mcg/inh inhalation [...] 90 tablet, 3 Refills, 12/28/21 6:48:00 EDT, [facility], 165.1, cm, 12/24/21 7:49:00 EDT, Height, 124.5, kg, 12/23/21 13:04:00 EDT, Dry Weight Start Date: 12/28/21 Status: Ordered CeleXA 20 mg oral tablet 20 mg, 1, tablet, By Mouth, Daily, # 90 tablet, Refills 3, Tot. Refills 3, Maintenance, 12/28/21 6:48:00 EDT, Route to Pharmacy Electronically, [email or web address], Partial fill upon patient request if the prescription is for a schedule II o... Start Date: 12/28/21 Status: Ordered docusate sodium 100 mg oral capsule 1 capsule, By Mouth, 2 times a day, PRN NEEDED FOR CONSTIPATION, # 60 capsule, 0 Refills, Maintenance, 02/16/22 14:27:00 EDT, [id number], 165.1, cm, 02/15/22 10:09:00 EDT, Height, 124.5, [...] 3 Refills, Maintenance, 01/25/22 6:17:00 EDT, Solution, [facility]/pharmacy #[id number], Partial fill upon patient request if the [...] Personnel Name: Andrade Khan MD Address: Address: [address] [place] [address]
--- OUTSIDE RECORDS SUMMARY | 2024-05-02 11:26 | XMS_ITS | Continuity of Care Document ---
Author Organization [facility] Francisco Paulino lt Address [address] [place] [address]- Care Team Providers Care Shank Sander Name Role Phone Bill RODRIGUEZ, Andrade Green Primary Care Physician [phone] Encounter [facility] Date(s): 02/29/24 - 03/30/24 [facility] Adult [address] [place] [address]- Allergies, Adverse Reactions, Alerts Substance Reaction Severity [...] Recorded tetanus/diphtheria/pertussis, acel(Tdap) 03/18/10 Recorded 1Result Comment: [id number] 2Result Comment: [id number] Medications Albuterol (Eqv-ProAir HFA) 90 mcg/inh inhalation [...] Refills, Maintenance, 01/09/24 11:30:00 EDT, [id number], 164.1, cm, 12/11/23 13:49:00 EDT, Height, 121.2, [...] Refills, Maintenance, 01/12/24 12:08:00 EDT, [id number], 164.1, cm, 12/11/23 13:49:00 EDT, Height, 121.2, [...] 02/29/24 11:06:00 EDT, Route to Pharmacy Electronically, [facility] #[id number], Partial fill upon patient request if the prescription is for a schedule II opioid drug... Start Date: 02/29/24 Status: Ordered nitroglycerin 0.4 mg sublingual tablet 1 tablet = 0.4 mg, Sublingual, Every 5 minutes, PRN as needed for chest pain, not to exceed 3 doses/15 min--if pain persists, seek medical attention, # 30 tablet, 11 Refills, Maintenance, 02/24/24 6:27:00 EDT, Tablet, [facility]/pharmacy #[id number], Partial fill... Start Date: 02/24/24 Status: [...] Care Nurse Name: Andrade Khan MD Position: [facility] Physician - Primary Care Member Role: PCP Address: Address: [address] [place] [id number] Name: Mirta Parker RN Position: S RN Member Role: Primary Care Nurse Name: Cassie Haas RN Position: S RN Member Role: Primary Care Nurse Name: Jenna Blevins RN Position: S RN Member Role: Primary Care Nurse Name: Patricia Diaz LPN Position: S RN Member Role: Primary Care Nurse Care Team Related Persons Name: CAMACHO VERNON Address: [address] [address] [place]
--- OUTSIDE RECORDS SUMMARY | 2024-05-02 11:26 | XMS_ITS | Continuity of Care Document ---
Author Organization [facility] Francisco Paulino lt Address [address] [place] [address]- Care Team Providers Care Financial Advocate Name Role Phone Bill RODRIGUEZ, Andrade Green Primary Care Physician Encounter [facility] Date(s): 02/25/24 - 03/26/24 [facility] Shine Singh Adult [address] [place] [address]- Allergies, Adverse Reactions, Alerts Substance Reaction Severity [...] Recorded tetanus/diphtheria/pertussis, acel(Tdap) 03/18/10 Recorded 1Result Comment: [id number] 2Result Comment: [id number] Medications Albuterol (Eqv-ProAir HFA) 90 mcg/inh inhalation [...] Refills, Maintenance, 01/09/24 11:30:00 EDT, [facility], 164.1, cm, 12/11/23 13:49:00 EDT, Height, 121.2, kg, 01/30/23 12:56:00 EDT, Dry Weight Start Date: 01/09/24 Status: Ordered clopidogrel 75 mg oral tablet 75 mg, 1, tablet, By Mouth, Daily, # 30 tablet, Refills 5, Tot. Refills 5, Maintenance, 03/01/24 14:22:00 EDT, Route to Pharmacy Electronically, [facility]/pharmacy #[id number], [...] Refills, Maintenance, 01/12/24 12:08:00 EDT, [facility], 164.1, cm, 12/11/23 13:49:00 EDT, Height, 121.2, [...] 02/29/24 11:06:00 EDT, Route to Pharmacy Electronically, [facility]/pharmacy #[id number], [...] 11 Refills, Maintenance, 02/24/24 6:27:00 EDT, Tablet, [facility]/pharmacy #[id number], Partial fill... Start Date: 02/24/24 [...] Refills, Maintenance, 03/08/24 17:52:00 EDT, ER Tablet, [facility]/pharmacy #[id number], Partial fill upon patient request if the [...] Primary Care Member Role: PCP Address: Address: [address] [place] [id number] Name: Mirta Parker RN Position: S RN Member Role: Primary Care Nurse Name: Cassie Haas RN Position: S RN Member Role: Primary Care Nurse Name: Jenna Blevins RN Position: S RN Member Role: Primary Care Nurse Name: Patricia Diaz LPN Position: S RN Member Role: Primary Care Nurse Care Team Related Persons Name: CAMACHO VERNON Address: [address] [address] [place]
--- OUTSIDE RECORDS SUMMARY | 2024-05-02 11:26 | XMS_ITS | Continuity of Care Document ---
Author Organization [facility] Paulino Address [address] [place] [address]- Care Team Providers Care Development Coach Name Role Phone Bob Frost MD Primary Care Physician [place] [facility] [place](s): 12/04/20 - 01/03/21 [facility] Adult [address] [place] [address]- Attending Physician: Admsheba, Felipe8 Admitting Physician: AdmtrEfren Referring Physician: Admtr, Ar8 [...] Active Hyperlipidemia(Confirmed) Active Mild major depression(Confirmed) Active Social History Social History Type Response Smoking Status Former smoker, quit more than 30 days ago; Use: Quit 12 years ago entered on: 07/15/19 Sex
--- OUTSIDE RECORDS SUMMARY | 2024-05-02 11:26 | XMS_ITS | Continuity of Care Document ---
Author Organization [facility] Address [address] [place] [address]- Care Team Providers Care Honey Liquefier Name Role Phone Margot RODRIGUEZ, Bob Alcantar Primary Care Physician [phone] Encounter 11/24/20 - 01/20/21 [facility] [address], [address] [place] [address]- Attending Physician: Bob Frost MD Admitting Physician: [...]
--- OUTSIDE RECORDS SUMMARY | 2024-05-02 11:26 | XMS_ITS | Continuity of Care Document ---
Author Organization [facility] Francisco Paulino lt Address [address] [place] [address]- Care Team Providers Care Rattan Worker Name Role Phone Bill RODRIGUEZ, Andrade Green Primary Care Physician [phone] [place] [facility] [place] Date(s): 03/20/24 - 04/19/24 [facility] Adult [address] [place] [address]- Encounter Type: Triage Allergies, Adverse Reactions, Alerts Substance Criticality Severity Reaction Reaction Severity Status CeleBREX Pain with burni ng in chest and arms and lightheaded Active Demerol Vomiting Swelling Active Immunizations Given and Recorded Vaccine Date Status Refusal Reason influenza virus vaccine, inactivated 03/23/24 Matry rded influenza virus vaccine, inactivated 03/21/22 Give [...] Recorded tetanus/diphtheria/pertussis, acel(Tdap) 03/18/10 Recorded 1Result Comment: [id number] 2Result Comment: [id number] Medications Albuterol (Eqv-ProAir HFA) 90 mcg/inh inhalation aerosol 2 puffs, Inhalation, Every 6 hours, PRN Wheezing/Shortness of Breath, # 8.5 Gm, 5 Refills, Maintenance, 02/13/24 3:16:00 PM EDT, Inhaler, [facility]/pharmacy #[id number], Partial fill upon patient request [...] Refills, Maintenance, 03/22/24 1:33:00 PM EDT, Tablet, [facility]/pharmacy #[id number], Partial fill upon patient request if the prescription is for a schedule IIopioid drug., 165, cm, 02/29/24 11:03:00 EDT, Height, 129.5, kg, 02/06/24 15:12:00 EDT, Dry Weight Start Date: 03/22/24 Status: Ordered Quantity: 90.0 Unit: tablet Repeat number: 4 citalopram 20 mg oral tablet 1 tablet, By Mouth, Daily, # 90 tablet, 1 Refills, Maintenance, 01/09/24 11:30:00 AM EDT, [facility], 164.1, cm, 12/11/23 13:49:00 EDT, Height, 121.2, kg, 01/30/23 12:56:00 EDT, Dry Weight Start Date: 01/09/24 Status: Ordered Quantity: 90.0 Unit: tablet Repeat number: 1 clopidogrel 75 mg oral tablet 75 mg, 1, tablet, By Mouth, Daily, # 30 tablet, Refills 5, Tot. Refills 5, Maintenance, 03/01/24 2:22:00 PM EDT, Route to Pharmacy Electronically, [facility]/pharmacy #[id number], Partial fill upon patient requestif [...] Refills, Maintenance, 04/11/24 5:31:00 PM EST, Tablet, [facility]/pharmacy #[id number], Partial fill upon patient request if the prescription is for a schedule II opioid drug., 165, cm, 04/10/24 2:55:00 EST, Height, 124.5, kg, 04/10/24 2:55:00 EST, Dry Weight Start Date: 04/11/24 Status: Ordered Quantity: 60.0 Unit: tablet Repeat number: 6 levothyroxine 0.05 mg oral tablet 1 tablet, By Mouth, Daily, # 90 tablet, 1 Refills, Maintenance, 01/12/24 12:08:00 PM EDT, [facility], 164.1, cm, 12/11/23 13:49:00 EDT, Height, 121.2, [...] 11:06:00 AM EDT, Route to Pharmacy Electronically, [facility]/pharmacy #[id number], Partial fill upon patient request [...] Refills, Maintenance, 02/24/24 6:27:00 AM EDT, Tablet, [facility]/pharmacy #[id number], Partial fill upon patient request [...] Refills, Maintenance, 08/15/23 10:50:00 AM EDT, Solution, [facility]/pharmacy #[id number], Partial fillupon patient request if [...] Refills, Maintenance, 03/08/24 5:52:00 PMEDT, ER Tablet, [facility]/pharmacy #[id number], Partial fill upon patient request [...] Team Personnel Name: Sixto Slaughter RN Position: [facility] RN Member Role: Primary Care Nurse Name: Isabel Otero RN Position: S RN Member Role: Primary Care Nurse Name: Andrade Khan MD Position: [facility] Physician - Primary Care Member Role: PCP Address: [address] [place] [address]- Telecom: Name: Mirta Parker RN Position: S RN Member Role: Primary Care Nurse Name: Cassie Haas RN Position: S RN Member Role: Primary Care Nurse Name: Jenna Blevins RN Position: S RN Member Role: Primary Care Nurse Name: Patricia Diaz LPN Position: [facility] RN Member Role: Primary Care Nurse Care Team Related Persons Name: CAMACHO VERNON Insurance Providers Guarantor name: RICHARD VERNON [facility] Information #: 1 Payer: MEDICARE PART B OUTPT Member Number: NA Policy Number: NA Group Number: NA
--- OUTSIDE RECORDS SUMMARY | 2024-05-02 11:26 | XMS_ITS | Continuity of Care Document ---
Author Organization [facility] Francisco Paulino lt Address [address] [place] [address]- Care Team Providers Care Senior Computer Specialist Name Role Phone Bill RODRIGUEZ, Andrade Green Primary Care Physician [phone] [place] [facility] [place]01[place]22 - 03/31/22 [facility] [place] Adult [address] [place] [address]- Allergies, Adverse Reactions, Alerts Substance Reaction Severity [...] Recorded tetanus/diphtheria/pertussis, acel(Tdap) 03/18/10 Recorded 1Result Comment: [id number] 2Result Comment: [id number] Medications Albuterol (Eqv-ProAir HFA) 90 mcg/inh inhalation [...] 1 Refills, Maintenance, 03/12/21 15:56:00 EDT, Solution, [id number], Partial [...] 1 Refills, Maintenance, 03/21/22 10:29:00 EDT, Tablet, [facility]/pharmacy #[id number], Partial fill upon patient request if the prescription is for a schedule II opioid drug., 165.1, cm, 10/17/22 10:07:00 EDT, Heigh... Start Date: 03/21/22 Status: [...] 5 Refills, Maintenance, 03/21/22 10:31:00 EDT, Solution, [facility]/pharmacy #[id number], Partial fill upon [...] Name: Bill RODRIGUEZ, Andrade Green Address: Address: [address] [place] [id number]
--- OUTSIDE RECORDS SUMMARY | 2024-05-02 11:26 | XMS_ITS | Continuity of Care Document ---
Author Organization [facility] Shine Singh Paulino lt Address [address] [place] [address]- Care Team Providers Care Grocery Associate Name Role Phone Bob Frost MD Primary Care Physician [phone] [place] [facility] [place] 09/07/20 - 10/07/20 [facility] Shine Singh Adult [address] [place] [address]- Attending Physician: Efren Guido Admitting Physician: AdmtrEfren [...]
--- OUTSIDE RECORDS SUMMARY | 2024-05-02 11:26 | XMS_ITS | Continuity of Care Document ---
Author Organization [facility] Francisco Paulino lt Address [address] [place] [address]- Care Team Providers Care Stem Cleaning Machine Feeder Name Role Phone Bill RODRIGUEZ, Andrade Green Primary Care Physician En[place] [facility] [place] Date(s): 01/12/24 - 02/11/24 [facility] Shine Singh Adult [address] [place] [address]- Allergies, Adverse Reactions, Alerts Substance Reaction Severity [...] Recorded tetanus/diphtheria/pertussis, acel(Tdap) 03/18/10 Recorded 1Result Comment: [id number] 2Result Comment: [id number] Medications Albuterol (Eqv-ProAir HFA) 90 mcg/inh inhalation [...] Refills, Maintenance, 01/09/24 11:30:00 EDT, [facility], 164.1, cm, 12/11/23 13:49:00 EDT, Height, 121.2, [...] Refills, Maintenance, 01/12/24 12:08:00 EDT, [facility], 164.1, cm, 12/11/23 13:49:00 EDT, Height, 121.2, kg, 01/30/23 12:56:00 EDT, Dry Weight Start Date: 01/12/24 Status: Ordered metoprolol 25 mg oral tablet, extended release 25 mg, By Mouth, Daily, # 30 tablet, Refills 0, Tot. Refills 0, Maintenance, 01/30/24 12:06:00 EDT,Route to Pharmacy Electronically, [facility]/pharmacy #[id number], Partial fill upon patient [...] 5 Refills, Maintenance, 08/15/23 10:50:00 EDT, Solution, [facility]/pharmacy #[id number], Partial fill upon patient [...] Refills, Maintenance, 02/07/24 14:23:00 EDT, ER Tablet, [facility], Partial fill upon patient request [...] Care Nurse Name: Andrade Khan MD Position: [facility] Physician - Primary Care Member Role: PCP Address: Address: [address] [place] [id number] Name: Mirta Parker RN Position: S RN Member Role: Primary Care Nurse Name: Cassie Haas RN Position: S RN Member Role: Primary Care Nurse Name: Jenna Blevins RN Position: S RN Member Role: Primary Care Nurse Name: Patricia Diaz LPN Position: S RN Member Role: Primary Care Nurse Care Team Related Persons Name: CAMACHO VERNON Address: [address] [address] [place]
--- OUTSIDE RECORDS SUMMARY | 2024-05-02 11:27 | XMS_ITS | Continuity of Care Document ---
Author Organization [facility] Address [address] [place] [address]- Care Team Providers Care Ortho Rn Name Role Phone Bill RODRIGUEZ, Andrade Green Primary Care Physician [phone] Encounter [facility] [place] [facility] [place] [id number] Date(s): 01/31/24 - 03/31/24 [facility] [address] [place] [address]- Attending Physician: Heidi MENDES, Ainsley Admitting Physician: Heidi LABORER CARPENTRY DOCK, Ainsley Allergies, Adverse Reactions, Alerts Substance Reaction Severity [...] Recorded tetanus/diphtheria/pertussis, acel(Tdap) 03/18/10 Recorded 1Result Comment: [id number] 2Result Comment: [id number] Medications Albuterol (Eqv-ProAir HFA) 90 mcg/inh inhalation [...] Refills, Maintenance, 01/09/24 11:30:00 EDT, [facility], 164.1, cm, 12/11/23 13:49:00 EDT, Height, 121.2, [...] Refills, Maintenance, 01/12/24 12:08:00 EDT, [facility], 164.1, cm, 12/11/23 13:49:00 EDT, Height, 121.2, [...] 02/29/24 11:06:00 EDT, Route to Pharmacy Electronically, [facility]/pharmacy #[id number], Partial fill upon [...] 11 Refills, Maintenance, 02/24/24 6:27:00 EDT, Tablet, [facility]/pharmacy #[id number], Partial fill... Start [...] Refills, Maintenance, 03/08/24 17:52:00 EDT, ER Tablet, [facility]/pharmacy #[id number], Partial fill upon [...] Primary Care Member Role: PCP Address: Address: [address] [place] [id number] Name: Mirta Parker RN Position: S RN Member Role: Primary Care Nurse Name: Cassie Haas RN Position: S RN Member Role: Primary Care Nurse Name: Jenna Blevins RN Position: S RN Member Role: Primary Care Nurse Name: Patricia Diaz LPN Position: S RN Member Role: Primary Care Nurse Care Team Related Persons Name: CAMACHO VERNON Address: [address] [address] [place]
--- OUTSIDE RECORDS SUMMARY | 2024-05-02 11:27 | XMS_ITS | Continuity of Care Document ---
Author Organization [facility] Address [address] [place] [address]- Care Team Providers Care Coke Oven Mason Name Role Phone Andrade Khan MD Primary Care Physician Encounter [facility] [place] Date(s): 02/22/24 - 03/23/24 [facility] [address] [place] [address]- Attending Physician: Efren Guido Admitting Physician: AdmEfren scruggs Referring Physician: Admtr, Ar8 Allergies, Adverse Reactions, [...] Recorded tetanus/diphtheria/pertussis, acel(Tdap) 03/18/10 Recorded 1Result Comment: [id number] 2Result Comment: [id number] Medications Albuterol (Eqv-ProAir HFA) 90 mcg/inh inhalation aerosol 2 puffs, Inhalation, Every 6 hours, PRN Wheezing/Shortness of Breath, # 8.5 Gm, 5 Refills, Maintenance, 02/13/24 15:16:00 EDT, Inhaler, [facility]/pharmacy #[id number], Partial [...] Refills, Maintenance, 01/09/24 11:30:00 EDT, [facility], 164.1, cm, 12/11/23 13:49:00 EDT, Height, 121.2, kg, 01/30/23 12:56:00 EDT, Dry Weight Start Date: 01/09/24 Status: Ordered clopidogrel 75 mg oral tablet 75 mg, 1, tablet, By Mouth, Daily, # 30 tablet, Refills 5, Tot. Refills 5, Maintenance, 03/01/24 14:22:00 EDT, [facility] [...] Refills, Maintenance, 01/12/24 12:08:00 EDT, [facility], 164.1, cm, 12/11/23 13:49:00 EDT, Height, 121.2, [...] 02/29/24 11:06:00 EDT, [facility], [facility] Maintenance, 02/24/24 6:27:00 EDT, Tablet, [facility]/pharmacy #[id number], Partial fill... Start Date: 02/24/24 [...] Maintenance, 08/15/23 10:50:00 EDT, Solution, [facility]/pharmacy #[id number], Partial [...] Name: Andrade Khan MD Position: [facility] Physician - Primary Care Member Role: PCP Address: Address: [address] [place] [id number] Name: Mirta Parker RN Position: S RN Member Role: Primary Care Nurse Name: Cassie Haas RN Position: S RN Member Role: Primary Care Nurse Name: Jenna Blevins RN Position: S RN Member Role: Primary Care Nurse Name: Patricia Diaz LPN Position: S RN Member Role: Primary Care Nurse Care Team Related Persons Name: CAMACHO VERNON Address: [address] [address] [place]
--- OUTSIDE RECORDS SUMMARY | 2024-05-02 11:27 | XMS_ITS | Continuity of Care Document ---
Author Organization [facility] Shine Singh Paulino lt Address [address] [place] [address]- Care Team Providers Care Blue Split Trimmer Name Role Phone Bill RODRIGUEZ, Andrade Green Primary Care Physician [place] [facility] [place] 02/23/24 - 03/24/24 [facility] Shine Singh Adult [address] [place] [address]- Allergies, Adverse Reactions, Alerts Substance Reaction Severity [...] Recorded tetanus/diphtheria/pertussis, acel(Tdap) 03/18/10 Recorded 1Result Comment: [id number] 2Result Comment: [id number] Medications Albuterol (Eqv-ProAir HFA) 90 mcg/inh inhalation [...] Refills, Maintenance, 01/09/24 11:30:00 EDT, [facility], 164.1, cm, 12/11/23 13:49:00 EDT, Height, 121.2, [...] Refills, Maintenance, 01/12/24 12:08:00 EDT, [facility], 164.1, cm, 12/11/23 13:49:00 EDT, Height, 121.2, [...] Refills, Maintenance, 03/08/24 17:52:00 EDT, ER Tablet, [facility]/pharmacy #[id number], Partial fill upon patient request if the [...] Care Nurse Name: Andrade Khan MD Position: [facility] Physician - Primary Care Member Role: PCP Address: Address: [address] [place] [id number] Name: Mirta Parekr RN Position: S RN Member Role: Primary Care Nurse Name: Cassie Haas RN Position: S RN Member Role: Primary Care Nurse Name: Jenna Blevins RN Position: S RN Member Role: Primary Care Nurse Name: Patricia Diaz LPN Position: S RN Member Role: Primary Care Nurse Care Team Related Persons Name: CAMACHO VERNON Address: [address] [address] [place]
--- OUTSIDE RECORDS SUMMARY | 2024-05-02 11:27 | XMS_ITS | Continuity of Care Document ---
Author Organization [facility] Paulino Address [address] [place] [address]- Care Team Providers Care Conceptor Name Role Phone Bob Frost MD Primary Care Physician [place] [facility] [place]s): 01/28/21 - 02/04/21 [facility] Adult [address] [place] [address]- Attending Physician: Bob Frost MD Allergies, Adverse [...] oldest [Reference Range]: 1 Height 164.0 cm (01/28/21 9:30 AM) Social History Social History Type Response Smoking Status Former smoker, quit more than 30 days ago; Use: Quit 12 years ago entered on: 07/15/19 Sex
--- OUTSIDE RECORDS SUMMARY | 2024-05-02 11:27 | XMS_ITS | Continuity of Care Document ---
Author Organization [facility] Francisco Paulino lt Address [address] [place] [address]- Care Team Providers Care Maint Mechanic Name Role Phone Bill RODRIGUEZ, Andrade Green Primary Care Physician [phone] Encounter [place] Date(s): 05/22/23 - 06/21/23 [facility] Adult [address] [place] [address]- Allergies, Adverse Reactions, Alerts Substance Reaction Severity [...] Recorded tetanus/diphtheria/pertussis, acel(Tdap) 03/18/10 Recorded 1Result Comment: [id number] 2Result Comment: [id number] Medications Albuterol (Eqv-ProAir HFA) 90 mcg/inh inhalation [...] 90 tablet, 1 Refills, 01/23/23 15:14:00 EDT, [facility]/pharmacy #[id number], 164.5, cm, 01/12/23 11:17:00 EDT, Height, 121, kg, 01/12/23 11:17:00 EDT, Dry Weight Start Date: 01/23/23 Status: Ordered CeleXA 20 mg oral tablet 20 mg, 1, tablet, By Mouth, Daily, # 90 tablet, Refills 1, Tot. Refills 1, Maintenance, 01/23/23 15:14:00 EDT, Route to Pharmacy Electronically, [facility]/pharmacy #[id number], Partial fill upon patient request [...] Member Role: Primary Care Nurse Name: Andrade Khna MD Position: S Physician - Primary Care Member Role: PCP Address: Address: [address] [place] [id number] Name: Mirta Parker RN Position: [facility] RN Member Role: Primary Care Nurse Care Team Related Persons Name: CAMACHO VERNON Address: [address] [address] [place]
--- OUTSIDE RECORDS SUMMARY | 2024-05-02 11:27 | XMS_ITS | Continuity of Care Document ---
Author Organization [facility] Francisco Paulino Address [address] [place] [address]- Care Team Providers Care Motel Clerk Name Role Phone Margot RODRIGUEZ, Bob Alcantar Primary Care Physician Encounter [facility] Date(s): 03/15/21 - 04/14/21 [facility] Adult [address] [place] [address]- Allergies, Adverse Reactions, Alerts Substance Reaction Severity [...]
--- OUTSIDE RECORDS SUMMARY | 2024-05-02 11:27 | XMS_ITS | Continuity of Care Document ---
Author Organization [facility] ter Address [address] [place] [address]- Care Team Providers Care Music Engraver Name Role Phone Bill RODRIGUEZ, Andrade Green Primary Care Physician [phone] Encounter [facility] Date(s): 12/23/21 - 12/24/[address] [address] Encounter Diagnosis Hypothyroidism(Discharge Diagnosis) - 12/23/21 Mild major depression(Discharge Diagnosis) - 12/23/21 Type 2 diabetes mellitus(Discharge Diagnosis) - 12/23/21 Discharge Disposition: A-D/C Home Attending Physician: Sandy Figueroa MD Admitting Physician: Sandy Figueroa MD Referring Physician: Sandy Figueroa MD Allergies, Adverse Reactions, Alerts Substance Reaction [...] Recorded tetanus/diphtheria/pertussis, acel(Tdap) 03/18/10 Recorded 1Result Comment: [id number] 2Result Comment: [id number] Medications Albuterol (Eqv-ProAir HFA) 2 puffs, Inhalation, [...] 1 Refills, Maintenance, 03/12/21 15:56:00 EDT, Solution, [facility], Partial [...] 12/10/21 17:50:00 EDT, Route to Pharmacy Electronically, [facility]/pharmacy #[id number], Partial fill upon patientrequest if the prescription is for a schedule II op... Start Date: 12/10/21 Status: Ordered Ibuprofen Tablet 600 mg, Tablet, By Mouth, 12/24/21 2:00:00 EDT Start Date: 12/24/21 Stop Date: 12/24/21 Status: Completed levothyroxine 0.05 mg oral tablet 1 tablet = 50 mcg, By Mouth, Daily, # 90 tablet, 3 Refills, Maintenance, 01/28/21 9:57:00 EDT, Tablet, [facility], Partial fill upon patient request if the prescription is for a schedule II opioid drug., 164, cm, 01/28/21 9:30:00 ED... Start Date: 01/28/21 Status: Ordered Lovenox 40 mg/0.4 mL injectable solution = 40 mg, Subcutaneous Injection, Daily, for 9 days, # 9 each, 0 Refills, Acute 01/03/22 7:04:00 EDT, 12/25/21 7:04:00 EDT, [facility]/pharmacy #[id number], Partial fill upon patient request if the prescription isfor a schedule II opioid drug., 12/24/21, 165.1, cm... Start Date: 12/25/21 Stop Date: 01/03/22 Status: Ordered metFORMIN 500 mg oral tablet [...] 12/10/21 17:50:00 EDT, Route to Pharmacy Electronically, [facility]/pharmacy #[id number], Partial fill upon patient request if the prescription is for a... Start Date: 12/10/21 Status: Ordered Problem List Condition Effective Dates Status Health Status Inform ant Morbid obesity with BMI of 4 0.0-44.9, adult(Confirmed) Active GERD (gastroesophageal reflu x disease)(Confirmed) Active Hyperlipidemia(Confirmed) Active Hypothyroidism(Confirmed) Active Lumbar radiculopathy(Confirmed) Active Mild major depression(Confirmed) Active Type 2 diabetes mellitus(Confirmed) Active Diagnosis Diagnosis Type Effective Dates Health Status Clinical Service Informant Hypothyroidism Discharge Diagnosis 12/23/21 Mild major depression Discharge Diagnosis 12/23/21 Type 2 diabetes mellitus Discharge Diagnosis 12/23/21 Vital Signs Most recent to oldest [Reference Range]: 1 2 3 Height 165.10 cm (12/24/21 7:49 AM) 165.10 cm (12/24/21 4:16 AM) 165.10 cm (12/23/21 10:41 PM) Weight 124.55 kg (12/23/21 1:04 PM) 124.55 kg (12/22/21 9:11 AM) Oxygen Saturation [94-100 %] 100 % (12/24/21 7:49 AM) 95 % (12/24/21 4:16 AM) 93 % *L* (12/23/21 10:41 PM) Pulse Rate [55-90 bpm] 71 bpm (12/24/21 7:49 AM) 67 bpm (12/24/21 4:16 AM) 83 bpm (12/23/21 10:41 PM) Body Mass Index [18.5-24.99] 45.69 *>HHI* (12/23/21 1:04 PM) 45.69 *>HHI* (12/22/21 9:11 AM) Blood Pressure [90-138/55-84 mm Hg] 94/48mm Hg (12/24/21 7:49 AM) 144/72mm Hg *H* (12/24/21 4:16 AM) 147/65mm Hg *H* (12/23/21 10:41 PM) Respiratory Rate [16-30 br/min] 17 br/min (12/24/21 7:49 AM) 18 br/min (12/24/21 4:50 AM) 19 br/min (12/24/21 4:16 AM) Temperature [96.8-100.4 DegF] 98.1 DegF (12/24/21 7:49 AM) 98.0 DegF (12/24/21 4:16 AM) 97.3 DegF (12/23/21 10:41 PM) Liters per Minute 2 L/min (12/24/21 4:16 AM) 2 L/min (12/23/21 10:41 PM) 2 L/min (12/23/21 9:15 PM) Mode of Delivery (Oxygen) Room air (12/24/21 7:49 AM) Nasal cannula (12/24/21 4:16 AM) Nasal cannula (12/23/21 10:41 PM) Blood pressure sites Arm, right (12/24/21 7:49 AM) Arm, right (12/24/21 4:16 AM) Arm, right (12/23/21 10:41 PM) Temperature Route Oral (12/24/21 7:49 AM) Oral (12/24/21 4:16 AM) Oral (12/23/21 10:41 PM) Dry Weight 124.5 kg (12/23/21 1:04 PM) 124.55 kg (12/22/21 9:11 AM) Weight Obtained Via Patient/family state d (12/22/21 9:11 AM) Dry Weight Obtained Via Standing scale (12/23/21 1:04 PM) Patient/family stated (12/22/21 9:11 AM) Social History Social History Type Response Smoking Status Former smoker, quit more than 30 days ago; Use: Quit 12 years ago entered on: 07/15/19 Sex
--- OUTSIDE RECORDS SUMMARY | 2024-05-02 11:27 | XMS_ITS | Continuity of Care Document ---
Author Organization [facility] Francisco Paulino lt Address [address] [place] [address]- Care Team Providers Care National Expansion Recruiter Name Role Phone Bill RODRIGUEZ, Andrade Green Primary Care Physician Encounter [facility] [place] [place] Date(s): 08/15/23 - 09/14/23 [facility] [place] Adult [address] [place] [address]- Allergies, Adverse Reactions, Alerts Substance Reaction Severity Status Demerol Vomiting Swelling Active CeleBREX Pain with burning in chest and arms and l ightheaded Active Immunizations Given and Recorded Vaccine Date Status Refusal Reason influenza virus vaccine, inactivated 03/21/22 Give n influenza virus vaccine, inactivated 03/25/21 Marty rded influenza virus vaccine, inactivated 03/02/20 Marty rded influenza virus vaccine, inactivated 03/11/19 Mraty rded influenza virus vaccine, inactivated 05/15/18 Marty rded tetanus-diphtheria toxoids (Td) 1 12/16/21 Given pneumococcal 20-valent conjugate vaccine 2 12/16/21 Given SARS-CoV-2 (COVID-19) mRNA BNT-162b2 vac 03/25/21 Recorded SARS-CoV-2 (COVID-19) mRNA BNT-162b2 vac 03/08/21 Recorded SARS-CoV-2 (COVID-19) mRNA BNT-162b2 vac 08/29/20 Recorded SARS-CoV-2 (COVID-19) mRNA BNT-162b2 vac 08/08/20 Recorded tetanus/diphtheria/pertussis, acel(Tdap) 03/18/10 Recorded 1Result Comment: [id number] 2Result Comment: [id number] Medications Albuterol (Eqv-ProAir HFA) 90 mcg/inh inhalation [...] tablet, 1 Refills, Maintenance, 07/18/23 7:24:00 EST, [facility], 164.1, cm, 05/15/23 14:34:00 EST, Height, 121.2, kg, 01/30/23 12:56:00 EDT, Dry Weight Start Date: 07/18/23 Status: Ordered citalopram 20 mg oral tablet 1 tablet, By Mouth, Daily, # 90 tablet, 1 Refills, Maintenance, 07/18/23 7:24:00 EST, [facility], 164.1, cm, 05/15/23 14:34:00 EST, Height, 121.2, kg, 01/30/23 12:56:00 EDT, Dry Weight Start Date: 07/18/23 Status: Ordered levothyroxine 0.05 mg oral tablet 1 tablet, By Mouth, Daily, # 90 tablet, 1 Refills, Maintenance, 07/18/23 7:24:00 EST, [facility] 400[facility], 164.1, cm, 05/15/23 14:34:00 EST, Height, 121.2, [...] Team Personnel Name: Sixto Slaughter RN Position: [facility] RN Member Role: Primary Care Nurse Name: Andrade Khan MD Position: [facility] Physician - Primary Care Member Role: PCP Address: Address: [address] [place] [address]- Name: Mirta Parker RN Position: [facility] RN Member Role: Primary Care Nurse Care Team Related Persons Name: CAMACHO VERNON Address: home [address] [place] [id number] [place]
--- OUTSIDE RECORDS SUMMARY | 2024-05-02 11:27 | XMS_ITS | Continuity of Care Document ---
Author Organization [facility] Address [address] [place] [address]- Care Team Providers Care Kiln Operator Name Role Phone Bill RODRIGUEZ, Andrade Green Primary Care Physician [place] [facility]s): 12/11/23 - 01/10/24 [facility] [address] [place] [address]- Attending Physician: Efren Guido Admitting Physician: AdmEfren scruggs Referring Physician: Admtr, ArAdriana Allergies, Adverse Reactions, [...] Recorded tetanus/diphtheria/pertussis, acel(Tdap) 03/18/10 Recorded 1Result Comment: [id number] 2Result Comment: [id number] Medications Albuterol (Eqv-ProAir HFA) 90 mcg/inh inhalation [...] tablet, 1 Refills, Maintenance, 07/18/23 7:24:00 EST, [facility] 397[facility], 164.1, cm, 05/15/23 14:34:00 EST, Height, 121.2, kg, 01/30/23 12:56:00 EDT, Dry Weight Start Date: 07/18/23 Status: Ordered citalopram 20 mg oral tablet 1 tablet, By Mouth, Daily, # 90 tablet, 1 Refills, Maintenance, 01/09/24 11:30:00 EDT, [facility] 71040, 164.1, cm, 12/11/23 13:49:00 EDT, Height, 121.2, kg, 01/30/23 12:56:00 EDT, Dry Weight Start Date: 01/09/24 Status: Ordered levothyroxine 0.05 mg oral tablet 1 tablet, By Mouth, Daily, # 90 tablet, 1 Refills, Maintenance, 07/18/23 7:24:00 EST, [facility] 61227, 164.1, cm, 05/15/23 14:34:00 EST, Height, 121.2, [...] Team Personnel Name: Sixto Slaughter RN Position: [facility] RN Member Role: Primary Care Nurse Name: Andrade Khan MD Position: [facility] Physician - Primary Care Member Role: PCP Address: Address: [address] [place] [address]- Name: Mirta Parker RN Position: [facility] RN Member Role: Primary Care Nurse Care Team Related Persons Name: CAMACHO VERNON Address: [address] [address]
--- OUTSIDE RECORDS SUMMARY | 2024-05-02 11:27 | XMS_ITS | Continuity of Care Document ---
Author Organization [facility] Francisco Paulino lt Address [address] [place] [address]- Care Team Providers Care Pre Sales Technical Engineer Name Role Phone Bill RODRIGUEZ, Andrade Green Primary Care Physician [phone] Encounter [facility] [place] Date(s): 09/07/22 - 10/07/22 [facility] [place] Adult [address] [place] [address]- Allergies, Adverse Reactions, Alerts Substance Reaction Severity [...] Recorded tetanus/diphtheria/pertussis, acel(Tdap) 03/18/10 Recorded 1Result Comment: [id number] 2Result Comment: [id number] Medications Albuterol (Eqv-ProAir HFA) 90 mcg/inh inhalation [...] 90 tablet, 1 Refills, 08/01/22 11:24:00 EST, [facility]/pharmacy #[id number], 165, cm, 04/25/22 6:57:00 EST, Height, 122.7, kg, 04/25/22 6:57:00 EST, Dry Weight Start Date: 08/01/22 Status: Ordered CeleXA 20 mg oral tablet 20 mg, 1, tablet, By Mouth, Daily, # 90 tablet, Refills 1, Tot. Refills 1, Maintenance, 08/01/22 11:24:00 EST, Route to Pharmacy Electronically, [facility]/pharmacy #[id number], Partial fill upon patient request if the prescription is for a schedule II opioid drug... Start Date: 08/01/22 Status: Ordered levothyroxine 0.05 mg oral tablet 1 tablet = 50 mcg, By Mouth, Daily, # 90 tablet, 1 Refills, Maintenance, 08/01/22 11:23:00 EST, Tablet, [facility]/pharmacy #[id number], Partial fill upon patient request if the prescription is for a schedule II opioid drug., 165, cm, 04/25/22 6:57:00 EST, Height,... Start Date: 08/01/22 Status: Ordered meloxicam 15 mg oral tablet 1 tablet, By Mouth, Daily, # 90 tablet, 1 Refills, Maintenance, 09/05/22 12:07:00 EDT, [facility], 165, cm, 04/25/22 6:57:00 EST, Height, 122.7, [...] Refills, Maintenance, 09/04/22 18:31:00 EDT, [facility], 165, cm, 04/25/22 6:57:00 EST, Height, 122.7, [...] Team Personnel Name: Branden TRAORE, Isabel Position: [facility] Nurse Member Role: Primary Care Nurse Name: Bill RODRIGUEZ, Andrade Green Position: [facility] Primary Care Physician Member Role: PCP Address: Address: [address] [place] [address]- Care Team Related Persons Name: CAMACHO VERNON Address: home [address] [place] [address]
--- OUTSIDE RECORDS SUMMARY | 2024-05-02 11:27 | XMS_ITS | Continuity of Care Document ---
Author Organization [facility] Paulino Address [address] [place] [address]- Care Team Providers Care Bull Gang Worker Name Role Phone Bill RODRIGUEZ, Andrade Green Primary Care Physician Encounter [facility] [place] Date(s): 02/15/22 - 02/22/22 [facility] Adult [address] [place] [address]- Encounter Diagnosis Knee pain, left(Discharge Diagnosis) - 02/15/22 Attending Physician: Not on Staff, Attending MD Allergies, Adverse Reactions, Alerts Substance Reaction [...] Recorded tetanus/diphtheria/pertussis, acel(Tdap) 03/18/10 Recorded 1Result Comment: [id number] 2Result Comment: [id number] Medications Albuterol (Eqv-ProAir HFA) 90 mcg/inh inhalation [...] tablet, 3 Refills, 12/28/21 6:48:00 EDT, [facility], 165.1, cm, 12/24/21 7:49:00 EDT, [...] capsule, 0 Refills, Maintenance, 02/16/22 14:27:00 EDT, [facility] 00225, 165.1, cm, 02/15/22 10:09:00 EDT, Height, 124.5, [...] 3 Refills, Maintenance, 01/25/22 6:17:00 EDT, Solution, [facility]/pharmacy #[id number], Partial fill upon patient request if [...] obesity(Confirmed) Active Type 2 diabetes mellitus(Confirmed) Active Diagnosis Diagnosis Type Effective Dates Health Status Cl inical Service Informant Knee pain, left Discharge Diagnosis 02/15/22 Vital Signs Most recent to oldest [Reference Range]: 1 Height 165.10 cm (02/15/22 10:09 AM) Weight 123.2 kg (02/15/22 10:09 AM) Oxygen Saturation [94-100 %] 97 % (02/15/22 10:09 AM) Pulse Rate [55-90 bpm] 96 bpm *H* (02/15/22 10:09 AM) Body Mass Index [18.5-24.99] 45.2 *>HHI* (02/15/22 10:09 AM) Blood Pressure [90-138/55-84 mm Hg] 112/ 78mm Hg (02/15/22 10:09 AM) Temperature [96.8-100.4 DegF] 97.4 DegF (02/15/22 10:09 AM) Mode of Delivery (Oxygen) Room air (02/15/22 10:09 AM) Blood pressure sites Arm, right (02/15/22 10:09 AM) Temperature Route Temporal (02/15/22 10:09 AM) Weight Obtained Via Standing scale (02/15/22 10:09 AM) Social History Social History Type Response Smoking Status Former smoker, quit more than 30 days ago; Use: Quit 12 years ago entered on: 07/15/19 Sex Care Team Personnel Name: Bill RODRIGUEZ, Andrade Green Address: [address] [place] [address] [place] [address]-
--- OUTSIDE RECORDS SUMMARY | 2024-05-02 11:27 | XMS_ITS | Continuity of Care Document ---
Author Organization [facility] Francisco Paulino lt Address [address] [place] [address]- Care Team Providers Care Shellfish Checker Name Role Phone Andrade Khan MD Primary Care Physician [phone] [place] [facility] [place] Date(s): 09/07/22 - 10/07/22 [facility] Adult [address] [place] [address]- Attending Physician: Andrade Khan MD Allergies, Adverse [...] Recorded tetanus/diphtheria/pertussis, acel(Tdap) 03/18/10 Recorded 1Result Comment: [id number] 2Result Comment: [id number] Medications Albuterol (Eqv-ProAir HFA) 90 mcg/inh inhalation [...] 90 tablet, 1 Refills, 08/01/22 11:24:00 EST, [facility]/pharmacy #[id number], 165, cm, 04/25/22 6:57:00 EST, Height, 122.7, kg, 04/25/22 6:57:00 EST, Dry Weight Start Date: 08/01/22 Status: Ordered CeleXA 20 mg oral tablet 20 mg, 1, tablet, By Mouth, Daily, # 90 tablet, Refills 1, Tot. Refills 1, Maintenance, 08/01/22 11:24:00 EST, Route to Pharmacy Electronically, [facility]/pharmacy #[id number], Partial fill upon patient request if the prescription is for a schedule II opioid drug... Start Date: 08/01/22 Status: Ordered levothyroxine 0.05 mg oral tablet 1 tablet = 50 mcg, By Mouth, Daily, # 90 tablet, 1 Refills, Maintenance, 08/01/22 11:23:00 EST, Tablet, [facility]/pharmacy #[id number], Partial fill upon patient request if the prescription is for a schedule II opioid drug., 165, cm, 04/25/22 6:57:00 EST, Height,... Start Date: 08/01/22 Status: Ordered meloxicam 15 mg oral tablet 1 tablet, By Mouth, Daily, # 90 tablet, 1 Refills, Maintenance, 09/05/22 12:07:00 EDT, [facility], 165, cm, 04/25/22 6:57:00 EST, Height, 122.7, [...] Refills, Maintenance, 09/04/22 18:31:00 EDT, [facility], 165, cm, 04/25/22 6:57:00 EST, Height, 122.7, [...] Team Personnel Name: Branden TRAORE, Isabel Position: [facility] Nurse Member Role: Primary Care Nurse Name: Bill RODRIGUEZ, Andrade Green Position: [facility] Primary Care Physician Member Role: PCP Address: Address: [address] [place] [address]- Care Team Related Persons Name: CAMACHO VERNON Address: home [address] [place] [address] [place]
--- OUTSIDE RECORDS SUMMARY | 2024-05-02 11:27 | XMS_ITS | Continuity of Care Document ---
Author Organization [facility] Francisco Paulino lt Address [address] [place] [address]- Care Team Providers Care Net Programmer Name Role Phone Bill RODRIGUEZ, Andrade Green Primary Care Physician [phone] Encounter [facility] [place] Date(s): 02/08/24 - 03/09/24 [facility] Adult [address] [place] [address]- Allergies, Adverse Reactions, Alerts Substance Reaction Severity [...] Recorded tetanus/diphtheria/pertussis, acel(Tdap) 03/18/10 Recorded 1Result Comment: [id number] 2Result Comment: [id number] Medications Albuterol (Eqv-ProAir HFA) 90 mcg/inh inhalation aerosol 2 puffs, Inhalation, Every 6 hours, PRN Wheezing/Shortness of Breath, # 8.5 Gm, 5 Refills, Maintenance, 02/13/24 15:16:00 EDT, Inhaler, [facility]/pharmacy #[id number], Partial fill upon patient [...] Refills, Maintenance, 01/09/24 11:30:00 EDT, [facility], 164.1, cm, 12/11/23 13:49:00 EDT, Height, 121.2, kg, 01/30/23 12:56:00 EDT, Dry Weight Start Date: 01/09/24 Status: Ordered clopidogrel 75 mg oral tablet 75 mg, 1, tablet, By Mouth, Daily, # 30 tablet, Refills 5, Tot. Refills 5, Maintenance, 03/01/24 14:22:00 EDT, Route to Pharmacy Electronically, [facility]/pharmacy #[id number], Partial fill upon patient [...] Refills, Maintenance, 01/12/24 12:08:00 EDT, [facility], 164.1, cm, 12/11/23 13:49:00 EDT, Height, 121.2, [...] 02/29/24 11:06:00 EDT, Route to Pharmacy Electronically, [facility]/pharmacy #[id number], Partial fill upon patient [...] Care Nurse Name: Andrade Khan MD Position: [facility] Physician - Primary Care Member Role: PCP Address: Address: [address] [place] [address] Name: Mirta Parker RN Position: S RN Member Role: Primary Care Nurse Name: Cassie Haas RN Position: S RN Member Role: Primary Care Nurse Name: Jenna Blevins RN Position: S RN Member Role: Primary Care Nurse Name: Patricia Diaz LPN Position: S RN Member Role: Primary Care Nurse Care Team Related Persons Name: CAMACHO VERNON Address: [address] [address] [place]
--- OUTSIDE RECORDS SUMMARY | 2024-05-02 11:27 | XMS_ITS | Continuity of Care Document ---
Author Organization [facility] Francisco Paulino lt Address [address] [place] [address]- Care Team Providers Care Vehicle Service Agent Name Role Phone Andrade Khan MD Primary Care Physician [place] [facility] [place](s): 08/16/23 - 12/14/23 [facility] Shine Millerley Adult [address] [place] [address]- Attending Physician: Andrade Khan MD Allergies, Adverse [...] Recorded tetanus/diphtheria/pertussis, acel(Tdap) 03/18/10 Recorded 1Result Comment: [id number] 2Result Comment: [id number] Medications Albuterol (Eqv-ProAir HFA) 90 mcg/inh inhalation [...] tablet, 1 Refills, Maintenance, 07/18/23 7:24:00 EST, [facility] 92434, 164.1, cm, 05/15/23 14:34:00 EST, Height, 121.2, kg, 01/30/23 12:56:00 EDT, Dry Weight Start Date: 07/18/23 Status: Ordered citalopram 20 mg oral tablet 1 tablet, By Mouth, Daily, # 90 tablet, 1 Refills, Maintenance, 07/18/23 7:24:00 EST, [facility] 91170, 164.1, cm, 05/15/23 14:34:00 EST, Height, 121.2, kg, 01/30/23 12:56:00 EDT, Dry Weight Start Date: 07/18/23 Status: Ordered levothyroxine 0.05 mg oral tablet 1 tablet, By Mouth, Daily, # 90 tablet, 1 Refills, Maintenance, 07/18/23 7:24:00 EST, [facility] 44259, 164.1, cm, 05/15/23 14:34:00 EST, Height, 121.2, [...] 12/21/23 14:08:00 EDT, 12/11/23 14:08:00 EDT, Tablet, [facility]/pharmacy #[id number], Part... Start Date: 12/11/23 Stop Date: [...] Team Personnel Name: Sixto Slaughter RN Position: [facility] RN Member Role: Primary Care Nurse Name: Andrade Khan MD Position: S Physician - Primary Care Member Role: PCP Address: Address: [address] [place] [address]- Name: Mirta Parker RN Position: S RN Member Role: Primary Care Nurse Care Team Related Persons Name: CAMACHO VERNON Address: home [address] [place] [address] [place]
--- OUTSIDE RECORDS SUMMARY | 2024-05-02 11:27 | XMS_ITS | Continuity of Care Document ---
Author Organization [facility] Paulino Address [address] [place] [address]- Care Team Providers Care Bedspring Assembler Name Role Phone Margot RODRIGUEZ, Bob Alcantar Primary Care Physician Encounter [facility] Date(s): 03/12/21 - 03/19/21 [facility] Adult [address] [place] [address]- Attending Physician: Andrade Khan MD Allergies, Adverse [...] oldest [Reference Range]: 1 Height 164.0 cm (03/12/21 3:26 PM) Social History Social History Type Response Smoking Status Former smoker, quit more than 30 days ago; Use: Quit 12 years ago entered on: 07/15/19 Sex
--- OUTSIDE RECORDS SUMMARY | 2024-05-02 11:27 | XMS_ITS | Continuity of Care Document ---
Author Organization [facility] ter Address [address] [place] [address]- Care Team Providers Care Diagram Clerk Name Role Phone Andrade Khan MD Primary Care Physician [phone] Encounter [facility] [place] Date(s): 01/30/23 - 03/01/[address] [address]- Attending Physician: Not on Staff, Attending MD Admitting Physician: Not on Staff, Admitting MD Referring Physician: Not on Staff, Referring [...] Recorded tetanus/diphtheria/pertussis, acel(Tdap) 03/18/10 Recorded 1Result Comment: [id number] 2Result Comment: [id number] Medications acetaminophen 325 mg oral tablet 650 [...] 15:56:00 EDT, Solution, [facility] # [facility], Partial fill upon [...] 90 tablet, 1 Refills, 01/23/23 15:14:00 EDT, [facility]/pharmacy #[id number], 164.5, cm, 01/12/23 11:17:00 EDT, Height, 121, kg, 01/12/23 11:17:00 EDT, Dry Weight Start Date: 01/23/23 Status: Ordered CeleXA 20 mg oral tablet 20 mg, 1, tablet, By Mouth, Daily, # 90 tablet, Refills 1, Tot. Refills 1, Maintenance, 01/23/23 15:14:00 EDT, Route to Pharmacy Electronically, [facility]/pharmacy #[id number], Partial fill upon patient request [...] 1 Refills, Maintenance, 01/23/23 15:14:00 EDT, Tablet, [facility]/pharmacy #[id number], Partial fill upon patient request [...] SITES, # 2 Unknown, 5 Refills, Maintenance, 02/22/23 7:23:00 EDT, [facility], 165, cm, 02/01/23 6:32:00 EDT, Height, 121.2, kg, 01/30/23 12:56:00 EDT, Dry Weight Start Date: 02/22/23 Status: Ordered Vitamin D3 1000 intl units [...] ago; Other: quit 20 years ago. chews thuye gum; entered on: 01/12/23 Sex Patient Care team information Care Team Personnel Name: Sixto Slaughter RN Position: S RN Member Role: Primary Care Nurse Name: Bill RODRIGUEZ, Andrade Green Position: [facility] Physician - Primary Care Member Role: PCP Address: Address: [address] [place] [address]- Name: Mirta Parker RN Position: [facility] RN Member Role: Primary Care Nurse Care Team Related Persons Name: CAMACHO VERNON Address: home [address] [place] [address] [place]
--- OUTSIDE RECORDS SUMMARY | 2024-05-02 11:27 | XMS_ITS | Continuity of Care Document ---
Author Organization [facility] Francisco Paulino lt Address [address] [place] [address]- Care Team Providers Care Life Skills Teacher Name Role Phone Bill RODRIGUEZ, Andrade Green Primary Care Physician [phone] [place] [facility] [place]/23 [facility] Adult [address] [place] [address]- Allergies, Adverse Reactions, Alerts Substance Reaction Severity [...] Recorded tetanus/diphtheria/pertussis, acel(Tdap) 03/18/10 Recorded 1Result Comment: [id number] 2Result Comment: [id number] Medications acetaminophen 325 mg oral tablet 650 [...] Maintenance, 03/12/21 15:56:00 EDT, Solution, [facility], Partial fill [...] Refills, Maintenance, 02/22/23 7:23:00 EDT, [facility], 165, cm, 02/01/23 6:32:00 EDT, Height, 121.2, [...] Care Member Role: PCP Address: Address: [address] [place] [address]- Name: Elena TRAORE, Mirta Position: [facility] RN Member Role: Primary Care Nurse Care Team Related Persons Name: CAMACHO VERNON Address: [address] [address]
--- OUTSIDE RECORDS SUMMARY | 2024-05-02 11:27 | XMS_ITS | Continuity of Care Document ---
Author Organization [facility] Address [address] [place] [address]- Care Team Providers Care Anatomic Pathology Manager Name Role Phone Bill RODRIGUEZ, Andrade Green Primary Care Physician En[place] [facility] [place] [facility] [place] [id number] Date(s): 02/01/24 - 03/23/24 [facility] [address] [place], [place] [address]- Attending Physician: Mildred Delgado NP Allergies, Adverse Reactions, Alerts Substance Reaction Severity [...] Recorded tetanus/diphtheria/pertussis, acel(Tdap) 03/18/10 Recorded 1Result Comment: [id number] 2Result Comment: [id number] Medications Albuterol (Eqv-ProAir HFA) 90 mcg/inh inhalation [...] Refills, Maintenance, 01/09/24 11:30:00 EDT, [facility], 164.1, cm, 12/11/23 13:49:00 EDT, Height, 121.2, [...] Refills, Maintenance, 01/12/24 12:08:00 EDT, [facility], 164.1, cm, 12/11/23 13:49:00 EDT, Height, 121.2, [...] 02/29/24 11:06:00 EDT, Route to Pharmacy Electronically, [facility]/pharmacy #[id number], Partial fill upon patient [...] 11 Refills, Maintenance, 02/24/24 6:27:00 EDT, Tablet, [facility]/pharmacy #[id number], Partial fill... Start Date: [...] Maintenance, 03/08/24 17:52:00 EDT, ER Tablet, [id number], Partial fill upon patient request if the [...] Care Member Role: PCP Address: Address: [address] [place] [address] Name: Mirta Parker RN Position: S RN Member Role: Primary Care Nurse Name: Cassie Haas RN Position: S RN Member Role: Primary Care Nurse Name: Jenna Blevins RN Position: S RN Member Role: Primary Care Nurse Name: Patricia Diaz LPN Position: S RN Member Role: Primary Care Nurse Care Team Related Persons Name: CAMACHO VERNON Address: [address] [address] [place]
--- OUTSIDE RECORDS SUMMARY | 2024-05-02 11:27 | XMS_ITS | Continuity of Care Document ---
Author Organization [facility] Francisco Paulino lt Address [address] [place] [address]- Care Team Providers Care Slasher Runner Name Role Phone Bill RODRIGUEZ, Andrade Green Primary Care Physician [place] [facility] [place](s): 03/01/22 - 03/31/22 [facility] Adult [address] [place] [address]- Allergies, Adverse Reactions, Alerts Substance Reaction Severity [...] Recorded tetanus/diphtheria/pertussis, acel(Tdap) 03/18/10 Recorded 1Result Comment: [id number] 2Result Comment: [id number] Medications Albuterol (Eqv-ProAir HFA) 90 mcg/inh inhalation [...] 1 Refills, Maintenance, 03/12/21 15:56:00 EDT, Solution, [facility], Partial fill upon [...] 1 Refills, Maintenance, 03/21/22 10:29:00 EDT, Tablet, [facility]/pharmacy #[id number], Partial fill upon patient request if [...] 5 Refills, Maintenance, 03/21/22 10:31:00 EDT, Solution, [facility]/pharmacy #[id number], Partial fill upon patient request if [...] Name: Bill RODRIGUEZ, Andrade Green Address: Address: [address] [place] [id number]
--- OUTSIDE RECORDS SUMMARY | 2024-05-02 11:27 | XMS_ITS | Continuity of Care Document ---
Author Organization [facility] [place] Paulino lt Address [address] [place] [address]- Care Team Providers Care Aviation Metalsmith Name Role Phone Andrade Khan MD Primary Care Physician [place] [facility] [place]22 - 01/31/22 [facility] Adult [address] [place] [address]- Attending Physician: Andrade Khan MD Allergies, Adverse [...] Recorded tetanus/diphtheria/pertussis, acel(Tdap) 03/18/10 Recorded 1Result Comment: [id number] 2Result Comment: [id number] Medications Albuterol (Eqv-ProAir HFA) 90 mcg/inh inhalation [...] oldest [Reference Range]: 1 Height 165.10 cm (01/24/22 4:20 PM) Weight 125.5 kg (01/24/22 4:20 PM) Body Mass Index [18.5-24.99] 46.04 *>HHI* (01/24/22 4:20 PM) Weight Obtained Via Standing scale (01/24/22 4:20 PM) Social History Social History Type Response Smoking Status Former smoker, quit more than 30 days ago; Use: Quit 12 years ago entered on: 07/15/19 Sex Care Team Personnel Name: Andrade Khan MD Address: [address] [place] [address]-
--- OUTSIDE RECORDS SUMMARY | 2024-05-02 11:27 | XMS_ITS | Continuity of Care Document ---
Author Organization [facility] Francisco Paulino lt Address [address] [place] [address]- Care Team Providers Care Vacuum Technician Name Role Phone Bill RODRIGUEZ, Andrade Green Primary Care Physician [phone] En[place] [facility] [place] Date(s): 05/15/23 - 06/14/23 [facility] Adult [address] [place] [address]- Allergies, Adverse Reactions, Alerts Substance Reaction Severity [...] Recorded tetanus/diphtheria/pertussis, acel(Tdap) 03/18/10 Recorded 1Result Comment: [id number] 2Result Comment: [id number] Medications Albuterol (Eqv-ProAir HFA) 90 mcg/inh inhalation [...] 90 tablet, 1 Refills, 01/23/23 15:14:00 EDT, [facility]/pharmacy #[id number], 164.5, cm, 01/12/23 11:17:00 EDT, Height, 121, kg, 01/12/23 11:17:00 EDT, Dry Weight Start Date: 01/23/23 Status: Ordered CeleXA 20 mg oral tablet 20 mg, 1, tablet, By Mouth, Daily, # 90 tablet, Refills 1, Tot. Refills 1, Maintenance, 01/23/23 15:14:00 EDT, Route to Pharmacy Electronically, [facility]/pharmacy #[id number], [...] Care Member Role: PCP Address: Address: [address] [place] [address] Name: Mirta Parker RN Position: [facility] RN Member Role: Primary Care Nurse Care Team Related Persons Name: CAMACHO VERNON Address: [address] [address] [place]
--- OUTSIDE RECORDS SUMMARY | 2024-05-02 11:27 | XMS_ITS | Continuity of Care Document ---
Author Organization [facility] Francisco Paulino lt Address [address] [place] [address]- Care Team Providers Care Beauty Operator Apprentice Name Role Phone Bill RODRIGUEZ, Andrade Green Primary Care Physician [place] [facility] [place](s): 12/16/22 - 01/15/23 [facility] Adult [address] [place] [address]- Allergies, Adverse Reactions, Alerts Substance Reaction Severity [...] Recorded tetanus/diphtheria/pertussis, acel(Tdap) 03/18/10 Recorded 1Result Comment: [id number] 2Result Comment: [id number] Medications Albuterol (Eqv-ProAir HFA) 90 mcg/inh inhalation [...] 90 tablet, 1 Refills, 08/01/22 11:24:00 EST, [facility]/pharmacy #[id number], 165, cm, 04/25/22 6:57:00 EST, Height, 122.7, kg, 04/25/22 6:57:00 EST, Dry Weight Start Date: 08/01/22 Status: Ordered CeleXA 20 mg oral tablet 20 mg, 1, tablet, By Mouth, Daily, # 90 tablet, Refills 1, Tot. Refills 1, Maintenance, 08/01/22 11:24:00 EST, Route to Pharmacy Electronically, [facility]/pharmacy #[id number], Partial fill upon patient request if the prescription is for a schedule II opioid drug... Start Date: 08/01/22 Status: Ordered levothyroxine 0.05 mg oral tablet 1 tablet = 50 mcg, By Mouth, Daily, # 90 tablet, 1 Refills, Maintenance, 08/01/22 11:23:00 EST, Tablet, [facility]/pharmacy #[id number], Partial fill upon patient request if the prescription is for a schedule II opioid drug., 165, cm, 04/25/22 6:57:00 EST, Height,... Start Date: 08/01/22 Status: Ordered Magnesium Citrate By Mouth, 0 Refills, Maintenance, 01/12/23 11:25:00 EDT, Partial fill upon patient request if the prescription is for a schedule II opioid drug. Start Date: 01/12/23 Status: Ordered meloxicam 15 mg oral tablet 1 tablet, By Mouth, Daily, # 90 tablet, 1 Refills, Maintenance, 09/05/22 12:07:00 EDT, [facility], 165, cm, 04/25/22 6:57:00 EST, Height, 122.7, kg, 04/25/22 6:57:00 EST, Dry Weight Start Date: 09/05/22 Status: Ordered Multivitamin Daily, 0 Refills, Maintenance, 01/12/23 11:25:00 EDT, Partial fill upon patient request if the prescription is for a schedule II opioid drug. Start Date: 01/12/23 Status: Ordered Mystic-3 Fish Oil By Mouth, 3 times a day, 0 Refills, Maintenance, 01/12/23 11:25:00 EDT, Partial fill upon patient request if the prescription is for a schedule II opioid drug. Start Date: 01/12/23 Status: Ordered omeprazole 40 mg oral enteric [...] Refills, Maintenance, 09/04/22 18:31:00 EDT, [facility], 165, cm, 04/25/22 6:57:00 EST, Height, 122.7, [...] Team Personnel Name: Isabel Otero RN Position: [facility] Nurse Member Role: Primary Care Nurse Name: Andrade Khan MD Position: [facility] Physician - Primary Care Member Role: PCP Address: Address: [address] [place] [address]- Care Team Related Persons Name: CAMACHO VERNNO Address: home [address] [place] [address] [place]
--- OUTSIDE RECORDS SUMMARY | 2024-05-02 11:27 | XMS_ITS | Continuity of Care Document ---
Author Organization [facility] Address [address] [place] [address]- Care Team Providers Care Print Buyer Name Role Phone Bill RODRIGUEZ, Andrade Green Primary Care Physician [phone] [place] [facility] [place](s): 01/12/23 - 02/11/23 [facility] [address] [place] [address]- Attending Physician: Efren Guido Admitting Physician: AdmtrEfren [...] Recorded tetanus/diphtheria/pertussis, acel(Tdap) 03/18/10 Recorded 1Result Comment: [id number] 2Result Comment: [id number] Medications acetaminophen 325 mg oral tablet 650 [...] 1 Refills, Maintenance, 03/12/21 15:56:00 EDT, Solution, [facility] # 50, Partial [...] 90 tablet, 1 Refills, 01/23/23 15:14:00 EDT, [facility]/pharmacy #[id number], 164.5, cm, 01/12/23 11:17:00 EDT, Height, 121, kg, 01/12/23 11:17:00 EDT, Dry Weight Start Date: 01/23/23 Status: Ordered CeleXA 20 mg oral tablet 20 mg, 1, tablet, By Mouth, Daily, # 90 tablet, Refills 1, Tot. Refills 1, Maintenance, 01/23/23 15:14:00 EDT, Route to Pharmacy Electronically, [facility]/pharmacy [...] 1 Refills, Maintenance, 01/23/23 15:14:00 EDT, Tablet, [facility]/pharmacy #[id number], Partial fill upon patient [...] Refills, Maintenance, 09/04/22 18:31:00 EDT, [facility], 165, cm, 04/25/22 6:57:00 EST, Height, 122.7, [...] ago; Other: quit 20 years ago. yesys thuycinda gum; entered on: 01/12/23 Sex Patient Care team information Care Team Personnel Name: Sukhjinder TRAORE, Sixto Denise Position: S RN Member Role: Primary Care Nurse Name: Bill RODRIGUEZ, Andrade Green Position: [facility] Physician - Primary Care Member Role: PCP Address: Address: [address] [place] [address]- Name: Mirta Parker RN Position: [facility] RN Member Role: Primary Care Nurse Care Team Related Persons Name: CAMACHO VERNON Address: [address] [address] [place]
--- OUTSIDE RECORDS SUMMARY | 2024-05-02 11:27 | XMS_ITS | Continuity of Care Document ---
Author Organization [facility] [place] Paulino Address [address] [place] [address]- Care Team Providers Care Drilling Foreman Name Role Phone Bill RODRIGUEZ, Andrade Green Primary Care Physician [place] [facility] [place] 11[place]14/23 - 12/14/23 [facility] Adult [address] [place] [address]- Attending Physician: AdmEfren scruggs Admitting Physician: AdmEfren scruggs Referring Physician: AdmtrEfren Allergies, Adverse Reactions, Alerts Substance Reaction Severity [...] Recorded tetanus/diphtheria/pertussis, acel(Tdap) 03/18/10 Recorded 1Result Comment: [id number] 2Result Comment: [id number] Medications Albuterol (Eqv-ProAir HFA) 90 mcg/inh inhalation [...] tablet, 1 Refills, Maintenance, 07/18/23 7:24:00 EST, [facility], 164.1, cm, 05/15/23 14:34:00 EST, Height, 121.2, kg, 01/30/23 12:56:00 EDT, Dry Weight Start Date: 07/18/23 Status: Ordered citalopram 20 mg oral tablet 1 tablet, By Mouth, Daily, # 90 tablet, 1 Refills, Maintenance, 07/18/23 7:24:00 EST, [facility], 164.1, cm, 05/15/23 14:34:00 EST, Height, 121.2, kg, 01/30/23 12:56:00 EDT, Dry Weight Start Date: 07/18/23 Status: Ordered levothyroxine 0.05 mg oral tablet 1 tablet, By Mouth, Daily, # 90 tablet, 1 Refills, Maintenance, 07/18/23 7:24:00 EST, [facility], 164.1, cm, 05/15/23 14:34:00 EST, Height, 121.2, [...] Team Personnel Name: Sixto Slaughter RN Position: [facility] RN Member Role: Primary Care Nurse Name: Bill RODRIGUEZ, Andrade Green Position: [facility] Physician - Primary Care Member Role: PCP Address: Address: [address] [place] [address]- Name: Mirta Parker RN Position: [facility] RN Member Role: Primary Care Nurse Care Team Related Persons Name: CAMACHO VERNON Address: home [address] [place] [address] [place]
--- OUTSIDE RECORDS SUMMARY | 2024-05-02 11:27 | XMS_ITS | Continuity of Care Document ---
Author Organization [facility] Paulino lt Address [address] [place] [address]- Care Team Providers Care Entry Level Sales Associate Name Role Phone Bill RODRIGUEZ, Andrade Green Primary Care Physician En[place] [facility] [place] Date(s): 06/22/21 - 07/22/21 [facility] Adult [address] [place] [address]- Allergies, Adverse Reactions, Alerts Substance Reaction Severity [...]
--- OUTSIDE RECORDS SUMMARY | 2024-05-02 11:27 | XMS_ITS | Continuity of Care Document ---
Author Organization [facility] Francisco Paulino lt Address [address] [place] [address]- Care Team Providers Care Educational Resource Coordinator Name Role Phone Bill RODRIGUEZ, Andrade Green Primary Care Physician Encounter [facility] Date(s): 03/01/24 - 03/31/24 [facility] Adult [address] [place] [address]- Allergies, Adverse Reactions, Alerts Substance Reaction Severity [...] Recorded tetanus/diphtheria/pertussis, acel(Tdap) 03/18/10 Recorded 1Result Comment: [id number] 2Result Comment: [id number] Medications Albuterol (Eqv-ProAir HFA) 90 mcg/inh inhalation [...] Refills, Maintenance, 01/09/24 11:30:00 EDT, [facility], 164.1, cm, 12/11/23 13:49:00 EDT, Height, 121.2, kg, 01/30/23 12:56:00 EDT, Dry Weight Start Date: 01/09/24 Status: Ordered clopidogrel 75 mg oral tablet 75 mg, 1, tablet, By Mouth, Daily, # 30 tablet, Refills 5, Tot. Refills 5, Maintenance, 03/01/24 14:22:00 EDT, Route to Pharmacy Electronically, [facility]/pharmacy #[id number], Partial fill upon patient [...] Refills, Maintenance, 01/12/24 12:08:00 EDT, [facility], 164.1, cm, 12/11/23 13:49:00 EDT, Height, 121.2, [...] 02/29/24 11:06:00 EDT, Route to Pharmacy Electronically, [facility]/pharmacy #[id number], Partial fill upon patient [...] 11 Refills, Maintenance, 02/24/24 6:27:00 EDT, Tablet, [facility]/pharmacy #[id number], Partial fill... Start Date: [...] Refills, Maintenance, 03/08/24 17:52:00 EDT, ER Tablet, [facility]/pharmacy #[id number], Partial fill upon patient request if the [...] Care Nurse Name: Andrade Khan MD Position: [facility] Physician - Primary Care Member Role: PCP Address: Address: [address] [place] [id number] Name: Mirta Parker RN Position: S RN Member Role: Primary Care Nurse Name: Cassie Haas RN Position: S RN Member Role: Primary Care Nurse Name: Jenna Blevins RN Position: S RN Member Role: Primary Care Nurse Name: Patricia Diaz LPN Position: S RN Member Role: Primary Care Nurse Care Team Related Persons Name: CAMACHO VERNON Address: [address] [address] [place]
--- OUTSIDE RECORDS SUMMARY | 2024-05-02 11:27 | XMS_ITS | Continuity of Care Document ---
Author Organization [facility] [employer]r [employer] [facility] Address [address] [place] [address], [address] [address]- Care Team Providers Care Stereo Compiler Name Role Phone Andrade Khan MD Primary Care Phys[id number] - 01[facility]17[facility]annen [employer] [address] [facility], [address] [place], [place] [address] Attending Physician: Sandy Figueroa MD Referring Physician: [...] Recorded tetanus/diphtheria/pertussis, acel(Tdap) 03/18/10 Recorded 1Result Comment: [id number] 2Result Comment: [id number] Medications Albuterol (Eqv-ProAir HFA) 90 mcg/inh inhalation [...] 12/10/21 17:50:00 EDT, Route to Pharmacy Electronically, [facility]/pharmacy #[id number], Partial fill upon patientrequest if the prescription [...] 12/10/21 17:50:00 EDT, Route to Pharmacy Electronically, [facility]/pharmacy #[id number], Partial fill upon patient request if the [...] Procedure Date Related Diagnosis Body Site Status Laparoscopic total hysterect rajendra using robotic assistance 12/23/21 Completed Vital Signs Most recent to oldest [Reference Range]: 1 Height 165.10 cm (01/10/22 2:56 PM) Weight 123.6 kg (01/10/22 2:56 PM) Body Mass Index [18.5-24.99] 45.34 *>HHI* (01/10/22 2:56 PM) Blood Pressure [90-138/55-84 mm Hg] 120/ 70mm Hg (01/10/22 2:56 PM) Blood pressure sites Arm, left (01/10/22 2:56 PM) Weight Obtained Via Standing scale (01/10/22 2:56 PM) Social History Social History Type Response Smoking Status Former smoker, quit more than 30 days ago; Use: Quit 12 years ago entered on: 07/15/19 Sex
--- OUTSIDE RECORDS SUMMARY | 2024-05-02 11:27 | XMS_ITS | Continuity of Care Document ---
Author Organization [facility] [place] Paulino lt Address [address] [place] [address]- Care Team Providers Care Molder Wax Ball Name Role Phone Bill RODRIGUEZ, Andrade Green Primary Care Physician Encounter [facility] [place] Date(s): 12/23/21 - 01/22/22 [facility] Adult [address] [place] [address]- Allergies, Adverse Reactions, Alerts Substance Reaction Severity [...] Recorded tetanus/diphtheria/pertussis, acel(Tdap) 03/18/10 Recorded 1Result Comment: [id number] 2Result Comment: [id number] Medications Albuterol (Eqv-ProAir HFA) 90 mcg/inh inhalation [...] each, 1 Refills, Maintenance, 03/12/21 15:56:00 EDT, [facility], [facility] # [facility], Partial fill [...] 12/10/21 17:50:00 EDT, Route to Pharmacy Electronically, [facility]/pharmacy #[id number], Partial fill upon patientrequest if the prescription [...] 12/10/21 17:50:00 EDT, Route to Pharmacy Electronically, [facility]/pharmacy #[id number], Partial fill upon patient request if the [...]
--- OUTSIDE RECORDS SUMMARY | 2024-05-02 11:27 | XMS_ITS | Continuity of Care Document ---
Author Organization [facility] [employer]r [employer] [facility] Address [address] [place] [address], [address] [place] [address]- Care Team Providers Care Fire Services Plumber Name Role Phone Andrade Khan MD Primary Care Physician [id number] Date(s): 01/31/22 - 02/07/22 [facility] Jayashannen [employer] [facility] [address] [facility], [address] [place], [place] [address] Attending Physician: Sandy Figueroa MD Referring Physician: [...] Recorded tetanus/diphtheria/pertussis, acel(Tdap) 03/18/10 Recorded 1Result Comment: [id number] 2Result Comment: [id number] Medications Albuterol (Eqv-ProAir HFA) 90 mcg/inh inhalation [...] oldest [Reference Range]: 1 Height 165.10 cm (01/31/22 9:09 AM) Weight 125.18 kg (01/31/22 9:09 AM) Pulse Rate [55-90 bpm] 96 bpm *H* (01/31/22 9:09 AM) Body Mass Index [18.5-24.99] 45.92 *>HHI* (01/31/22 9:09 AM) Blood Pressure [90-138/55-84 mm Hg] 115/ 76mm Hg (01/31/22 9:09 AM) Respiratory Rate [16-30 br/min] 24 br/mi n (01/31/22 9:09 AM) Blood pressure sites Arm, left (01/31/22 9:09 AM) Weight Obtained Via Standing scale (01/31/22 9:09 AM) Social History Social History Type Response Smoking Status Former smoker, quit more than 30 days ago; Use: Quit 12 years ago entered on: 07/15/19 Sex Care Team Personnel Name: Bill RODRIGUEZ, Andrade Green Address: [address] [place] [address]-
--- OUTSIDE RECORDS SUMMARY | 2024-05-02 11:27 | XMS_ITS | Continuity of Care Document ---
Author Organization [facility] Address [address] [place] [address]- Care Team Providers Care Online Content Developer Name Role Phone Bill RODRIGUEZ, Andrade Green Primary Care Physician [place] [facility] [place] Date(s): 03/13/22 - 04/12/22 [facility] [address] [place] [address]- Allergies, Adverse Reactions, Alerts Substance Reaction Severity [...] Recorded tetanus/diphtheria/pertussis, acel(Tdap) 03/18/10 Recorded 1Result Comment: [id number] 2Result Comment: [id number] Medications Albuterol (Eqv-ProAir HFA) 90 mcg/inh inhalation [...] 1 Refills, Maintenance, 03/21/22 10:29:00 EDT, Tablet, [facility]/pharmacy #[id number], Partial fill upon patient [...] 5 Refills, Maintenance, 03/21/22 10:31:00 EDT, Solution, [facility]/pharmacy #[id number], Partial fill upon patient [...] Team Personnel Name: Isabel Otero RN Position: [facility] MAK[facility]LA Nurse Member Role: Primary Care Nurse Name: Andrade Khan MD Position: [facility] Primary Care Physician Member Role: PCP Address: Address: [address] [place] [address]- Care Team Related Persons Name: CAMACHO VERNON Address: home [address] [place] [address] [place]
--- OUTSIDE RECORDS SUMMARY | 2024-05-02 11:27 | XMS_ITS | Continuity of Care Document ---
Author Organization [facility] Address [address] [place] [address]- Care Team Providers Care Enterprise Application Architect Name Role Phone Bob Frost MD Primary Care Physician [place] [facility] [place](s[place] 12/28/20 - 03/03/[address] [address] Discharge Disposition: A-D/C Home Attending Physician: [...]
[2024-05-02 11:48] LABS: Alanine Aminotransferase 11 U/L (0-31); Albumin Level 3.5 g/dL (3.5-5.0); Alkaline Phosphatase 74 U/L (39-117); Anion Gap 13 (12-20); Aspartate Amino Transferase 15 U/L (5-31); Bilirubin Total 0.4 mg/dL (0.0-1.0); Blood Urea Nitrogen 17 mg/dL (9-16); Calcium 8.4 mg/dL (8.4-10.2); Carbon Dioxide 23 mmol/L (22-29); Chloride 107 mmol/L (96-108); Creatinine Clr Calc Pharmacy 95.9; Estimated Glomerular Filt Rate > 60; Glucose Random 208 mg/dL (60-115); Potassium 3.8 mmol/L (3.3-5.1); Sodium 139 mmol/L (135-145); Total Protein 6.3 g/dL (6.5-8.0)
--- NOTE | 2024-05-02 11:52 | ED_ITS ---
HPI - Chest Pain General Chief Complaint: Chest Pain Stated Complaint: Chest pain Time Seen by Provider: 05/02/24 11:52 Source: patient Mode of arrival: ambulatory Limitations: no limitations History of Present Illness ED Provider: TAMMI Gatica HPI narrative: This is a 63-year-old female past medical history of NSTEMI, obesity, hyperlipidemia presenting with diffuse chest discomfort but mostly localized to the substernal region without radiation ongoing since this morning at approximately 09:20. Pain started when patient was at rest and not doing anything. She reports some associated shortness of breath with slight lightheadedness. He tells me she took nitro 3 times with little to no effect. She denies headache, vision changes, weakness, nausea, vomiting, abdominal pain, jaw pain, shoulder pain, fevers, chills, recent illness. Related Data Home Medications ?Medication ?Instructions ?Recorded ?Confirmed atorvastatin 40 mg tablet 1 tab PO DAILY 08/27/20 08/27/20 citalopram 20 mg tablet 1 tab PO DAILY 08/27/20 08/27/20 Allergies Allergy/AdvReac Type Severity Reaction Status Date / Time meperidine [From DEMEROL] Allergy Unknown UNKNOWN Verified 05/02/24 11:07 Benadryl Allergy Unknown Unknown Uncoded 08/27/20 06:30 Review of Systems 2 Review of Systems: Yes all other systems are reviewed and are negative PMFSH Past Medical History Attestation statement: The following information was validated with the patient. Source: old records reviewed and nursing notes reviewed Medical History Asthma delivery delivered High cholesterol Obesity Surgical History H/O foot surgery H/O tubal ligation Social History Social History Advance Directives: Yes Advance Directives Information Provided: Yes Advance Directives on File: No Physical Exam 2 Vital Signs: Vital Signs: Last Vital Signs Temp 97.8 F 05/02/24 11:04 Pulse 72 05/02/24 12:16 Resp 16 05/02/24 12:16 BP 107/54 L 05/02/24 12:16 Pulse Ox 99 05/02/24 12:16 O2 Del Method Room Air 05/02/24 12:16 BMI result Body Mass Index 49.9 vss Appearance: Alert.? Oriented X3.? No acute distress.? Head: Normocephalic, atraumatic, no step-offs or deformities Eyes: Pupils equal, round and reactive to light.? Neck: Normal inspection.? Neck supple.? CVS: Normal heart rate and rhythm.? Pulses normal.? Respiratory: No respiratory distress.? Breath sounds normal.? Abdomen: Soft and nontender.? Skin: Skin warm and dry.? Normal skin color.? Normal skin turgor.? Extremities: No lower extremity edema.? No calf ttp. 5/5 strength to bilateral upper and lower extremities Neuro: Oriented X 3.? No motor deficit.? No sensory deficit. CN 2-12 intact Course Reevaluation(s) Reevaluation #1: CBC with a normocytic anemia appears to be around her baseline. Chemistry with no acute findings needing intervention. Troponin negative x2. Nonischemic EKG. Patient feels much better. BNP normal. Coags unremarkable. D-dimer negative. Patient does not have chest pain. Her chest x-ray with no acute cardiopulmonary process. She did appear anxious at 1 point in Ativan was given seemed to help a lot. Patient to be discharged home advised to return with new or worsening symptoms. Will have her follow up with Cardiology. And primary care provider. Educated patient on diagnosis and treatment plan, answered all question, patient verbalizes understanding. At this time patient will be discharged home, advised to return with new or worsening symptoms. Educated on worrisome signs and symptoms and when to return. At this time I feel comfortable discharge home. Time: 14:13 Medications Administered Discontinued Medications Generic Name Dose Route Start Last Admin Trade Name Noah PRN Reason Stop Dose Admin Lorazepam 0.5 mg 05/02/24 12:25 05/02/24 12:36 Lorazepam 2 Mg/Ml Vial IVPUSH 05/02/24 12:26 0.5 mg STAT STA Administration Morphine Sulfate 4 mg 05/02/24 11:54 05/02/24 12:12 Morphine Sulfate 4 Mg/Ml Cartridge IVPUSH 05/02/24 11:55 4 mg ONCE ONE Administration Protocol Medical Decision Making Medical Decision Making MDM Narrative: This is a 63-year-old female presenting with substernal chest discomfort without radiation with associated shortness of breath since 02/22 this morning started at rest. History of NSTEMI this feels like the last time she had an NSTEMI PE benign Hx and pe concerning for dysrhythmia versus NSTEMI versus unstable angina. Unlikely PE, dissection, AAA. No recent illness therefore less likely endocarditis, myocarditis or pericarditis. Plan labs, imaging. Differential Diagnosis Differential Diagnoses: The differential diagnosis associated with the presentation includes (Hx and pe concerning for dysrhythmia versus NSTEMI versus unstable angina. Unlikely PE, dissection, AAA. No recent illness therefore less likely endocarditis, myocarditis or pericarditis.) Admission/Observation Consideration of admission/observation: Escalation of care including admission/observation considered Lab Data MDM Lab Attestation statement: I reviewed the patient's lab results. 05/02/24 11:19 05/02/24 11:19 Labs: Lab Results 05/02/24 05/02/24 05/02/24 Range/Units 11:19 12:02 13:28 WBC 8.8 (4.8-10.8) X10*3/uL RBC 3.96 L (4.20-5.50) X10*6/uL Hgb 11.2 L (12.0-16.0) g/dl Hct 34.8 L (37.0-47.0) % MCV 87.9 (80.0-98.0) fL MCH 28.3 (27.0-33.0) pg MCHC 32.2 (31.0-35.0) g/dl RDW 14.5 (11.0-16.0) % Plt Count 248 (160-400) X10*3/uL MPV 10.6 (9.4-12.3) fL Immature Gran % (Auto) 0.3 (0.0-0.4) % Neut % (Auto) 70.9 (45-73) % Lymph % (Auto) 19.6 L (20-40) % [place] % (Auto) 6.8 (2-11) % Eos % (Auto) 1.8 (0-4) % Baso % (Auto) 0.6 (0-2) % Lymph # (Auto) 1.7 (1.2-4.9) X10*3/uL [place] # (Auto) 0.6 (0.1-1.2) X10*3/uL Eos # (Auto) 0.2 (0.0-0.4) X10*3/uL Baso # (Auto) 0.1 (0.0-0.2) X10*3/uL Abs Immat Gran (auto) 0.03 (0.00-0.03) X10*3/uL Absolute Neuts (auto) 6.2 (2.0-8.3) x10*3/uL Absolute Nucleated RBC 0.000 (0.0-0.012) X10*3/uL Nucleated RBC % (auto) 0.0 (0.0-0.2) /100WBC PT 14.1 H (10.9-12.4) SEC INR 1.2 H (0.9-1.1) D-Dimer High Sensitivty < 150 NG/ML Sodium 139 (135-145) mmol/L Potassium 3.8 (3.3-5.1) mmol/L Chloride 107 (96-108) mmol/L Carbon Dioxide 23 (22-29) mmol/L Anion Gap 13 (12-20) BUN 17 H (9-16) mg/dL Creatinine 0.84 (0.5-1.4) mg/dL Estim Creat Clear Calc 95.9 Estimated GFR > 60 Random Glucose 208 H (60-115) mg/dL Calcium 8.4 (8.4-10.2) mg/dL Total Bilirubin 0.4 (0.0-1.0) mg/dL AST 15 (5-31) U/L ALT 11 (0-31) U/L Alkaline Phosphatase 74 (39-117) U/L Troponin I High Sens < 2.7 < 2.7 (<3.5-17.0) ng/L B-Natriuretic Peptide 19 (<100) pg/mL Total Protein 6.3 L (6.5-8.0) g/dL Albumin 3.5 (3.5-5.0) g/dL Independent Interpretation I performed an independent interpretation of an: EKG (Normal sinus rhythm Nonspecific T wave abnormality Abnormal ECG When compared with ECG of 27-AUG-2020 07:18, Nonspecific T wave abnormality, worse in Anterior leads) and Plain X-Ray Radiology Impression Discussion of test interpretation with radiology: I have reviewed the radiologist's reading. Critical Care Time Critical Care Time Critical Care Time: Yes Total Critical Care Time: 35 Attestation: I attest to this time spent taking care of the patient, obtaining history, physical, reviewing labs, imaging, treatment of patients condition +/- specialist/hospitalist consult Discharge Plan Discharge Clinical Impression: Chest pain Patient Disposition: Home, Self-Care Instructions: Chest Pain (ED) Additional Instructions: Take your medications as prescribed. If you were prescribed antibiotics today, it is important that you take your medication to their entirety, do not skip any doses, do not finish them early. Follow-up with your primary care provider this week. Return to the emergency department with new or worsening symptoms. Such as fevers, chills, chest pain, shortness of breath, nausea, vomiting, dizziness, headache, vision changes, lethargy In case of emergency call 911 Follow up with cardiology Take nitro as needed. Prescriptions: No Action atorvastatin 40 mg tablet 1 tab PO DAILY citalopram 20 mg tablet 1 tab PO DAILY Referrals: Andrade Khan MD [Primary Care Provider] - [address] [facility] [Provider Group] - 3 days Stand Alone Forms: Work/School Release Print Language: [place]
[2024-05-02 11:54] LABS: Troponin-I High Sensitivity < 2.7 ng/L (<3.5-17.0)
[2024-05-02 12:12] LABS: INTERNATIONAL NORM RATIO 1.2 (0.9-1.1); Prothrombin Time 14.1 SEC (10.9-12.4)
[2024-05-02] MEDS: Morphine Sulfate 4 MG/ML CARTRIDGE IVPUSH (12:12)
[2024-05-02 12:16] VITALS: BP 107/54; PULSE 72; RESP 16; O2SAT 99
[2024-05-02 12:17] LABS: D Dimer High Sensitivity < 150 NG/ML
[2024-05-02] MEDS: LORazepam 2 MG/ML VIAL 0.5 MG IVPUSH (12:36)
[2024-05-02 13:55] LABS: B Type Natriuretic Peptide 19 pg/mL (<100)
[2024-05-02 14:01] LABS: Troponin-I High Sensitivity < 2.7 ng/L (<3.5-17.0)
[2024-05-02 14:39] VITALS: BP 101/52; PULSE 66; RESP 18; TEMP 36.5; O2SAT 98
== END 2024-05-02 14:41 | disposition home or self-care (01) ==
PROVIDERS: Physician Assistant; Emergency Provider Emergency Medicine Emergency Medical Services; PCP Family Medicine
DX: R07.9 Chest pain, unspecified (principal); R06.02 Shortness of breath; E78.5 Hyperlipidemia, unspecified; J45.909 Unspecified asthma, uncomplicated; Z79.02 Long term (current) use of antithrombotics/antiplatelets; Z79.899 Other long term (current) drug therapy
CPT/HCPCS: 36415; 71045; 80053; 83880; 84484; 85025; 85379; 85610; 93005; 96374; 96375; 99284; J2060; J2270

== ENCOUNTER → 2024-05-02 10:41 | Outpatient (BNV) | payer MEDICARE, SELFPAY | PROVIDERS: Emergency Provider Emergency Medicine Emergency Medical Services; PCP Family Medicine; Visit Provider Internal Medicine | DX: R94.31 Abnormal electrocardiogram [ECG] [EKG] (principal) | CPT/HCPCS: 93010 ==

== ENCOUNTER 2024-06-16 10:53 | Emergency (ER) | payer MEDICARE, SELFPAY ==
--- NOTE | 2024-06-16 | ECG_ITS ---
Test Reason : CP Blood Pressure : */* mmHG Vent. Rate : 72 BPM Atrial Rate : 72 BPM P-R Int : 148 ms QRS Dur : 80 ms QT Int : 374 ms P-R-T Axes : 38 -2 6 degrees QTcB Int : 409 ms Normal sinus rhythm Cannot rule out Anterior infarct , age undetermined Abnormal ECG When compared with ECG of 02-May-2024 10:37, No significant change was found Referred By: Generic ED Physician Electronically Signed By: Raúl Guy
--- NOTE | ~2024-06-16 | XR_ITS ---
CLINICAL HISTORY: chest pain, sob 2 view chest x-ray Comparison: 05/02/2024 Findings: The lungs are clear. Normal size heart. No acute fracture. IMPRESSION: 1. No acute findings. This document has been electronically signed by: Fredy Marks MD on 06/16/2024 11:39:32
--- NOTE | 2024-06-16 11:01 | ED.CHESTPAIN ---
HPI - Chest Pain General Chief Complaint: Chest Pain Stated Complaint: Chest pain SOB Related Data Home Medications ?Medication ?Instructions ?Recorded ?Confirmed atorvastatin 40 mg tablet 1 tab PO DAILY 08/27/20 08/27/20 citalopram 20 mg tablet 1 tab PO DAILY 08/27/20 08/27/20 Allergies Allergy/AdvReac Type Severity Reaction Status Date / Time meperidine [From DEMEROL] Allergy Unknown UNKNOWN Verified 06/16/24 11:05 Benadryl Allergy Unknown Unknown Uncoded 08/27/20 06:30 [facility] Past Medical History Medical History Asthma delivery delivered High cholesterol Obesity Surgical History H/O foot surgery H/O tubal ligation Social History Social History Advance Directives: No Advance Directives Information Provided: No Do you have a plan to hurt others: No Plan Physical Exam Vital Signs: Vital Signs: Last Vital Signs Temp 98.0 F 06/16/24 11:02 Pulse 80 06/16/24 11:02 Resp 18 06/16/24 11:02 BP 124/57 L 06/16/24 11:02 Pulse Ox 98 06/16/24 11:02 O2 Del Method Room Air 06/16/24 11:02 BMI result Body Mass Index 49.5 Course Course Course Narrative: This is an RME performed by John Riley CNP: Additional HPI, ROS, PE not included below will be deferred to primary provider. Patient is a 63-year-old female who presents to the emergency department for evaluation. She reports at approximately 09:45 this morning she began experiencing substernal chest pain radiating to the left shoulder blade as well as shortness of breath. Varying intensity but progressively worsened. She took her regular medications and hope that things would subside. These symptoms continued to therefore took 2 sublingual nitro does not recall exactly what time. Reports symptoms resolved. However on the drive here she did have a 5 minute episode of similar pain to the substernal region of her chest. She also states she is experiencing diarrhea Plan: EKG, serum labs, CXR Reevaluation(s) Reevaluation #1: LWCT Medical Decision Making Lab Data 06/16/24 15:46 06/16/24 15:46 Labs: Lab Results 06/16/24 06/16/24 Range/Units 11:17 15:46 WBC 8.3 (4.8-10.8) X10*3/uL RBC 4.55 (4.20-5.50) X10*6/uL Hgb 12.7 (12.0-16.0) g/dl Hct 39.3 (37.0-47.0) % MCV 86.4 (80.0-98.0) fL MCH 27.9 (27.0-33.0) pg MCHC 32.3 (31.0-35.0) g/dl RDW 15.3 (11.0-16.0) % Plt Count 295 (160-400) X10*3/uL MPV 10.3 (9.4-12.3) fL Immature Gran % (Auto) 0.2 (0.0-0.4) % Neut % (Auto) 61.8 (45-73) % Lymph % (Auto) 28.8 (20-40) % [place] % (Auto) 6.9 (2-11) % Eos % (Auto) 1.6 (0-4) % Baso % (Auto) 0.7 (0-2) % Lymph # (Auto) 2.4 (1.2-4.9) X10*3/uL [place] # (Auto) 0.6 (0.1-1.2) X10*3/uL Eos # (Auto) 0.1 (0.0-0.4) X10*3/uL Baso # (Auto) 0.1 (0.0-0.2) X10*3/uL Abs Immat Gran (auto) 0.02 (0.00-0.03) X10*3/uL Absolute Neuts (auto) 5.1 (2.0-8.3) x10*3/uL Absolute Nucleated RBC 0.000 (0.0-0.012) X10*3/uL Nucleated RBC % (auto) 0.0 (0.0-0.2) /100WBC PT 15.1 H (10.9-12.4) SEC INR 1.3 H (0.9-1.1) Sodium 142 (135-145) mmol/L Potassium 4.7 D (3.3-5.1) mmol/L Chloride 110 H (96-108) mmol/L Carbon Dioxide 24 (22-29) mmol/L Anion Gap 13 (12-20) BUN 21 H (9-16) mg/dL Creatinine 0.80 (0.5-1.4) mg/dL Estim Creat Clear Calc 100.2 Estimated GFR > 60 Random Glucose 128 H (60-115) mg/dL Calcium 9.1 D (8.4-10.2) mg/dL Magnesium 2.1 (1.6-2.6) mg/dL Total Bilirubin 0.4 (0.0-1.0) mg/dL AST 16 (5-31) U/L ALT 10 (0-31) U/L Alkaline Phosphatase 80 (39-117) U/L Troponin I High Sens < 2.7 (<3.5-17.0) ng/L Total Protein 7.2 (6.5-8.0) g/dL Albumin 4.1 (3.5-5.0) g/dL Influenza Type A (PCR) NEGATIVE (Negative) Influenza Type B (PCR) NEGATIVE (Negative) RSV RNA Qual (PCR) NEGATIVE (Negative) SARS-CoV-2 RNA (RT-PCR) NEGATIVE (Negative) Discharge Plan Discharge Clinical Impression: Chest pain Patient Disposition: Left W/O Completing Treatment Prescriptions: No Action atorvastatin 40 mg tablet 1 tab PO DAILY citalopram 20 mg tablet 1 tab PO DAILY Discharge Date/Time: 06/16/24 19:25
[2024-06-16 11:02] VITALS: BP 124/57; PULSE 80; RESP 18; TEMP 36.7; O2SAT 98; BMI 49.5
[2024-06-16 12:12] LABS: Influenza A PCR NEGATIVE (Negative); Influenza B PCR NEGATIVE (Negative); Resp Syncy Virus RNA Qual PCR NEGATIVE (Negative); SARS COV2 PCR INHOUSE NEGATIVE (Negative)
[2024-06-16 15:50] LABS: MANUAL DIFF FLAG NO
[2024-06-16 15:52] LABS: Basophils Absolute Auto 0.1 X10*3/uL (0.0-0.2); Basophils Percent Auto 0.7 % (0-2); Eosinophils Absolute Auto 0.1 X10*3/uL (0.0-0.4); Eosinophils Percent Auto 1.6 % (0-4); Hematocrit 39.3 % (37.0-47.0); Hemoglobin 12.7 g/dl (12.0-16.0); Imm Gran Abs Auto 0.02 X10*3/uL (0.00-0.03); Imm Gran Pct Auto 0.2 % (0.0-0.4); Lymphocytes Absolute Auto 2.4 X10*3/uL (1.2-4.9); Lymphocytes Percent Auto 28.8 % (20-40); Mean Corpuscular HGB Conc 32.3 g/dl (31.0-35.0); Mean Corpuscular Hemoglobin 27.9 pg (27.0-33.0); Mean Corpuscular Volume 86.4 fL (80.0-98.0); Mean Platelet Volume 10.3 fL (9.4-12.3); Monocytes Absolute Auto 0.6 X10*3/uL (0.1-1.2); Monocytes Percent Auto 6.9 % (2-11); Neutrophils Absolute Auto 5.1 x10*3/uL (2.0-8.3); Neutrophils Percent Auto 61.8 % (45-73); Platelet Count 295 X10*3/uL (160-400); Red Blood Count 4.55 X10*6/uL (4.20-5.50); Red Cell Distribution Width 15.3 % (11.0-16.0); White Blood Count 8.3 X10*3/uL (4.8-10.8)
[2024-06-16 15:57] LABS: INTERNATIONAL NORM RATIO 1.3 (0.9-1.1); Prothrombin Time 15.1 SEC (10.9-12.4)
[2024-06-16 16:12] LABS: Alanine Aminotransferase 10 U/L (0-31); Albumin Level 4.1 g/dL (3.5-5.0); Alkaline Phosphatase 80 U/L (39-117); Anion Gap 13 (12-20); Aspartate Amino Transferase 16 U/L (5-31); Bilirubin Total 0.4 mg/dL (0.0-1.0); Blood Urea Nitrogen 21 mg/dL (9-16); Calcium 9.1 mg/dL (8.4-10.2); Carbon Dioxide 24 mmol/L (22-29); Chloride 110 mmol/L (96-108); Creatinine Clr Calc Pharmacy 100.2; Estimated Glomerular Filt Rate > 60; Glucose Random 128 mg/dL (60-115); Magnesium 2.1 mg/dL (1.6-2.6); Potassium 4.7 mmol/L (3.3-5.1); Sodium 142 mmol/L (135-145); Total Protein 7.2 g/dL (6.5-8.0)
[2024-06-16 16:30] LABS: Troponin-I High Sensitivity < 2.7 ng/L (<3.5-17.0)
[2024-06-17 04:20] LABS: B Type Natriuretic Peptide 16 pg/mL (<100)
== END 2024-06-16 19:25 | disposition left against medical advice (07) ==
PROVIDERS: Nurse Practitioner Family; Emergency Provider Emergency Medicine Emergency Medical Services; PCP Family Medicine
DX: R07.89 Other chest pain (principal); R06.02 Shortness of breath; Z79.899 Other long term (current) drug therapy; Z03.818 Encounter for observation for suspected exposure to other biological agents ruled out
CPT/HCPCS: 0241U; 36415; 71046; 80053; 83735; 83880; 84484; 85025; 85610; 93005; 99283

== ENCOUNTER → 2024-06-16 10:59 | Outpatient (BNV) | payer MEDICARE, SELFPAY | PROVIDERS: Emergency Provider Emergency Medicine Emergency Medical Services; PCP Family Medicine; Visit Provider Internal Medicine Cardiovascular Disease | DX: R94.31 Abnormal electrocardiogram [ECG] [EKG] (principal) | CPT/HCPCS: 93010 ==

== ENCOUNTER → 2024-06-16 11:05 | Outpatient (BNV) | payer MEDICARE, SELFPAY | PROVIDERS: PCP Family Medicine; Visit Provider Specialist | DX: R07.9 Chest pain, unspecified (principal); R06.02 Shortness of breath | CPT/HCPCS: 71046 ==

== ENCOUNTER 2024-07-01 10:18 | Emergency (ER) | payer MEDICARE, SELFPAY ==
--- NOTE | 2024-07-01 10:19 | ECG_ITS ---
Test Reason : cp Blood Pressure : */* mmHG Vent. Rate : 100 BPM Atrial Rate : 100 BPM P-R Int : 152 ms QRS Dur : 76 ms QT Int : 322 ms P-R-T Axes : 15 -6 4 degrees QTcB Int : 415 ms Normal sinus rhythm Low voltage QRS Nonspecific ST and T wave abnormality Abnormal ECG When compared with ECG of 16-Jun-2024 10:59, Nonspecific T wave abnormality no longer evident in Lateral leads Referred By: Generic ED Physician Electronically Signed By: RAISSA HILL
[2024-07-01 10:37] VITALS: BP 131/66; PULSE 97; RESP 18; TEMP 36.4; O2SAT 99; BMI 49.9
--- NOTE | 2024-07-01 10:41 | PC.NURSE ---
states she does not want xray, just looking for results from troponin
[2024-07-01 11:43] LABS: MANUAL DIFF FLAG NO
[2024-07-01 11:45] LABS: Basophils Percent Auto 0.4 % (0-2); Eosinophils Absolute Auto 0.2 X10*3/uL (0.0-0.4); Eosinophils Percent Auto 2.2 % (0-4); Hematocrit 39.1 % (37.0-47.0); Hemoglobin 12.2 g/dl (12.0-16.0); Imm Gran Abs Auto 0.03 X10*3/uL (0.00-0.03); Imm Gran Pct Auto 0.4 % (0.0-0.4); Lymphocytes Absolute Auto 1.5 X10*3/uL (1.2-4.9); Lymphocytes Percent Auto 21.5 % (20-40); Mean Corpuscular HGB Conc 31.2 g/dl (31.0-35.0); Mean Corpuscular Hemoglobin 27.3 pg (27.0-33.0); Mean Corpuscular Volume 87.5 fL (80.0-98.0); Mean Platelet Volume 10.9 fL (9.4-12.3); Monocytes Absolute Auto 0.5 X10*3/uL (0.1-1.2); Monocytes Percent Auto 7.4 % (2-11); Neutrophils Absolute Auto 4.9 x10*3/uL (2.0-8.3); Neutrophils Percent Auto 68.1 % (45-73); Platelet Count 254 X10*3/uL (160-400); Red Blood Count 4.47 X10*6/uL (4.20-5.50); Red Cell Distribution Width 15.4 % (11.0-16.0); White Blood Count 7.2 X10*3/uL (4.8-10.8)
[2024-07-01 11:58] LABS: Alanine Aminotransferase 11 U/L (0-31); Albumin Level 3.8 g/dL (3.5-5.0); Alkaline Phosphatase 76 U/L (39-117); Anion Gap 9 (12-20); Aspartate Amino Transferase 17 U/L (5-31); Bilirubin Total 0.4 mg/dL (0.0-1.0); Blood Urea Nitrogen 16 mg/dL (9-16); Calcium 8.9 mg/dL (8.4-10.2); Carbon Dioxide 23 mmol/L (22-29); Chloride 110 mmol/L (96-108); Creatinine Clr Calc Pharmacy 116.7; Estimated Glomerular Filt Rate > 60; Glucose Random 160 mg/dL (60-115); Potassium 4.1 mmol/L (3.3-5.1); Sodium 138 mmol/L (135-145)
[2024-07-01 12:08] LABS: Troponin-I High Sensitivity < 2.7 ng/L (<3.5-17.0)
--- NOTE | 2024-07-01 12:49 | ED.CHESTPAIN ---
HPI - Chest Pain General Chief Complaint: Chest Pain Stated Complaint: chest pain Time Seen by Provider: 07/01/24 12:17 Source: patient Mode of arrival: ambulatory Limitations: no limitations History of Present Illness HPI narrative: This is a 63 years old female patient with a history of atrial fibrillation presented to the ED complaining of palpitation and chest pain about 09:45. She is feeling better at this time. No exertional symptoms she drove herself to the emergency department she was concerned she was in AFib again. She has history of obesity atrial fibrillation non-STEMI in the past MD complaint: chest pain Onset (ago): hour(s) (3) Timing of current episode: episodic Onset: during rest Pain location: substernal Pain radiation: none Quality: aching Exacerbating factors: nothing Risk Factors Coronary artery disease risk factors: hyperlipidemia Thoracic aortic dissection risk factors: none Related Data On Oral Contraceptives: No Home Medications ?Medication ?Instructions ?Recorded ?Confirmed atorvastatin 40 mg tablet 1 tab PO DAILY 08/27/20 08/27/20 citalopram 20 mg tablet 1 tab PO DAILY 08/27/20 08/27/20 Allergies Allergy/AdvReac Type Severity Reaction Status Date / Time meperidine [From DEMEROL] Allergy Unknown UNKNOWN Verified 07/01/24 10:39 celecoxib [From Celebrex] Allergy Unknown Verified 07/01/24 10:39 Benadryl Allergy Unknown Unknown Uncoded 08/27/20 06:30 Review of Systems Constitutional: Constitutional: Reports no additional constitutional complaints ENT: Reports system reviewed and no additional complaints, except as documented Cardiovascular: Cardiovascular: Reports rapid heart rate Respiratory: Respiratory: Reports no additional respiratory complaints [facility] Past Medical History Medical History Asthma delivery delivered High cholesterol Obesity Surgical History H/O foot surgery H/O tubal ligation Social History Social History Advance Directives: Yes Advance Directives on File: No Do you have a plan to hurt others: No Plan Physical Exam Vital Signs: Vital Signs: Last Vital Signs Temp 97.6 F 07/01/24 10:37 Pulse 97 07/01/24 10:37 Resp 18 07/01/24 10:37 BP 131/66 07/01/24 10:37 Pulse Ox 99 07/01/24 10:37 O2 Del Method Room Air 07/01/24 10:37 BMI result Body Mass Index 49.9 She looks well she has no in the stress she is sitting in the stretcher in not acute distress Const: General: cooperative Nutritional Appearance: well nourished Orientation/consciousness: patient oriented x3 HEENT: Head: Yes normal to inspection Ears: hearing grossly normal bilaterally General nose exam: Normal external nose present Face and sinus: Yes normal facial exam Mouth: Normal oral and palatal mucosa present Throat: Yes posterior oropharynx normal Neck: Neck: Yes normal visual inspection and Yes full ROM Chest: Chest palpation & inspection: normal inspection of the chest Resp: Effort & Inspection: normal respiratory effort Auscultation: clear to auscultation bilaterally Cardio: Jugular venous distension: no JVD Rate: regular rate Rhythm: regular rhythm GI: Inspection: Yes normal to inspection Palpation (GI): Soft to palpation, not firm and nontender Auscultation: normal bowel sounds Neuro: General: patient oriented x3 Cranial nerves: Yes CN's II-XII intact bilaterally Course Reevaluation(s) Reevaluation #1: delta tropi flat ,sinus in the monitor OK to d/c Time: 13:53 Medical Decision Making Medical Decision Making [facility] Narrative: Patient presented with chest pain and palpitation will obtain electrocardiogram High sensitive troponin Differential Diagnosis Differential Diagnoses: The differential diagnosis associated with the presentation includes Acute coronary syndrome/noncardiac chest pain/chest wall pain Admission/Observation Consideration of admission/observation: Escalation of care including admission/observation considered Lab Data [facility] Lab Attestation statement: I reviewed the patient's lab results. 07/01/24 11:39 07/01/24 11:39 Labs: Lab Results 07/01/24 07/01/24 Range/Units 11:39 12:47 WBC 7.2 (4.8-10.8) X10*3/uL RBC 4.47 (4.20-5.50) X10*6/uL Hgb 12.2 (12.0-16.0) g/dl Hct 39.1 (37.0-47.0) % MCV 87.5 (80.0-98.0) fL MCH 27.3 (27.0-33.0) pg MCHC 31.2 (31.0-35.0) g/dl RDW 15.4 (11.0-16.0) % Plt Count 254 (160-400) X10*3/uL MPV 10.9 (9.4-12.3) fL Immature Gran % (Auto) 0.4 (0.0-0.4) % Neut % (Auto) 68.1 (45-73) % Lymph % (Auto) 21.5 (20-40) % [place] % (Auto) 7.4 (2-11) % Eos % (Auto) 2.2 (0-4) % Baso % (Auto) 0.4 (0-2) % Lymph # (Auto) 1.5 (1.2-4.9) X10*3/uL [place] # (Auto) 0.5 (0.1-1.2) X10*3/uL Eos # (Auto) 0.2 (0.0-0.4) X10*3/uL Baso # (Auto) 0.0 (0.0-0.2) X10*3/uL Abs Immat Gran (auto) 0.03 (0.00-0.03) X10*3/uL Absolute Neuts (auto) 4.9 (2.0-8.3) x10*3/uL Absolute Nucleated RBC 0.000 (0.0-0.012) X10*3/uL Nucleated RBC % (auto) 0.0 (0.0-0.2) /100WBC Sodium 138 (135-145) mmol/L Potassium 4.1 (3.3-5.1) mmol/L Chloride 110 H (96-108) mmol/L Carbon Dioxide 23 (22-29) mmol/L Anion Gap 9 L (12-20) BUN 16 (9-16) mg/dL Creatinine 0.69 (0.5-1.4) mg/dL Estim Creat Clear Calc 116.7 Estimated GFR > 60 Random Glucose 160 H (60-115) mg/dL Calcium 8.9 (8.4-10.2) mg/dL Total Bilirubin 0.4 (0.0-1.0) mg/dL AST 17 (5-31) U/L ALT 11 (0-31) U/L Alkaline Phosphatase 76 (39-117) U/L Troponin I High Sens < 2.7 < 2.7 (<3.5-17.0) ng/L Total Protein 7.0 (6.5-8.0) g/dL Albumin 3.8 (3.5-5.0) g/dL Independent Interpretation I performed an independent interpretation of an: EKG (Normal sinus rhythm no ST-T changes) Interpretation: EKG was reviewed interpreted by me as no ischemic changes sinus rhythm [address]-T changes Radiology Impression Discussion of test interpretation with radiology: I have reviewed the radiologist's reading. Radiologist Impression: nad External Record Review External record reviewed: Inpatient record Discharge Plan Discharge Clinical Impression: Chest pain Qualifiers: Chest pain type: unspecified Qualified Code(s): R07.9 - Chest pain, unspecified Patient Disposition: Home, Self-Care Instructions: Chest Pain (DC) Prescriptions: No Action atorvastatin 40 mg tablet 1 tab PO DAILY citalopram 20 mg tablet 1 tab PO DAILY Referrals: Andrade Khan MD [Primary Care Provider] - 07/04/24 Print Language: Maltese
[2024-07-01 13:24] LABS: Troponin-I High Sensitivity < 2.7 ng/L (<3.5-17.0)
[2024-07-01 13:58] VITALS: BP 131/66; PULSE 97; RESP 18; TEMP 36.4; O2SAT 99
== END 2024-07-01 14:08 | disposition home or self-care (01) ==
PROVIDERS: Emergency Provider Emergency Medicine; PCP Family Medicine
DX: R07.9 Chest pain, unspecified (principal); E78.5 Hyperlipidemia, unspecified; I48.0 Paroxysmal atrial fibrillation; E66.01 Morbid (severe) obesity due to excess calories; Z68.42 Body mass index [BMI] 45.0-49.9, adult; Z79.01 Long term (current) use of anticoagulants; Z79.899 Other long term (current) drug therapy
CPT/HCPCS: 36415; 80053; 84484; 85025; 93005; 99283

== ENCOUNTER → 2024-07-01 10:19 | Outpatient (BNV) | payer MEDICARE, SELFPAY | PROVIDERS: Emergency Provider Emergency Medicine; PCP Family Medicine; Visit Provider Internal Medicine | DX: R94.31 Abnormal electrocardiogram [ECG] [EKG] (principal) | CPT/HCPCS: 93010 ==

== ENCOUNTER 2024-07-25 08:54 | Outpatient (AMB) | payer MEDICARE, SELFPAY ==
--- NOTE | 2024-07-25 08:58 | MHC.OFFVIS ---
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 [facility] Cardio Machine Hose Cutter Required: No Accompanied by: Self / Same As Patient Allergies meperidine [From DEMEROL] Allergy (Unknown, Verified 07/01/24 10:39) UNKNOWN celecoxib [From Celebrex] Allergy (Verified 07/01/24 10:39) Unknown Benadryl Allergy (Unknown, Uncoded 08/27/20 06:30) Unknown Medication List - Last Reconciled 07/25/24 by Mark Camargo MD albuterol sulfate 90 mcg/actuation 2 puffs inhalation Q6H PRN apixaban (Eliquis) 5 mg PO BID aspirin (Adult Low Dose Aspirin) 81 mg PO DAILY atorvastatin 80 mg PO DAILY citalopram 1 tab PO DAILY clopidogrel 75 mg PO DAILY levothyroxine 50 mcg PO DAILY metoprolol succinate ER 50 mg PO DAILY metoprolol tartrate 12.5 mg PO DAILY PRN ranolazine ER 500 mg PO BID semaglutide (Ozempic) 0.25 mg subcut QWEEK HPI Comments Details: Thank you for referring Makayla, who seeking a 2nd opinion for chest pain syndrome. Patient was a 63-year-old female with past medical history of paroxysmal atrial fibrillation currently on full oral anticoagulation with Eliquis, CAD status post stenting of the LAD in January last year in [place]. Patient was prior history of hypertension, hyperlipidemia, morbid obesity. Came to the office and wheelchair she injured her knee couple of weeks ago accidentally. She is still currently recuperating from it. She said in January while she was traveling did not call she had developed chest pain syndrome and subsequently had gone to the hospital and not currently at [facility]. There she was diagnose with unstable angina with symptoms of chest pain radiating to both arms and shoulder as well as to the back. Due to multiple risk factors she underwent a cardiac catheterization there and was noticed to have 60 65% lesion in the mid LAD as per her and her was present at bedside underwent a drug-eluting stent. Subsequently 2 days later she developed another severe chest pain episode and went to the hospital again he was told at this time she had myocardial infarction and underwent a cardiac catheterization again which had shown patent stents and no other issues. Patient since then has been having recurrent episodes of chest pain. Saw Cardiology at [facility] but he is not satisfied. She underwent a myocardial perfusion imaging in [facility] which was within normal limits. Patient says she has been to the emergency room multiple time with a chest pain syndrome and has had workup with troponins which have been negative. She was very frustrated. She was then started on Ranexa therapy with the suspicion for possible microvascular disease. She said she was symptom relief for about 3 weeks and subsequently started having chest pain syndrome again and again has been to the emergency room. She also sometimes says that with the chest pain syndrome she was rapid heart rate and thinks that she might have atrial fibrillation. However symptoms of palpitation usually resolved by the time she comes to the emergency room has never been diagnose with recurrent atrial fibrillation although she is highly suspicious of this. She has been taking all medications. Surprisingly she is currently on triple therapy with aspirin, Plavix as well as oral anticoagulation with Eliquis. She has not had any major bleeding issues. She denies any lightheadedness, syncope. No heart failure symptoms of orthopnea, PND came on leg edema. She is quite frustrated about her recurrent chest pain syndrome. Most of the symptoms happen at rest. [facility] Medical History Morbid obesity Paroxysmal atrial fibrillation CAD (coronary artery disease) delivery delivered Obesity High cholesterol Asthma Surgical History Stented coronary artery History of cardiac cath H/O foot surgery H/O tubal ligation Family History Father HTN (hypertension) Mother DM2 (diabetes mellitus, type 2) Heart attack Social History Alcohol intake: never Patient Tobacco Use Status: Former Tobacco user Review of Systems Const Denies chills, Denies daytime sleepiness, Denies fatigue, Denies fever(s), Denies poor appetite, Denies snoring, Denies stops breathing during sleep, Denies weakness, Denies weight gain and Denies weight loss Eyes Denies loss of vision ENT Denies dizziness and Denies hearing loss Card Denies chest pain, Denies irregular heart rhythm, Denies claudication, Denies leg edema, Denies lightheadedness, Denies palpitations, Denies dyspnea on exertion and Denies orthopnea Resp Denies cough, Denies excessive phlegm production, Denies dyspnea on exertion, Denies snoring and Denies wheezing GI Denies abdominal pain, Denies hematochezia, Denies change in bowel habits, Denies nausea and Denies vomiting Denies urinary frequency and Denies dysuria Musc Denies arthralgias, Denies muscle weakness, Denies numbness and Denies other Skin/Breast Denies nail changes and Denies rash Neuro Denies Abnormal speech present, Denies dizziness, Denies loss of vision, Denies memory loss, Denies numbness and Denies weakness Psych Denies depression and Denies memory loss Endo Denies fatigue and Denies palpitations Audi/Lymph Denies easy bruising Aller/Immun Denies wheezing Physical Exam Vital Signs: Last Vital Signs Pulse 85 07/25/24 08:59 BP 106/56 L 07/25/24 08:59 Const General: cooperative, comfortable, no acute distress, alert and awake Nutritional Appearance: obese morbidly obese Orientation/consciousness: patient oriented x3 Limitations: wheelchair HEENT Head: Yes normocephalic and Yes atraumatic Neck Neck: Yes trachea midline, Yes supple and No no JVD Carotids: no bruits Resp Effort & Inspection: normal respiratory effort Auscultation: clear to auscultation bilaterally Cardio Jugular venous distension: no JVD Palpation: normal PMI Rate: regular rate Rhythm: regular rhythm Heart sounds: S1 normal heart sound present, S2 normal heart sound present, no click, no gallops, no murmurs and no rubs GI Auscultation: normal bowel sounds Skin General skin exam: no rashes or lesions noted Neuro General: patient oriented x3 and no focal motor deficits Speech: No Abnormal speech present Extrem General: Yes no clubbing, cyanosis or edema Psych Appearance: grossly normal Assessment & Plan Assessment & Plan (1) Recurrent chest pain: Code(s): R07.9 - Chest pain, unspecified Plan: Recurrent chest pain syndrome this middle-aged woman with drug-eluting stent put to LAD with suspected unstable angina for moderately severe stenosis in the LAD. Unclear as to the rationale for this whether this was hemodynamically significant lesion based on FFR findings. Will need to review cardiac catheterization report from not currently now, waiting for the same. However following that cardiac catheterization she had troponin release and was told that she had a heart attack most likely related to the PCI, type for OH. Subsequently had a cardiac catheterization which had shown patent coronary disease and no significant obstructive disease. Since then she has had multiple hospitalization to similar chest pain syndrome with negative troponins. She is very worried about the symptoms. Symptoms partially responded to ranolazine. However have recurred again and she is perplexed as to why she is having recurrent symptoms. It is possible that this chest pain syndrome is not related to cardiac issues. There was definitely no evidence of epicardial stenosis and possible differential diagnose include coronary vaso spasm and/or angina with normal coronary arteries probably related to microvascular disease. I have therefore taken the liberty to refer to Dr. Tran Mckeon at [facility] and information LV sent. Patient is willing to go then she may need more advanced imaging techniques including provocative cardiac catheterization and/or myocardial blood flow evaluation with PET scan. This may guide further treatment. Meanwhile I have taken the liberty to add amlodipine 2.5 mg daily as an empiric therapy for possible vasospastic disease. Advised to continue Ranexa and metoprolol therapy for now. It is also possible that these episodes of chest pain could be related to recurrent atrial fibrillation although there was no evidence of it. Therefore would implant implantable loop recorder to assess for presence of atrial fibrillation during this episodes. (2) Paroxysmal atrial fibrillation: Code(s): I48.0 - Paroxysmal atrial fibrillation Category: Medical Plan: Paroxysmal atrial fibrillation without any obvious clinical recurrence. Continue metoprolol therapy for now. Will implant implantable loop recorder to assess for recurrent atrial fibrillation or increased burden of atrial fibrillation that may require further therapy including ablation and/or antiarrhythmic drug therapy. Continue full oral anticoagulation with Eliquis. (3) CAD (coronary artery disease): Code(s): I25.10 - Atherosclerotic heart disease of [place] coronary artery without angina pectoris Category: Medical Plan: CAD with drug-eluting stent to LAD. We discussed the pathophysiology of stent related complications and potential treatment options. She is on triple therapy which is unusual after more than a month. Will therefore discontinue aspirin therapy to reduce bleeding risk. Continue clopidogrel as well as Eliquis therapy for a year. Lifelong Eliquis therapy beyond that. Continue high-intensity statin therapy with target goal LDL less than 55 mg/dL. Further evaluation for possible vasospastic disease and/or microvascular disease to [place]. Greater than 45 minutes was spent in explaining her managing her symptom complex and treatment plan. Will follow up in the clinic in 4 weeks time. Medications: New amlodipine 2.5 mg PO DAILY 30 tabs 5RF Coding Level of Care Code New Pt Level 5 (03993) Complex EM visit Add On G2211 Diagnoses Recurrent chest pain R07.9 Paroxysmal atrial fibrillation I48.0 CAD (coronary artery disease) I25.10
[2024-07-25 08:59] VITALS: BP 106/56; PULSE 85
== END 2024-07-25 09:56 | disposition home or self-care (01) ==
PROVIDERS: PCP Hospitalist; Visit Provider Internal Medicine Cardiovascular Disease
DX: R07.9 Chest pain, unspecified (principal); I48.0 Paroxysmal atrial fibrillation; I25.10 Atherosclerotic heart disease of native coronary artery without angina pectoris
CPT/HCPCS: 99204; G2211

== ENCOUNTER → 2024-07-25 08:54 | Outpatient (BNVA) | payer MEDICARE, SELFPAY | PROVIDERS: PCP Hospitalist; Visit Provider Internal Medicine Cardiovascular Disease | DX: I25.10 Atherosclerotic heart disease of native coronary artery without angina pectoris (principal); I48.0 Paroxysmal atrial fibrillation; R07.9 Chest pain, unspecified | CPT/HCPCS: 99202 ==

== ENCOUNTER 2024-08-09 | Outpatient (REF) | payer MEDICARE, SELFPAY ==
[2024-08-09 12:00] VITALS: BP 123/61; PULSE 96; RESP 19; O2SAT 97; BMI 49.8
--- NOTE | 2024-08-09 15:31 | PM.OP ---
Brief Operative Note Date of Service: 08/09/24 Pre-op diagnosis: Atrial fibrillation Post-op diagnosis: same Procedure: Placement of implantable loop recorder Implants: After obtaining informed consent patient was brought to the minor surgery suite in fasting condition. Patient was then laid supine on the operating table. Patient was precordial area was then prepped and draped in a sterile fashion. Patient was then given 2% lidocaine with epinephrine intradermally and subcutaneously. A [employer] implantable loop recorder with serial number ([id number]) was placed in the subcutaneous space using modified Seldinger technique. Measured R-wave at about 0.2 mV at the end of the study. The incision was then closed with Steri-Strips and pressure dressing applied in his sterile fashion. Patient tolerated the procedure well Surgeon: Mark Camargo MD Anesthesia: local Was an Meter And Service Line Inspector used for this Procedure?: No Estimated blood loss (mL): 1 Pathology: none sent Condition: stable Disposition: same day
== END 2024-08-09 00:01 | disposition home or self-care (01) ==
LOC: HO.MS
PROVIDERS: PCP Family Medicine; Visit Provider Internal Medicine Cardiovascular Disease
PROC: (CPT 33285; principal; 2024-08-09 12:30)
DX: I48.0 Paroxysmal atrial fibrillation (principal)
CPT/HCPCS: 33285; C1764; J2004

== ENCOUNTER → 2024-08-09 12:30 | Outpatient (BNV) | payer MEDICARE, SELFPAY | PROVIDERS: PCP Family Medicine; Visit Provider Internal Medicine Cardiovascular Disease | DX: I48.91 Unspecified atrial fibrillation (principal) | CPT/HCPCS: 33285 ==

== ENCOUNTER → 2024-08-16 08:58 | Outpatient (BNVA) | payer MEDICARE, SELFPAY | PROVIDERS: PCP Family Medicine; Visit Provider Internal Medicine Cardiovascular Disease ==

== ENCOUNTER → 2024-09-08 23:59 | Outpatient (BNV) | payer MEDICARE, SELFPAY ==
--- NOTE | 2024-09-10 15:39 | MHC.OFFVIS ---
Intake Visit Reasons: Remote ILR check- [employer] Allergies meperidine [From DEMEROL] Allergy (Unknown, Verified 07/01/24 10:39) UNKNOWN celecoxib [From Celebrex] Allergy (Verified 07/01/24 10:39) Unknown Benadryl Allergy (Unknown, Uncoded 08/27/20 06:30) Unknown PFSH Medical History Morbid obesity Paroxysmal atrial fibrillation CAD (coronary artery disease) delivery delivered Obesity High cholesterol Asthma Surgical History Stented coronary artery History of cardiac cath H/O foot surgery H/O tubal ligation Family History Father HTN (hypertension) Mother DM2 (diabetes mellitus, type 2) Heart attack Social History Alcohol intake: never Patient Tobacco Use Status: Former Tobacco user Office Procedures Cardiac Device Check Cardiac Device Check Details: Remote implantable loop recorder report generated 09/08/2024. No pauses or arrhythmias noted [id number] Cardiac Interrogation, subcut cardiac rhythm monitor Procedure code (CPT) selection complete Assessment & Plan Assessment & Plan (1) Implantable loop recorder present: Code(s): Z95.818 - Presence of other cardiac implants and grafts Category: Medical Plan: See above Coding Level of Care Code Procedure Only Diagnoses Implantable loop recorder present Z95.818 CPT Codes Cardiac Device Check - Cardiac Device 16: [id number] Cardiac Interrogation, subcut cardiac rhythm monitor ([id number])
== END ==
PROVIDERS: PCP Family Medicine; Visit Provider Internal Medicine Cardiovascular Disease
DX: Z45.09 Encounter for adjustment and management of other cardiac device (principal)
CPT/HCPCS: 93298

== ENCOUNTER → 2024-10-08 23:59 | Outpatient (BNV) | payer MEDICARE, SELFPAY ==
--- NOTE | 2024-10-16 18:01 | MHC.OFFVIS ---
Intake Visit Reasons: Remote ILR check- [employer] Allergies meperidine [From DEMEROL] Allergy (Unknown, Verified 07/01/24 10:39) UNKNOWN celecoxib [From Celebrex] Allergy (Verified 07/01/24 10:39) Unknown Benadryl Allergy (Unknown, Uncoded 08/27/20 06:30) Unknown PFSH Medical History Morbid obesity Paroxysmal atrial fibrillation CAD (coronary artery disease) delivery delivered Obesity High cholesterol Asthma Surgical History Stented coronary artery History of cardiac cath H/O foot surgery H/O tubal ligation Family History Father HTN (hypertension) Mother DM2 (diabetes mellitus, type 2) Heart attack Social History Alcohol intake: never Patient Tobacco Use Status: Former Tobacco user Office Procedures Cardiac Device Check Cardiac Device Check Details: Implantable loop recorder report generated 10/08/2024. No arrhythmias or pauses noted [id number] Cardiac Interrogation, subcut cardiac rhythm monitor Procedure code (CPT) selection complete Assessment & Plan Assessment & Plan (1) Implantable loop recorder present: Code(s): Z95.818 - Presence of other cardiac implants and grafts Category: Medical Plan: See above Coding Level of Care Code Procedure Only Diagnoses Implantable loop recorder present Z95.818 CPT Codes Cardiac Device Check - Cardiac Device 16: [id number] Cardiac Interrogation, subcut cardiac rhythm monitor ([id number])
== END ==
PROVIDERS: PCP Family Medicine; Visit Provider Internal Medicine Cardiovascular Disease
DX: Z45.09 Encounter for adjustment and management of other cardiac device (principal)
CPT/HCPCS: 93298

== ENCOUNTER 2024-10-11 09:38 | Outpatient (AMB) | payer MEDICARE, SELFPAY ==
[2024-10-11 09:51] VITALS: BP 108/60; PULSE 91; BMI 51.0
--- NOTE | 2024-10-11 09:51 | MHC.OFFVIS ---
Vital Signs 10/11/24 09:51 10/11/24 09:57 10/11/24 09:59 10/11/24 10:00 Height 5 ft 5 in Weight 306 lb 7.08 oz BMI 51.0 BP 108/60 124/64 129/60 138/73 Blood Pressure Location Lt brachial Lt brachial Lt brachial Lt brachial Position Sitting Supine Sitting Standing Pulse 91 89 96 113 H Pulse Source Monitor Pulse Oximeter Pulse Oximeter Pulse Oximeter Intake Visit Reasons: 4wk f/up/echo Allergies meperidine [From DEMEROL] Allergy (Unknown, Verified 07/01/24 10:39) UNKNOWN celecoxib [From Celebrex] Allergy (Verified 07/01/24 10:39) Unknown Benadryl Allergy (Unknown, Uncoded 08/27/20 06:30) Unknown Medication List - Last Reconciled 10/11/24 by Mark Camargo MD albuterol sulfate 90 mcg/actuation 2 puffs inhalation Q6H PRN apixaban (Eliquis) 5 mg PO BID atorvastatin 80 mg PO DAILY citalopram 1 tab PO DAILY clopidogrel 75 mg PO DAILY levothyroxine 50 mcg PO DAILY metoprolol succinate ER 50 mg PO DAILY ranolazine ER 500 mg PO BID semaglutide (Ozempic) 0.25 mg subcut QWEEK HPI Comments Details: Makayla comes for follow-up. She complains of dizziness. She says symptoms of chest pain have got better. She is still symptomatic with various other things. She is drinks about 5-6 cups of water every day. Denies any syncopal episode. She had multiple events and said she marked it on her phone. Her loop recorder did not show any significant events including no arrhythmias or pauses. She is taking all her medications. She could not tolerate amlodipine therapy which she discontinued. No bleeding issues or neurologic events. [facility] Medical History Morbid obesity Paroxysmal atrial fibrillation CAD (coronary artery disease) delivery delivered Obesity High cholesterol Asthma Surgical History Stented coronary artery History of cardiac cath H/O foot surgery H/O tubal ligation Family History Father HTN (hypertension) Mother DM2 (diabetes mellitus, type 2) Heart attack Social History Alcohol intake: never Patient Tobacco Use Status: Former Tobacco user Review of Systems Const Denies weakness ENT Reports dizziness Card Reports chest pain, Denies chest pain with activity, Denies syncope, Denies rapid heart rate, Denies pedal edema, Denies edema, Denies leg edema, Denies lightheadedness, Reports palpitations, Reports dyspnea, Denies dyspnea on exertion and Denies orthopnea Resp Denies cough, Reports dyspnea and Denies dyspnea on exertion GI Denies hematochezia and Denies change in stool character Musc Denies abnormal gait, Denies muscle cramps, Denies muscle weakness, Denies numbness, Denies radiating pain into limb and Denies tingling Neuro Denies Abnormal speech present, Denies abnormal gait, Reports dizziness, Denies syncope, Denies numbness, Denies tingling and Denies weakness Endo Reports palpitations Physical Exam Vital Signs: Last Vital Signs Pulse 113 H 10/11/24 10:00 BP 138/73 10/11/24 10:00 BMI result Body Mass Index 51.0 Const General: cooperative, comfortable, no acute distress, alert and awake Nutritional Appearance: obese morbidly obese Orientation/consciousness: patient oriented x3 Limitations: wheelchair HEENT Head: Yes normocephalic and Yes atraumatic Neck Neck: Yes trachea midline, Yes supple and No no JVD Carotids: no bruits Resp Effort & Inspection: normal respiratory effort Auscultation: clear to auscultation bilaterally Cardio Jugular venous distension: no JVD Palpation: normal PMI Rate: regular rate Rhythm: regular rhythm Heart sounds: S1 normal heart sound present, S2 normal heart sound present, no click, no gallops, no murmurs and no rubs GI Auscultation: normal bowel sounds Skin General skin exam: no rashes or lesions noted Neuro General: patient oriented x3 and no focal motor deficits Speech: No Abnormal speech present Extrem General: Yes no clubbing, cyanosis or edema Psych Appearance: grossly normal Office Procedures EKG Details: EKG shows normal sinus rhythm nonspecific T-wave changes with low-voltage QRS [id number], Complete Assessment & Plan Assessment & Plan (1) Paroxysmal atrial fibrillation: Code(s): I48.0 - Paroxysmal atrial fibrillation Category: Medical Plan: Paroxysmal atrial fibrillation without any overt clinical recurrence at this point time including on implantable loop recorder. No change in therapy. Continue metoprolol therapy to reduce cardiac excitability. No indication for antiarrhythmic drug therapy. Continue full oral anticoagulation, currently on Eliquis 5 mg b.i.d.. Semi annual renal function test should be pursued. Most of her symptoms are not suggestive of cardiac disease at this point time and this was discussed with her. Will obtain echocardiogram near future to assess for LV systolic and diastolic function to assess for regional wall motion abnormality as well as biatrial chamber size. (2) CAD (coronary artery disease): Code(s): I25.10 - Atherosclerotic heart disease of [place] coronary artery without angina pectoris Category: Medical Plan: Coronary artery disease with prior stenting of the LAD without increasing symptoms at current point time. She could not tolerate amlodipine therapy. Currently on dual therapy with metoprolol as well as Ranexa. Continue the same. Continue total 1 year of clopidogrel therapy and beyond that just oral anticoagulant therapy with Eliquis to avoid increased bleeding risk. Continue high-intensity statin therapy. Target goal LDL less than 60 mg/dL. Her symptoms do not appear to be ischemic in nature and probably not sure if she had clear symptoms of ischemic at the time of intervention. This was discussed with her. She understands. Will follow up in the clinic in 6 months time, sooner p.r.n.. Thank you for allowing me to partake in her care Orders: Orders CA echo transthoracic complete Today I48.0 - Paroxysmal atrial fibrillation Coding Level of Care Code Est Pt Level 4 (71722) Complex EM visit Add On G2211 Diagnoses Paroxysmal atrial fibrillation I48.0 CAD (coronary artery disease) I25.10 CPT Codes EKG - CPT: 18160-[id number], Complete ([id number])
[2024-10-11 09:57] VITALS: BP 124/64; PULSE 89
[2024-10-11 09:59] VITALS: BP 129/60; PULSE 96
[2024-10-11 10:00] VITALS: BP 138/73; PULSE 113
== END 2024-10-11 10:20 | disposition home or self-care (01) ==
LOC: HO.HCS 09:38
PROVIDERS: PCP Family Medicine; Visit Provider Internal Medicine Cardiovascular Disease
DX: I48.0 Paroxysmal atrial fibrillation (principal); I25.10 Atherosclerotic heart disease of native coronary artery without angina pectoris
CPT/HCPCS: 93010; 99214; G2211

== ENCOUNTER → 2024-10-11 09:38 | Outpatient (BNVA) | payer MEDICARE, SELFPAY | PROVIDERS: PCP Family Medicine; Visit Provider Internal Medicine Cardiovascular Disease | DX: R42 Dizziness and giddiness (principal); R07.9 Chest pain, unspecified; I48.0 Paroxysmal atrial fibrillation; I25.10 Atherosclerotic heart disease of native coronary artery without angina pectoris | CPT/HCPCS: 93005; 99212 ==

== ENCOUNTER → 2024-11-07 08:47 | Outpatient (BNV) | payer MEDICARE, SELFPAY ==
--- NOTE | 2024-12-16 13:32 | MHC.OFFVIS ---
Intake Visit Reasons: Paroxysmal atrial fibrillation Allergies meperidine (From DEMEROL) Allergy (Unknown, Verified 07/01/24 10:39) UNKNOWN celecoxib (From Celebrex) Allergy (Verified 07/01/24 10:39) Unknown Benadryl Allergy (Unknown, Uncoded 08/27/20 06:30) Unknown [facility] Medical History Morbid obesity Paroxysmal atrial fibrillation CAD (coronary artery disease) delivery delivered Obesity High cholesterol Asthma Surgical History Stented coronary artery History of cardiac cath H/O foot surgery H/O tubal ligation Family History Father HTN (hypertension) Mother DM2 (diabetes mellitus, type 2) Heart attack Social History Alcohol intake: never Patient Tobacco Use Status: Former Tobacco user Office Procedures Cardiac Device Check Cardiac Device Check Details: Remote implantable loop recorder report generated 12/10/2024. No pauses or arrhythmias noted [id number]-Hultgl Cardiac Interrogation, subcut cardiac rhythm monitor Procedure code (CPT) selection complete Assessment & Plan Assessment & Plan (1) Implantable loop recorder present: Code(s): Z95.818 - Presence of other cardiac implants and grafts Category: Medical Plan: See above Coding Level of Care Code Procedure Only Diagnoses Implantable loop recorder present Z95.818 CPT Codes Cardiac Device Check - Cardiac Device 16: 25321-Ufjjui Cardiac Interrogation, subcut cardiac rhythm monitor ([id number])
== END ==
PROVIDERS: PCP Family Medicine; Visit Provider Internal Medicine Cardiovascular Disease
DX: Z45.09 Encounter for adjustment and management of other cardiac device (principal)
CPT/HCPCS: 93298

== ENCOUNTER → 2024-11-07 08:47 | Outpatient (REF) | payer MEDICARE, SELFPAY ==
--- NOTE | 2024-11-07 08:49 | CA_ITS ---
Transthoracic Echocardiogram Patient (Last, First, Middle): Makayla Ge A Gender: Female Date of : 1960 Age: 63 Procedure Date: 11/07/2024 Procedure Type: Transthoracic Echocardiogram Location: OP Height: 165.1 cm Weight: 138.8 kg BSA: 2.37 m2 Heart Rate: 89 bpm BP: 138 / 73 mmHg Professional Bass Fisherman: WEN Referring MD: Mark Camargo MD Symptoms: I48.0 - Paroxysmal atrial fibrillation Study Quality: Adequate ECG Rhythm: Sinus Conclusions: - The left ventricular systolic function is normal. The calculated ejection fraction is 62% by biplane method. - No obvious valvular pathology seen on this study. Findings Left Ventricle Normal left ventricular cavity size. There is normal left ventricular wall thickness. The left ventricular systolic function is normal. The calculated ejection fraction is 62% by biplane method. There is no evidence of regional wall motion abnormalities. Diastolic function is normal for age. Right Ventricle Normal right ventricular cavity size and systolic function. Atria Both atria are normal in size. Aortic Valve There is a normal trileaflet aortic valve. There is mild calcification of the aortic valve. There is no aortic valve stenosis. There is no aortic valve regurgitation. Mitral Valve The mitral valve appears normal. There is no mitral valve regurgitation. There is no mitral valve stenosis. Pulmonic Valve The pulmonic valve is likely normal. Tricuspid Valve Normal tricuspid valve structure. There is trace tricuspid valve regurgitation. There is no evidence of pulmonary hypertension. Great Vessels The asc aorta and aortic arch are normal in size. Venous The inferior vena cava is normal in size and collapses greater than 50% with inspiration. Pericardium/Pleural There is no evidence of pericardial effusion. Prior Study Comparison No significant change compared to prior study dated: 07/27/2016. Recommendations, Care & Conclusions No obvious valvular pathology seen on this study. Measurements 2D Linear Measurements IVSd: 0.75 0.6-0.9/0.6-1.0 cm LVIDd: 4.58 3.9-5.3/4.2-5.9 cm LVIDd Index: 1.93 2.4-3.2/2.2-3.1 cm/m2 LVIDs: 2.78 2.0-3.6 cm LVPWd: 0.78 0.7-1.1 cm LA Diam: 3.20 2.7-3.8/3.0-4.0 cm LAIDs Index: 1.35 1.5-2.3 cm/m2 LV Mass: 137.89 67-162/88-224 g LV Mass Index: 58.18 43-95/49-115 g/m2 LVOT Diam: 2.00 3.0+(-)1.3 cm 2D Systolic Function EF 4C: 66.70 >55% EF 2C: 57.00 >55% EF BiP: 62.10 >55% Mitral Valve MV Pk E: 0.79 MV PK A: 1.02 MV Decel Time: 202.00 E/A: 0.80 E'Lateral: 7.51 E'Medial: 5.55 E/E' Med: 14.30 E/E' Lat: 10.60 PHT: 59.00 MVA PHT: 3.73 Decel Pine: 3.93 Aortic Valve AoV Pk Demetris: 1.38 AoV Pk Grad: 8.00 KAEL: 2.43 LVOT LVOT Pk Demetris: 1.07 LVOT Mn Demetris: 0.75 LVOT VTI: 0.20 LVOT Pk Grad: 5.00 LVOT Mn Grad: 3.00 LVOT Diam: 2.00 LVOT Area: 3.14 Diastolic Function MV Pk E: 0.79 MV Pk A: 1.02 E/A: 0.80 E'Medial: 5.55 E/E' Med: 14.30 E' Laterial: 7.51 E/E' Lat: 10.60 Right Ventricle TAPSE (mm): 21.40 TVS' Demetris: 13.20 Tricuspid Valve TR Pk Demetris: 1.94 TR Pk Grad: 15.00 RA Press: 8.00 RVSP: 23.00 Great Vessels Aorta Sinus of Valsalva: 3.40 2.0-3.5 cm Ao Asc: 3.70 2.1-3.4 cm Ao Arch: 3.30 Pulmonary Veins Pulm Vein S/D 1.80 Pulmonary Valve PV Pk Demetris: 0.89 Peak PV Grad: 3.00 Updated in Other Vendor System with Status of Final Yamil Bills MD electronically signed on 11/09/2024 11:42:04 AM with status of Final
== END ==
LOC: HO.CARD 08:47
PROVIDERS: PCP Family Medicine; Visit Provider Internal Medicine Cardiovascular Disease
DX: I48.0 Paroxysmal atrial fibrillation (principal)
CPT/HCPCS: 93306

== ENCOUNTER → 2024-11-07 08:49 | Outpatient (BNV) | payer MEDICARE, SELFPAY | PROVIDERS: PCP Family Medicine; Visit Provider Internal Medicine | DX: I70.0 Atherosclerosis of aorta (principal) | CPT/HCPCS: 93306 ==

== ENCOUNTER → 2024-11-08 23:59 | Outpatient (BNV) | payer MEDICARE, SELFPAY ==
--- NOTE | 2024-11-13 16:53 | MHC.OFFVIS ---
Intake Visit Reasons: Remote ILR check- [employer] Allergies meperidine [From DEMEROL] Allergy (Unknown, Verified 07/01/24 10:39) UNKNOWN celecoxib [From Celebrex] Allergy (Verified 07/01/24 10:39) Unknown Benadryl Allergy (Unknown, Uncoded 08/27/20 06:30) Unknown PFSH Medical History Morbid obesity Paroxysmal atrial fibrillation CAD (coronary artery disease) delivery delivered Obesity High cholesterol Asthma Surgical History Stented coronary artery History of cardiac cath H/O foot surgery H/O tubal ligation Family History Father HTN (hypertension) Mother DM2 (diabetes mellitus, type 2) Heart attack Social History Alcohol intake: never Patient Tobacco Use Status: Former Tobacco user Office Procedures Cardiac Device Check Cardiac Device Check Details: Remote implantable loop recorder report generated 11/08/2024. No arrhythmias or pauses noted [id number] Cardiac Interrogation, subcut cardiac rhythm monitor Procedure code (CPT) selection complete Assessment & Plan Assessment & Plan (1) Implantable loop recorder present: Code(s): Z95.818 - Presence of other cardiac implants and grafts Category: Medical Plan: See above Coding Level of Care Code Procedure Only Diagnoses Implantable loop recorder present Z95.818 CPT Codes Cardiac Device Check - Cardiac Device 16: 85383-Mxfreu Cardiac Interrogation, subcut cardiac rhythm monitor ([id number])
== END ==
PROVIDERS: PCP Family Medicine; Visit Provider Internal Medicine Cardiovascular Disease
DX: Z45.09 Encounter for adjustment and management of other cardiac device (principal)
CPT/HCPCS: 93298

== ENCOUNTER → 2025-01-09 23:59 | Outpatient (BNV) | payer MEDICARE, SELFPAY ==
--- NOTE | 2025-01-21 12:23 | MHC.OFFVIS ---
Intake Visit Reasons: Remote ILR check- [employer] Allergies meperidine (From DEMEROL) Allergy (Unknown, Verified 07/01/24 10:39) UNKNOWN celecoxib (From Celebrex) Allergy (Verified 07/01/24 10:39) Unknown Benadryl Allergy (Unknown, Uncoded 08/27/20 06:30) Unknown PFSH Medical History Morbid obesity Paroxysmal atrial fibrillation CAD (coronary artery disease) delivery delivered Obesity High cholesterol Asthma Surgical History Stented coronary artery History of cardiac cath H/O foot surgery H/O tubal ligation Family History Father HTN (hypertension) Mother DM2 (diabetes mellitus, type 2) Heart attack Social History Alcohol intake: never Patient Tobacco Use Status: Former Tobacco user Office Procedures Cardiac Device Check Cardiac Device Check Details: Remote implantable loop recorder report generated 01/09/2025. No arrhythmias or pauses noted [id number] Cardiac Interrogation, subcut cardiac rhythm monitor Procedure code (CPT) selection complete Assessment & Plan Assessment & Plan (1) Implantable loop recorder present: Code(s): Z95.818 - Presence of other cardiac implants and grafts Category: Medical Plan: See above Coding Level of Care Code Procedure Only Diagnoses Implantable loop recorder present Z95.818 CPT Codes Cardiac Device Check - Cardiac Device 16: 55431-Ugxkth Cardiac Interrogation, subcut cardiac rhythm monitor ([id number])
== END ==
PROVIDERS: PCP Family Medicine; Visit Provider Internal Medicine Cardiovascular Disease
DX: Z45.09 Encounter for adjustment and management of other cardiac device (principal)
CPT/HCPCS: 93298

== ENCOUNTER → 2025-02-09 23:59 | Outpatient (BNV) | payer MEDICARE, SELFPAY ==
--- NOTE | 2025-02-18 14:29 | MHC.OFFVIS ---
Intake Visit Reasons: Remote ILR check- [employer] Allergies meperidine (From DEMEROL) Allergy (Unknown, Verified 07/01/24 10:39) UNKNOWN celecoxib (From Celebrex) Allergy (Verified 07/01/24 10:39) Unknown Benadryl Allergy (Unknown, Uncoded 08/27/20 06:30) Unknown PFSH Medical History Morbid obesity Paroxysmal atrial fibrillation CAD (coronary artery disease) delivery delivered Obesity High cholesterol Asthma Surgical History Stented coronary artery History of cardiac cath H/O foot surgery H/O tubal ligation Family History Father HTN (hypertension) Mother DM2 (diabetes mellitus, type 2) Heart attack Social History Alcohol intake: never Patient Tobacco Use Status: Former Tobacco user Office Procedures Cardiac Device Check Cardiac Device Check Details: Implantable loop recorder report generated 02/09/2025. No episodes of atrial fibrillation noted. Reported 3 episodes of pauses are artifactual [id number]-Dqsqdd Cardiac Interrogation, subcut cardiac rhythm monitor Procedure code (CPT) selection complete Assessment & Plan Assessment & Plan (1) Implantable loop recorder present: Code(s): Z95.818 - Presence of other cardiac implants and grafts Category: Medical Plan: See above Coding Level of Care Code Procedure Only Diagnoses Implantable loop recorder present Z95.818 CPT Codes Cardiac Device Check - Cardiac Device 16: 81053-Bmotvb Cardiac Interrogation, subcut cardiac rhythm monitor ([id number])
== END ==
PROVIDERS: PCP Family Medicine; Visit Provider Internal Medicine Cardiovascular Disease
DX: I49.9 Cardiac arrhythmia, unspecified (principal); Z95.818 Presence of other cardiac implants and grafts
CPT/HCPCS: 93298

== ENCOUNTER → 2025-03-12 23:59 | Outpatient (BNV) | payer MEDICARE, SELFPAY ==
--- NOTE | 2025-03-13 11:53 | MHC.OFFVIS ---
Intake Visit Reasons: Remote ILR check- [employer] Allergies meperidine (From DEMEROL) Allergy (Unknown, Verified 07/01/24 10:39) UNKNOWN celecoxib (From Celebrex) Allergy (Verified 07/01/24 10:39) Unknown Benadryl Allergy (Unknown, Uncoded 08/27/20 06:30) Unknown PFSH Medical History Morbid obesity Paroxysmal atrial fibrillation CAD (coronary artery disease) delivery delivered Obesity High cholesterol Asthma Surgical History Stented coronary artery History of cardiac cath H/O foot surgery H/O tubal ligation Family History Father HTN (hypertension) Mother DM2 (diabetes mellitus, type 2) Heart attack Social History Alcohol intake: never Patient Tobacco Use Status: Former Tobacco user Office Procedures Cardiac Device Check Cardiac Device Check Details: Remote implantable loop recorder report generated 03/12/2025. Reported pauses appear to be artifact with low QRS complex is noted on the strip. No tachyarrhythmias noted. [id number]-Kqaark Cardiac Interrogation, subcut cardiac rhythm monitor Procedure code (CPT) selection complete Assessment & Plan Assessment & Plan (1) Implantable loop recorder present: Code(s): Z95.818 - Presence of other cardiac implants and grafts Category: Medical Plan: See above Coding Level of Care Code Procedure Only Diagnoses Implantable loop recorder present Z95.818 CPT Codes Cardiac Device Check - Cardiac Device 16: 40159-Sckmzo Cardiac Interrogation, subcut cardiac rhythm monitor ([id number])
== END ==
PROVIDERS: PCP Family Medicine; Visit Provider Internal Medicine Cardiovascular Disease
DX: I49.9 Cardiac arrhythmia, unspecified (principal); Z95.818 Presence of other cardiac implants and grafts
CPT/HCPCS: 93298

== ENCOUNTER → 2025-04-24 12:42 | Outpatient (BNV) | payer MEDICARE, SELFPAY | PROVIDERS: PCP Family Medicine | DX: I49.9 Cardiac arrhythmia, unspecified (principal); Z45.09 Encounter for adjustment and management of other cardiac device | CPT/HCPCS: 93298 ==

== ENCOUNTER 2025-05-21 11:20 | Outpatient (AMB) | payer MEDICARE, SELFPAY ==
[2025-05-21 11:31] VITALS: BP 118/62; PULSE 100; BMI 53.3
--- NOTE | 2025-05-21 11:31 | A.OFFVIS_ITS ---
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 Accompanied by: Self / Same As Patient Allergies meperidine (From DEMEROL) Allergy (Unknown, Verified 05/21/25 11:37) UNKNOWN celecoxib (From Celebrex) Allergy (Verified 05/21/25 11:37) Unknown Benadryl Allergy (Unknown, Uncoded 08/27/20 06:30) Unknown Medication List - Last Reconciled 05/21/25 by Mark Camargo MD albuterol sulfate 90 mcg/actuation 2 puffs inhalation Q6H PRN apixaban (Eliquis) 5 mg PO BID atorvastatin 80 mg PO DAILY citalopram 1 tab PO DAILY clopidogrel 75 mg PO DAILY levothyroxine 50 mcg PO DAILY metoprolol succinate ER 50 mg PO DAILY ranolazine ER 500 mg PO BID semaglutide (Ozempic) 0.25 mg subcut QWEEK HPI Comments Details: Makayla comes for follow-up. Her remote implantable loop recorder recordings have not shown any significant arrhythmias or pauses. She had about a week ago she developed significant shortness of breath with chest heaviness and pressure and diaphoresis. She got concerned about it. She did take aspirin and nitroglycerin but symptoms did not resolve and subsequently after 10 minutes she took a 2nd nitro and symptoms resolved. She is very worried about these symptoms. EKGs today does not show any new Q-waves. There were no episodes of atrial fibrillation on the monitor at that time. She denies any orthopnea, PND, leg edema. She unfortunately has continued to become heavier. [facility] Medical History Morbid obesity Paroxysmal atrial fibrillation CAD (coronary artery disease) delivery delivered Obesity High cholesterol Asthma Surgical History Stented coronary artery History of cardiac cath H/O foot surgery H/O tubal ligation Family History Father HTN (hypertension) Mother DM2 (diabetes mellitus, type 2) Heart attack Social History Alcohol intake: never Patient Tobacco Use Status: Former Tobacco user Review of Systems Const Denies daytime sleepiness, Denies difficulty sleeping, Denies snoring, Denies stops breathing during sleep and Denies weakness Card Reports chest pain, Denies rapid heart rate, Denies irregular heart rhythm, Denies claudication, Denies leg edema, Denies lightheadedness, Reports palpitations, Reports dyspnea, Denies dyspnea on exertion, Denies orthopnea, Denies paroxysmal nocturnal dyspnea and Denies slow heart rate Resp Denies cough, Reports dyspnea, Denies dyspnea on exertion and Denies snoring GI Reports no additional complaints, Denies hematochezia, Denies change in stool character and Denies dyspepsia Musc Denies abnormal gait, Denies muscle weakness and Denies numbness Neuro Denies Abnormal speech present, Denies abnormal gait, Denies numbness and Denies weakness Endo Reports palpitations Physical Exam Vital Signs: Last Vital Signs Pulse 100 05/21/25 11:31 BP 118/62 05/21/25 11:31 BMI result Body Mass Index 53.3 Const General: cooperative, comfortable, no acute distress, alert and awake Nutritional Appearance: obese morbidly obese Orientation/consciousness: patient oriented x3 Limitations: wheelchair HEENT Head: Yes normocephalic and Yes atraumatic Neck Neck: Yes trachea midline, Yes supple and No no JVD Carotids: no bruits Resp Effort & Inspection: normal respiratory effort Auscultation: clear to auscultation bilaterally Cardio Jugular venous distension: no JVD Palpation: normal PMI Rate: regular rate Rhythm: regular rhythm Heart sounds: S1 normal heart sound present, S2 normal heart sound present, no click, no gallops, no murmurs and no rubs GI Auscultation: normal bowel sounds Skin General skin exam: no rashes or lesions noted Neuro General: patient oriented x3 and no focal motor deficits Speech: No Abnormal speech present Extrem General: Yes no clubbing, cyanosis or edema Psych Appearance: grossly normal Office Procedures Cardiac Device Check Cardiac Device Check Details: [employer] implantable loop recorder with good battery status. No arrhythmias noted. Reviewed the pause reported on and appears to be spurious with no pausing noted with normal QRS 05526-Vahtpzn Device Interrogation, subcut cardiac rhythm monitor Procedure code (CPT) selection complete EKG Details: EKG shows normal sinus rhythm with low-voltage QRS most likely due to body habitus with nonspecific ST-T changes 05109-Zsmzraojyybzjtvmt, Complete Assessment & Plan Assessment & Plan (1) Paroxysmal atrial fibrillation: Code(s): I48.0 - Paroxysmal atrial fibrillation Category: Medical Plan: Paroxysmal atrial fibrillation without any obvious clinical recurrence at this point time. She remains concerned about recurrent episodes. Although implantable loop recorder shows no episodes. Continue full oral anticoagulation with Eliquis. Stress mitigation strategies were discussed. Continue to avoid stimulants. Continue metoprolol therapy. (2) CAD (coronary artery disease): Code(s): I25.10 - Atherosclerotic heart disease of [place] coronary artery without angina pectoris Category: Medical Plan: CAD with drug-eluting stent to LAD in January last year. Patient has recurrent symptoms now on very concerned about stent occlusion. Will suggest vasodilating myocardial perfusion imaging to assess for the same. If this is within normal limits will consider stopping clopidogrel therapy and continue lifelong oral anticoagulation therapy as prescribed above. Continue high-intensity statin therapy with target goal LDL less than 60 mg/dL. Blood pressure is currently well optimized. Encouraged to participate in weight loss program. (3) Implantable loop recorder present: Code(s): Z95.818 - Presence of other cardiac implants and grafts Category: Medical Plan: Implantable loop recorder in place without any significant abnormalities at this point in time. Will continue monitor remotely. (4) Morbid obesity: Code(s): E66.01 - Morbid (severe) obesity due to excess calories Category: Medical Plan: Patient motivated to lose weight and seek help. Will refer to bariatric service for further management. Will follow up in the clinic in 6 months time, sooner PRN. Thank you for allowing me to partake in her care Orders: Orders CA lexiscan stress w maegan Today I25.10 - Atherosclerotic heart disease of [place] coronary artery without angina pectoris Referrals Bariatric Surgery Referral E66.01 - Morbid (severe) obesity due to excess calories Medications: New nitroglycerin do not exceed 3 doses per episode 0.4 mg sublingual Q5M PRN 20 tabs 1RF chest pain I25.10 - Atherosclerotic heart disease of [place] coronary artery without angina pectoris Coding Level of Care Code Est Pt Level 4 (95971) Diagnoses Paroxysmal atrial fibrillation I48.0 CAD (coronary artery disease) I25.10 Implantable loop recorder present Z95.818 Morbid obesity E66.01 CPT Codes Cardiac Device Check - Cardiac Device 11: 23675-Ibucfaq Device Interrogation, subcut cardiac rhythm monitor ([id number]) EKG - CPT: 89729-Nicauuqbjbpqnegyf, Complete ([id number])
--- OUTSIDE RECORDS SUMMARY | 2025-05-21 15:04 | XMS_ITS | Clinical Summary ---
Author Organization [facility] Address [address] [place] [address] Phone Care Team Providers Care Audio Video Tech Name Role Phone Bob Frost MD Primary Care Provider [phone] Allergies Active Allergy Reactions Criticality Noted Date Comments Meperidine 08/23/2017 Cant have this w/ anesthetic Medications cholecalciferol, vitamin D3, (VITAMIN D3) 400 unit capsule Take 2 capsules by mouth daily. Active albuterol (PROAIR HFA) 90 mcg/actuation inhaler Inhale 2 puffs into the lungs every 4 (four) hours as needed. 1 Inhaler 8 Active omeprazole (PRILOSEC) 20 MG capsuleIndications: Gastroesophageal reflux disease without esophagitis TAKE 1 CAPSULE ONCE A DAY 90 capsule 4 9 Active atorvastatin (LIPITOR) 40 MG tabletIndications:H yperlipidemia, unspecified hyperlipidemia type TAKE ONE TABLET BY MOUTH EVERY DAY 90 tablet 3 1 Active citalopram (CELEXA) 20 MG tabletIndications:M edication refill TAKE 1 TABLET DAILY 90 tablet 3 1 Active Active Problems Problem Noted Date Diagnosed Date Endometrial polyp 08/22/2017 Hyperglycemia 08/22/2017 Hyperlipidemia 08/22/2017 Morbid obesity 08/22/2017 Post-menopausal bleeding 08/22/2017 Immunizations Immunization Administration Dates Next Due Influenza, Unspecified Formulation 05/19/2018 Tdap 03/18/2010 Family History Medical History Relation Comments CABG Father Cirrhosis Father Diabetes mellitus Father Heart attack Father Heart disease Father Hypertension Father Other Father Alcohol Heart attack Maternal Grandfather [place] 60s Allergies Mother Diabetes mellitus Mother Hyperlipidemia Mother Hypertension Mother Migraines Mother Other Mother Drug addiction Alzheimer's disease Paternal Aunt rapidly prog ressive Breast cancer Paternal Aunt Colon cancer Paternal Aunt Lung cancer Paternal Grandfather Breast cancer Paternal Grandmother Lung cancer Paternal Uncle at 70 Other Paternal Uncle BOOP/pulmonary f ibrosis Throat cancer Paternal Uncle at 50 Relation Status Comments Father (Age 67) Maternal Grandfather Mother Paternal Aunt Paternal Grandfather Paternal Grandmother Paternal Uncle Son 1 Alive Son 2 Alive Son 3 Alive Son 4 Alive Social History Tobacco Use Types Packs/Day Years Used Date Smoking Tobacco: Former Cigarettes 1.5 25 1 976 - 2001 Smokeless Tobacco: Never Education Answer Date Recorded Are you interested in more education? Not on amada e 09/30/2022 Are you concerned about learning? Not on file 09/30/2022 No 09/30/2022 No 09/30/2022 Digital Access Answer Date Recorded No 10/31/2022 No 10/31/2022 Reliable internet access at home? Not on file 10/31/2022 Device with a working camera? Not on file Comments No Sex and Gender Information Value Date Recorded Sex Assigned at Not on file Legal Sex Female 9:47 PM EDT Gender Identity Not on file Sexual Orientation Not on file Occupation Industry Job Start Date Job End Date formerly ran [employer] Not on file Not on fi le Not on file cares for grandson Not on file Not on file Not on fi le Last Filed Vital Signs Vital Sign Reading Time Taken Comments Blood Pressure 104/60 10/15/2018 11:25 AM EDT Pulse 70 10/15/2018 11:25 AM EDT Temperature - - Respiratory Rate - - Oxygen Saturation 94% 10/15/2018 11:25 AM EDT Inhaled Oxygen Concentration - - Weight 109.8 kg (242 lb) 10/15/2018 11:25 AM EDT Height 164.5 cm (5' 4.75 ) 10/15/2018 11:25 AM E DT Body Mass Index 40.58 10/15/2018 11:25 AM EDT Plan of Treatment Health Maintenance Due Date Last Done Comments SMOKING Hx and SMOKELESS TOBACCO SCREENING 1973 HEPATITIS C SCREENING 1978 HIV ONE-TIME SCREENING (18-65 YEARS) 1978 PAP SMEAR 1981 COLOGUARD 2005 COLONOSCOPY 2005 COLORECTAL CANCER SCREENING 2005 FIT TEST 2005 FOBT 2005 SIGMOIDOSCOPY 2005 VIRTUAL COLONOSCOPY 2005 PNEUMOCOCCAL VACCINES (50+ years) (1 of 1 - PCV) 2010 RSV VACCINE (1 - Risk 50-74 years 1-dose series) 2010 ZOSTER VACCINES (1 of 2) 2010 DEPRESSION SCREENING 10/16/2019 10/15/2018 Adult Td,Tdap Booster 03/18/2020 03/18/2010 MAMMOGRAM 10/22/2020 10/22/2018, 08/13/2015 LIPID PANEL 05/14/2024 05/14/2019, 05/05, 10/15/2018, Additional history exists INFLUENZA VACCINE (#1) 2025 0, 03/11/2019, 05/19/2018, Additional history exists COVID-19 VACCINE ( season) 2025 08/29/2020 HEPATITIS A VACCINES Aged Out No long er eligible based on patient's age to complete this topic HIB VACCINES Aged Out No longer eligi ble based on patient's age to complete this topic MENINGOCOCCAL VACCINES (ACWY) Aged Out No longer eligible based on patient's age to complete this topic MENINGOCOCCAL VACCINES (B) Aged Out N o longer eligible based on patient's age to complete this topic Medical Devices Not on file Procedures Procedure Name Priority Date/Time Associated Diagnosis Comments LIPID PANEL Routine 05/14/2019 11:37 AM EST Amaurosis fugax of left eye Hyperlipidemia, unspecified hyperlipidemia type BI MAMMOGRAM SCREENING WITH TOMOSYNTHESIS WITH CAD (BILATERAL) Routine 10/22/2018 11:12 AM EDT Screening breast examination from Last 3 Months or Most Recently Relevant to Health Maintenance Results * Lipid panel (05/14/2019 11:37 AM EST) HDL 60 mg/dL [facility] Comment: Interpretation <40 mg/dL: Low HDL cholesterol (major risk factor for CHD) Greater than or equal to 60 mg/dL: High HDL cholesterol ( negative risk factor for CHD) HDL - cholesterol is affected by a number of factors, e.g. smoking, excerise, hormones, sex and age. CHOLESTEROL 199 0 - 240 mg/dL [facility] TRIGLYCERIDES 139 30 - 160 mg/dL [facility] LDL 111 50 - 129 mg/dL [facility] Comment: LDL levels in terms of risk for coronary heart disease: <100 mg/dL: Optimal 100-129 mg/dL: Near or above optimal 130-159 mg/dL: Borderline high 160-189 mg/dL: High >190 mg/dL: Very High CARDIAC RISK RATIO 3.3 3.3 - 4.4 [facility] Blood 05/14/2019 11:3 7 AM EST 05/14/2019 11:39 AM EST us Noel Cooper MD LAB BLOOD BKR ORDERABLES Fi nal Result [address] [address] * BI MAMMOGRAM SCREENING WITH TOMOSYNTHESIS WITH CAD (BILATERAL) (10/22/2018 11:12 AM EDT) Anatomical Region Laterality Modality Breast Left, Breast Right, Breast Bilateral Bila teral Mammography 10/22/2018 4:36 PM EDT Impressions 10/22/2018 4:41 PM EDT No mammographic signs of malignancy. Annual screening is recommended. BI-RADS CATEGORY: 1 - Negative. DENSITY: There are scattered fibroglandular densities. POS - [facility] Narrative 10/22/2018 4:41 PM EDT Bilateral mammography is performed in conjunction with computed aided detection. 3-D tomography along with 2-D C view imaging was also performed. Comparison made to previous dated as far back as 11/14/2001 and as recent as 08/13/2015. No suspicious masses, areas of architectural distortion or suspicious microcalcifications. Procedure Note Casey Ty MD - 10/22/2018 Bilateral mammography is performed in conjunction with computed aideddetection. 3-D tomography along with 2-D C view imaging was alsoperformed. Comparison made to previous dated as far back as 11/14/2001 andas recent as 08/13/2015. No suspicious masses, areas of architectural distortion or suspiciousmicrocalcifications. IMPRESSION: No mammographic signs of malignancy. Annual screening is recommended. BI-RADS CATEGORY: 1 - Negative. DENSITY: There are scattered fibroglandular densities. POS - CD[facility]AMA Noel Cooper MD IMG MG EXAMS Final Resul t from Last 3 Months or Most Recently Relevant to Health Maintenance [facility] [place] [address] [facility] Care Teams Audio Video Tech Relationship Specialty Start Date End Date Bob Frost MD PCP - General Internal Medicine 09/09/20 Additional Source Comments The information contained in this document represents components of the legal health record. It is not the complete legal health record.[facility]
== END 2025-05-21 12:12 | disposition home or self-care (01) ==
LOC: HO.HCS 11:21
PROVIDERS: PCP Family Medicine; Visit Provider Internal Medicine Cardiovascular Disease
DX: I48.0 Paroxysmal atrial fibrillation (principal); I25.10 Atherosclerotic heart disease of native coronary artery without angina pectoris; Z95.818 Presence of other cardiac implants and grafts; E66.01 Morbid (severe) obesity due to excess calories
CPT/HCPCS: 93010; 93291; 99214

== ENCOUNTER → 2025-05-21 11:20 | Outpatient (BNVA) | payer MEDICARE, SELFPAY | PROVIDERS: PCP Family Medicine; Visit Provider Internal Medicine Cardiovascular Disease | DX: I48.0 Paroxysmal atrial fibrillation (principal); I25.10 Atherosclerotic heart disease of native coronary artery without angina pectoris; I10 Essential (primary) hypertension; E66.01 Morbid (severe) obesity due to excess calories; Z68.43 Body mass index [BMI] 50.0-59.9, adult; Z95.5 Presence of coronary angioplasty implant and graft; Z95.818 Presence of other cardiac implants and grafts | CPT/HCPCS: 93005; 99212 ==

== ENCOUNTER → 2025-05-30 16:15 | Outpatient (BNV) | payer MEDICARE, SELFPAY | PROVIDERS: PCP Advanced Practice Midwife; Visit Provider Internal Medicine Cardiovascular Disease | DX: I49.9 Cardiac arrhythmia, unspecified (principal); Z45.09 Encounter for adjustment and management of other cardiac device | CPT/HCPCS: 93298 ==